=== PATIENT | female | born 1995 | race Caucasian/White ===

== ENCOUNTER 2023-03-13 10:40 | Outpatient (OUT) | payer BC, SELFPAY ==
[2023-03-13 11:18] LABS: Estimated Average Glucose 111 mg/dL; Glycohemoglobin A1C 5.5 % (4.5-6.2)
[2023-03-13 11:26] LABS: Thyroid Stimulating Hormone 2.233 uIU/mL (0.358-3.740)
== END 2023-03-13 10:41 | disposition home or self-care (01) ==
PROVIDERS: PCP Family Medicine; Visit Provider Family Medicine
DX: R73.9 Hyperglycemia, unspecified (principal); R63.4 Abnormal weight loss
CPT/HCPCS: 36415; 83036; 84443

== ENCOUNTER 2023-09-23 19:05 | Outpatient (REF) | payer BC, SELFPAY ==
--- OUTSIDE RECORDS SUMMARY | 2023-09-23 19:09 | XMS_ITS | CCD ---
Author Organization [facility] Care Team Providers [place] Name Role Phone Karsten Caceres Unavailable TYREE ., DR MOBLEY Attending Unavailable REQUEST, DR LEMA LISTED Primary Care Unavaila ble TYREE ., DR MOBLEY Consulting Unavailable TYREE ., DR MOBLEY Admitting Unavailable TYREE ., DR MOBLEY Attending Unavailable REQUEST, NONE LISTED Primary Care Unavaila ble TYREE ., DR MOBLEY Consulting Unavailable TYREE ., DR MOBLEY Admitting Unavailable Zieber, Keny Consulting Unavailable TYREE ., DR MOBLEY Attending Unavailable PAZ, DR TOVAR Primary Care Unavailable TYREE ., DR MOBLEY Consulting Unavailable TYREE ., DR MOBLEY Admitting Unavailable TYREE ., DR MOBLEY Attending Unavailable REQUEST, NONE LISTED Primary Care Unavaila ble TYREE ., DR MOBLEY Consulting Unavailable TYREE ., DR MOBLEY Admitting Unavailable MORGOS, ADRIAN Consulting Unavailable TYREE ., DR MOBLEY Procedure Practitioner Unavail able REQUEST, DR LEMA LISTED Primary Care Unavaila ble TYREE ., DR MOBLEY Attending Unavailable TYREE ., DR MOBLEY Admitting Unavailable TYREE ., DR MOBLEY Attending Unavailable REQUEST, NONE LISTED Primary Care Unavaila ble TYREE ., DR MOBLEY Admitting Unavailable TYREE ., DR MOBLEY Attending Unavailable REQUEST, NONE LISTED Primary Care Unavaila ble TYREE ., DR MOBLEY Admitting Unavailable TYREE ., DR MOBLEY Attending Unavailable TYREE ., DR MOBLEY Consulting Unavailable REQUEST, NONE LISTED Primary Care Unavaila ble TYREE ., DR MOBLEY Admitting Unavailable TYREE ., DR MOBLEY Admitting Unavailable TYREE ., DR MOBLEY Attending Unavailable REQUEST, DR NONE LISTED Primary Care Unavaila ble TYREE ., DR MOBLEY Consulting Unavailable Medications Current Medications Medication Drug Class(es) Dates Sig (Normalized) Sig (Original) omeprazole 20 mg delayed release oral capsule (3 sources) Proton Pump Inhibitor take 1 capsule by mouth once daily Omeprazole 20 MG 1 capsule 30 minutes before morning meal Orally Once a day Active phentermine hydrochloride 37.5 mg oral tablet (4 sources) Sympathomimetic Amine Anorectic Start: 04-20-2023 take 1 tablet by mouth every twenty-four hours Phentermine HCl 37.5 MG 1 tablet Orally Once a day for 30 days PT will pay lassiter for the medication, no PA will be done Mar, Active Start: 03-23-2023 take 1 tablet by radhames th every twenty-four hours Phentermine HCl 37.5 MG 1 tablet Orally Once a day for 30 days Feb, Active Problems Active Problems Problem Classification Problem Date Documented Da te Episodic/Chronic Diabetes mellitus without complication (7 sources) Other abnormal glucose; Translations: [Hyperglycemia, unspecified] Onset: 10-20-2021 Episodic Other nutritional; endocrine; and metabolic disorders (3 sources) Abnormal weight gain Episodic Unclassified (1 source) CONTACT W/AND (SUSP) EXPOS COVID-19; Translations: [CONTACT W/AND (SUSP) EXPOS COVID-19] Onset: 01-03-2022 Past or Other Problems Problem Classification Problem Date Documented Da te Episodic/Chronic OB-related trauma to perineum and vulva (1 source) Second degree perineal laceration during delivery; Translations: [SECOND DEG PERINEAL LAC DUR DELIV] Onset: 01-03-2022 Episodic Other complications of (2 sources) Supervision of with other poor reproductive or obstetric history, third trimester; Translations: [SUP PG OTH POOR REPROD/OB HX 3RD TM] Onset: 12-27-2021 Episodic Other complications of (4 sources) Uterine size-date discrepancy, unspecified trimester; Translations: [UTERINE SZ-DATE DISCREPANCY UNS TRI] Onset: 11-18-2021 Episodic Other gastrointestinal disorders (1 source) Heartburn Onset: 11-10-2021 Resolved: 11-10-2021 Episodic Other and delivery including normal (10 sources) state, incidental; Translations: [Encounter for care and examination of lactating mother] Onset: 11-10-2021 Resolved: 11-10-2021 Episodic Other screening for suspected conditions (not mental disorders or infectious disease) (8 sources) Encounter for screening for Streptococcus B; Translations: [Encounter for screening for diabetes mellitus] Onset: 10-09-2021 Episodic Residual codes; unclassified (1 source) 39 weeks gestation of ; Translations: [39 WEEKS GESTATION OF ] Onset: 01-03-2022 Episodic Results Test Name Value Interpretation Reference Range Facil ity CBC AUTO DIFFon 12-29-2021 BASO # 0.0 103/ul Normal 0.0-0.1 [facility] Comment on above: Performed By: #### C BC #### [facility] [address] [address] [address] Sae Flores Basophils/100 WBC (Bld) 0.2 % Normal 0.2-2.0 [facility] Comment on above: Performed By: #### C BC #### [facility] [address] [place] [address] Dr. Sae Flores EO # 0.0 103/ul Normal 0.0-0.7 [facility] Comment on above: Performed By: #### C BC #### [facility] [address] [address] [address] Sae Flores Eosinophils/100 WBC (Bld) 0.1 % Critically low 0.9-7.0 [facility] Comment on above: Performed By: #### C BC #### [facility] [address] [address] [address] Sae Flores Erythrocyte distribution width (RBC) [Ratio] 13.8 % Normal 11.0-15.0 [facility] Comment on above: Performed By: #### C BC #### [facility] [address] [place] [address] Dr. Sae Flores Hematocrit (Bld) [Volume fraction] 30.2 % Critically low 36.0-48.0 [facility] Comment on above: Performed By: #### C BC #### [facility] [address] [place] [address] Dr. Sae Flores Hemoglobin (Bld) [Mass/Vol] 9.9 g/dL Critically low 12.0-16.0 [facility] Comment on above: Performed By: #### C BC #### [facility] [address] [address] [address] Sae Flores IG # 0.08 10e3/ul Critically high 0.00-0.03 [facility] Comment on above: Performed By: #### C BC #### [facility] [address] [place] [address] Dr. Sae Flores IG % 0.5 % Normal 0.0-0.5 [facility] Comment on above: Performed By: #### C BC #### [facility] [address] [place] [address] Dr. Sae Flores LYMPH # 1.6 103/ul Normal 1.2-3.8 [facility] Comment on above: Performed By: #### C BC #### [facility] [address] [place] [address] Dr. Sae Flores Lymphocytes/100 WBC (Bld) 9.4 % Critically low 20.5-60.0 [facility] Comment on above: Performed By: #### C BC #### [facility] [address] [place] [address] Dr. Sae Flores MANUAL DIFF REQ NO Normal [facility] Comment on above: Performed By: #### C BC #### [facility] [address] [place] [address] Dr. Sae Flores MCH (RBC) [Entitic mass] 29.9 pg Normal 26.7-34.0 [facility] Comment on above: Performed By: #### C BC #### [facility] [address] [place] [address] Dr. Sae Flores MCHC (RBC) [Mass/Vol] 32.8 g/dL Normal 29.9-35.2 [facility] Comment on above: Performed By: #### C BC #### [facility] [address] [place] [address] Dr. Sae Flores MCV (RBC) [Entitic vol] 91.2 fL Normal 81.0-99.0 [facility] Comment on above: Performed By: #### C BC #### [facility] [address] [address] [address] Sae Flores MONO # 1.2 103/ul Critically high 0.3-0.8 [facility] Comment on above: Performed By: #### C BC #### [facility] [address] [address] [address] Sae Flores Monocytes/100 WBC (Bld) 7.0 % Normal 1.7-12.0 [facility] Comment on above: Performed By: #### C BC #### [facility] [address] [address] [address] Sae Flores NEUT # 14.3 103/ul Critically high 1.4-6.5 [facility] Comment on above: Performed By: #### C BC #### [facility] [address] [place] [address] Dr. Sae Flores Neutrophils/100 WBC (Bld) 82.8 % Critically high 43.0-75.0 [facility] Comment on above: Performed By: #### C BC #### [facility] [address] [place] [address] Dr. Sae Flores Platelet mean volume (Bld) [Entitic vol] 9.1 fL Critically low 9.5-13.5 [facility] Comment on above: Performed By: #### C BC #### [facility] [address] [place] [address] Dr. Sae Flores PLT 207 103/ul Normal 150-450 [facility] Comment on above: Performed By: #### C BC #### [facility] [address] [address] [address] Sae Flores RBC 3.31 106/ul Critically low 4.20-5.40 [facility] Comment on above: Performed By: #### C BC #### [facility] [address] [address] [address] Sae Flores WBC 17.3 103/ul Critically high 4.0-11.0 [facility] Comment on above: Performed By: #### C BC #### [facility] [address] [place] [address] Dr. Sae Flores DRUG SCREEN RAPID (URINE)on 12-28-2021 AMP Negative Normal NEGATIVE [facility] Comment on above: Performed By: #### D RUGRPD #### [facility] [address] [place] [address] Dr. Sae Flores BAR Negative Normal NEGATIVE [facility] Comment on above: Performed By: #### D RUGRPD #### [facility] [address] [place] [address] Dr. Sae Flores BUP Negative Normal NEGATIVE [facility] Comment on above: Performed By: #### D RUGRPD #### [facility] [address] [place] [address] Dr. Sae Flores BZO Negative Normal NEGATIVE [facility] Comment on above: Performed By: #### D RUGRPD #### [facility] [address] [place] [address] Dr. Sae Flores CONSTANCE Negative Normal NEGATIVE [facility] Comment on above: Performed By: #### D RUGRPD #### [facility] [address] [place] [address] Dr. Sae Flores CUT-OFFS SEE BELOW Normal [facility] Comment on above: Result Comment: AMP (Amphetamine): 500ng/mL, BAR (Barbituates): 200 ng/mL, BZO (Benzodiazepines): 150 ng/mL, BUP (Buprenorphine): 10 ng/mL, CONSTANCE (Cocaine): 150 ng/mL, mAMP (Methamphetamine): 500 ng/mL, MTD (Methadone): 200 ng/mL, OPI (Opiates): 100 ng/mL, OXY (Oxycodone): 100 ng/mL, PCP (Phencyclidine): 25 ng/mL, PPX (Propoxyphene): 300 ng/mL, THC (Cannabinoids): 50 ng/mL, TCA (Trycyclic Antidepressants): 300 ng/mL Performed By: #### D RUGRPD #### [facility] [address] [place] [address] Dr. Sae Flores DRUG CUT HEADER DRUG CLASS TEST SYSTEM CUT-OFF CONCENTRATIONS ARE FOLLOWS: Normal [facility] Comment on above: Performed By: #### D RUGRPD #### [facility] [address] [place] [address] Dr. Sae Flores mAMP Negative Normal NEGATIVE [facility] Comment on above: Performed By: #### D RUGRPD #### [facility] [address] [place] [address] Dr. Sae Flores MTD Negative Normal NEGATIVE [facility] Comment on above: Performed By: #### D RUGRPD #### [facility] [address] [place] [address] Dr. Sae Flores OPI Negative Normal NEGATIVE [facility] Comment on above: Performed By: #### D RUGRPD #### [facility] [address] [place] [address] Dr. Sae Flores OXY Negative Normal NEGATIVE [facility] Comment on above: Performed By: #### D RUGRPD #### [facility] [address] [place] [address] Dr. Sae Flores PCP Negative Normal NEGATIVE [facility] Comment on above: Performed By: #### D RUGRPD #### [facility] [address] [place] [address] Dr. Sae Flores PPX Negative Normal NEGATIVE [facility] Comment on above: Performed By: #### D RUGRPD #### [facility] [address] [place] [address] Dr. Sae Flores TCA Negative Normal NEGATIVE [facility] Comment on above: Performed By: #### D RUGRPD #### [facility] [address] [place] [address] Dr. Sae Flores THC Negative Normal NEGATIVE [facility] Comment on above: Performed By: #### D RUGRPD #### [facility] [address] [place] [address] Dr. Sae Flores CBC AUTO DIFFon 12-27-2021 BASO # 0.0 103/ul Normal 0.0-0.1 [facility] Comment on above: Performed By: #### C BC #### [facility] [address] [place] [address] Dr. Sae Flores Basophils/100 WBC (Bld) 0.2 % Normal 0.2-2.0 [facility] Comment on above: Performed By: #### C BC #### [facility] [address] [place] [address] Dr. Sae Flores EO # 0.2 103/ul Normal 0.0-0.7 [facility] Comment on above: Performed By: #### C BC #### [facility] [address] [place] [address] Dr. Sae Flores Eosinophils/100 WBC (Bld) 1.3 % Normal 0.9-7.0 [facility] Comment on above: Performed By: #### C BC #### [facility] [address] [place] [address] Dr. Sae Flores Erythrocyte distribution width (RBC) [Ratio] 14.0 % Normal 11.0-15.0 [facility] Comment on above: Performed By: #### C BC #### [facility] [address] [place] [address] Dr. Sae Flores Hematocrit (Bld) [Volume fraction] 33.6 % Critically low 36.0-48.0 [facility] Comment on above: Performed By: #### C BC #### [facility] [address] [place] [address] Dr. Sae Flores Hemoglobin (Bld) [Mass/Vol] 11.2 g/dL Critically low 12.0-16.0 [facility] Comment on above: Performed By: #### C BC #### [facility] [address] [place] [address] Dr. Sae Flores IG # 0.08 10e3/ul Critically high 0.00-0.03 [facility] Comment on above: Performed By: #### C BC #### [facility] [address] [place] [address] Dr. Sae Flores IG % 0.7 % Critically high 0.0-0.5 [facility] Comment on above: Performed By: #### C BC #### [facility] [address] [place] [address] Dr. Sae Flores LYMPH # 1.9 103/ul Normal 1.2-3.8 [facility] Comment on above: Performed By: #### C BC #### [facility] [address] [place] [address] Dr. Sae Flores Lymphocytes/100 WBC (Bld) 16.9 % Critically low 20.5-60.0 [facility] Comment on above: Performed By: #### C BC #### [facility] [address] [place] [address] Dr. Sae Flores MANUAL DIFF REQ NO Normal [facility] Comment on above: Performed By: #### C BC #### [facility] [address] [place] [address] Dr. Sae Flores MCH (RBC) [Entitic mass] 30.0 pg Normal 26.7-34.0 [facility] Comment on above: Performed By: #### C BC #### [facility] [address] [place] [address] Dr. Sae Flores MCHC (RBC) [Mass/Vol] 33.3 g/dL Normal 29.9-35.2 [facility] Comment on above: Performed By: #### C BC #### [facility] [address] [place] [address] Dr. Sae Flores MCV (RBC) [Entitic vol] 90.1 fL Normal 81.0-99.0 [facility] Comment on above: Performed By: #### C BC #### [facility] [address] [place] [address] Dr. Sae Flores MONO # 0.8 103/ul Normal 0.3-0.8 [facility] Comment on above: Performed By: #### C BC #### [facility] [address] [place] [address] Dr. Sae Flores Monocytes/100 WBC (Bld) 7.0 % Normal 1.7-12.0 [facility] Comment on above: Performed By: #### C BC #### [facility] [address] [place] [address] Dr. Sae Flores NEUT # 8.5 103/ul Critically high 1.4-6.5 [facility] Comment on above: Performed By: #### C BC #### [facility] [address] [address] [address] Sae Flores Neutrophils/100 WBC (Bld) 73.9 % Normal 43.0-75.0 [facility] Comment on above: Performed By: #### C BC #### [facility] [address] [address] [address] Sae Flores Platelet mean volume (Bld) [Entitic vol] 10.3 fL Normal 9.5-13.5 [facility] Comment on above: Performed By: #### C BC #### [facility] [address] [place] [address] Dr. Sae Flores PLT 214 103/ul Normal 150-450 [facility] Comment on above: Performed By: #### C BC #### [facility] [address] [place] [address] Dr. Sae Flores RBC 3.73 106/ul Critically low 4.20-5.40 [facility] Comment on above: Performed By: #### C BC #### [facility] [address] [address] [address] Sae Flores WBC 11.5 103/ul Critically high 4.0-11.0 [facility] Comment on above: Performed By: #### C BC #### [facility] [address] [place] [address] Dr. Sae Flores Covid-19 PCR ([facility])on SARS-CoV-2 (COVID-19) RNA [place]+probe Ql (Unsp spec) Not detected Normal NOT DETECTED [facility] Comment on above: Result Comment: When diagnostic testing is negative, the possibility of a false negative should be considered in the context of a patient's recent exposures and the presence of clinical signs and symptoms consistent with SARS-CoV-2. This test is not yet approved or cleared by the [place] FDA. When there are no FDA-approved or cleared tests available, and other criteria are met, FDA can make tests available under an emergency access mechanism called an Emergency Use Authorization (EUA). The EUA for this test is supported by the [place] of Health and Human Service's declaration that circumstances exist to justify the emergency use of in vitro diagnostics for the detection and/or diagnosis of the virus that causes COVID-19. This EUA will remain in effect for the duration of the COVID-19 declaration justifying emergency of IVDs, unless it is terminated or revoked by the FDA (after which the test may no longer be used). Performed By: #### C VDTBH #### [facility] [address] [place] [address] Dr. Sae Flores DRUG SCREEN RAPID (URINE)on 12-27-2021 AMP Negative Normal NEGATIVE [facility] Comment on above: Performed By: #### D RUGRPD #### [facility] [address] [place] [address] Dr. Sae Flores BAR Negative Normal NEGATIVE [facility] Comment on above: Performed By: #### D RUGRPD #### [facility] [address] [place] [address] Dr. Sae Flores BUP Negative Normal NEGATIVE [facility] Comment on above: Performed By: #### D RUGRPD #### [facility] [address] [place] [address] Dr. Sae Flores BZO Negative Normal NEGATIVE [facility] Comment on above: Performed By: #### D RUGRPD #### [facility] [address] [place] [address] Dr. Sae Flores CONSTANCE Negative Normal NEGATIVE [facility] Comment on above: Performed By: #### D RUGRPD #### [facility] [address] [place] [address] Dr. Sae Flores CUT-OFFS SEE BELOW Normal [facility] Comment on above: Result Comment: AMP (Amphetamine): 500ng/mL, BAR (Barbituates): 200 ng/mL, BZO (Benzodiazepines): 150 ng/mL, BUP (Buprenorphine): 10 ng/mL, CONSTANCE (Cocaine): 150 ng/mL, mAMP (Methamphetamine): 500 ng/mL, MTD (Methadone): 200 ng/mL, OPI (Opiates): 100 ng/mL, OXY (Oxycodone): 100 ng/mL, PCP (Phencyclidine): 25 ng/mL, PPX (Propoxyphene): 300 ng/mL, THC (Cannabinoids): 50 ng/mL, TCA (Trycyclic Antidepressants): 300 ng/mL Performed By: #### D RUGRPD #### [facility] [address] [place] [address] Dr. Sae Flores DRUG CUT HEADER DRUG CLASS TEST SYSTEM CUT-OFF CONCENTRATIONS ARE FOLLOWS: Normal [facility] Comment on above: Performed By: #### D RUGRPD #### [facility] [address] [place] [address] Dr. Sae Flores mAMP Negative Normal NEGATIVE [facility] Comment on above: Performed By: #### D RUGRPD #### [facility] [address] [place] [address] Dr. Sae Flores MTD Negative Normal NEGATIVE [facility] Comment on above: Performed By: #### D RUGRPD #### [facility] [address] [place] [address] Dr. Sae Flores OPI Negative Normal NEGATIVE [facility] Comment on above: Result Comment: Prev iously reported as: POSITIVE On 12/27/2021 20:19 By MH01 Performed By: #### D RUGRPD #### [facility] [address] [place] [address] Dr. Sae Flores OXY Negative Normal NEGATIVE [facility] Comment on above: Performed By: #### D RUGRPD #### [facility] [address] [place] [address] Dr. Sae Flores PCP Negative Normal NEGATIVE [facility] Comment on above: Performed By: #### D RUGRPD #### [facility] [address] [place] [address] Dr. Sae Flores PPX Negative Normal NEGATIVE [facility] Comment on above: Performed By: #### D RUGRPD #### [facility] [address] [place] [address] Dr. Sae Flores TCA Negative Normal NEGATIVE [facility] Comment on above: Performed By: #### D RUGRPD #### [facility] [address] [address] [address] Sae Flores THC Negative Normal NEGATIVE [facility] Comment on above: Performed By: #### D RUGRPD #### [facility] [address] [address] [address] Sae Flores TYPE AND SCREENon 12-27-2021 TYPE AND SCREEN Negative Normal [facility] Comment on above: Performed By: #### T NS #### [facility] [address] [address] [address] Sae Flores GROUP B STREP CULTUREon S. agalactiae Ag Ql (Unsp spec) Culture Observations: NEGATIVE FOR GROUP B STREPTOCOCCUS. Normal [facility] Comment on above: Performed By: #### G BSCX #### [facility] [address] [place] [address] Dr. Sae Flores US PREG GROWTHon 11-18-2021 US PREG GROWTH EXAMINATION: US PREG GROWTH HISTORY: Uterine size for dates discrepancy COMPARISON: Ultrasound anatomy 08/25/2021 FINDINGS: Heart Rate: 152.0 bpm Number: 1.0 Position: CEPHALIC Amniotic Fluid Volume: 12.0 cm Maximum Vertical Pocket: 4.7 cm BIOMETRY: BPD: 8.2 cm cm; 32 weeks 6 days; 23% HC: 29.9 cmcm; 33 weeks 1 days; 7 % AC: 29.4 cm cm; 33 weeks 3 days; 43% FL: 6.4 cm cm; 33 weeks 2 days; 27% EFW: 2155.4 grams; 29% FL/AC: 21.9 FL/BPD: 78.7 HC/AC: 1.0 GESTATIONAL AGE: Age by EDC: 33 weeks 5 days TATA by EDC: 01/01/2022 Age by US: 33 weeks, 1 day TATA by US: 01/05/2022 IMPRESSION: 1. Single live intrauterine with growth detailed above. Electronically authenticated by: KENY CESPEDES Date: 2021-11-18 16:40 Normal [facility] GTT 3 HR PREGon 10-20-2021 Glucose [Mass/Vol] 93 mg/dL Normal 74-106 [facility] [facility] Comment on above: Performed By: #### G TT3P #### [facility] [address] [address] [address] Sae Flores Glucose [Mass/Vol] 164 mg/dL Normal [facility] Comment on above: Performed By: #### G TT3P #### [facility] [address] [address] [address] Sae Flores Glucose [Mass/Vol] 116 mg/dL Normal [facility] Comment on above: Performed By: #### G TT3P #### [facility] [address] [place] [address] Dr. Sae Flores Glucose [Mass/Vol] 83 mg/dL Normal [facility] Comment on above: Performed By: #### G TT3P #### [facility] [address] [place] [address] Dr. Sae Flores GLUCOSE - 1HRon 10-09-2021 Glucose [Mass/Vol] 176 mg/dL Critically high 74-106 [facility] Comment on above: Performed By: #### G LU1HR #### [facility] [address] [place] [address] Dr. Sae Flores HEMOGRAM AND PLATELon 2021 Hematocrit (Bld) [Volume fraction] 33.6 % Critically low 36.0-48.0 [facility] Comment on above: Performed By: #### H H #### [facility] [address] [place] [address] Dr. Sae Flores Hemoglobin (Bld) [Mass/Vol] 11.0 g/dL Critically low 12.0-16.0 [facility] Comment on above: Performed By: #### H H #### [facility] [address] [place] [address] Dr. Sae Flores MCH (RBC) [Entitic mass] 30.6 pg Normal 26.7-34.0 [facility] Comment on above: Performed By: #### H H #### [facility] [address] [place] [address] Dr. Sae Flores MCHC (RBC) [Mass/Vol] 32.7 g/dL Normal 29.9-35.2 [facility] Comment on above: Performed By: #### H H #### [facility] [address] [address] [address] Sae Flores MCV (RBC) [Entitic vol] 93.3 fL Normal 81.0-99.0 [facility] Comment on above: Performed By: #### H H #### [facility] [address] [address] [address] Sae Flores PLT 219 103/ul Normal 150-450 [facility] Comment on above: Performed By: #### H H #### [facility] [address] [address] [address] Sae Flores RBC 3.60 106/ul Critically low 4.20-5.40 [facility] Comment on above: Performed By: #### H H #### [facility] [address] [address] [address] Sae Flores WBC 9.4 103/ul Normal 4.0-11.0 [facility] Comment on above: Performed By: #### H H #### [facility] [address] [address] [address] Sae Flores Vital Signs Date Time Vital Sign Value Performing Clinician Facility 04-20-2023 15:40-0500 Body height 167 cm Karsten Caceres Other [facility] Other 04-20-2023 15:40-0500 Body mass index (BMI) [Ratio] 30.54 kg/m2 Karsten Caceres Other [facility] Other 04-20-2023 15:40-0500 Body weight 85.19 kg Karsten Cacrees Other [facility] Other 04-20-2023 15:40-0500 Diastolic blood pressure 82 mm[Hg] Karsten Caceres Other [facility] Other 04-20-2023 15:40-0500 Systolic blood pressure 120 mm[Hg] Karsten Caceres Other [facility] Other 03-23-2023 15:40-0500 Body height 167 cm Karsten Francinedom Other [facility] Other 03-23-2023 15:40-0500 Body mass index (BMI) [Ratio] 31.87 kg/m2 Karsten Caceres Other [facility] Other 03-23-2023 15:40-0500 Body temperature 98.2 [degF] Karsten Francineodm Other [facility] Other 03-23-2023 15:40-0500 Body weight 88.91 kg Karsten Francinedom Other [facility] Other 03-23-2023 15:40-0500 Diastolic blood pressure 76 mm[Hg] Karsten Caceres Other [facility] Other 03-23-2023 15:40-0500 Respiratory rate 16 /min Karsten Caceres Other [facility] Other 03-23-2023 15:40-0500 SaO2% (BldA) [Mass fraction] 97 % Karsten Francinedom Other [facility] Other 03-23-2023 15:40-0500 Systolic blood pressure 108 mm[Hg] Karsten Caceres Other [facility] Other 11-10-2021 10:50-0400 Body height 167 cm Karsten Caceres Other [facility] Other 11-10-2021 10:50-0400 Body mass index (BMI) [Ratio] 31.87 kg/m2 Karsten Caceres Other [facility] Other 11-10-2021 10:50-0400 Body temperature 98.6 [degF] Karsten Caceres Other [facility] Other 11-10-2021 10:50-0400 Body weight 88.91 kg Karsten Caceres Other [facility] Other 11-10-2021 10:50-0400 Diastolic blood pressure 70 mm[Hg] Karsten Caceres Other [facility] Other 11-10-2021 10:50-0400 Respiratory rate 16 /min Karsten Caceres Other [facility] Other 11-10-2021 10:50-0400 SaO2% (BldA) [Mass fraction] 98 % Karsten Caceres Other [facility] Other 11-10-2021 10:50-0400 Systolic blood pressure 112 mm[Hg] Karsten Caceres Other [facility] Other Encounters Encounter Date Encounter Type Care Provider Facility Start: 05-20-2023 End: 05-20-2023 ambulatory Karsten Caceres Other [facility] Other Start: 05-20-2023 Office outpatient vi sit 15 minutes Karsten Caceres [facility] Start: 04-20-2023 End: 04-20-2023 ambulatory Karsten Caceres Other [facility] Other Start: 04-20-2023 Telephone encounter Karsten Caceres [facility] Start: 04-06-2023 End: 04-06-2023 ambulatory Karsten Caceres Other [facility] Other Start: 04-06-2023 Telephone encounter Karsten Caceres [facility] Start: 03-23-2023 End: 03-23-2023 ambulatory Karsten Caceres Other [facility] Other Start: 03-23-2023 Office outpatient vi sit 15 minutes Karsten Caceres [facility] Start: 10-20-2022 End: 10-20-2022 ambulatory Karsten Caceres Other [facility] Other Start: 10-20-2022 Telephone encounter Karsten Caceres [facility] Start: 09-09-2022 End: 09-09-[address] ITZ SALINAS . Facility:[facility] Start: 02-12-2022 End: 02-12-[address] ITZ SALINAS . Facility:[facility] Start: 01-02-2022 End: 01-02-[address] ITZ SALINAS . Facility:[facility] Start: 01-01-2022 Evaluation and management of inpatient NONE LISTED REQUEST Facility:[facility] Start: 12-30-2021 End: 12-30-2021 ambulatory Karsten Caceres Other [facility] Other Start: 12-30-2021 Telephone encounter Karsten Caceres [facility] Start: 12-27-2021 End: 12-30-2021 Evaluation and management of inpatient DR ITZ SALINAS . Facility:[facility] Start: 12-02-2021 End: 12-02-[address] ITZ SALINAS . Facility:[facility] Start: 11-18-2021 End: 11-19-[address] ITZ SALINAS . Facility:[facility] Start: 11-10-2021 End: 11-10-2021 ambulatory Karsten Caceres Other [facility] Other Start: 11-10-2021 Encounter for genera l adult medical examination without abnormal findings Karsten Caceres [facility] Start: 11-10-2021 Periodic preventive med est patient 18-39 yrs Karsten Caceres [facility] Start: 10-20-2021 End: 10-21-[address] ITZ SALINAS . Facility:[facility] Start: 10-09-2021 End: 10-10-[address] ITZ SLAINAS . Facility: Procedures Date Procedure Procedure Detail Performing Clinician Start: 12-28-2021 Delivery of Products of Conception, External Approach DR ITZ SALINAS . Start: 12-28-2021 Division of Female P erineum, External Approach DR TIZ SALINAS . Start: 12-28-2021 Drainage of Amniotic Fluid, Therapeutic from Products of Conception, Via Natural or Artificial Opening DR ITZ SALINAS . Start: 12-28-2021 Repair Perineum Musc le, Open Approach DR ITZ SALINAS . Start: 12-27-2021 Introduction of Othe r Hormone into Peripheral Vein, Percutaneous Approach DR ITZ SALINAS . Payers Date Payer Category Payer Unknown [id number] [id number] [id number] 1994 Unknown [id number] 2.16.84 [id number] 1994 Unknown [id number] 2.16.84 [id number] 1994 Unknown [id number] 2.16.84 [id number] 1994 Unknown [id number] 2.16.84 [id number] 1994 Unknown [id number] 2.16.84 [id number] 1994 Unknown [id number] 2.16.84 [id number] 1994 Unknown [id number] 2.16.84 [id number] 1994 Unknown [id number] 2.16.84 [id number] 1960 [id number] Social History Date Type Detail Facility Unknown if ever smoked [facility] Other Sex Assigned At Sex Assigned At Bir th [facility] Other Evaluation note 05-20-2023 Note Date & Type Note Facility 05-20-2023 Evaluation note Encounter Date Diagnosis Assessment Notes Apr, Hyperglycemia (ICD-10 - R73.9) Anticipate that dietary changes and weight loss will help improve her blood sugar readings. Apr, Weight gain (ICD-10 - R63.5) Her weight in the office on 05/20/23 was 189 pounds. She needs to have lost another 2 pounds (total of 9 pounds) by the end of the third month in order to continue with the Adipex. She continues to do well on the medication and should continue to watch her intake of carbs and sugars. She states that the dry mouth continues to be a little bit of a problem but it is not as bad as it was. She is to stay well hydrated. She will return in one month for re-evaluation. She was provided with a refill today. Side effects/risks/be nefits of medication were reviewed. Apr, Other This documentation is being amended on 05/26/23 due to an internal data corruption event that occurred on 05/20/23. This data corruption event was NOT the result of any breach, fraud, or malicious third republican actors and no personal patient information was compromised. [facility] Other Evaluation note 04-20-2023 Note Date & Type Note Facility 04-20-2023 Evaluation note Encounter Date Diagnosis Assessment Notes Mar, Hyperglycemia (ICD-10 - R73.9) Anticipate that weight loss will help to improve her blood sugar. Mar, Weight gain (ICD-10 - R63.5) She has lost 8.2 pounds since last seen and is doing well on the Adipex. She needs to have lost 9 pounds by 3 months in order to continue with the Adipex so she has almost reached that goal. She voices that feeling better and having more energy is her goal. She would like to continue with the Adipex. She is to return as scheduled in April (2023). Side effects/risks /benefits of medication were reviewed. She has had dry mouth from the Adipex but admits this is keeping her very hydrated and I did recommend she stay hydrated with plenty of water daily. She can tell that the medication is helping to decrease her appetite. She has decreased her portion size. Mar, Other 3:55 PM - 4:00 PM [facility] Other Evaluation note 03-23-2023 Note Date & Type Note Facility 03-23-2023 Evaluation note Encounter Date Diagnosis Assessment Notes Feb, Hyperglycemia (ICD-10 - R73.9) Discussed that her HgA1C has gone down from 5.6 to 5.5. She is encouraged to continue to monitor her intake of carbs and sugars. Stay active. Feb, Weight gain (ICD-10 - R63.5) She has gained four pounds since last seen. She voices that she started control in 2017. She was active at the time and climbed many stairs to her apartment at the time so she did not notice any weight gain with the control. Going into her she was 170 pounds. She has not been able to lose weight since she had her daughter. Her TSH is normal at 2.233. She has been doing better with watching her intake of carbs and sugars. She had cut out dairy during months 3-7 of her daughter and while she did this and even during the she did not lose any weight. She is not any longer. We discussed starting her on Adipex to help with weight loss. Side effects/risks/be nefits of medication were reviewed. She would have to call with a blood pressure reading in one week and would have to be seen once a month for evaluation. She would need to make lifestyle and dietary changes that she can continue with once she has finished the medication to keep the weight she has lost off. While on this medication avoid caffeine. If by 3 months she has lost 5% of her body weight (9 pounds) then she can continue with the medicine. [facility] Other Evaluation note 11-10-2021 Note Date & Type Note Facility 11-10-2021 Evaluation note Encounter Date Diagnosis Assessment Notes Oct, Wellness examination (ICD-10 - Z00.00) She is here for a wellness exam today. After evaluation I did sign her wellness form. She voices that she had lab completed through her employer. I did ask her to send us a copy of the results. Oct, (ICD-10 - Z33.1) She is currently 32 weeks , she follows with Dr. Salinas for evaluation. She did fail her first glucose tolerance test but passed her second. I did explain to her that this puts her at higher risk for developing diabetes down the road. 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 Oct, Heartburn (ICD-10 - R12) She voices that she was prescribed above medication by Dr. Salinas her customer service operator for the heartburn she has. [facility] Other History general Narrative - Reported 11-15-2012 Note Date & Type Note Facility 11-15-2012 History general N arrative - Reported Type Medical History Meningitis/Menactra 11-15-12 [facility] Medical History Adacel (Tdap) 11-15-12 [facility] Surgical History wisdom teeth removed 2015 [facility] Other History general Narrative - Reported 11-15-2012 Note Date & Type Note Facility 11-15-2012 History general N arrative - Reported Type Medical History Meningitis/Menactra 11-15-12 [facility] Medical History Adacel (Tdap) 11-15-12 [facility] Surgical History wisdom teeth removed 2015 Hospitalization History Childbirth 12/28/2021 [facility] Other Evaluation note Note Date & Type Note Facility Evaluation note No Information [facility] Other Summary Purpose Family History No Family History Records Found Advance Directives No Advanced Directives Records Found Additional Source Comments REASON FOR VISIT (unrecogniz ed section and content) wellnessnewbornnotereview la bsBPmanagement of Hyperglycemia, refill medicationmed refill Adipex INFORMATION SOURCE (unrecogn ized section and content) DATE CREATED AUTHOR 09/10/2022 [facility] FOR RECORDS PERTAINING TO PATIENTS WHO ARE OR HAVE BEEN ENROLLED IN A CHEMICAL DEPENDENCY/SUBSTANCEABUSE PROGRAM, SOME INFORMATION MAY BE OMITTED. This clinical summary was aggregated from multiple sources. Caution should be exercised in using it in the provision of clinical care. This summary normalizes information from multiple sources, and as a consequence, information in this document may materially change the coding, format and clinical context of patient data. In addition, data may be omitted in some cases. CLINICAL DECISIONS SHOULD BE BASED ON THE PRIMARY CLINICAL RECORDS. [facility]. provides no warranty or guarantee of the accuracy or completeness of information in this document.
[2023-09-28 12:09] LABS: Age Gdln ACOG Testing Note (.); IGP, rfx Aptima HPV ASCU Note (.)
== END 2023-09-23 19:06 | disposition home or self-care (01) ==
LOC: LAB 19:05
PROVIDERS: PCP Family Medicine; Visit Provider Obstetrics & Gynecology
DX: Z01.419 Encounter for gynecological examination (general) (routine) without abnormal findings (principal)
CPT/HCPCS: 88175

== ENCOUNTER 2024-06-15 12:08 | Outpatient (OUT) | payer BC, SELFPAY ==
--- OUTSIDE RECORDS SUMMARY | 2024-06-15 12:17 | XMS_ITS | CCD ---
Author Organization [facility]ini[facility] Care Team Providers Care Product Communications Manager Name Role Phone Karsten Caceres BRAD ., DR MOBLEY Attending Unavailable REQUEST, DR LEMA LISTED Primary Care Unavaila ble BRAD ., DR MOBLEY Consulting Unavailable BRAD ., DR MOBLEY Admitting Unavailable BRAD ., DR MOBLEY Attending Unavailable REQUEST, NONE LISTED Primary Care Unavaila ble BRAD ., DR MOBLEY Consulting Unavailable BRAD ., DR MOBLEY Admitting Unavailable Zieber, Keny Consulting Unavailable BRAD ., DR MOBLEY Attending Unavailable PAZ, DR TOVAR Primary Care Unavailable BRAD ., DR MOBLEY Consulting Unavailable BRAD ., DR MOBLEY Admitting Unavailable BRAD ., DR MOBLEY Attending Unavailable REQUEST, DR NONE LISTED Primary Care Unavaila ble BRAD ., DR MOBLEY Consulting Unavailable BRAD ., DR MOBLEY Admitting Unavailable MORGOS, ADRIAN Consulting Unavailable BRAD ., DR MOBLEY Procedure Practitioner Unavail able REQUEST, DR LEMA LISTED Primary Care Unavaila ble BRAD ., DR MOBLEY Attending Unavailable BRAD ., DR MOBLEY Admitting Unavailable BRAD ., DR MOBLEY Attending Unavailable REQUEST, NONE LISTED Primary Care Unavaila ble BRAD ., DR MOBLEY Admitting Unavailable BRAD ., DR MOBLEY Attending Unavailable REQUEST, NONE LISTED Primary Care Unavaila ble BRAD ., DR MOBLEY Admitting Unavailable BRAD ., DR MOBLEY Attending Unavailable BRAD ., DR MOBLEY Consulting Unavailable REQUEST, NONE LISTED Primary Care Unavaila ble BRAD ., DR MOBLEY Admitting Unavailable BRAD ., DR MOBLEY Admitting Unavailable BRAD ., DR MOBLEY Attending Unavailable REQUEST, DR NONE LISTED Primary Care Unavaila ble BRAD ., DR MOBLEY Consulting Unavailable Paz ROQUE, Karsten Silverio Primary Care Provider ITZ SALINAS Attending Unavailable ITZ SALINAS Attending Unavailable Medications Current Medications Medication Drug Class(es) Dates Sig (Normalized) Sig (Original) omeprazole 20 mg delayed release oral capsule (3 sources) Proton Pump Inhibitor take 1 capsule by mouth once daily Omeprazole 20 MG 1 capsule 30 minutes before morning meal Orally Once a day Active Completed/Discontinued Medications Medication Drug Class(es) Dates Sig (Normalized) Sig (Original) desogestrel 0.15 mg / ethinyl estradiol 0.03 mg oral tablet (1 source) Progestin, Estrogen Start: 11-15-2023 End: 05-04-2024 desogestrel-ethiny l estradiol (Apri) 0.15-30 MG-MCG tablet Indications: control counseling Take 1 tablet by mouth Daily 28 tablet 12 11/15/2023 05/04/2024 Discontinued (Therapy completed) norethindrone 0.35 mg oral tablet (3 sources) Start: 06-21-2023 End: 05-04-2024 take 1 tablet by mouth once daily norethindrone (Incassia) 0.35 MG tablet Indications: Uses control Take 1 tablet (0.35 mg) by mouth Daily 28 tablet 09/06/2023 05/04/2024 Discontinued (Ineffective) phentermine hydrochloride 37.5 mg oral tablet (17 sources) Sympathomimetic Amine Anorectic Start: 06-21-2023 End: 12-21-2023 take 37.5 mg by mouth once daily Phentermine Discontinued 37.5 MG PO Daily October 29, 2023 11:07am December 21, 2023 9:35am Start: 04-20-2023 take 1 tablet by radhames th every twenty-four hours Phentermine HCl 37.5 MG 1 tablet Orally Once a day for 30 days PT will pay lassiter for the medication, no PA will be done Mar, Active Start: 03-23-2023 End: 05-04-2024 take 1 tablet by mouth every twenty-four hours Phentermine HCl 37.5 MG 1 tablet Orally Once a day for 30 days Feb, Active Problems Active Problems Problem Classification Problem Date Documented Date Episodic/Chronic Diabetes mellitus without complication (12 sources) Other abnormal glucose; Translations: [Hyperglycemia, unspecified] Onset: 10-20-2021 Episodic Intestinal infection (2 sources) Viral gastroenteritis due to [place]-like agent; Translations: [Acute gastroenteropathy due to [place] agent] 06-21-2023 Episodic Menstrual disorders (1 source) Missed period; Translations: [Irregular menstruation, unspecified] 05-05-2024 Chronic Other nutritional; endocrine; and metabolic disorders (6 sources) Abnormal weight gain; Translations: [Abnormal weight gain] Episodic Other nutritional; endocrine; and metabolic disorders (2 sources) Weight gain; Translations: [Abnormal weight gain] 06-21-2023 Episodic Other and delivery including normal (14 sources) state, incidental; Translations: [Encounter for care and examination of lactating mother] Onset: 11-10-2021 Resolved: 11-10-2021 Episodic Residual codes; unclassified (1 source) Gestation period, 9 weeks; Translations: [9 weeks gestation of ] 05-05-2024 Episodic Residual codes; unclassified (2 sources) Gestation period, 14 weeks; Translations: [14 weeks gestation of ] 06-06-2024 Episodic Spondylosis; intervertebral disc disorders; other back problems (2 sources) Low back pain; Translations: [Lumbar back pain] 12-21-2023 Episodic Unclassified (1 source) CONTACT W/AND (SUSP) EXPOS COVID-19; Translations: [CONTACT W/AND (SUSP) EXPOS COVID-19] Onset: 01-03-2022 Unclassified (2 sources) OB Reminders Onset: 06-06-2024 06-06-2024 Past or Other Problems Problem Classification Problem [...] Heartburn Onset: 11-10-2021 Resolved: 11-10-2021 Episodic Other screening for suspected conditions (not mental disorders or infectious disease) (8 sources) Encounter for screening for Streptococcus B; Translations: [Encounter for screening for diabetes mellitus] Onset: 10-09-2021 Episodic Residual codes; unclassified (1 source) 39 weeks gestation of ; Translations: [39 WEEKS GESTATION OF ] Onset: 01-03-2022 Episodic Results Test Name Value Interpretation Reference Range Facility Urinalysis macro (dipstick) panel (U)on 06-06-2024 Bilirubin, UA Negative Negative - 4(70) +++ mg/dL [facility] Blood, UA Negative Negative - 50 Jay/mcL [facility] Clarity, UA Clear formerly [facility] re Color, UA Yellow [facility] Glucose, UA Negative Negative - 1999(110) ++++ mg/dL [facility] Interpretation and review of laboratory results Abnormal formerly [facility] re Ketones, UA Negative Negative - 160(16) ++++ mg/dL [facility] Leukocytes, UA Negative Negative - 500+++ Kate/mcL [facility] Nitrite, UA Negative Negative - Positive [facility] pH, UA 6.5 5 - 9 [facility] Protein, UA Trace Negative - 1999(20) ++++ mg/dL [facility] Spec Grav, UA 1.03 1 - 1.03 [facility] Urobilinogen, UA 0.2 0.2 - 12 mg/dL [facility] HCG ( test) Ql (U)o n 05-05-2024 Interpretation and review of laboratory results Abnormal formerly [facility] re Preg Test, Ur [facility] OB TRANSVAGINALon 025 US OB TRANSVAGINAL TITLE OF EXAM: OB Ultrasound: REASON FOR EXAM: Confirm dates. COMPARISON: None TECHNIQUE: Grayscale and M-mode Doppler imaging is performed. FINDINGS: Measurements: heart rate: 162 bpm Sac: 2.7 cm CRL: 1.6 cm GA for sonogram: 7.9 wk (07.3-08.6) Cervix Length: 3.7 cm TATA: 12/15/2024 Anatomy Observed: Gestational Sac: Visualized Yolk Sac: Visualized Pole: Visualized Cardiac Activity: Visualized 161 bpm Uterus: Normal Uterine Position: Retroverted, Retroflexed Right Ovary: Corpus Luteal 3.3 x 1.8 x 3.0 cm Volume: 9.4 cc Left Ovary: Normal 3.2 x 1.8 x 2.6 cm Volume: 7.6 cc Cervical Length: 3.7 Closed IMPRESSION: Single live intrauterine gestation estimated at 7.9 weeks. Dictated and transcribed 05/05/24/dpd This report has been electronically signed and approved by the interpreting radiologist. Normal Not Available Comment on above: Order Comment: US OB TRANSVAGINAL No LMP recorded. Urinalysis macro (dipstick) panel (U)on 05-05-2024 Bilirubin, UA Positive Negative - 4(70) +++ mg/dL [facility] Comment on above: small Blood, UA Negative Negative - 50 Jay/mcL [facility] Clarity, UA Clear [facility] re Color, UA Yellow [facility] Glucose, UA Negative Negative - 2000(110) ++++ mg/dL [facility] Interpretation and review of laboratory results Abnormal [facility] re Ketones, UA Positive Negative - 160(16) ++++ mg/dL [facility] Comment on above: trace Leukocytes, UA Negative Negative - 500+++ Kate/mcL [facility] Nitrite, UA Negative Negative - Positive [facility] pH, UA 5.5 5 - 9 [email or web address] Protein, UA Positive Negative - 2000(20) ++++ mg/dL [facility] Comment on above: 30 Spec Grav, UA 1.03 1 - 1.03 [facility] Urobilinogen, UA 0.2 0.2 - 12 mg/dL [facility] Human papilloma virus 16+18+ 31+33+35+39+45+51+52+56+58+59+66+68 DNA [Presence] in Veronica 09-23-2023 HPV 16+18+31+33+35+39+4 5+51+52+56+58+59+66 +68 DNA Probe+sig amp Ql (Cvx) Note . [facility] Comment on above: TESTS RESULT FLAG UN ITS REF RANGE LAB YURI GNOSIS: 02 NEGATIVE FOR INTRAEPITHELIAL LESION OR MALIGNANCY.Specimen adequacy: 02 Satisfactory for evaluation. Endocervical and/or squamous metaplastic cells (endocervical component) are present.Performed by: 02 Eddie Calles, Paper Maker ([facility]). 02Note: Note 02 The Pap smear is a screening test designed to aid in the detection of premalignant and malignant conditions of the uterine cervix. It is not a diagnostic procedure and should not be used as the sole means of detecting cervical cancer. Both false-positive and false-negative reports do occur.Test Methodology: Note 02 This liquid based ThinPrep(R) pap test was screened with the use of an image guided system.. 02 The HPV DNA reflex criteria were not met with this specimen result therefore, no HPV testing was performed. ---- FLAG LEGEND: L-Low Normal,H-High Normal,LL-Alert Low,HH-Alert High <-Panic Low,>-Panic High,A-Abnormal,AA-Critical Abnormal --Performed at:02 [facility] [address] [place] [address] Jessie Zarate MD, Wnlgexnjd at: =G - [facility] [address] [place], [place] [id number] Director: Jessie Zarate MD, Phone: [phone] at: WB - [facility] [address], [place] [id number] Director: Jessie Zarate MD, Phone: [phone] No Panel Informationon 09-22 Reference Lab Test Patient Age Note . [facility] Comment on above: TESTS RESULT FLAG UN ITS REF RANGE LAB Clinician Provided Cytology Information Source.............Cervix;Endocervix No. of containers..01 ThinPrep VialAge Algo ACOG Josette... FLAG LEGEND: L-Low Normal,H-High Normal,LL-Alert Low,HH-Alert High <-Panic Low,>-Panic High,A-Abnormal,AA-Critical Abnormal --Performed at:01 =G [address] [address] Jessie Zarate MD, CBC AUTO DIFFon 12-29-2021 BASO # 0.0 103/ul Normal 0.0-0.1 [facility] Comment on above: Performed By: #### C BC #### [facility] [address] [place] [address] Dr. Sae Flores Basophils/100 WBC (Bld) 0.2 % Normal 0.2-2.0 [facility] Comment on above: Performed By: #### C BC #### [facility] [address] [place] [address] Dr. Sae Flores EO # 0.0 103/ul Normal 0.0-0.7 [facility] Comment on above: Performed By: #### C BC #### [facility] [address] [place] [address] Dr. Sae Flores Eosinophils/100 WBC (Bld) 0.1 % Critically low 0.9-7.0 [facility] Comment on above: Performed By: #### C BC #### [facility] [address] [place] [address] Dr. Sae Flores Erythrocyte distribution width (RBC) [Ratio] 13.8 % Normal 11.0-15.0 [facility] Comment on above: Performed By: #### C BC #### [facility] [address] [place] [address] Dr. Sae Flores Hematocrit (Bld) [Volume fraction] 30.2 % Critically low 36.0-48.0 [facility] Comment on above: Performed By: #### C BC #### [facility] [address] [place] [address] Dr. Sae Flores Hemoglobin (Bld) [Mass/Vol] 9.9 g/dL Critically low 12.0-16.0 [facility] Comment on above: Performed By: #### C BC #### [facility] [address] [place] [address] Dr. Sae Flores IG # 0.08 10e3/ul Critically high 0.00-0.03 [facility] Comment on above: Performed By: #### C BC #### [facility] [address] [place] [address] Dr. Sae Flores IG % 0.5 % Normal 0.0-0.5 [facility] Comment on above: Performed By: #### C BC #### [facility] [address] [place] [address] Dr. Sae Flores LYMPH # 1.6 103/ul Normal 1.2-3.8 [facility] Comment on above: Performed By: #### C BC #### [facility] [address] [place] [address] Dr. Sae Flores Lymphocytes/100 WBC (Bld) 9.4 % Critically low 20.5-60.0 [facility] Comment on above: Performed By: #### C BC #### [facility] [address] [place] [address] Dr. Sae Flores MANUAL DIFF REQ NO Normal [facility] Comment on above: Performed By: #### C BC #### [facility] [address] [place] [address] Dr. Sae Flores MCH (RBC) [Entitic mass] 29.9 pg Normal 26.7-34.0 [facility] Comment on above: Performed By: #### C BC #### [facility] [address] [place] [address] Dr. Sae Flores MCHC (RBC) [Mass/Vol] 32.8 g/dL Normal 29.9-35.2 [facility] Comment on above: Performed By: #### C BC #### [facility] [address] [place] [address] Dr. Sae Flores MCV (RBC) [Entitic vol] 91.2 fL Normal 81.0-99.0 [facility] Comment on above: Performed By: #### C BC #### [facility] [address] [place] [address] Dr. Sae Flores MONO # 1.2 103/ul Critically high 0.3-0.8 [facility] Comment on above: Performed By: #### C BC #### [facility] [address] [place] [address] Dr. Sae Flores Monocytes/100 WBC (Bld) 7.0 % Normal 1.7-12.0 [facility] Comment on above: Performed By: #### C BC #### [facility] [address] [place] [address] Dr. Sae Flores NEUT # 14.3 103/ul Critically high 1.4-6.5 [facility] Comment on above: Performed By: #### C BC #### [facility] [address] [place] [address] Dr. Sae Flores Neutrophils/100 WBC (Bld) 82.8 % Critically high 43.0-75.0 [facility] Comment on above: Performed By: #### C BC #### [facility] [address] [place] [address] Dr. Sae Flores Platelet mean volume (Bld) [Entitic vol] 9.1 fL Critically low 9.5-13.5 [facility] Comment on above: Performed By: #### C BC #### [facility] [address] [address] [address] Sae Flores PLT 207 103/ul Normal 150-450 [facility] Comment on above: Performed By: #### C BC #### [facility] [address] [address] [address] Sae Flores RBC 3.31 106/ul Critically low 4.20-5.40 [facility] Comment on above: Performed By: #### C BC #### [facility] [address] [address] [address] Sae Flores WBC 17.3 103/ul Critically high 4.0-11.0 [facility] Comment on above: Performed By: #### C BC #### [facility] [address] [address] [address] Sae Flores DRUG SCREEN RAPID (URINE)on 12-28-2021 AMP Negative Normal NEGATIVE [facility] Comment on above: Performed By: #### D RUGRPD #### [facility] [address] [place] [address] Dr. Sae Flores BAR Negative Normal NEGATIVE [facility] Comment on above: Performed By: #### D RUGRPD #### [facility] [address] [place] [address] Dr. Sae Flores BUP Negative Normal NEGATIVE [facility] Comment on above: Performed By: #### D RUGRPD #### [facility] [address] [place] [address] Dr. aSe Flores BZO Negative Normal NEGATIVE [facility] Comment on above: Performed By: #### D RUGRPD #### [facility] [address] [place] [address] Dr. Sae Flores CONSTANCE Negative Normal NEGATIVE [facility] Comment on above: Performed By: #### D RUGRPD #### [facility] [address] [place] [address] Dr. Sae Flores CUT-OFFS SEE BELOW Normal [facility] Comment on above: Result Comment: AMP (Amphetamine): 500ng/mL, BAR (Barbituates): 200 ng/mL, BZO (Benzodiazepines): 150 ng/mL, BUP (Buprenorphine): 10 ng/mL, CONSTANCE (Cocaine): 150 ng/mL, mAMP (Methamphetamine): 500 ng/mL, MTD (Methadone): 200 ng/mL, OPI (Opiates): 100 ng/mL, OXY (Oxycodone): 100 ng/mL, PCP (Phencyclidine): 25 ng/mL, PPX (Propoxyphene): 300 ng/mL, THC (Cannabinoids): 50 ng/mL, TCA (Trycyclic Antidepressants): 300 ng/mL Performed By: #### D RUGRPD #### [facility] [address] [place] [address] Dr. Sae Flores DRUG CUT HEADER DRUG CLASS TEST SYSTEM CUT-OFF CONCENTRATIONS ARE FOLLOWS: Normal [facility] Comment on above: Performed By: #### D RUGRPD #### [facility] [address] [place] [address] Dr. Sae Flores mAMP Negative Normal NEGATIVE [facility] Comment on above: Performed By: #### D RUGRPD #### [facility] [address] [place] [address] Dr. Sae Flores MTD Negative Normal NEGATIVE [facility] Comment on above: Performed By: #### D RUGRPD #### [facility] [address] [place] [address] Dr. Sae Flores OPI Negative Normal NEGATIVE [facility] Comment on above: Performed By: #### D RUGRPD #### [facility] [address] [place] [address] Dr. Sae Flores OXY Negative Normal NEGATIVE [facility] Comment on above: Performed By: #### D RUGRPD #### [facility] [address] [place] [address] Dr. Sae Flores PCP Negative Normal NEGATIVE [facility] Comment on above: Performed By: #### D RUGRPD #### [facility] [address] [place] [address] Dr. Sae Flores PPX Negative Normal NEGATIVE [facility] Comment on above: Performed By: #### D RUGRPD #### [facility] [address] [place] [address] Dr. Sae Flores TCA Negative Normal NEGATIVE [facility] Comment on above: Performed By: #### D RUGRPD #### [facility] [address] [place] [address] Dr. Sae Flores THC Negative Normal NEGATIVE [facility] Comment on above: Performed By: #### D RUGRPD #### [facility] [address] [place] [address] Dr. Sae Flores CBC AUTO DIFFon 12-27-2021 BASO # 0.0 103/ul Normal 0.0-0.1 [facility] Comment on above: Performed By: #### C BC #### [facility] [address] [place] [address] Dr. Sae Flores Basophils/100 WBC (Bld) 0.2 % Normal 0.2-2.0 [facility] Comment on above: Performed By: #### C BC #### [facility] [address] [place] [address] Dr. Sae Flores EO # 0.2 103/ul Normal 0.0-0.7 [facility] Comment on above: Performed By: #### C BC #### [facility] [address] [place] [address] Dr. Sae Flores Eosinophils/100 WBC (Bld) 1.3 % Normal 0.9-7.0 [facility] Comment on above: Performed By: #### C BC #### [facility] [address] [place] [address] Dr. Sae Flores Erythrocyte distribution width (RBC) [Ratio] 14.0 % Normal 11.0-15.0 [facility] Comment on above: Performed By: #### C BC #### [facility] [address] [place] [address] Dr. Sae Flores Hematocrit (Bld) [Volume fraction] 33.6 % Critically low 36.0-48.0 [facility] Comment on above: Performed By: #### C BC #### [facility] [address] [address] [address] Sae Flores Hemoglobin (Bld) [Mass/Vol] 11.2 g/dL Critically low 12.0-16.0 [facility] Comment on above: Performed By: #### C BC #### [facility] [address] [place] [address] Dr. Sae Flores IG # 0.08 10e3/ul Critically high 0.00-0.03 [facility] Comment on above: Performed By: #### C BC #### [facility] [address] [place] [address] Dr. Sae Flores IG % 0.7 % Critically high 0.0-0.5 [facility] Comment on above: Performed By: #### C BC #### [facility] [address] [place] [address] Dr. Sae Flores LYMPH # 1.9 103/ul Normal 1.2-3.8 [facility] Comment on above: Performed By: #### C BC #### [facility] [address] [place] [address] Dr. Sae Flores Lymphocytes/100 WBC (Bld) 16.9 % Critically low 20.5-60.0 [facility] Comment on above: Performed By: #### C BC #### [facility] [address] [place] [address] Dr. Sae Flores MANUAL DIFF REQ NO Normal [facility] Comment on above: Performed By: #### C BC #### [facility] [address] [place] [address] Dr. Sae Flores MCH (RBC) [Entitic mass] 30.0 pg Normal 26.7-34.0 [facility] Comment on above: Performed By: #### C BC #### [facility] [address] [place] [address] Dr. Sae Flores MCHC (RBC) [Mass/Vol] 33.3 g/dL Normal 29.9-35.2 [facility] Comment on above: Performed By: #### C BC #### [facility] [address] [address] [address] Sae Flores MCV (RBC) [Entitic vol] 90.1 fL Normal 81.0-99.0 [facility] Comment on above: Performed By: #### C BC #### [facility] [address] [address] [address] Sae Flores MONO # 0.8 103/ul Normal 0.3-0.8 [facility] Comment on above: Performed By: #### C BC #### [facility] [address] [address] [address] Sae Flores Monocytes/100 WBC (Bld) 7.0 % Normal 1.7-12.0 [facility] Comment on above: Performed By: #### C BC #### [facility] [address] [address] [address] Sae Flores NEUT # 8.5 103/ul Critically high 1.4-6.5 [facility] Comment on above: Performed By: #### C BC #### [facility] [address] [address] [address] Sae Flores Neutrophils/100 WBC (Bld) 73.9 % Normal 43.0-75.0 [facility] Comment on above: Performed By: #### C BC #### [facility] [address] [address] [address] Sae Flores Platelet mean volume (Bld) [Entitic vol] 10.3 fL Normal 9.5-13.5 [facility] Comment on above: Performed By: #### C BC #### [facility] [address] [address] [address] Sae Flores PLT 214 103/ul Normal 150-450 [facility] Comment on above: Performed By: #### C BC #### [facility] [address] [address] [address] Sae Flores RBC 3.73 106/ul Critically low 4.20-5.40 [facility] Comment on above: Performed By: #### C BC #### [facility] [address] [place] [address] Dr. Sae Flores WBC 11.5 103/ul Critically high 4.0-11.0 [facility] Comment on above: Performed By: #### C BC #### [facility] [address] [place] [address] Dr. Sae Flores Covid-19 PCR (CVDTB)on SARS-CoV-2 (COVID-19) RNA [place]+probe Ql (Unsp spec) Not detected Normal NOT DETECTED [facility] Comment on above: Result Comment: When [...] for this test is supported by the Dietitian Teaching of Health and Human Service's declaration that [...] used). Performed By: #### C VDTBH #### [facility] [address] [place] [address] Dr. Sae Flores DRUG SCREEN RAPID (URINE)on 12-27-2021 AMP Negative Normal NEGATIVE [facility] [facility] Comment on above: Performed By: #### D RUGRPD #### [facility] [address] [place] [address] Dr. Sae Flores BAR Negative Normal NEGATIVE [facility] Comment on above: Performed By: #### D RUGRPD #### [facility] [address] [place] [address] Dr. Sae Flores BUP Negative Normal NEGATIVE [facility] Comment on above: Performed By: #### D RUGRPD #### [facility] [address] [place] [address] Dr. Sae Flores BZO Negative Normal NEGATIVE [facility] Comment on above: Performed By: #### D RUGRPD #### [facility] [address] [place] [address] Dr. Sae Flores CONSTANCE Negative Normal NEGATIVE [facility] Comment on above: Performed By: #### D RUGRPD #### [facility] [address] [place] [address] Dr. Sae Flores CUT-OFFS SEE BELOW Normal [facility] Comment on above: Result Comment: AMP (Amphetamine): 500ng/mL, BAR (Barbituates): 200 ng/mL, BZO (Benzodiazepines): 150 ng/mL, BUP (Buprenorphine): 10 ng/mL, CONSTANCE (Cocaine): 150 ng/mL, mAMP (Methamphetamine): 500 ng/mL, MTD (Methadone): 200 ng/mL, OPI (Opiates): 100 ng/mL, OXY (Oxycodone): 100 ng/mL, PCP (Phencyclidine): 25 ng/mL, PPX (Propoxyphene): 300 ng/mL, THC (Cannabinoids): 50 ng/mL, TCA (Trycyclic Antidepressants): 300 ng/mL Performed By: #### D RUGRPD #### [facility] [address] [place] [address] Dr. Sae Flores DRUG CUT HEADER DRUG CLASS TEST SYSTEM CUT-OFF CONCENTRATIONS ARE FOLLOWS: Normal [facility] Comment on above: Performed By: #### D RUGRPD #### [facility] [address] [place] [address] Dr. Sae Flores mAMP Negative Normal NEGATIVE [facility] Comment on above: Performed By: #### D RUGRPD #### [facility] [address] [place] [address] Dr. Sae Flores MTD Negative Normal NEGATIVE [facility] Comment on above: Performed By: #### D RUGRPD #### [facility] [address] [place] [address] Dr. Sae Flores OPI Negative Normal NEGATIVE [facility] Comment on above: Result Comment: Prev iously reported as: POSITIVE On 12/27/2021 20:19 By [id number] Performed By: #### D RUGRPD #### [facility] [address] [place] [address] Dr. Sae Flores OXY Negative Normal NEGATIVE [facility] Comment on above: Performed By: #### D RUGRPD #### [facility] [address] [place] [address] Dr. Sae Flores PCP Negative Normal NEGATIVE [facility] Comment on above: Performed By: #### D RUGRPD #### [facility] [address] [place] [address] Dr. Sae Flores PPX Negative Normal NEGATIVE [facility] Comment on above: Performed By: #### D RUGRPD #### [facility] [address] [place] [address] Dr. Sae Flores TCA Negative Normal NEGATIVE [facility] Comment on above: Performed By: #### D RUGRPD #### [facility] [address] [place] [address] Dr. Sae Flores THC Negative Normal NEGATIVE [facility] Comment on above: Performed By: #### D RUGRPD #### [facility] [address] [place] [address] Dr. Sae Flores TYPE AND SCREENon 12-27-2021 TYPE AND SCREEN Negative Normal [facility] Comment on above: Performed By: #### T NS #### [facility] [address] [place] [address] Dr. Sae Flores GROUP B STREP CULTUREon S. agalactiae Ag Ql (Unsp spec) Culture Observations: NEGATIVE FOR GROUP B STREPTOCOCCUS. Normal [facility] Comment on above: Performed By: #### G BSCX #### [facility] [address] [place] [address] Dr. Sae Flores US PREG GROWTHon 11-18-2021 [...] KENY CESPEDES Date: 2021-11-18 16:40 Normal [facility] GTT 3 HR PREGon 10-20-2021 Glucose [Mass/Vol] 93 mg/dL Normal 74-106 [facility] Comment on above: Performed By: #### G TT3P #### [facility] [address] [place] [address] Dr. Sae Flores Glucose [Mass/Vol] 164 mg/dL Normal [facility] Comment on above: Performed By: #### G TT3P #### [facility] [address] [place] [address] Dr. Sae Flores Glucose [Mass/Vol] 116 mg/dL Normal [facility] Comment on above: Performed By: #### G TT3P #### [facility] [address] [address] [address] Sae Flores Glucose [Mass/Vol] 83 mg/dL Normal [facility] Comment on above: Performed By: #### G TT3P #### [facility] [address] [place] [address] Dr. Sae Flores GLUCOSE - 1HRon 10-09-2021 Glucose [Mass/Vol] 176 mg/dL Critically high 74-106 [facility] Comment on above: Performed By: #### G LU1HR #### [facility] [address] [place] [address] Dr. Sae Flores HEMOGRAM AND PLATELon 2021 Hematocrit (Bld) [Volume fraction] 33.6 % Critically low 36.0-48.0 [facility] Comment on above: Performed By: #### H H #### [facility] [address] [address] [address] Sae Flores Hemoglobin (Bld) [Mass/Vol] 11.0 g/dL Critically low 12.0-16.0 [facility] Comment on above: Performed By: #### H H #### [facility] [address] [place] [address] Dr. Sae Flores MCH (RBC) [Entitic mass] 30.6 pg Normal 26.7-34.0 [facility] Comment on above: Performed By: #### H H #### [facility] [address] [place] [address] Dr. Sae Flores MCHC (RBC) [Mass/Vol] 32.7 g/dL Normal 29.9-35.2 [facility] Comment on above: Performed By: #### H H #### [facility] [address] [place] [address] Dr. Sae Flores MCV (RBC) [Entitic vol] 93.3 fL Normal 81.0-99.0 [facility] Comment on above: Performed By: #### H H #### [facility] [address] [place] [address] Dr. Sae Flores PLT 219 103/ul Normal 150-450 [facility] Comment on above: Performed By: #### H H #### [facility] [address] [place] [address] Dr. Sae Flores RBC 3.60 106/ul Critically low 4.20-5.40 [facility] Comment on above: Performed By: #### H H #### [facility] [address] [place] [address] Dr. Sae Flores WBC 9.4 103/ul Normal 4.0-11.0 [facility] Comment on above: Performed By: #### H H #### [facility] [address] [address] [address] Sae Flores Vital Signs Date Time Vital Sign Value Performing Clinician Facility 06-06-2024 10:47-0500 Body mass index (BMI) [Ratio] 28.96 kg/m2 Itz Brad DO Work Phone: [facility] 06-06-2024 10:47-0500 Body weight 78.93 kg Itz Brad DO Work Phone: [facility] 06-06-2024 10:47-0500 Diastolic blood pressure 70 mm[Hg] Itz Bard DO Work Phone: [facility] 06-06-2024 10:47-0500 Systolic blood pressure 102 mm[Hg] Itz Brad DO Work Phone: [facility] 05-05-2024 10:05-0500 Body mass index (BMI) [Ratio] 29.29 kg/m2 [facility] Nurse [facility] 05-05-2024 10:05-0500 Body weight 79.83 kg [facility] Nurse [facility] 05-05-2024 10:05-0500 Diastolic blood pressure 68 mm[Hg] [facility] Nurse [facility] 05-05-2024 10:05-0500 Systolic blood pressure 104 mm[Hg] [facility] Nurse [facility] 12-21-2023 08:56-0400 Body height 167 cm [facility] 12-21-2023 08:56-0400 Body mass index (BMI) [Ratio] 28.1 kg/m2 [facility] 12-21-2023 08:56-0400 Body temperature 98 [degF] [facility] 12-21-2023 08:56-0400 Body weight 78.47 kg [facility] 12-21-2023 08:56-0400 Diastolic blood pressure 80 mm[Hg] [facility] 12-21-2023 08:56-0400 Heart rate 68 /min [facility] 12-21-2023 08:56-0400 SaO2% (BldA) [Mass fraction] 98 % [facility] 12-21-2023 08:56-0400 Systolic blood pressure 122 mm[Hg] [facility] 09-23-2023 11:57-0400 Body height 167 cm [facility] 09-23-2023 11:57-0400 Body mass index (BMI) [Ratio] 27.9 kg/m2 [facility] 09-23-2023 11:57-0400 Body weight 78.01 kg [facility] 09-23-2023 11:57-0400 Diastolic blood pressure 76 mm[Hg] [facility] 09-23-2023 11:57-0400 SaO2% (BldA) [Mass fraction] 97 % [facility] 09-23-2023 11:57-0400 Systolic blood pressure 116 mm[Hg] [facility] 04-20-2023 15:40-0500 Body height 167 cm Karsten Caceres Other [employer] [facility] Other 04-20-2023 15:40-0500 Body mass index (BMI) [Ratio] 30.54 kg/m2 Karsten Caceres Other [employer] Other 04-20-2023 15:40-0500 Body weight 85.19 kg Karsten Caceres Other [employer] Other 04-20-2023 15:40-0500 Diastolic blood pressure 82 mm[Hg] Karsten Caceres Other [employer] Other 04-20-2023 15:40-0500 Systolic blood pressure 120 mm[Hg] Karsten Caceres Other [employer] Other 03-23-2023 15:40-0500 Body height 167 cm Karsten Caceres Other [employer] Other 03-23-2023 15:40-0500 Body mass index (BMI) [Ratio] 31.87 kg/m2 Karsten Caceres Other [employer] Other 03-23-2023 15:40-0500 Body temperature 98.2 [degF] Karsten Caceres Other [employer] Other 03-23-2023 15:40-0500 Body weight 88.91 kg Karsten Caceres Other [employer] Other 03-23-2023 15:40-0500 Diastolic blood pressure 76 mm[Hg] Karsten Caceres Other [employer] Other 03-23-2023 15:40-0500 Respiratory rate 16 /min Karsten Caceres Other [employer] Other 03-23-2023 15:40-0500 SaO2% (BldA) [Mass fraction] 97 % Karsten Caceres Other [employer] Other 03-23-2023 15:40-0500 Systolic blood pressure 108 mm[Hg] Karsten Caceres Other [employer] Other 11-10-2021 10:50-0400 Body height 167 cm Karsten Caceres Other [employer] Other 11-10-2021 10:50-0400 Body mass index (BMI) [Ratio] 31.87 kg/m2 Karsten Caceres Other [employer] Other 11-10-2021 10:50-0400 Body temperature 98.6 [degF] Karsten Caceres Other [employer] Other 11-10-2021 10:50-0400 Body weight 88.91 kg Karsten Caceres Other [employer] Other 11-10-2021 10:50-0400 Diastolic blood pressure 70 mm[Hg] Karsten Caceres Other [employer] Other 11-10-2021 10:50-0400 Respiratory rate 16 /min Karsten Caceres Other [employer] Other 11-10-2021 10:50-0400 SaO2% (BldA) [Mass fraction] 98 % Karsten Caceres Other [employer] Other 11-10-2021 10:50-0400 Systolic blood pressure 112 mm[Hg] Karsten Caceres Other [employer] Other Encounters Encounter Date Encounter Type Care Provider Facility Start: 06-06-2024 End: 06-06-2024 Bamboo flowsheet Itz Brad DO Work Phone: [facility] Start: 06-06-2024 End: 06-06-2024 Bamboo flowsheet Itz Brad DO Work Phone: [facility] Start: 06-06-2024 End: 06-06-2024 flow sheet Itz Brad DO Work Phone: [facility] Comment on above: Second trimester pre gnancy; 14 weeks gestation of Start: 06-06-2024 End: 06-06-2024 ambulatory ITZ BRAD Not Available Start: 05-05-2024 End: 05-05-2024 ambulatory [facility] Brad Nurse [facility] Comment on above: GA: 9w3d Start: 12-21-2023 End: 12-21-2023 ambulatory [facility] Work Phone: Start: 12-21-2023 End: 12-21-2023 Patient encounter procedure [facility] [place] Work Phone: Start: 09-23-2023 End: 09-23-2023 ambulatory [facility] Work Phone: Start: 09-23-2023 End: 09-23-2023 Patient encounter procedure [facility] [place] Work Phone: Start: 09-23-2023 End: 09-23-2023 ambulatory ITZ SALINAS Not Available Start: 05-20-2023 End: 05-20-2023 ambulatory Karsten Caceres Other [employer] Other Start: 05-20-2023 Office outpatient vi sit 15 minutes Karsten Caceres [facility] [place] Start: 04-20-2023 End: 04-20-2023 ambulatory Karsten Caceres Other [employer] Other Start: 04-20-2023 Telephone encounter Karsten Caceres [facility] [place] Start: 04-06-2023 End: 04-06-2023 ambulatory Karsten Caceres Other [employer] Other Start: 04-06-2023 Telephone encounter Karsten Caceres [facility] [place] Start: 03-23-2023 End: 03-23-2023 ambulatory Karsten Caceres Other [employer] Other Start: 03-23-2023 Office outpatient vi sit 15 minutes Karsten Caceres [facility] [place] Start: 10-20-2022 End: 10-20-2022 ambulatory Karsten Caceres Other [employer] Other Start: 10-20-2022 Telephone encounter Karsten Caceres [facility] [place] Start: 09-09-2022 End: 09-09-[address] ITZ SALINAS . Facility:[facility] Start: 02-12-2022 End: 02-12-[address] ITZ SALINAS . Facility:[facility] Start: 01-02-2022 End: 01-02-[address] ITZ SALINAS . Facility:[facility] Start: 01-01-2022 Evaluation and management of inpatient NONE LISTED REQUEST Facility:[facility] Start: 12-30-2021 End: 12-30-2021 ambulatory Karsten Caceres Other [employer] Other Start: 12-30-2021 Telephone encounter Karsten Caceres [facility] Start: 12-27-2021 End: 12-30-2021 Evaluation and management of inpatient DR ITZ SALINAS . Facility:[facility] Start: 12-02-2021 End: 12-02-[address] ITZ SALINAS . Facility:[facility] Start: 11-18-2021 End: 11-19-[address] ITZ SALINAS . Facility:[facility] Start: 11-10-2021 End: 11-10-2021 ambulatory Karsten Caceres Other [employer] Other Start: 11-10-2021 Encounter for genera l adult medical examination without abnormal findings Karsten Paz [facility] Start: 11-10-2021 Periodic preventive med est patient 18-39 yrs Karsten Caceres [facility] Start: 10-20-2021 End: 10-21-[address] ITZ SALINAS . Facility:[facility] Start: 10-09-2021 End: 10-10-[address] ITZ SALINAS . Facility: Procedures Date Procedure Procedure Detail Performing Clinician Start: 06-06-2024 Urnls dip stick/tabl et rgnt non-auto w/o micrscp Itz Salinas DO Work Phone: Start: 05-05-2024 Urnls dip stick/tabl et rgnt non-auto w/o micrscp Itz Salinas DO Work Phone: Start: 12-28-2021 Delivery of Products of Conception, External Approach DR ITZ SALINAS . Start: 12-28-2021 Division of Female Perineum, External Approach DR ITZ SALINAS . Start: 12-28-2021 Drainage of Amniotic Fluid, Therapeutic from Products of Conception, Via Natural or Artificial Opening DR ITZ SALINAS . Start: 12-28-2021 Repair Perineum Musc le, Open Approach DR ITZ SALINAS . Start: 12-27-2021 Introduction of Othe r Hormone into Peripheral Vein, Percutaneous Approach DR ITZ ASLINAS . Plan of Treatment Date Care Activity Detail Author Start: 10-02-2024 End: 10-02-2024 Patient encounter procedure 10/02/2024 8:30 AM EDT Office Visit [facility] [address] [place] [id number] Itz Salinas DO [address] [place] [address] [facility] Start: 07-04-2024 End: 07-04-2024 Patient encounter procedure 07/04/2024 10:30 AM EDT Routine [facility] [address] [place] [id number] Amy Garibay PA [address] [place], [place] [id number] [facility] Start: 06-06-2024 End: 06-06-2024 Patient encounter procedure [facility] Comment on above: Arrived Start: 05-05-2024 End: 05-05-2025 ABO/Rh ABO/Rh Lab Routine Missed menses , unspecified gestational age Expected: 05/05/2024 (Approximate), Expires: 05/05/2025 [facility] Comment on above: Expected: 05/05/2024 (Approximate), Expires: 05/05/2025 Start: 05-05-2024 End: 05-05-2025 Blood type and Indirect antibody screen panel - Blood Type and screen Lab Routine Missed menses , unspecified gestational age Expected: 05/05/2024 (Approximate), Expires: 05/05/2025 [facility] Work Phone: Comment on above: Expected: 05/05/2024 (Approximate), Expires: 05/05/2025 Start: 05-05-2024 End: 05-05-2025 Drugs of abuse panel - Urine by Screen method Rapid drug screen, urine Lab Routine , unspecified gestational age Encounter for supervision of normal first in first trimester Expected: 05/05/2024 (Approximate), Expires: 05/05/2025 [facility] Comment on above: Expected: 05/05/2024 (Approximate), Expires: 05/05/2025 Bacteria identified in Urine by Culture Urine culture Microbiology Routine Missed menses Ordered: 05/05/2024 [facility] Comment on above: Ordered: 05/05/2024 CBC W Auto Different ial panel - Blood CBC and differential Lab Routine Missed menses , unspecified gestational age Ordered: 05/05/2024 [facility] Comment on above: Ordered: 05/05/2024 Hemoglobin A1c/Hemoglobin.total in Blood Hemoglobin A1c Lab Routine Missed menses , unspecified gestational age Ordered: 05/05/2024 [facility] Comment on above: Ordered: 05/05/2024 Hepatitis B virus surface Ag [Presence] in Serum or Plasma by Immunoassay Hepatitis B surface antigen Lab Routine Missed menses , unspecified gestational age Ordered: 05/05/2024 [facility] Comment on above: Ordered: 05/05/2024 Hepatitis C virus Ab [Presence] in Serum or Plasma by Immunoassay Hepatitis C antibody Lab Routine Missed menses , unspecified gestational age Ordered: 05/05/2024 [facility] Comment on above: Ordered: 05/05/2024 HIV-1/HIV-2 antigen/antibody combination immunoassay HIV-1 and HIV-2 antibodies Lab Routine Missed menses , unspecified gestational age Ordered: 05/05/2024 [facility] Comment on above: Ordered: 05/05/2024 Patient Education Low back pain in adults [facility] Work Phone: Reagin Ab [Presence] in Serum by RPR RPR Lab Routine Missed menses , unspecified gestational age Ordered: 05/05/2024 [facility] Comment on above: Ordered: 05/05/2024 Rubella antibody, IgG Rubella an tibody, IgG Lab Routine Missed menses , unspecified gestational age Ordered: 05/05/2024 [facility] Comment on above: Ordered: 05/05/2024 Payers Date Payer Category Payer [facility] BCBS [id number] 1994 Unknown [id number]. 593 1994 Unknown [id number] [id number]. 593 1994 Unknown [id number] [id number]. 593 1994 Unknown [id number] 2.16.840.1.570840.3.579.2. 593 1994 Unknown [id number] 2.16.840.1.075304.3.579.2. 593 1994 Unknown [id number] 2.16.840.1.107647.3.579.2. 593 1994 Unknown [id number] 2.16.840.1.667249.3.579.2. 593 1994 Unknown [id number] 2.16.840.1.306144.3.579.2. 593 1994 Unknown [id number] 2.16.840.1.809794.3.579.2. 593 1994 Unknown [id number] 2.16.840.1.089377.3.579.2. 1259 1994 Unknown [id number] 2.16.840.1.545855.3.579.2. 1259 1994 Unknown [id number] 2.16.840.1.425015.3.579.2. 1259 1994 Unknown [id number] [id number]. 1259 1959 Blue Cross Blue Shield CBKAN [id number] [place] [facility] [id number] Social History Date Type Detail Facility Unknown if ever smoked [employer] [facility] Other Sex Assigned At Sex Assigned At Bir th [employer] [facility] Other Start: 06-21-2023 End: 12-21-2023 Tobacco smoking status NHIS Never smoked tobacco (finding) [facility] Start: 1995 Sex Assigned At Female [facility] Tobacco smoking stat us [facility] Tobacco smoking consumption unknown [facility] Start: 03-14-2024 [facility] Start: 09-16-2023 Gender identity Identifies as female gender (finding) [facility] Start: 09-16-2023 Sexual orientation Heterosexual (finding) [facility] Goals Date Patient Goal Desired Activity /State Personal health goal Clinical Notes 11-15-2012 to 06-06-2024 Jackie Faustin LPN - 06/06/2024 10:20 AM ESTMarcon Rivers MA - 05/05/2024 9:30 AM EST Note Date & Type Note Facility 06-06-2024 History of Presen t illness Narrative Reason for Appointment: Patient ID: Hannah Simms is a 28 y.o. female who presents for Routine Visit Patient presents today for Return OB appointment. MEDICATIONS No current outpatient medications ALLERGIES No Known Allergies PROBLEMS Active Ambulatory Problems Diagnosis Date Noted No Active Ambulatory Problems Resolved Ambulatory Problems Diagnosis Date Noted No Resolved Ambulatory Problems No Additional Past Medical History HISTORY PAST MEDICAL HISTORY SOCIAL HISTORY No past medical history on file. Social History Tobacco Use Smoking status: Not on file Smokeless tobacco: Not on file Substance Use Topics Alcohol use: Not on file Drug use: Not on file FAMILY HISTORY No family history on file. SURGICAL HISTORY No past surgical history on file. REVIEW OF SYSTEMS Review of Systems: Review of Systems Constitutional: Negative. HENT: Negative. Eyes: Negative. Respiratory: Negative. Cardiovascular: Negative. Gastrointestinal: Negative. Genitourinary: Negative. Musculoskeletal: Negative. Skin: Negative. Neurological: Negative. All other systems reviewed and are negative. Hematological: Negative. Endocrine: Negative. Allergic/Immunologic: Negative. OBJECTIVE Objective: Physical Exam Constitutional: Appearance: Normal appearance. She is well-developed. Cardiovascular: Rate and Rhythm: Normal rate and regular rhythm. Pulmonary: Effort: Pulmonary effort is normal. Breath sounds: Normal breath sounds. Abdominal: General: Bowel sounds are normal. There is no distension. Palpations: Abdomen is soft. Tenderness: There is no abdominal tenderness. There is no guarding or rebound. Musculoskeletal: General: No swelling. Normal range of motion. Right lower leg: No edema. Left lower leg: No edema. Neurological: Mental Status: She is alert and oriented to person, place, and time. Skin: General: Skin is warm and dry. Psychiatric: Mood and Affect: Mood normal. Behavior: Behavior normal. Vitals and nursing note reviewed. Exam conducted with a battery starter present. Vitals: Estimated body mass index is 28.96 kg/m as calculated from the following: Height as of 09/09/22: 5' 5 . Weight as of this encounter: 174 lb. BP: 102/70 Patient's last menstrual period was 02/29/2024. ASSESSMENT & PLAN ICD-10-CM 1. Second trimester Z34.92 POCT urinalysis dipstick manually resulted 2. 14 weeks gestation of Z3A.14 New OB: Patient presents today for 1st time obstetrics appointment with provider. Patient is currently 14w0d . Patients history has been reviewed in great detail including any potential risks. Patient stated she currently has no complaints. Expectations throughout regarding labs, ultrasounds, and appointments have been discussed with the patient in detail. It was reiterated that the patient is to drink 6-8 glasses of water a day, eat 6 small meals a day, do not consume raw or undercooked meat, and stay away from [facility]. Patient has been consulted regarding any further do's and don'ts of . Patient voiced understanding and all questions and concerns were answered. Orders Placed This Encounter Procedures POCT urinalysis dipstick manually resulted Follow Up: Patient is to return in 4 weeks for routine OB appointment. Documented by Jackie Faustin LPN on behalf of: Itz Salinas DO documented in this encounter [facility] 05-05-2024 History of Presen t illness Narrative Reason for Appointment: Patient ID: Hannah Simms is a 28 y.o. female who presents for Amenorrhea Patient presents today for a Nurse OB Intake appointment. Patient is 9w3d with a Estimated Date of Delivery: 12/05/24 OB History Para Term AB Living 3 1 1 SAB IAB Ectopic Multiple Live Births 1 # Outcome Date GA Lbr Taz/2nd Weight Sex Type Anes PTL Lv 3 Current 2 12/28/21 F Vag-Spont N MULU 1 SAB 2019 Current Medications: currently has no medications in their medication list. Medical History: Active Ambulatory Problems Diagnosis Date Noted No Active Ambulatory Problems Resolved Ambulatory Problems Diagnosis Date Noted No Resolved Ambulatory Problems No Additional Past Medical History No family history on file. Social History Tobacco Use Smoking status: Not on file Smokeless tobacco: Not on file Substance Use Topics Alcohol use: Not on file Drug use: Not on file No past surgical history on file. No Known Allergies Vitals: Estimated body mass index is 29.29 kg/m as calculated from the following: Height as of 09/09/22: 5' 5 . Weight as of this encounter: 176 lb. BP: 104/68 Patient's last menstrual period was 02/29/2024. Assessment/Plan Diagnoses and all orders for this visit: Missed menses - Type and screen; Future - ABO/Rh; Future - CBC and differential - Hemoglobin A1c - RPR - Rubella antibody, IgG - Hepatitis B surface antigen - Hepatitis C antibody - HIV-1 and HIV-2 antibodies - Urine culture - POCT , urine manually resulted - POCT urinalysis dipstick manually resulted 9 weeks gestation of , unspecified gestational age - Type and screen; Future - ABO/Rh; Future - CBC and differential - Hemoglobin A1c - RPR - Rubella antibody, IgG - Hepatitis B surface antigen - Hepatitis C antibody - HIV-1 and HIV-2 antibodies - Rapid drug screen, urine; Future Encounter for supervision of normal first in first trimester - Rapid drug screen, urine; Future Nurse Note: OB Intake: Patient presents today for first OB visit. Patients history has been reviewed in great detail including any potential risks. Patient signed consent forms and patient desires testing in both trimesters. Patient currently has no complaints and has been advised to drink 6-8 glasses of water a day, eat no raw or undercooked meat, and stay away from [facility]. Patient has also been advised to not change litter boxes and eat 6 small meals a day. Patient has been consulted regarding the do's and don'ts of . Patient was given labs and all questions and concerns were answered. Follow Up: Patient is to return in 4 weeks for routine OB appointment. Follow Up: Patient is to have labs drawn at directed and return to office for initial OB appointment with provider. Patient may call office as needed with any concerns or questions. Nurse Visit Completed by: Tammi Rivers MA documented in this encounter [facility] 09-23-2023 Evaluation note Authored September 23, 2023 12:25 pm The above note written by __ _Shaye Cardoso____ acting as human recorder, note dictated by Dr. Almazan .I performed the above HPI, ROS, and Examination. I formulated and dictated the treatment plan and was present for entire encounter. Karsten Caceres D.O. [facility] Work Phone: [phone]) 511-468301-25-2024 Evaluation note* Encounter Date Diagnosis Assessment Notes Treatment Notes Treatment Clinical Notes Apr, Hyperglycemia (ICD-10 - R73.9) Anticipate [...] was provided with a refill today. Side effects/risks/benef its of medication were reviewed. Apr, Other This documentat ion is being amended on 05/26/23 due to an internal data corruption event that occurred on 05/20/23. This data corruption event was NOT the result of any breach, fraud, or malicious third democrat actors and no personal patient information was compromised. [facility] Other 12-26-2023 Evaluation note* Encounter Date Diagnosis Assessment Notes Treatment Notes Treatment Clinical Notes Mar, Hyperglycemia (ICD-10 - R73.9) Anticipate [...] return as scheduled in April (2023). Side effects/risks/palmira efits of medication were reviewed. She has had dry mouth from the Adipex but admits this is keeping her very hydrated and I did recommend she stay hydrated with plenty of water daily. She can tell that the medication is helping to decrease her appetite. She has decreased her portion size. Mar, Other 3:55 PM - 4:00 PM [facility] Other 11-28-2023 Evaluation note* Encounter Date Diagnosis Assessment Notes Treatment Notes Treatment Clinical Notes Feb, Hyperglycemia (ICD-10 - R73.9) Discussed that her HgA1C has gone down from 5.6 to 5.5. She is encouraged to continue to monitor her intake of carbs and sugars. Stay active. Feb, Weight gain (ICD-10 - R63.5) She has gained four pounds since last seen. She voices that she started control in 2018. She was active at the time and [...] Adipex to help with weight loss. Side effects/risks/benef its of medication were reviewed. She would have [...] then she can continue with the medicine. [facility] Other 07-18-2022 Evaluation note* Encounter Date Diagnosis Assessment Notes Treatment Notes Treatment Clinical Notes Oct, Wellness examination (ICD-10 - Z00.00) [...] prescribed above medication by Dr. Salinas her chicken cleaner for the heartburn she has. [facility] Other 07-23-2013 History general Narrative - Reported* Type Description Date Medical History Meningitis/Menactra 11-15- [facility] Medical History Adacel (Tdap) 11-15-12 [facility] Surgical History wisdom teeth removed 2015 [facility] Other 07-23-2013 History general Narrative - Reported* Type Description Date Medical History Meningitis/Menactra 11-15-12 [facility] Medical History Adacel (Tdap) 11-15-12 [facility] Surgical History wisdom teeth removed 2015 Hospitalization History Childbirth 12/28/2021 [facility] Other Evaluation noteNo InformationNort Wize Other Evaluation note* Diagnosis Onset Date Resolution Status Hyperglycemia acute Weight gain acute [facility] Work Phone: Evaluation note* Diagnosis Missed menses 9 weeks gestation of , unspecified gestational age Encounter for supervision of normal first in first trimester [facility] Diagnosis Second trimester state, incidental 14 weeks gestation of documented in this encounter [facility] Summary Purpose Family History No Family History Records Found Relationship Condition Age at Onset Recorded Date/T tommy grandparent Unknown Not Specified Malignant neoplasm 75 Relationship Condition Age at Onset Recorded Date/T tommy grandparent Unknown maternal grandmother Malignant neoplasm 75 Advance Directives No Advanced Directives Records Found Advance Directive Response Recorded Date/ Time Advance Directives No May 20, 2023 1:31pm Chief Complaint and Reason for Visit Chief Complaint med refill Adipex Reason for Visit Hyperglycemia Weight gain Chief Complaint med refill Adipex med refill Adipex Reason for Visit Hyperglycemia Weight gain Hyperglycemia Lumbar pain Weight gain Additional Source Comments REASON FOR VISIT (unrecogniz ed section and content) Reason Comments Amenorrhea Reason Comments Routine Visit INFORMATION SOURCE (unrecogn ized section and content) DATE CREATED AUTHOR 09/10/2022 Levon Palom[place] [facility] DATE CREATED AUTHOR AUTHOR'S ORGANMARGARITA ATION 06/08/2024 [facility] EPIC Care Teams (unrecognized sec tion and content) Team Status: Active Member Role Status Dates Karsten Caceres DO Primary Care Provider Active Team Status: Inactive Member Role Status Dates Karsten Caceres DO Primary Care Provide r, Attending Provider Active Start: September 23, 2023 End: September 23, 2023 Team Status: Inactive Member Role Status Dates Karsten Caceres DO Primary Care Provide r, Attending Provider Active Start: December 21, 2023 End: December 21, 2023 Product Communications Manager Relationship Specialty Start Date End Date Karsten Caceres MD [address] [place] [address] PCP - General 09/16/23 Product Communications Manager Relationship Specialty Start Date End Date Karsten Caceres MD [address] [place] [address] PCP - General 09/16/23 Product Communications Manager Relationship Specialty Start Date End Date Karsten Caceres MD [address] [place] [address] PCP - General 09/16/23 Goals (unrecognized section and content) Goals may be documented in a n alternate section FOR RECORDS PERTAINING TO PATIENTS WHO ARE [...] BE BASED ON THE PRIMARY CLINICAL RECORDS. [facility]. provides no warranty or guarantee of the accuracy or completeness of information in this document.
[2024-06-15 12:46] LABS: Estimated Average Glucose 105 mg/dL; Glycohemoglobin A1C 5.3 % (4.5-6.2)
[2024-06-15 12:47] LABS: Basophils Percent Auto 0.2 % (0.2-2.0); Eosinophils Absolute Auto 0.1 10^3/uL (0.0-0.7); Eosinophils Percent Auto 1.5 % (0.9-7.0); Hematocrit 37.6 % (36.0-48.0); Hemoglobin 12.6 g/dL (12.0-16.0); Immature Granulocytes Abs Auto 0.02 10^3/uL (0.00-0.03); Immature Granulocytes Pct Auto 0.2 % (0.0-0.5); Lymphocytes Absolute Auto 1.7 10^3/uL (1.2-3.8); Lymphocytes Percent Auto 18.9 % (20.5-60.0); Mean Corpuscular HGB Conc 33.5 g/dL (29.9-35.2); Mean Corpuscular Hemoglobin 29.4 pg (26.7-34.0); Mean Corpuscular Volume 87.6 fL (81.0-99.0); Mean Platelet Volume 9.6 fL (9.5-13.5); Monocytes Absolute Auto 0.4 10^3/uL (0.3-0.8); Monocytes Percent Auto 4.6 % (1.7-12.0); Neutrophils Absolute Auto 6.8 10^3/uL (1.4-6.5); Neutrophils Percent Auto 74.6 % (43.0-75.0); Platelet Count 247 10^3/uL (150-450); Red Blood Count 4.29 10^6/uL (4.20-5.40); Red Cell Distribution Width 13.7 % (11.0-15.0); White Blood Count 9.1 10^3/uL (4.0-11.0)
[2024-06-15 13:01] LABS: Amphetamine Screen Urine NEGATIVE (NEGATIVE); Barbiturates Screen Urine NEGATIVE (NEGATIVE); Benzodiazepines Screen Urine NEGATIVE (NEGATIVE); Buprenorphine Screen Urine NEGATIVE (NEGATIVE); Cannabinoid Screen Urine NEGATIVE (NEGATIVE); Cocaine Screen Urine NEGATIVE (NEGATIVE); Methadone Screen Urine NEGATIVE (NEGATIVE); Methamphetamines Screen Urine NEGATIVE (NEGATIVE); Opiate Screen Urine NEGATIVE (NEGATIVE); Oxycodone Screen Urine NEGATIVE (NEGATIVE); Phencyclidine Screen Urine NEGATIVE (NEGATIVE); Tricyclic Antidepressant Urine NEGATIVE (NEGATIVE)
[2024-06-16 06:08] LABS: HBsAg Screen Negative (Negative); HCV Ab Non Reactive (Non Reactive); HIV Ab/p24 Ag Screen Non Reactive (Non Reactive)
[2024-06-16 08:09] LABS: Rapid Plasma Reagin, Quant Non Reactive titer (NonRea<1:1); Rubella Antibodies, IgG <0.90 index (Immune >0.99)
== END 2024-06-15 12:09 | disposition home or self-care (01) ==
LOC: LAB 12:12
PROVIDERS: PCP Family Medicine; Visit Provider Obstetrics & Gynecology
DX: Z34.01 Encounter for supervision of normal first pregnancy, first trimester (principal); N92.6 Irregular menstruation, unspecified
CPT/HCPCS: 36415; 80307; 83036; 85025; 86592; 86762; 86803; 86850; 86900; 86901; 87086; 87340; 87389

== ENCOUNTER 2024-08-15 15:02 | Outpatient (OUT) | payer BC, SELFPAY ==
[2024-08-15 16:19] LABS: BOX Test Reference Lab UNITY; BOX Test Sent Out UNITY
[2024-08-15 16:21] LABS: Basophils Percent Auto 0.3 % (0.2-2.0); Eosinophils Absolute Auto 0.2 10^3/uL (0.0-0.7); Hematocrit 33.2 % (36.0-48.0); Hemoglobin 11.2 g/dL (12.0-16.0); Immature Granulocytes Abs Auto 0.03 10^3/uL (0.00-0.03); Immature Granulocytes Pct Auto 0.3 % (0.0-0.5); Lymphocytes Absolute Auto 1.8 10^3/uL (1.2-3.8); Lymphocytes Percent Auto 17.8 % (20.5-60.0); Mean Corpuscular HGB Conc 33.7 g/dL (29.9-35.2); Mean Corpuscular Hemoglobin 30.2 pg (26.7-34.0); Mean Corpuscular Volume 89.5 fL (81.0-99.0); Mean Platelet Volume 9.1 fL (9.5-13.5); Monocytes Absolute Auto 0.7 10^3/uL (0.3-0.8); Monocytes Percent Auto 6.5 % (1.7-12.0); Neutrophils Absolute Auto 7.3 10^3/uL (1.4-6.5); Neutrophils Percent Auto 73.1 % (43.0-75.0); Platelet Count 201 10^3/uL (150-450); Red Blood Count 3.71 10^6/uL (4.20-5.40); Red Cell Distribution Width 13.6 % (11.0-15.0)
[2024-08-15 16:29] LABS: Glucose 1 Hour 100 mg/dL (<130)
== END 2024-08-15 15:03 | disposition home or self-care (01) ==
LOC: LAB 15:03
PROVIDERS: PCP Family Medicine; Visit Provider Obstetrics & Gynecology
DX: Z13.1 Encounter for screening for diabetes mellitus (principal)
CPT/HCPCS: 36415; 82950; 85025

== ENCOUNTER 2024-11-08 16:15 | Observation (INO) | payer BC, SELFPAY ==
--- OUTSIDE RECORDS SUMMARY | 2024-10-25 13:20 | XMS_ITS | Encounter Summary ---
Author Organization [facility] Address [address] [place] [address] Care Team Providers Care Dressmaker Helper Name Role Phone Karsten Caceres MD Primary Care Provider [phone] Reason for Visit * Reason Comments Routine Visit Encounter Details Date Type Department Care Team ([facility] st Contact Info) Description 10/25/2024 1:20 PM EDT Routine [facility] [address] [id number] Amy Garibay PA [address] [place], [facility] [address] Third trimester ([facility]); 32 weeks gestation of ([facility]) Social History Tobacco Use Types Packs/Day Years Used Date Smoking Tobacco: Never Assessed Estimated Date of Delivery Comme nts Yes 12/15/2024 Based on Ultraso und Sex and Gender Information Value Date Recorded Sex Assigned at Female 09/16/2023 12:28 PM EDT Legal Sex Female 7:19 PM EDT Gender Identity Female 09/16/2023 12:28 PM EDT Sexual Orientation Straight 09/16/2023 12 :28 PM EDT documented as of this encounter Last Filed Vital Signs Vital Sign Reading Time Taken Comments Blood Pressure 122/86 10/25/2024 1:33 PM EDT Pulse - - Temperature - - Respiratory Rate - - Oxygen Saturation - - Inhaled Oxygen Concentration - - Weight 90.4 kg (199 lb 4 oz) 10/25/2024 1:33 PM EDT Height - - Body Mass Index 33.16 09/09/2022 12:00 PM EDT documented in this encounter Progress Notes * SILVIA Castañeda - 10/25/2024 1:20 PM EDT Reason for Appointment: Patient ID: Hannah Simms is a 28 y.o. female who presents for Routine Visit Patient presents today for Return OB appointment. MEDICATIONS Current Outpatient Medications Medication Instructions omeprazole (PRILOSEC) 20 mg, Oral, Daily before breakfast, Do not crush or chew. MV-Min-Fe Fum-FA-DHA ( 1 PO) Oral ALLERGIES No Known Allergies PROBLEMS Active Ambulatory [...] Exam Constitutional: Appearance: Normal appearance. She is normal weight. HENT: Head: Normocephalic. Cardiovascular: Rate and Rhythm: Normal rate. Pulses: Normal pulses. Pulmonary: Effort: Pulmonary effort is normal. Breath sounds: Normal breath sounds. Abdominal: Palpations: Abdomen is soft. Musculoskeletal: General: Normal range of motion. Neurological: General: No focal deficit present. Mental Status: She is alert and oriented to person, place, and time. Psychiatric: Mood and Affect: Mood normal. Behavior: Behavior normal. Thought Content: Thought content normal. Judgment: Judgment normal. Vitals and nursing note reviewed. Vitals: Estimated body mass index is 33.16 kg/m?? as calculated from the following: Height as of 09/09/22: 5' 5 . Weight as of this encounter: 199 lb 4 oz. BP: 122/86 Patient's last menstrual period was 02/29/2024. ASSESSMENT & PLAN ICD-10-CM 1. Third trimester ([facility]) Z34.93 2. 32 weeks gestation of ([facility]) Z3A.32 Return OB: Patient presents today for a routine obstetrics appointment. Patient is currently 32w5d . Patient states she is doing well but has complaints of being tired due to current . Patient has verbalizes frequent movement. labor precautions was discussed/given and patient was instructed to perform kick counts three times a day. No orders of the defined types were placed in this encounter. Follow Up: Patient is to return to office in 1 week for routine OB appointment. Documented by SILVIA Castañeda on behalf of: SILVIA Castañeda documented in this encounter Miscellaneous Notes * Addendum Note - Morteza Walter MA - 10/25/2024 1:20 PM EDTAddended by: MORTEZA WALTER on: 10/25/2024 04:01 PM Modules accepted: Orders documented in this encounter Plan of Treatment Not on file documented as of this encounter Goals Goal Patient Goal Type Associated Problems Recent Progress Patient-Stated? Author Reminders Care Plan OB Reminders No Open Scheduling, Background documented as of this encounter Procedures Procedure Name Priority Date/Time Associated Diagnosis Comments POCT URINALYSIS DIPSTICK Routine 10/25/2024 3:57 PM EDT Third trimester ([facility]) documented in this encounter Results * (ABNORMAL) POCT urinalysis dipstick manually resulted (10/25/2024 3:57 PM EDT) Color, UA Yellow Clarity, UA Clear Glucose, UA Negative Negative - 2000(110) ++++ mg/dL Bilirubin, UA Positive Negative - 4(70) +++ mg/dL Comment:Small Ketones, UA Positive Negative - 160(16) ++++ mg/dL Comment:Trace Spec Grav, UA 1.030 1 - 1.03 Blood, UA Negative Negative - 50 Jay/mcL pH, UA 6.0 5 - 9 Protein, UA Positive Negative - 1999(20) ++++ mg/dL Comment:<300mg/dL Urobilinogen, UA 1.0 0.2 - 12 mg/dL Leukocytes, UA Negative Negative - 500+++ Kate/mcL Nitrite, UA Negative Negative - Positive Urine 10/25/2024 3:57 PM EDT Amy VEGA POINT OF CARE TEST ENTER/EDIT OR DERABLES Final Result documented in this encounter Visit Diagnoses Diagnosis Third trimester ([facility]) state, incidental 32 weeks gestation of ([facility]) documented in this encounter Additional Health Concerns Active Problems Noted Date Diagnosed Date OB Reminders 06/06/2024 documented as of this encounter Care Teams Dressmaker Helper Relationship Specialty Start Date End Date Karsten Caceres MD [address] [place] [address] [place] [address] PCP - General 09/16/23 documented as of this encounter
[2024-11-08] VITALS (21 sets, daily range): BP systolic 147–173; BP diastolic 90–108; PULSE 57–73; TEMP 36.6; O2SAT 99
--- OUTSIDE RECORDS SUMMARY | 2024-11-08 15:10 | XMS_ITS | Encounter Summary ---
Author Organization [facility] Address [address] [place] [address] Care Team Providers Care Sales Support Technician Name Role Phone Karsten Caceres MD Primary Care Provider [phone] Reason for Visit * Reason Comments Routine Visit Encounter Details Date Type Department Care Team (Latest Contact Info) Description 11/08/2024 3:10 PM EDT Routine [facility] OB [address] [place] [id number] Deep Salinas, DO [address] [place] [place], [place] [id number] Third trimester ([facility]); 34 weeks gestation of ([facility]); Elevated BP without diagnosis of hypertension Social History Tobacco Use Types Packs/Day Years [...] Sign Reading Time Taken Comments Blood Pressure 180/112 11/08/2024 3:28 PM EDT Pulse - - Temperature - - Respiratory Rate - - Oxygen Saturation - - Inhaled Oxygen Concentration - - Weight 95.9 kg (211 lb 8 oz) 11/08/2024 3:28 PM EDT Height - - Body Mass Index 35.2 09/09/2022 12:00 PM EDT documented in this encounter Progress Notes * Jackie Faustin, FLORINDA - 11/08/2024 3:10 PM EDT Reason for Appointment: Patient ID: [...] nursing note reviewed. Exam conducted with a tier lift operator present. Vitals: Estimated body mass index is 35.2 kg/m?? as calculated from the following: Height as of 09/09/22: 5' 5 . Weight as of this encounter: 211 lb 8 oz. BP: (!) 180/112 Patient's last menstrual period was 02/29/2024. ASSESSMENT & PLAN ICD-10-CM 1. Third trimester ([facility]) Z34.93 POCT urinalysis dipstick manually resulted 2. 34 weeks gestation of ([facility]) Z3A.34 3. Elevated BP without diagnosis of hypertension R03.0 Return OB: Patient presents today for a routine obstetrics appointment. Patient is currently 34w5d . Patient states she is doing well but has complaints of being tired due to current . Pt has pitting edema, blood pressure elevated in office. Pt being sent to [facility] for evaluation. Patient has verbalizes frequent movement. labor precautions was discussed/given and patient was instructed to perform kick counts three times a day. Orders Placed This Encounter Procedures POCT urinalysis dipstick manually resulted Follow Up: Patient is to return to office in 1 week for routine OB appointment. Documented by Jacike Faustin LPN on behalf of: Deep Salinas DO documented in this encounter Plan of Treatment Not on file documented as of this encounter Goals Goal Patient Goal Type Associated Problems Recent Progress Patient-Stated? Author Reminders Care Plan OB Reminders No Open Scheduling, Background documented as of this encounter Procedures Procedure Name Priority Date/Time Associated Diagnosis Comments POCT URINALYSIS DIPSTICK Routine 11/08/2024 3:17 PM EDT Third trimester ([facility]) documented in this encounter Results * (ABNORMAL) POCT urinalysis dipstick manually resulted (11/08/2024 3:17 PM EDT) Color, UA Yellow Clarity, UA Clear Glucose, UA Negative Negative - 2000(110) ++++ mg/dL Bilirubin, UA Negative Negative - 4(70) +++ mg/dL Ketones, UA Negative Negative - 160(16) ++++ mg/dL Spec Grav, UA 1.030 1 - 1.03 Blood, UA Negative Negative - 50 Jay/mcL pH, UA 6.0 5 - 9 Protein, UA 4+ Negative - 1999(20) ++++ mg/dL Urobilinogen, UA 0.2 0.2 - 12 mg/dL Leukocytes, UA Negative Negative - 500+++ Kate/mcL Nitrite, UA Negative Negative - Positive Urine 11/08/2024 3:17 PM EDT Deep Salinas DO POINT OF CARE TEST ENTER/EDIT OR DERABLES Final Result documented in this encounter Visit Diagnoses Diagnosis Third trimester ([facility]) state, incidental 34 weeks gestation of ([facility]) Elevated BP without diagnosis of hypertension documented in this encounter Additional Health Concerns Active Problems Noted Date Diagnosed Date OB Reminders 06/06/2024 documented as of this encounter Care Teams Sales Support Technician Relationship Specialty Start Date End Date Karsten Caceres MD [address] [place] [address] [place] [address] PCP - General 09/16/23 documented as of this encounter
--- OUTSIDE RECORDS SUMMARY | 2024-11-08 16:03 | XMS_ITS | Encounter Summary ---
Author Organization [facility] Address [address] [facility] [place] [address] Care Team Providers Care Voice Network Engineer Name Role Phone Karsten Caceres MD Primary Care Provider [phone] Encounter Details Date Type Department Care Team (Latest Contact Info) Description 11/07/2024 Travel Social History Tobacco Use Types Packs/Day Years [...] PM EDT documented as of this encounter Plan of Treatment Not on file documented as of this encounter Goals Goal Patient Goal Type Associated Problems Recent Progress Patient-Stated? Author Reminders Care Plan OB Reminders No Open Scheduling, Background documented as of this encounter Visit Diagnoses Not on filedocumented in this encounter Additional Health Concerns Active Problems Noted Date Diagnosed Date OB Reminders 06/06/2024 documented as of this encounter Care Teams Voice Network Engineer Relationship Specialty Start Date End Date Karsten Caceres MD [address] [place] [address] [place] [address] PCP - General 09/16/23 documented as of this encounter
--- OUTSIDE RECORDS SUMMARY | 2024-11-08 16:03 | XMS_ITS | Encounter Summary ---
Author Organization [facility] Address [address] [facility] [place] [address] Care Team Providers Care Spot Remover Name Role Phone Karsten Caceres MD Primary Care Provider [phone] Encounter Details Date Type Department Care Team (Late st Contact Info) Description 10/25/2024 Bamboo flowsheet [facility] [address] [place] [address] Amy Garibay PA [address] [place], [place] [id number] Social History Tobacco Use Types Packs/Day Years [...] documented as of this encounter Care Teams Spot Remover Relationship Specialty Start Date End Date Karsten Caceres MD [address] [place] [address] PCP - General 09/16/23 documented as of this encounter
--- OUTSIDE RECORDS SUMMARY | 2024-11-08 16:03 | XMS_ITS ---
Author Organization [facility] Source Produ ction (ClinicalSummary Clone) Address Unknown Care Team Providers Care Reel Assembler Name Role Phone Unavailable Primary Care Physician Unavailab le Results * [UNITY] ANEUPLOIDY NIPT Performed by: [employer] Component Value Range Date Fraction 13.2% 08/23/2024 06 :06 am [facility] Sex Chromosome Aneuploidy NOT DETECTED 06:06 am [facility] Monosomy X LOW RISK <1 in 10,000 2024 06:06 am [facility] Trisomy 13 LOW RISK <1 in 10,000 2024 06:06 am [facility] Trisomy 18 LOW RISK <1 in 10,000 2024 06:06 am [facility] Trisomy 21 LOW RISK <1 in 10,000 2024 06:06 am [facility] Sex FEMALE 08/23/2024 06:0 6 am [facility] Gestation SHINE 08/24/19 06:06 am [facility] For detailed report, see PDF See PDF 08/23/2024 06:06 am UTC 08/23/2024 06:0 6 am [facility] Social History Observation Value Start Date End Date
--- OUTSIDE RECORDS SUMMARY | 2024-11-08 16:03 | XMS_ITS | Encounter Summary ---
Author Organization [facility] tem Address [id number] [address] [place] [address] Care Team Providers Care Wide Area Network Engineer Name Role Phone Unavailable Primary Care Provider Unavailabl e Encounter Details Date Type Department Care Team ([facility] st Contact Info) Description 08/15/2024 Abstract [facility] Certified Nurse [facility] - [place] [address] [facility] [address] [place] [address] Erica Schilling RN Social History Tobacco Use Types Packs/Day Years Used Date Smoking Tobacco: Never Assessed Estimated Date of Delivery Comme nts Yes 12/15/2024 Based on Ultraso und Sex and Gender Information Value Date Recorded Sex Assigned at Not on file Legal Sex Female 8:29 AM EDT Gender Identity Not on file Sexual Orientation Not on file documented as of this encounter Plan of Treatment Not on file documented as of this encounter Visit Diagnoses Not on filedocumented in this encounter
--- OUTSIDE RECORDS SUMMARY | 2024-11-08 16:03 | XMS_ITS | Encounter Summary ---
Author Organization [facility] Address [address] [place] [address] Care Team Providers Care Charity Fundraiser Name Role Phone Karsten Caceres MD Primary Care Provider [phone] Encounter Details Date Type Department Care Team (Late st Contact Info) Description 09/19/2024 External Result Encounter [facility] [address] [place] [address] Deep Salinas, DO [address] [place]athon [place], [place] [id number] Social History Tobacco Use Types Packs/Day Years [...] Procedure Name Priority Date/Time Associated Diagnosis Comments US OB 14+ WEEKS ANATOMY SCAN 09/19/2024 12:44 PM EDT documented in this encounter Results * US OB 14+ weeks anatomy scan (09/19/2024 12:44 PM EDT) Anatomical Region Laterality Modality Body Ultrasound 09/19/2024 12:4 4 PM EDT Narrative 09/19/2024 12:44 PM EDT THIS EXAM WAS PERFORMED AT [facility] NAME: DAKOTAH IRVING : 1995 SEX: F Accession Number: [id number] ORDERING PHYSICIAN: DEEP SALINAS REFERRING PHYSICIAN: DEEP SALINAS Coding ----- --------- Procedures 94857: Follow-up Ultrasound, per fetus Indication ----- --------- Screening for follow-up survey History ----- --------- OB History 3. Para 1 T1A1L1 Current ----- --------- Cell free DNA analysis Maternal Assessment ----- --------- Physical Exam Height 165 cm, 5 ft 5 in. Weight 83 kg, 183 lb. Initial weight 80 kg, 176 lb. BMI 30.45 kg/m???. Initial BMI 29.29 kg/m???. Weight gain 3 kg, 7 lb Method ----- --------- Transabdominal ultrasound examination ----- --------- Floyd . Number of fetuses: 1 Dating ----- --------- LMP on: 02/29/2024 GA by LMP 29 w + 0 d TATA by LMP: 12/05/2024 GA by prior assessment 27 w + 4 d TATA by prior assessment: 12/15/2024 Ultrasound examination on: 09/19/2024 GA by U/S based upon: AC, BPD, Femur, HC GA by U/S 28 w + 2 d TATA by U/S: 12/10/2024 Assigned: based on stated TATA, selected on 08/17/2024 Assigned GA 27 w + 4 d Assigned TATA: 12/15/2024 General Evaluation ----- --------- Cardiac activity Present. FHR 148 bpm. Presentation: cephalic Placenta: Placental site: posterior, away from cervical os Umbilical cord: Cord vessels: 3 vessel cord. Insertion site: documented previously Amniotic fluid: Amount of AF: normal amount. MVP 5.0 cm Biometry ----- --------- Standard BPD 67.6 mm 27w 2d 27% Hadlock OFD 93.7 mm 30w 2d 98% Alfredo HC 258.8 mm 28w 1d 38% Hadlock Cerebellum tr 30.2 mm 26w 1d 22% Soy AC 235.3 mm 27w 6d 51% Hadlock Femur 56.2 mm 29w 4d 87% Hadlock Humerus 50.3 mm 29w 3d 90% Alfredo HC / AC 1.10 EFW 1,223 g 70% Hadlock EFW (lb) 2 lb EFW (oz) 11 oz EFW by: Hadlock ([id number]) Extended Tibia 49.5 mm 29w 5d 96% Alfredo Security Dispatcher 4.0 mm CM 4.8 mm 7% Nicolaides Head / Face / Neck Cephalic index 0.72 2% Nicolaides Nasal bone: present Extremities / Bony Struc FL / BPD 0.83 FL / HC 0.22 FL / AC 0.24 Other Structures FHR 148 bpm Anatomy ----- --------- The following structures appear normal: Head/Neck: Cranium. Lateral ventricles. Cavum septi pellucidi. Cerebellum. Cisterna magna. Parenchyma. Face: Lips. Profile. Nose. Nasal bone. Maxilla. Heart/Thorax: 4-chamber view. RVOT view. LVOT view. 3-vessel view. 1-kqywvq-xbagfys view. Situs. Bicaval view. Ductal arch view. Interventricular septum. Great vessels. Cardiac position. Cardiac axis. Cardiac size. Cardiac rhythm. Right lung. Left lung. Diaphragm. Abdomen: Stomach. Kidneys. Bladder. Small bowel. Large bowel. Extremities/Skeleton: Right upper arm. Right forearm. Skeleton The following structures could not be adequately visualized: Spine: Cervical spine. Thoracic spine. Lumbar spine. Sacral spine. Extremities / Right hand. Skeleton The following structures were documented previously: Head / Neck Choroid plexus. Midline falx. Vermis. Neck. Face Mandible. Orbits. Heart / Thorax Aortic arch view. Abdomen Abdom. wall. Cord insertion. Right renal artery. Left renal artery. Genitals. Extremities / Left upper arm. Left forearm. Left hand. Right upper leg. Right lower leg. Right foot. Left upper leg. Left lower leg. Left foot. Maternal Structures ----- --------- Uterus Visualized Cervix Suboptimal Approach - Transabdominal Right Ovary Visualized Size 13 mm x 15 mm x 15 mm. Vol 1.4 cm??? Left Ovary Not visualized Cul de Sac Suboptimal Impression ----- --------- Single viable intrauterine with appropriate interval growth. EFW measures at the 70%, AC measures at the 51%. Amniotic fluid MVP measures 5 cm. Recommendations ----- --------- anatomic survey is incomplete due to late gestational age and suboptimal visualization. Patient is not scheduled to return for additional ultrasound. Please reschedule for specific concerns or indications. Follow up growth ultrasounds to be done in referring OB office. Subsequent follow up or other follow up as clinically determined by primary OB provider unless otherwise specified by M. Results forwarded to ordering provider so they can follow up with the patient as necessary. Procedure Note Radiology, RadiologistMD - 09/19/2024 THIS EXAM WAS PERFORMED AT [facility] NAME: DAKOTAH IRVING : 1995 SEX: F Accession Number: [id number] ORDERING PHYSICIAN: DEEP SALINAS REFERRING PHYSICIAN: DEEP SALINAS Coding ----- --------- Procedures [id number]: Follow-up Ultrasound, per fetus Indication ----- --------- Screening for follow-up survey History ----- --------- OB History 3. Para 1 T1A1L1 Current ----- --------- Cell free DNA analysis Maternal Assessment ----- --------- Physical Exam Height 165 cm, 5 ft 5 in. Weight 83 kg, 183 lb. Initialweight 80 kg, 176 lb. BMI 30.45 kg/m???. Initial BMI 29.29 kg/m???. Weight gain 3 kg, 7 lb Method ----- --------- Transabdominal ultrasound examination ----- --------- Floyd . Number of fetuses: 1 Dating ----- --------- LMP on: 02/29/2024 GA by LMP 29 w + 0 d TATA by LMP: 12/05/2024 GA by prior assessment 27 w + 4 d TATA by prior assessment: 12/15/2024 Ultrasound examination on: 09/19/2024 GA by U/S based upon: AC, BPD, Femur, HC GA by U/S 28 w + 2 d TATA by U/S: 12/10/2024 Assigned: based on stated TATA, selected on 08/17/2024 Assigned GA 27 w + 4 d Assigned TATA: 12/15/2024 General Evaluation ----- --------- Cardiac activity Present. FHR 148 bpm. Presentation: cephalic Placenta: Placental site: posterior, away from cervical os Umbilical cord: Cord vessels: 3 vessel cord. Insertion site: documentedpreviously Amniotic fluid: Amount of AF: normal amount. MVP 5.0 cm Biometry ----- --------- Standard BPD 67.6 mm 27w 2d 27% Hadlock OFD 93.7 mm 30w 2d 98% Alfredo HC 258.8 mm 28w 1d 38% Hadlock Cerebellum tr 30.2 mm 26w 1d 22% Hill AC 235.3 mm 27w 6d 51% Hadlock Femur 56.2 mm 29w 4d 87% Hadlock Humerus 50.3 mm 29w 3d 90% Alfredo HC / AC 1.10 EFW 1,223 g 70% Hadlock EFW (lb) 2 lb EFW (oz) 11 oz EFW by: Hadlock ([id number]) Extended Tibia 49.5 mm 29w 5d 96% Alfredo Security Dispatcher 4.0 mm CM 4.8 mm 7% Nicolaides Head / Face / Neck Cephalic index 0.72 2% Nicolaides Nasal bone: present Extremities / Bony Struc FL / BPD 0.83 FL / HC 0.22 FL / AC 0.24 Other Structures FHR 148 bpm Anatomy ----- --------- The following structures appear normal: Head/Neck: Cranium. Lateral ventricles. Cavum septi pellucidi. Cerebellum.Cisterna magna. Parenchyma. Face: Lips. Profile. Nose. Nasal bone. Maxilla. Heart/Thorax: 4-chamber view. RVOT view. LVOT view. 3-vessel view.0-lgfftt-rznznsv view. Situs. Bicaval view. Ductal arch view. Interventricular septum. Great vessels. Cardiacposition. Cardiac axis. Cardiac size. Cardiac rhythm. Right lung. Left lung. Diaphragm. Abdomen: Stomach. Kidneys. Bladder. Small bowel. Large bowel. Extremities/Skeleton: Right upper arm. Right forearm. Skeleton The following structures could not be adequately visualized: Spine: Cervical spine. Thoracic spine. Lumbar spine. Sacral spine. Extremities / Right hand. Skeleton The following structures were documented previously: Head / Neck Choroid plexus. Midline falx. Vermis. Neck. Face Mandible. Orbits. Heart / Thorax Aortic arch view. Abdomen Abdom. wall. Cord insertion. Right renal artery. Left renalartery. Genitals. Extremities / Left upper arm. Left forearm. Left hand. Right upper leg.Right lower leg. Right foot. Left upper leg. Left lower leg. Left foot. Maternal Structures ----- --------- Uterus Visualized Cervix Suboptimal Approach - Transabdominal Right Ovary Visualized Size 13 mm x 15 mm x 15 mm. Vol 1.4 cm??? Left Ovary Not visualized Cul de Sac Suboptimal Impression ----- --------- Single viable intrauterine with appropriate interval growth. EFWmeasures at the 70%, AC measures at the 51%. Amniotic fluid MVP measures 5 cm. Recommendations ----- --------- anatomic survey is incomplete due to late gestational age andsuboptimal visualization. Patient is not scheduled to return for additional ultrasound. Please reschedule for specific concerns orindications. Follow up growth ultrasounds to be done in referring OB office. Subsequent follow up or other follow up as clinically determined byprimary OB provider unless otherwise specified by M. Results forwarded to ordering provider so they can follow up with thepatient as necessary. us Deep ELIZONDO OB US PROCEDURES Final Resul t documented in this encounter Visit Diagnoses Not on filedocumented in this encounter Additional Health Concerns Active Problems Noted Date Diagnosed Date OB Reminders 06/06/2024 documented as of this encounter Care Teams Charity Fundraiser Relationship Specialty Start Date End Date Karsten Caceres MD [address] [facility] [place] [address] PCP - General 09/16/23 documented as of this encounter
--- OUTSIDE RECORDS SUMMARY | 2024-11-08 16:03 | XMS_ITS | Encounter Summary ---
Author Organization [facility] tem Address [id number] [address] [place] [address] Care Team Providers Care Data Communications Engineer Name Role Phone Unavailable Primary Care Provider Unavailabl e Encounter Details Date Type Department Care Team ([facility] st Contact Info) Description 08/11/2024 Abstract Maternal- Medicine at [facility] [address] [place] [phone] External, Scanning Provider Social History Tobacco Use Types Packs/Day Years [...]
--- OUTSIDE RECORDS SUMMARY | 2024-11-08 16:03 | XMS_ITS | Encounter Summary ---
Author Organization [facility] Address [address] [facility] [place] [address] Care Team Providers Care Circuit Board Inspector Name Role Phone Karsten Caceres MD Primary Care Provider [phone] Encounter Details Date Type Department Care Team (Late st Contact Info) Description 11/08/2024 Bamboo flowsheet [facility] [address] [place] [address] Deep [place], [address] [place], [facility] Social History Tobacco Use Types Packs/Day Years [...] documented as of this encounter Care Teams Circuit Board Inspector Relationship Specialty Start Date End Date Karsten Caceres MD [address] [place] [address] PCP - General 09/16/23 documented as of this encounter
--- OUTSIDE RECORDS SUMMARY | 2024-11-08 16:03 | XMS_ITS | Encounter Summary ---
Author Organization [facility] Address [address] [place] [address] Care Team Providers Care Supervisor Pile Driving Name Role Phone Karsten Caceres MD Primary Care Provider [phone] Encounter Details Date Type Department Care Team (Late st Contact Info) Description 09/30/2023 Orders Only [facility] [address] [place] [address] Luisa Mota LPN [address] [place] [address] Social History Tobacco Use Types Packs/Day Years Used Date Smoking Tobacco: Never Assessed Comments Unknown Sex and Gender Information Value Date Recorded Sex Assigned at Female 09/16/2023 12:28 PM EDT Legal Sex Female 7:19 PM EDT Gender Identity Female 09/16/2023 12:28 PM EDT Sexual Orientation Straight 09/16/2023 12 :28 PM EDT documented as of this encounter Plan of Treatment Not on file documented as of this encounter Procedures Procedure Name Priority Date/Time Associated Diagnosis Comments PAP SMEAR Routine 09/22/2023 12:00 AM EDT documented in this encounter Results * Pap Smear (09/22/2023 12:00 AM EDT) Swab Cervical swab / Unknown us Brad Nurse [facility] LAB CYTOLOGY ORDERABLES Final Result EXTERNAL LAB documented in this encounter Visit Diagnoses Not on filedocumented in this encounter Care Teams Supervisor Pile Driving Relationship Specialty Start Date End Date Karsten Caceres MD [address] [place] [id number] PCP - General 09/16/23 documented as of this encounter
--- OUTSIDE RECORDS SUMMARY | 2024-11-08 16:03 | XMS_ITS | Clinical Summary ---
Author Organization [facility] tem Address [id number] [address] [place] [address] Care Team Providers Care Histology Specialist Name Role Phone Unavailable Primary Care Provider Unavailabl e Allergies No known active allergies Medications 25/iron fum/folic/dha (-1 ORAL) Take by mouth. Active Encounters Date Type Department Care Team Description 09/19/2024 10:55 AM EDT - 09/19/2024 11:59 PM EDT Hospital Encounter [facility] - Ultrasound [address] [place] [address] Encounter for follow-up ultrasound of anatomy Discharge Disposition: Home 09/19/2024 Travel 09/18/2024 Travel 08/17/2024 Orders Only [facility] [address] [facility] [address] [place] [address] Erica Schilling, RN Encounter for follow-up ultrasound of anatomy (Primary Dx) 08/17/2024 Travel 08/15/2024 Abstract [facility] Certified Nurse Restaurant Recruiter - [place] [address] [facility] [address] [place] [address] Erica Schilling, JUAN PABLO 08/11/2024 Abstract Maternal- Medicine at [facility] [address] [facility] [place] [phone] External, Scanning Provider from Last 3 Months Social History Tobacco Use Types Packs/Day Years Used Date Smoking Tobacco: Never Assessed Estimated Date of Delivery Comme nts Yes 12/15/2024 Based on Ultraso und Sex and Gender Information Value Date Recorded Sex Assigned at Not on file Legal Sex Female 8:29 AM EDT Gender Identity Not on file Sexual Orientation Not on file Plan of Treatment Health Maintenance Due Date Last Done Comments Depression Screening 2006 Tobacco Screening 2006 Adult BMI Screening 2012 DTaP,Tdap and Td Vaccines (1 - Tdap) 2013 Pap Smear 12/26/2015 Influenza Vaccine 2024 Medical Devices Not on file Procedures Procedure Name Priority Date/Time Associated Diagnosis Comments US MFM OB FOLLOW-UP, 1 FETUS Routine 09/19/2024 12:21 PM EDT Encounter for follow-up ultrasound of anatomy US MFM BASIC OB >/=14 WEEKS, 1 FETUS Routine 08/17/2024 10:50 AM EDT Screening, , for anatomic survey from Last 3 Months Results * US MFM OB FOLLOW-UP, 1 FETUS (09/19/2024 12:21 PM EDT) Only the most recent of2 resultswithin the time period is included. Anatomical Region Laterality Modality OB-COMPUTER ENGINEERING TECHNOLOGIST Ultrasound 09/19/2024 11:0 3 AM EDT Narrative 09/19/2024 12:44 PM EDT NAME: DAKOTAH IRVING : 1995 SEX: F Accession Number: [id number] ORDERING PHYSICIAN: DEEP CLEMENTS REFERRING PHYSICIAN: DEEP CLEMENTS Coding ----- --------- Procedures [id number]: Follow-up Ultrasound, per fetus Indication ----- --------- Screening for follow-up survey History ----- --------- OB History 3. Para 1 T1A1L1 Current ----- --------- Cell free DNA analysis Maternal Assessment ----- --------- Physical Exam Height 165 cm, 5 ft 5 in. Weight 83 kg, 183 lb. Initial weight 80 kg, 176 lb. BMI 30.45 kg/m . Initial BMI 29.29 kg/m . Weight gain 3 kg, 7 lb Method [...] EFW (oz) 11 oz EFW by: Hadlock ([id number]) Extended Tibia 49.5 mm 29w 5d 96% Alfredo Reel Worker 4.0 mm CM 4.8 mm 7% Nicolaides [...] view. RVOT view. LVOT view. 3-vessel view. 5-saotwv-ktvjpqy view. Situs. Bicaval view. Ductal arch view. [...] 15 mm x 15 mm. Vol 1.4 cm Left Ovary Not visualized Cul de Sac [...] primary OB provider unless otherwise specified by MFM. Results forwarded to ordering provider so they can follow up with the patient as necessary. Procedure Note Luis Gaona MD - 09/19/2024 NAME: DAKOTAH IRVING : 1995 SEX: F Accession Number: [id number] ORDERING PHYSICIAN: DEEP CLEMENTS REFERRING PHYSICIAN: DEEP CLEMENTS Coding ----- --------- Procedures [id number]: Follow-up Ultrasound, per fetus Indication ----- --------- Screening for follow-up survey History ----- --------- OB History 3. Para 1 T1A1L1 Current ----- --------- Cell free DNA analysis Maternal Assessment ----- --------- Physical Exam Height 165 cm, 5 ft 5 in. Weight 83 kg, 183 lb. Initialweight 80 kg, 176 lb. BMI 30.45 kg/m . Initial BMI 29.29 kg/m . Weight gain 3 kg, 7 lb Method [...] EFW (oz) 11 oz EFW by: Hadlock ([id number]-[id number]-FL) Extended Tibia 49.5 mm 29w 5d 96% Alfredo Reel Worker 4.0 mm CM 4.8 mm 7% Nicolaides [...] 4-chamber view. RVOT view. LVOT view. 3-vessel view.5-gzvezs-cssuwcc view. Situs. Bicaval view. Ductal arch view. [...] 15 mm x 15 mm. Vol 1.4 cm Left Ovary Not visualized Cul de Sac [...] byprimary OB provider unless otherwise specified by MFM. Results forwarded to ordering provider so they can follow up with thepatient as necessary. us Deep R Brad DO G US ORDERABLES Final Result from Last 3 Months Insurance
--- NOTE | 2024-11-08 16:20 | US_ITS ---
[address] [address] Patient Name: ARISTIDES CLAIRE MRN: [id number] date: 1995 Sex: F Assigned Patient Location: [facility] Current Patient Location: [facility] Accession/Order Number: [id number] Exam Date: 11/08/2024 17:20 Report Date: 11/08/2024 17:25 At the request of: ITZ CLEMENTS DO Procedure: US OB BPP w non-stress US OB growth, US OB BPP w non-stress 11/08/2024 5:10 PM SIGNS AND SYMPTOMS: elevated blood pressure COMPARISON: 11/08/2024 TECHNIQUE: Limited pelvic ultrasound using transvesical sonography. FINDINGS: An intrauterine is identified. The visualized fetus has an estimated gestational age of 34 weeks and 2 days. The biparietal diameter and abdominal circumference place the fetus below the 10th percentile for size. Estimated weight is 5 lbs. 2 oz. The amniotic fluid index is 15.1 cm with the deepest vertical pocket measuring 4.65 cm. A heart rate is identified at 123 bpm. There is no evidence for placenta previa or subchorionic hemorrhage. Pelvic survey reveals no gross abnormalities. Biophysical profile: Gross body movements: 2/2 tone: 2/2 breathing movements: 2/2 Amniotic fluid volume: 2/2 US/US OB BPP w non-stress IMPRESSION: Biophysical profile: 8/8 The biparietal diameter and abdominal circumference place the fetus below the 10th percentile for size. Estimated weight is 5 lbs. 2 oz. The fetus has an estimated gestational age of 34 weeks and 2 days (34 weeks 5 days by dates). Impression dictated by: Aleksander Harrison M.D. 11/08/2024 5:25 PM Dictation Location: [facility] Electronically authenticated by: [id number] Y Date: 11/08/2024 17:25
--- NOTE | 2024-11-08 16:29 | US_ITS ---
[address] [address] Patient Name: ARISTIDES CLAIRE MRN: [id number] date: 1995 Sex: F Assigned Patient Location: [facility] Current Patient Location: [facility] Accession/Order Number: [id number] Exam Date: 11/08/2024 17:20 Report Date: 11/08/2024 17:25 At the request of: ITZ CLEMENTS DO Procedure: US OB BPP w non-stress US OB growth, US OB BPP w non-stress 11/08/2024 5:10 PM SIGNS AND SYMPTOMS: elevated blood pressure COMPARISON: 11/08/2024 TECHNIQUE: Limited pelvic ultrasound using transvesical sonography. FINDINGS: An intrauterine is identified. The visualized fetus has an estimated gestational age of 34 weeks and 2 days. The biparietal diameter and abdominal circumference place the fetus below the 10th percentile for size. Estimated weight is 5 lbs. 2 oz. The amniotic fluid index is 15.1 cm with the deepest vertical pocket measuring 4.65 cm. A heart rate is identified at 123 bpm. There is no evidence for placenta previa or subchorionic hemorrhage. Pelvic survey reveals no gross abnormalities. Biophysical profile: Gross body movements: 2/2 tone: 2/2 breathing movements: 2/2 Amniotic fluid volume: 2/2 US/US OB growth IMPRESSION: Biophysical profile: 88 The biparietal diameter and abdominal circumference place the fetus below the 10th percentile for size. Estimated weight is 5 lbs. 2 oz. The fetus has an estimated gestational age of 34 weeks and 2 days (34 weeks 5 days by dates). Impression dictated by: Aleksander Harrison M.D. 11/08/2024 5:25 PM Dictation Location: [facility] Electronically authenticated by: [id number] Y Date: 11/08/2024 17:25
--- NOTE | 2024-11-08 16:35 | PC.NURSE ---
0316 Dr. Salinas called and notified of patient arrival and assessment, VS, and FHR tracing. Orders received for IV Labetalol per protocol to manage elevated BP, Magnesium Sulfate 4gm bolus followed by 2gm/hr, betamethasone 12mg/2ml IM times one dose. Physician coming in to see patient to [facility] for transport to [facility].
[2024-11-08] MEDS: LABETALOL HCL 20 MG/4 ML SYRINGE IVP ×3 (16:53→18:21)
[2024-11-08 16:56] LABS: Hematocrit 32.3 % (36.0-48.0); Hemoglobin 10.8 g/dL (12.0-16.0); Immature Granulocytes Abs Auto 0.16 10^3/uL (0.00-0.03); Immature Granulocytes Pct Auto 1.2 % (0.0-0.5); Lymphocytes Absolute Auto 3.5 10^3/uL (1.2-3.8); Mean Corpuscular HGB Conc 33.4 g/dL (29.9-35.2); Mean Corpuscular Hemoglobin 29.8 pg (26.7-34.0); Mean Corpuscular Volume 89.0 fL (81.0-99.0); Platelet Count 269 10^3/uL (150-450); Red Blood Count 3.63 10^6/uL (4.20-5.40); White Blood Count 13.7 10^3/uL (4.0-11.0)
[2024-11-08] MEDS: 0.9 % SODIUM CHLORIDE 1,000 ML 75 ML IV (17:02)
[2024-11-08] MEDS: MAGNESIUM-BOLUS FROM THE BAG- 40 GM/1,000 ML IV.SOLN IV (17:02)
--- NOTE | 2024-11-08 17:10 | PM.OBHP ---
OB - H&P: HPI History of Present Illness Chief complaint: NST BIO US : 3 Para: 1 Narrative: 28 yo at 34 4/7wks presented to office with elevated bpp 180's/100, no complaints of visual changes or epigastric pain, pt complains of slight headaches, urine protein was +4 in office, pt was sent to l&d for evaluation and persistent elevated bp was noted, pt was placed on magnesium and started on iv labetalol, celestone was also given, will discuss case with mfm for transport History of Present Dating criteria: LMP confirmed by 1st trimester US care: good care Ultrasounds: normal 1st trimester US and normal mid trimester US complications: preeclampsia Medical complications OB: none Labs Blood type: A (+) positive Rubella: immune RPR/VDLR: nonreactive GBS status: negative HBsAG: negative Review of Systems ROS Status of ROS: 10 or more systems reviewed and unremarkable except as noted in history and below Meds Home Medications and Allergies Allergies Allergy/AdvReac Type Severity Reaction Status Date / Time No Known Drug Allergies Allergy Verified 11/08/24 16:29 Exam Constitutional Vital Signs, click to edit/add: Last Vital Signs Pulse 63 11/08/24 16:59 BP 162/100 H 11/08/24 16:59 Documenting provider has reviewed patient's vital signs: yes Common normals: no apparent distress Respiratory Common normals: normal respiratory effort and clear to auscultation bilaterally Cardio Common normals: regular rate and regular rhythm GI Common normals: Normal to inspection, nondistended, normoactive bowel sounds present Extremity Common normals: no clubbing, cyanosis or edema and no calf tenderness Results Labs Labs: Short CBC 11/08/24 Range/Units 16:48 WBC 13.7 H (4.0-11.0) 10^3/uL Hgb 10.8 L (12.0-16.0) g/dL Hct 32.3 L (36.0-48.0) % Plt Count 269 (150-450) 10^3/uL OB - A/P Assessment and Plan (1) Intrauterine : (2) Severe preeclampsia: Assessment and Plan: iv, routine labs, start magnesium, celestone given, labs reviewed, discussed with mfm whom agreed with transport
[2024-11-08 17:12] LABS: Protein Creatinine Ratio Urine 9.29; Total Protein Urine Random 764.9 mg/dL (<=11.9)
[2024-11-08 17:15] LABS: Alanine Aminotransferase 33 U/L (14-59); Albumin Globulin Ratio 0.6; Albumin Level 2.2 g/dL (3.4-5.0); Alkaline Phosphatase 144 U/L (46-116); Anion Gap 15.2; Aspartate Amino Transferase 11 U/L (15-37); Blood Urea Nitrogen 13.0 mg/dL (7.0-18.0); Calcium 8.2 mg/dL (8.5-10.1); Carbon Dioxide 23.9 mmol/L (21.0-32.0); Chloride 104 mmol/L (98-107); Estimated GFR (African America >60 (>=60 mL/min/1.73m^2); Estimated GFR (Non-African Ame >60 (>=60 mL/min/1.73m^2); Globulin 3.9 g/dL; Glucose 76 mg/dL (74-106); Potassium 4.1 mmol/L (3.5-5.1); Sodium 139 mmol/L (136-145); Total Protein 6.1 g/dL (6.4-8.2); Uric Acid 7.4 mg/dL (2.6-6.0)
[2024-11-08] MEDS: MAGNESIUM SULFATE IN WATER 40 GM/1,000 ML IV.SOLN IV (17:29)
[2024-11-08 17:48] LABS: Partial Thromboplastin Time 25.1 sec (22.3-36.2); Prothrombin Time 9.8 sec (9.0-11.6)
[2024-11-08 17:56] LABS: INR <0.93
[2024-11-08] MEDS: BETAMETHASONE ACE/BETAMETHASONE SOD PHOS 30 MG/5 ML 12 MG IM (17:56)
[2024-11-08 18:08] LABS: Fibrinogen 376 mg/dL (200-400)
[2024-11-08] MEDS: LABETALOL HCL 20 MG/4 ML SYRINGE 40 MG IVP (19:39)
--- OUTSIDE RECORDS SUMMARY | 2024-11-08 21:39 | XMS_ITS | CCD ---
Author Organization [facility] Care Team Providers Care Broadcast Operations Director Name Role Phone Guy Mullen BRAD ., DR MOBLEY Attending Unavailable REQUEST, [...] ble BRAD ., DR MOBLEY Consulting Unavailable Guy Mullen MD Primary Care Provider Guy Mullen MD Primary Care Provider Unavailable Primary Care Provider Unavailabl e NEGAR SALINASY R Referring Unavailable BRAD, ITZ R Referring Unavailable BRAD, ITZ Attending Unavailable AMY RUBALCAVA Attending Unavailable AMY RUBALCAVA Referring Unavailable ITZ SALINAS Attending Unavailable ITZ SALINAS Attending Unavailable ITZ SALINAS Attending Unavailable BRAD, ITZ Attending Unavailable AMY RUBALCAVA Attending Unavailable Medications Current Medications Medication Drug Class(es) Dates Sig (Normalized) Sig (Original) omeprazole 20 mg delayed release oral capsule (17 sources) Proton Pump Inhibitor Start: 09-26-2024 End: 10-26-2024 take 1 capsule by mouth before mealtime omeprazole (PriLOSEC) [address] capsule Indications: Gastroesophageal Reflux Disease , Heartburn Take 1 capsule (20 mg) by mouth in the morning. Take before meals. Do not crush or chew. 30 capsule 3 09/26/2024 Active take 1 capsule by mouth once zenaida ly Omeprazole 20 MG 1 capsule 30 minutes before morning meal Orally Once a day Active 25/iron fum/folic/d fraire (-1 ORAL) (1 source) 25/iron fum/folic/dha (-1 ORAL) Take by mouth. Active MV-Min-Fe Fum-FA-DH A ( 1 PO) (20 sources) MV-Min- Fe Fum-FA-DHA ( 1 PO) Take by mouth Active Completed/Discontinued Medications Medication Drug Class(es) Dates [...] infection (2 sources) Viral gastroenteritis due to [place]-like agent; Translations: [Acute gastroenteropathy due to [place] agent] 06-21-2023 Episodic Menstrual disorders (1 source) Missed period; Translations: [Irregular menstruation, unspecified] 05-05-2024 Chronic Other circulatory disease (2 sources) Elevated blood-pressure reading without diagnosis of hypertension; Translations: [Elevated blood-pressure reading, without diagnosis of hypertension] 11-08-2024 Episodic Other complications of ; puerperium affecting management of mother (2 sources) disorder; Translations: [Maternal care for (suspected) abnormality and damage, unspecified, not applicable or unspecified] 09-26-2024 Episodic Other complications of (2 sources) Gastroesophageal reflux disease in ; Translations: [Diseases of the digestive system complicating , unspecified trimester] 09-26-2024 Episodic Other nutritional; endocrine; and metabolic disorders (6 sources) Abnormal weight gain; Translations: [Abnormal weight gain] Episodic Other nutritional; endocrine; and metabolic disorders (2 sources) Weight gain; Translations: [Abnormal weight gain] 06-21-2023 Episodic Other and delivery including normal (20 sources) state, incidental; Translations: [Encounter for care and examination of lactating mother] Onset: 11-10-2021 Resolved: 11-10-2021 Episodic Other screening for suspected conditions (not mental disorders or infectious disease) (15 sources) Encounter for screening for Streptococcus B; Translations: [Encounter for screening for diabetes mellitus] Onset: 10-09-2021 Episodic Residual codes; unclassified (1 source) Gestation period, 9 weeks; Translations: [9 weeks gestation of ] 05-05-2024 Episodic Residual codes; unclassified (2 sources) Gestation period, 14 weeks; Translations: [14 weeks gestation of ] 06-06-2024 Episodic Residual codes; unclassified (2 sources) Gestation period, 22 weeks; Translations: [22 weeks gestation of ] 08-01-2024 Episodic Residual codes; unclassified (2 sources) Gestation period, 24 weeks; Translations: [24 weeks gestation of ] 08-29-2024 Episodic Residual codes; unclassified (2 sources) Gestation period, 28 weeks; Translations: [28 weeks gestation of ] 09-26-2024 Episodic Residual codes; unclassified (2 sources) Gestation period, 30 weeks; Translations: [30 weeks gestation of ] 10-11-2024 Episodic Residual codes; unclassified (2 sources) Gestation period, 32 weeks; Translations: [32 weeks gestation of ] 10-25-2024 Episodic Residual codes; unclassified (2 sources) Gestation period, 34 weeks; Translations: [34 weeks gestation of ] 11-08-2024 Episodic Spondylosis; intervertebral disc disorders; other back problems (2 sources) Low back pain; Translations: [Lumbar back pain] 12-21-2023 Episodic Unclassified (1 source) CONTACT W/AND (SUSP) EXPOS COVID-19; Translations: [CONTACT W/AND (SUSP) EXPOS COVID-19] Onset: 01-03-2022 Unclassified (20 sources) OB Reminders Onset: 06-06-2024 06-06-2024 Past [...] source) Heartburn Onset: 11-10-2021 Resolved: 11-10-2021 Episodic Residual codes; unclassified (1 source) 39 weeks gestation of ; Translations: [39 WEEKS GESTATION OF ] Onset: 01-03-2022 Episodic Unclassified (1 source) Patient encounter status 08-17-2024 Results Test Name Value Interpretation Reference Range Facility ALL CBC WITH AUTO DIFFon BASOPHILS ABSOLUTE AUTO 0.1 [facility] Basophils/100 WBC (Bld) 0.6 % 0.2 - 2.0 % [facility] Eosinophils/100 WBC (Bld) 1.1 % 0.9 - 7.0 % [facility] Erythrocyte distribution width (RBC) [Ratio] 18.1 % High 11.0 - 15.0 % [facility] Hematocrit (Bld) [Volume fraction] 32.3 % Low 36.0 - 48.0 % [facility] Hemoglobin (Bld) [Mass/Vol] 10.8 g/dL Low 12.0 - 16.0 g/dL [facility] IMMATURE GRANULOCYTES ABS AUTO 0.16 High [facility] Immature granulocytes/100 WBC (Bld) 1.2 % High 0.0 - 0.5 % [facility] Interpretation and review of laboratory results Abnormal [facility] LYMPHOCYTES ABSOLUTE AUTO 3.5 [facility] Lymphocytes/100 WBC (Bld) 25.4 % 20.5 - 60.0 % [facility] MCH (RBC) [Entitic mass] 29.8 pg 26.7 - 34.0 pg [facility] MCHC (RBC) [Mass/Vol] 33.4 g/dL 29.9 - 35.2 g/dL [facility] MCV (RBC) [Entitic vol] 89 fL 81.0 - 99.0 fL [facility] MONOCYTES ABSOLUTE AUTO 0.7 [facility] Monocytes/100 WBC (Bld) 5 % 1.7 - 12.0 % [facility] NEUTROPHILS ABSOLUTE AUTO 9.1 High [facility] Neutrophils/100 WBC (Bld) 66.7 % 43.0 - 75.0 % [facility] Platelet mean volume (Bld) [Entitic vol] 10.7 fL 9.5 - 13.5 fL [facility] TBH EO # 0.2 [facility]H PLT 269 [facility] TB RBC 3.63 Low [facility] TBH WBC 13.7 High [facility] No Panel InformationOrdered By: Radiologist Radiology on 11-08-2024 [facility] Work Phone: No Panel Informationon 11-08 Radiology Study observation (narrative) [facility] US OB BPP W NON-STRESS on 11-08-2024 [place] [address] Ultrasound Report Signed Patient: ARISTIDES CLAIRE MR#: [id number] : 1995 Acct:[id number] Age/Sex: 28 / F ADM Date: 11/08/24 Loc: [facility] 251-[address]: Itz Salinas D.O. Ordering Physician: Itz Salinas D.O. Date of Service: 11/08/24 Procedure(s): US OB BPP w non-stress Accession Number(s): [id number] cc: Itz Salinas D.O.; GUY MULLEN [address] [address] Patient Name: ARISTIDES CLAIRE MRN: [id number] date: 1995 Sex: F Assigned Patient Location: [facility] Current Patient Location: [facility] Accession/Order Number: [id number] Exam Date: 11/08/2024 17:20 Report Date: 11/08/2024 17:25 At the request of: ITZ SLAINAS DO Procedure: US OB BPP w non-stress US OB growth, US OB BPP w non-stress 11/08/2024 5:10 PM SIGNS AND SYMPTOMS: elevated blood pressure COMPARISON: 11/08/2024 TECHNIQUE: Limited pelvic ultrasound using transvesical sonography. FINDINGS: An intrauterine is identified. The visualized fetus has an estimated gestational age of 34 weeks and 2 days. The biparietal diameter and abdominal circumference place the fetus below the 10th percentile for size. Estimated weight is 5 lbs. 2 oz. The amniotic fluid index is 15.1 cm with the deepest vertical pocket measuring 4.65 cm. A heart rate is identified at 123 bpm. There is no evidence for placenta previa or subchorionic hemorrhage. Pelvic survey reveals no gross abnormalities. Biophysical profile: Gross body movements: 2/2 tone: 2/2 breathing movements: 2/2 Amniotic fluid volume: 22 US/US OB BPP w non-stress IMPRESSION: Biophysical profile: 12/01 The biparietal diameter and abdominal circumference place the fetus below the 10th percentile for size. Estimated weight is 5 lbs. 2 oz. The fetus has an estimated gestational age of 34 weeks and 2 days (34 weeks 5 days by dates). Impression dictated by: Aleksander Harrison M.D. 11/08/2024 5:25 PM Dictation Location: [facility] Electronically authenticated by: [id number] Y Date: 11/08/2024 17:25 Dictated By: Aleksander Harrison M.D. Signed By: 11/08/241727 DD/ 24 TD/TT: [employer]: [facility] Radiology, Radiologist, - 11/08/2024 [place] [address] Ultrasound Report Signed Patient: ARISTIDES CLAIRE MR#: [id number] : 1995 Acct:[id number] Age/Sex: 28 / F ADM Date: 11/08/24 Loc: [facility] 251-[address]: Itz Salinas D.O. Ordering Physician: Itz Salinas D.O. Date of Service: 11/08/24 Procedure(s): US OB BPP w non-stress Accession Number(s): [id number] cc: Itz Salinas D.O.; GUY MULLEN [place] [address] Patient Name: ARISTIDES CLAIRE MRN: [id number] date: 1995 Sex: F Assigned Patient Location: [facility] Current Patient Location: [facility] Accession/Order Number: [id number] Exam Date: 11/08/2024 17:20 Report Date: 11/08/2024 17:25 At the request of: ITZ SALINAS DO Procedure: US OB BPP w non-stress US OB growth, US OB BPP w non-stress 11/08/2024 5:10 PM SIGNS AND SYMPTOMS: elevated blood pressure COMPARISON: 11/08/2024 TECHNIQUE: Limited pelvic ultrasound using transvesical sonography. FINDINGS: An intrauterine is identified. The visualized fetus has an estimated gestational age of 34 weeks and 2 days. The biparietal diameter and abdominal circumference place the fetus below the 10th percentile for size. Estimated weight is 5 lbs. 2 oz. The amniotic fluid index is 15.1 cm with the deepest vertical pocket measuring 4.65 cm. A heart rate is identified at 123 bpm. There is no evidence for placenta previa or subchorionic hemorrhage. Pelvic survey reveals no gross abnormalities. Biophysical profile: Gross body movements: 2/2 tone: 2/2 breathing movements: 2/2 Amniotic fluid volume: 2/2 US/US OB BPP w non-stress IMPRESSION: Biophysical profile: 8/8 The biparietal diameter and abdominal circumference place the fetus below the 10th percentile for size. Estimated weight is 5 lbs. 2 oz. The fetus has an estimated gestational age of 34 weeks and 2 days (34 weeks 5 days by dates). Impression dictated by: Aleksander Harrison M.D. 11/08/2024 5:25 PM Dictation Location: [place] [address] Electronically authenticated by: [id number] Y Date: 11/08/2024 17:25 Dictated By: Aleksander Harrison M.D. Signed By: 11/08/241727 DD/ 24 TD/TT: [employer]: [facility]-08-2024 [place] [address] Ultrasound Report Signed Patient: ARISTIDES CLAIRE MR#: [id number] : 1995 Acct:[id number] Age/Sex: 28 / F ADM Date: 11/08/24 Loc: [facility] 251-[address]: Itz Salinas D.O. Ordering Physician: Itz Salinas D.O. Date of Service: 11/08/24 Procedure(s): US OB growth Accession Number(s): [id number] cc: Itz Salinas D.O.; GUY MULLEN [place] [address] Patient Name: ARISTIDES CLAIRE MRN: [id number] date: 1995 Sex: F Assigned Patient Location: [facility] Current Patient Location: [facility] Accession/Order Number: [id number] Exam Date: 11/08/2024 17:20 Report Date: 11/08/2024 17:25 At the request of: ITZ SALINAS DO Procedure: US OB BPP w non-stress US OB growth, US OB BPP w non-stress 11/08/2024 5:10 PM SIGNS AND SYMPTOMS: elevated blood pressure COMPARISON: 11/08/2024 TECHNIQUE: Limited pelvic ultrasound using transvesical sonography. FINDINGS: An intrauterine is identified. The visualized fetus has an estimated gestational age of 34 weeks and 2 days. The biparietal diameter and abdominal circumference place the fetus below the 10th percentile for size. Estimated weight is 5 lbs. 2 oz. The amniotic fluid index is 15.1 cm with the deepest vertical pocket measuring 4.65 cm. A heart rate is identified at 123 bpm. There is no evidence for placenta previa or subchorionic hemorrhage. Pelvic survey reveals no gross abnormalities. Biophysical profile: Gross body movements: 2/2 tone: 2/2 breathing movements: 2/2 Amniotic fluid volume: 2/2 US/US OB growth IMPRESSION: Biophysical profile: 12/01 The biparietal diameter and abdominal circumference place the fetus below the 10th percentile for size. Estimated weight is 5 lbs. 2 oz. The fetus has an estimated gestational age of 34 weeks and 2 days (34 weeks 5 days by dates). Impression dictated by: Aleksander Harrison M.D. 11/08/2024 5:25 PM Dictation Location: [place] [address] Electronically authenticated by: [id number] Y Date: 11/08/2024 17:25 Dictated By: Aleksander Harrison M.D. Signed By: 11/08/241727 DD/ 24 TD/TT: [employer]: [facility] Radiology, Radiologist, MD - 11/08/2024 [place] [address] Ultrasound Report Signed Patient: ARISTIDES CLAIRE MR#: [id number] : 1995 Acct:[id number] Age/Sex: 28 / F ADM Date: 11/08/24 Loc: [facility] 251-[address]: Itz Salinas D.O. Ordering Physician: Itz Salinas D.O. Date of Service: 11/08/24 Procedure(s): US OB growth Accession Number(s): [id number] cc: Itz Salinas D.O.; GUY MULLEN [place] [id number] Patient Name: ARISTIDES CLAIRE MRN: [facility]:[id number] date: 1995 Sex: F Assigned Patient Location: [facility] Current Patient Location: [facility] Accession/Order Number: [id number] Exam Date: 11/08/2024 17:20 Report Date: 11/08/2024 17:25 At the request of: ITZ SALINAS DO Procedure: US OB BPP w non-stress US OB growth, US OB BPP w non-stress 11/08/2024 5:10 PM SIGNS AND SYMPTOMS: elevated blood pressure COMPARISON: 11/08/2024 TECHNIQUE: Limited pelvic ultrasound using transvesical sonography. FINDINGS: An intrauterine is identified. The visualized fetus has an estimated gestational age of 34 weeks and 2 days. The biparietal diameter and abdominal circumference place the fetus below the 10th percentile for size. Estimated weight is 5 lbs. 2 oz. The amniotic fluid index is 15.1 cm with the deepest vertical pocket measuring 4.65 cm. A heart rate is identified at 123 bpm. There is no evidence for placenta previa or subchorionic hemorrhage. Pelvic survey reveals no gross abnormalities. Biophysical profile: Gross body movements: 2/2 tone: 2/2 breathing movements: 2/2 Amniotic fluid volume: 2/2 US/US OB growth IMPRESSION: Biophysical profile: 12/01 The biparietal diameter and abdominal circumference place the fetus below the 10th percentile for size. Estimated weight is 5 lbs. 2 oz. The fetus has an estimated gestational age of 34 weeks and 2 days (34 weeks 5 days by dates). Impression dictated by: Aleksander Harrison M.D. 11/08/2024 5:25 PM Dictation Location: [employer] Electronically authenticated by: [id number] Y Date: 11/08/2024 17:25 Dictated By: Aleksander Harrison M.D. Signed By: 11/08/241727 DD/ 24 TD/TT: [employer]: [facility] Urinalysis macro (dipstick) panel (U)on 11-08-2024 Bilirubin, UA Negative Negative - 4(70) +++ mg/dL [facility] Blood, UA Negative Negative - 50 Jay/mcL [facility] Clarity, UA Clear [facility] Color, UA Yellow [facility] Glucose, UA Negative Negative - 1999(110) ++++ mg/dL [facility] Interpretation and review of laboratory results Abnormal [facility] Ketones, UA Negative Negative - 160(16) ++++ mg/dL [facility] Leukocytes, UA Negative Negative - 500+++ Kate/mcL [facility] Nitrite, UA Negative Negative - Positive [facility] pH, UA 6 5 - 9 [facility] Protein, UA 4+ Negative - 2000(20) ++++ mg/dL [facility] Spec Grav, UA 1.03 1 - 1.03 [facility] Urobilinogen, UA 0.2 0.2 - 12 mg/dL [facility] Urinalysis macro (dipstick) panel (U)on 10-11-2024 Bilirubin, UA Negative Negative - 4(70) +++ mg/dL [facility] Blood, UA Negative Negative - 50 Jay/mcL [facility] Clarity, UA Clear [facility] Color, UA Yellow [facility] Glucose, UA Negative Negative - 1999(110) ++++ mg/dL [facility] Interpretation and review of laboratory results Normal [facility] Ketones, UA Negative Negative - 160(16) ++++ mg/dL [facility] Leukocytes, UA Positive Negative - 500+++ Ktae/mcL [facility] Comment on above: small Nitrite, UA Negative Negative - Positive [facility] pH, UA 5.5 5 - 9 [facility] Protein, UA Negative Negative - 1999(20) ++++ mg/dL [facility] Spec Grav, UA 1.02 1 - 1.03 [facility] Urobilinogen, UA 0.2 0.2 - 12 mg/dL [facility] Urinalysis macro (dipstick) panel (U)on 09-26-2024 Bilirubin, UA Negative Negative - 4(70) +++ mg/dL [facility] Blood, UA Negative Negative - 50 Jay/mcL [facility] Clarity, UA Clear [facility] Color, UA Yellow [facility] Glucose, UA Negative Negative - 1999(110) ++++ mg/dL [facility] Interpretation and review of laboratory results Normal [facility] Ketones, UA Negative Negative - 160(16) ++++ mg/dL [facility] Leukocytes, UA Trace Negative - 500+++ Kate/mcL [facility] Nitrite, UA Negative Negative - Positive [facility] pH, UA 7 5 - 9 [facility] Protein, UA Negative Negative - 1999(20) ++++ mg/dL [facility] Spec Grav, UA 1.02 1 - 1.03 [facility] Urobilinogen, UA 0.2 0.2 - 12 mg/dL [facility] BOX TESTon 08-15-2024 BOX TEST SENT OUT [employer] [facility] BOX1 [employer] [facility] BOX2 08/15/24 [facility] [employer] [facility] [place] [facility] 14+ WEEKS ANATOMY SCAN on 08-01-2024 US OB 14+ WEEKS ANATOMY SCAN EXAM: US OB 14+ WEEKS ANATOMY SCAN HISTORY: anatomy. COMPARISON: OB ultrasound 05/05/2024. TECHNIQUE: Two-dimensional transabdominal grayscale ultrasound imaging of the pelvis was performed. FINDINGS: Gestation: Single Presentation: Variable Cardiac Activity: 131 beats per minute Placental Location: Posterior low-lying Cervical Length: 4.4 cm Amniotic Fluid: Appears adequate MEASUREMENTS: BPD: 4.5 cm EGA: 19 weeks 5 days HC: 17.2 cm EGA: 19 weeks 5 days AC: 15.6 cm EGA: 20 weeks 5 days FL: 3.6 cm EGA: 21 weeks 3 days HC/AC Ratio: 1.10 The gestational age by today's ultrasound is 20 weeks 3 days (+/- 10 days gestation). Estimated Weight: 383 grams, +/- 57 grams ( 0 lb 13 oz). Weight Percentile for gestational age: 6 % ANATOMY C-Spine: Unremarkable T-Spine: Unremarkable L-Spine: Unremarkable Sacrum: Unremarkable Four Chamber Heart: Unremarkable LVOT: Limited RVOT: Limited Stomach: Unremarkable Kidneys: Unremarkable Bladder: Unremarkable Diaphragm: Unremarkable Cord insertion: Unremarkable Cord vessels: Three Lateral Ventricles: Unremarkable Cerebellum: Unremarkable Cisterna Magna: Unremarkable Posterior Fossa: Unremarkable Right Femur: Unremarkable Left Femur: Unremarkable Right Tib/Fib: Unremarkable Left Tib/Fib: Unremarkable Right Rad/Ulnar: Unremarkable Left Rad/Ulnar: Unremarkable Right Humerus: Unremarkable Left Humerus: Unremarkable Nose/Lips: Unremarkable Orbits: Unremarkable IMPRESSION: 1. Single, live intrauterine gestation 22 weeks, 0 days by LMP. Today's ultrasound measurements correlate with a gestational age of 20 weeks 3 days. Estimated weight is 383 grams, +/- 57 grams ( 0 lb 13 oz) which correlates to 6 %. TATA is 12/16/2024. 2. growth is small for gestational age. 3. Limited visualization of the outflow tracts. A short-term follow-up ultrasound is recommended to visualize limited anatomy, as well as monitor placental location. 4. Low-lying placenta. Interpreted by: Electronically signed by TOMASA SMITH II, MD, PHD at 01-Aug-2024 11:31:07 PM [facility] Normal Not Available Comment on above: Order Comment: US OB ANATOMY SINGLE W US OB CERVICAL LENGTH Estimated Date of Delivery: 12/05/24 Gestational Age as of 07/04/2024: 18w0d Urinalysis macro (dipstick) panel (U)on 08-01-2024 Bilirubin, UA Negative Negative - 4(70) +++ mg/dL [facility] Blood, UA Negative Negative - 50 Jay/mcL [facility] Clarity, UA Clear [facility] Color, UA Yellow [facility] Glucose, UA Negative Negative - 1999(110) ++++ mg/dL [facility] Interpretation and review of laboratory results Abnormal [facility] Ketones, UA Negative Negative - 160(16) ++++ mg/dL [facility] Leukocytes, UA Negative Negative - 500+++ Kate/mcL [facility] Nitrite, UA Negative Negative - Positive [facility] pH, UA 6 5 - 9 [facility] Protein, UA Positive Negative - 1999(20) ++++ mg/dL [facility] Comment on above: 30mg/dL Spec Grav, UA 1.025 1 - 1.03 [facility] Urobilinogen, UA 0.2 0.2 - 12 mg/dL [facility] MLR HEMOGLOBIN A1Con 025 Glucose [Mass/Vol] 105 mg/dL [facility] HbA1c (Bld) [Mass fraction] 5.3 % 4.5 - 6.2 % [facility] Comment on above: ADA RECOMMENDED LIMI T 4.0 - 6.0 ADA THERAPEUTIC TARGET < 7.0 ACTION SUGGESTED > 7.0 [facility] Urinalysis macro (dipstick) panel (U)on 06-06-2024 Bilirubin, UA Negative Negative - 4(70) +++ mg/dL [facility] Blood, UA Negative Negative - 50 Jay/mcL [facility] Clarity, UA Clear [facility] Color, UA Yellow [facility] Glucose, UA Negative Negative - 1999(110) ++++ mg/dL [facility] Interpretation and review of laboratory results Abnormal [facility] Ketones, UA Negative Negative - 160(16) ++++ mg/dL [facility] Leukocytes, UA Negative Negative - 500+++ Kate/mcL [facility] Nitrite, UA Negative Negative - Positive [facility] pH, UA 6.5 5 - 9 [facility] Protein, UA Trace Negative - 1999(20) ++++ mg/dL [facility] Spec Grav, UA 1.03 1 - 1.03 [facility] Urobilinogen, UA 0.2 0.2 - 12 mg/dL [facility] HCG ( test) Ql (U)o n 05-05-2024 Interpretation and review of laboratory results Abnormal [facility] Preg Test, Ur Positive Negative [facility] US OB TRANSVAGINALon 025 US OB TRANSVAGINAL [...] UA Positive Negative - 4(70) +++ mg/dL [facility] Comment on above: small Blood, UA Negative Negative - 50 Jay/mcL [facility] Clarity, UA Clear [facility] Color, UA Yellow [facility] Glucose, UA Negative Negative - 2000(110) ++++ mg/dL [facility] Interpretation and review of laboratory results Abnormal [facility] Ketones, UA Positive Negative - 160(16) ++++ mg/dL [facility] Comment on above: trace Leukocytes, UA Negative Negative - 500+++ Kate/mcL [facility] Nitrite, UA Negative Negative - Positive [facility] pH, UA 5.5 5 - 9 [facility] Protein, UA Positive Negative - 2000(20) ++++ mg/dL [facility] Comment on above: 30 Spec Grav, UA 1.03 1 - 1.03 [facility] Urobilinogen, UA 0.2 0.2 - 12 mg/dL [facility] Human papilloma virus 16+18+ 31+33+35+39+45+51+52+56+58+59+66+68 DNA [Presence] in [place] 09-23-2023 HPV 16+18+31+33+35+39+45+5 1+52+56+58+59+66+68 DNA Probe+sig amp Ql (Cvx) Note . [facility] Comment on above: TESTS RESULT FLAG UN ITS REF RANGE LAB DIAGNOSIS: 02 NEGATIVE FOR INTRAEPITHELIAL LESION OR MALIGNANCY.Specimen adequacy: 02 Satisfactory for evaluation. Endocervical and/or squamous metaplastic cells (endocervical component) are present.Performed by: 02 Eddie Calles, Wool Sorter (ASCP). 02Note: Note 02 The Pap smear is [...] result therefore, no HPV testing was performed. ------- FLAG LEGEND: L-Low Normal,H-High Normal,LL-Alert Low,HH-Alert High <-Panic Low,>-Panic High,A-Abnormal,AA-Critical Abnormal -----Performed at:[address] [facility] [id number] Jessie Zarate MD, Tdtpsatfv at: =G - [facility] [id number] [facility] [place], [place] [id number] Director: Jessie Zarate MD, Phone: [phone] at: WB - [facility] [id number] [place], [place] [id number] Director: Jessie Zarate MD, Phone: [phone] No Panel Informationon 09-22 Reference Lab Test Patient Age Note . [facility] Comment on above: TESTS RESULT FLAG UN ITS REF RANGE LAB Clinician Provided Cytology Information Source.............Cervix;Endocervix No. of containers..01 ThinPrep VialAge Algo ACOG Josette... FLAG LEGEND: L-Low Normal,H-High Normal,LL-Alert Low,HH-Alert High <-Panic Low,>-Panic High,A-Abnormal,AA-Critical Abnormal -----Performed at:01 =G [facility] [place] [address] [facility] [place] [address] Jessie Zarate MD, CBC AUTO DIFFon 12-29-2021 BASO # 0.0 103/ul Normal 0.0-0.1 [facility] Comment on above: Performed By: #### C BC #### [facility] [address] [address] [address] Sae Flores Basophils/100 WBC (Bld) 0.2 % Normal 0.2-2.0 [facility] Comment on above: Performed By: #### C BC #### [facility] [address] [place] [address] Dr. Sae Flores EO # 0.0 103/ul Normal 0.0-0.7 [facility] Comment on above: Performed By: #### C BC #### [facility] [address] [place] [address] Dr. Sae Flores Eosinophils/100 WBC (Bld) 0.1 % Critically low 0.9-7.0 [facility] Comment on above: Performed By: #### C BC #### [facility] [address] [place] [address] Dr. Sae Flores Erythrocyte distribution width (RBC) [Ratio] 13.8 % Normal 11.0-15.0 [facility] Comment on above: Performed By: #### C BC #### [facility] [address] [place] [address] Dr. Sae Flores Hematocrit (Bld) [Volume fraction] 30.2 % Critically low 36.0-48.0 [facility] Comment on above: Performed By: #### C BC #### [facility] [address] [place] [address] Dr. Sae Flores Hemoglobin (Bld) [Mass/Vol] 9.9 g/dL Critically low 12.0-16.0 [facility] Comment on above: Performed By: #### C BC #### [facility] [address] [place] [address] Dr. Sae Flores IG # 0.08 10e3/ul Critically high 0.00-0.03 [facility] Comment on above: Performed By: #### C BC #### [facility] [address] [place] [address] Dr. Sae Flores IG % 0.5 % Normal 0.0-0.5 [facility] Comment on above: Performed By: #### C BC #### [facility] [address] [place] [address] Dr. Sae Flores LYMPH # 1.6 103/ul Normal 1.2-3.8 [facility] Comment on above: Performed By: #### C BC #### [facility] [address] [place] [address] Dr. Sae Flores Lymphocytes/100 WBC (Bld) 9.4 % Critically low 20.5-60.0 [facility] Comment on above: Performed By: #### C BC #### [facility] [address] [place] [address] Dr. Sae Flores MANUAL DIFF REQ NO Normal [facility] Comment on above: Performed By: #### C BC #### [facility] [address] [place] [address] Dr. Sae Flores MCH (RBC) [Entitic mass] 29.9 pg Normal 26.7-34.0 [facility] Comment on above: Performed By: #### C BC #### [facility] [address] [place] [address] Dr. Sae Flores MCHC (RBC) [Mass/Vol] 32.8 g/dL Normal 29.9-35.2 [facility] Comment on above: Performed By: #### C BC #### [facility] [address] [place] [address] Dr. Sae Flores MCV (RBC) [Entitic vol] 91.2 fL Normal 81.0-99.0 [facility] Comment on above: Performed By: #### C BC #### [facility] [address] [place] [address] Dr. Sae Flores MONO # 1.2 103/ul Critically high 0.3-0.8 [facility] Comment on above: Performed By: #### C BC #### [facility] [address] [place] [address] Dr. Sae Flores Monocytes/100 WBC (Bld) 7.0 % Normal 1.7-12.0 [facility] Comment on above: Performed By: #### C BC #### [facility] [address] [place] [address] Dr. Sae Flores NEUT # 14.3 103/ul Critically high 1.4-6.5 [facility] Comment on above: Performed By: #### C BC #### [facility] [address] [place] [address] Dr. Sae Flores Neutrophils/100 WBC (Bld) 82.8 % Critically high 43.0-75.0 [facility] Comment on above: Performed By: #### C BC #### [facility] [address] [place] [address] Dr. Sae Flores Platelet mean volume (Bld) [Entitic vol] 9.1 fL Critically low 9.5-13.5 [facility] Comment on above: Performed By: #### C BC #### [facility] [address] [place] [address] Dr. Sae Flores PLT 207 103/ul Normal 150-450 [facility] Comment on above: Performed By: #### C BC #### [facility] [address] [place] [address] Dr. Sea Flores RBC 3.31 106/ul Critically low 4.20-5.40 [facility] Comment on above: Performed By: #### C BC #### [facility] [address] [place] [address] Dr. Sae Flores WBC 17.3 103/ul Critically high 4.0-11.0 [facility] Comment on above: Performed By: #### C BC #### [facility] [address] [place] [address] Dr. Sae Flores DRUG SCREEN RAPID (URINE)on 12-28-2021 AMP Negative Normal NEGATIVE [facility] Comment on above: Performed By: #### D RUGRPD #### [facility] [address] [place] [address] Dr. Sae Flores BAR Negative Normal NEGATIVE [facility] Comment on above: Performed By: #### D RUGRPD #### [facility] [address] [place] [address] Dr. Sae Flores BUP Negative Normal NEGATIVE [facility] Comment on above: Performed By: #### D RUGRPD #### [facility] [address] [place] [address] Dr. Sae Flores BZO Negative Normal NEGATIVE [facility] Comment on above: Performed By: #### D RUGRPD #### [facility] [address] [place] [address] Dr. Sae Flores CONSTANCE Negative Normal NEGATIVE [facility] Comment on above: Performed By: #### D RUGRPD #### [facility] [address] [place] [address] Dr. Sae Flores CUT-OFFS SEE BELOW Normal [facility] Comment on above: Result Comment: AMP [...] ng/mL Performed By: #### D RUGRPD #### [facility] [address] [place] [address] Dr. Sae Flores DRUG CUT HEADER DRUG CLASS TEST SYSTEM CUT-OFF CONCENTRATIONS ARE FOLLOWS: Normal [facility] Comment on above: Performed By: #### D RUGRPD #### [facility] [address] [place] [address] Dr. Sae Flores mAMP Negative Normal NEGATIVE [facility] Comment on above: Performed By: #### D RUGRPD #### [facility] [address] [place] [address] Dr. Sae Flores MTD Negative Normal NEGATIVE [facility] Comment on above: Performed By: #### D RUGRPD #### [facility] [address] [place] [address] Dr. Sae Flores OPI Negative Normal NEGATIVE [facility] Comment on above: Performed By: #### D RUGRPD #### [facility] [address] [place] [address] Dr. Sae Flores OXY Negative Normal NEGATIVE [facility] Comment on above: Performed By: #### D RUGRPD #### [facility] [address] [place] [address] Dr. Sae Flores PCP Negative Normal NEGATIVE [facility] Comment on above: Performed By: #### D RUGRPD #### [facility] [address] [place] [address] Dr. Sae Flores PPX Negative Normal NEGATIVE [facility] Comment on above: Performed By: #### D RUGRPD #### [facility] [address] [place] [address] Dr. Sae Flores TCA Negative Normal NEGATIVE [facility] Comment on above: Performed By: #### D RUGRPD #### [facility] [address] [place] [address] Dr. Sae Flores THC Negative Normal NEGATIVE [facility] Comment on above: Performed By: #### D RUGRPD #### [facility] [address] [place] [address] Dr. Sae Flores CBC AUTO DIFFon 12-27-2021 BASO # 0.0 103/ul Normal 0.0-0.1 [facility] Comment on above: Performed By: #### C BC #### [facility] [address] [place] [address] Dr. Sae Flores Basophils/100 WBC (Bld) 0.2 % Normal 0.2-2.0 [facility] Comment on above: Performed By: #### C BC #### [facility] [address] [place] [address] Dr. Sae Flores EO # 0.2 103/ul Normal 0.0-0.7 [facility] Comment on above: Performed By: #### C BC #### [facility] [address] [place] [address] Dr. Sae Flores Eosinophils/100 WBC (Bld) 1.3 % Normal 0.9-7.0 [facility] Comment on above: Performed By: #### C BC #### [facility] [address] [place] [address] Dr. Sae Flores Erythrocyte distribution width (RBC) [Ratio] 14.0 % Normal 11.0-15.0 [facility] Comment on above: Performed By: #### C BC #### [facility] [address] [place] [address] Dr. Sae Flores Hematocrit (Bld) [Volume fraction] 33.6 % Critically low 36.0-48.0 [facility] Comment on above: Performed By: #### C BC #### [facility] [address] [place] [address] Dr. Sae Flores Hemoglobin (Bld) [Mass/Vol] 11.2 g/dL Critically low 12.0-16.0 [facility] Comment on above: Performed By: #### C BC #### [facility] [address] [place] [address] Dr. Sae Flores IG # 0.08 10e3/ul Critically high 0.00-0.03 [facility] Comment on above: Performed By: #### C BC #### [facility] [address] [place] [address] Dr. Sae Flores IG % 0.7 % Critically high 0.0-0.5 [facility] Comment on above: Performed By: #### C BC #### [facility] [address] [place] [address] Dr. Sae Flores LYMPH # 1.9 103/ul Normal 1.2-3.8 [facility] Comment on above: Performed By: #### C BC #### [facility] [address] [place] [address] Dr. Sae Flores Lymphocytes/100 WBC (Bld) 16.9 % Critically low 20.5-60.0 [facility] Comment on above: Performed By: #### C BC #### [facility] [address] [place] [address] Dr. Sae Flores MANUAL DIFF REQ NO Normal [facility] Comment on above: Performed By: #### C BC #### [facility] [address] [address] [address] Sae Flores MCH (RBC) [Entitic mass] 30.0 pg Normal 26.7-34.0 [facility] Comment on above: Performed By: #### C BC #### [facility] [address] [address] [address] Sae Flores MCHC (RBC) [Mass/Vol] 33.3 g/dL Normal 29.9-35.2 [facility] Comment on above: Performed By: #### C BC #### [facility] [address] [address] [address] Sae Flores MCV (RBC) [Entitic vol] 90.1 fL Normal 81.0-99.0 [facility] Comment on above: Performed By: #### C BC #### [facility] [address] [place] [address] Dr. Sae Flores MONO # 0.8 103/ul Normal 0.3-0.8 [facility] Comment on above: Performed By: #### C BC #### [facility] [address] [place] [address] Dr. Sae Flores Monocytes/100 WBC (Bld) 7.0 % Normal 1.7-12.0 [facility] Comment on above: Performed By: #### C BC #### [facility] [address] [place] [address] Dr. Sae Flores NEUT # 8.5 103/ul Critically high 1.4-6.5 [facility] Comment on above: Performed By: #### C BC #### [facility] [address] [place] [address] Dr. Sae Flores Neutrophils/100 WBC (Bld) 73.9 % Normal 43.0-75.0 [facility] Comment on above: Performed By: #### C BC #### [facility] [address] [place] [address] Dr. Sae Flores Platelet mean volume (Bld) [Entitic vol] 10.3 fL Normal 9.5-13.5 [facility] Comment on above: Performed By: #### C BC #### [facility] [address] [address] [address] Sae Flores PLT 214 103/ul Normal 150-450 [facility] Comment on above: Performed By: #### C BC #### [facility] [address] [address] [address] Sae Flores RBC 3.73 106/ul Critically low 4.20-5.40 [facility] Comment on above: Performed By: #### C BC #### [facility] [address] [address] [address] Sae Flores WBC 11.5 103/ul Critically high 4.0-11.0 [facility] Comment on above: Performed By: #### C BC #### [facility] [address] [address] [address] Sae Flores Covid-19 PCR (CVDTBH)on SARS-CoV-2 (COVID-19) RNA [place]+probe Ql (Unsp spec) Not detected Normal NOT DETECTED [facility] Comment on above: Result Comment: When [...] for this test is supported by the [employer] of Health and Human Service's declaration that [...] used). Performed By: #### C VDTBH #### [facility] [address] [address] [address] Sae Flores DRUG SCREEN RAPID (URINE)on 12-27-2021 AMP Negative Normal NEGATIVE [facility] Comment on above: Performed By: #### D RUGRPD #### [facility] [address] [place] [address] Dr. Sae Flores BAR Negative Normal NEGATIVE [facility] Comment on above: Performed By: #### D RUGRPD #### [facility] [address] [place] [address] Dr. Sae Flores BUP Negative Normal NEGATIVE [facility] Comment on above: Performed By: #### D RUGRPD #### [facility] [address] [place] [address] Dr. Sae Flores BZO Negative Normal NEGATIVE [facility] Comment on above: Performed By: #### D RUGRPD #### [facility] [address] [place] [address] Dr. Sae Flores CONSTANCE Negative Normal NEGATIVE [facility] Comment on above: Performed By: #### D RUGRPD #### [facility] [address] [place] [address] Dr. Sae Flores CUT-OFFS SEE BELOW Normal [facility] Comment on above: Result Comment: AMP [...] ng/mL Performed By: #### D RUGRPD #### [facility] [address] [place] [address] Dr. Sae Flores DRUG CUT HEADER DRUG CLASS TEST SYSTEM CUT-OFF CONCENTRATIONS ARE FOLLOWS: Normal [facility] Comment on above: Performed By: #### D RUGRPD #### [facility] [address] [place] [address] Dr. Sae Flores mAMP Negative Normal NEGATIVE [facility] Comment on above: Performed By: #### D RUGRPD #### [facility] [address] [place] [address] Dr. Sae Flores MTD Negative Normal NEGATIVE [facility] Comment on above: Performed By: #### D RUGRPD #### [facility] [address] [place] [address] Dr. Sae Flores OPI Negative Normal NEGATIVE [facility] Comment on above: Result Comment: Prev iously reported as: POSITIVE On 12/27/2021 20:19 By 01 Performed By: #### D RUGRPD #### [facility] [address] [place] [address] Dr. Sae Flores OXY Negative Normal NEGATIVE [facility] Comment on above: Performed By: #### D RUGRPD #### [facility] [address] [place] [address] Dr. Sae Flores PCP Negative Normal NEGATIVE [facility] Comment on above: Performed By: #### D RUGRPD #### [facility] [address] [place] [address] Dr. Sae Flores PPX Negative Normal NEGATIVE [facility] Comment on above: Performed By: #### D RUGRPD #### [facility] [address] [place] [address] Dr. Sae Flores TCA Negative Normal NEGATIVE [facility] Comment on above: Performed By: #### D RUGRPD #### [facility] [address] [place] [address] Dr. Sae Floers THC Negative Normal NEGATIVE [facility] Comment on above: Performed By: #### D RUGRPD #### [facility] [address] [place] [address] Dr. Sae Flores TYPE AND SCREENon 12-27-2021 TYPE AND SCREEN Negative Normal [facility] Comment on above: Performed By: #### T NS #### [facility] [address] [place] [address] Dr. Sae Flores GROUP B STREP CULTUREon 08-0 S. agalactiae Ag Ql (Unsp spec) Culture Observations: NEGATIVE FOR GROUP B STREPTOCOCCUS. Normal [facility] Comment on above: Performed By: #### G BSCX #### [facility] [address] [address] [address] Sae Flores US PREG GROWTHon 11-18-2021 [...] KENY CESPEDES Date: 2021-11-18 16:40 Normal [facility] GTT 3 HR PREGon 10-20-2021 Glucose [Mass/Vol] 93 mg/dL Normal 74-106 [facility] Comment on above: Performed By: #### G TT3P #### [facility] [address] [place] [address] Dr. Sae Flores Glucose [Mass/Vol] 164 mg/dL Normal [facility] Comment on above: Performed By: #### G TT3P #### [facility] [address] [address] [address] Sae Flores Glucose [Mass/Vol] 116 mg/dL Normal [facility] Comment on above: Performed By: #### G TT3P #### [facility] [address] [address] [address] Sae Flores Glucose [Mass/Vol] 83 mg/dL Normal [facility] [place] [facility] Comment on above: Performed By: #### G TT3P #### [facility] [address] [place] [address] Dr. Sae Flores GLUCOSE - 1HRon 10-09-2021 Glucose [Mass/Vol] 176 mg/dL Critically high 74-106 [facility] Comment on above: Performed By: #### G LU1HR #### [facility] [address] [place] [address] Dr. Sae Flores HEMOGRAM AND PLATELon 2021 Hematocrit (Bld) [Volume fraction] 33.6 % Critically low 36.0-48.0 [facility] Comment on above: Performed By: #### H H #### [facility] [address] [place] [address] Dr. Sae Flores Hemoglobin (Bld) [Mass/Vol] 11.0 g/dL Critically low 12.0-16.0 [facility] Comment on above: Performed By: #### H H #### [facility] [address] [place] [address] Dr. Sae Flores MCH (RBC) [Entitic mass] 30.6 pg Normal 26.7-34.0 [facility] Comment on above: Performed By: #### H H #### [facility] [address] [place] [address] Dr. Sae Flores MCHC (RBC) [Mass/Vol] 32.7 g/dL Normal 29.9-35.2 [facility] Comment on above: Performed By: #### H H #### [facility] [address] [place] [address] Dr. Sae Flores MCV (RBC) [Entitic vol] 93.3 fL Normal 81.0-99.0 [facility] Comment on above: Performed By: #### H H #### [facility] [address] [place] [address] Dr. Sae Flores PLT 219 103/ul Normal 150-450 [facility] Comment on above: Performed By: #### H H #### [facility] [address] [place], [place] [address] Dr. Sae Flores RBC 3.60 106/ul Critically low 4.20-5.40 [facility] Comment on above: Performed By: #### H H #### [facility] [address] [place], [place] [address] Dr. Sae Flores WBC 9.4 103/ul Normal 4.0-11.0 [facility] Comment on above: Performed By: #### H H #### [facility] [address] [place], [place] [address] Dr. Sae Flores Vital Signs Date Time Vital Sign Value Performing Clinician Facility 11-08-2024 15:28-0400 Body mass index (BMI) [Ratio] 35.2 kg/m2 Itz Brad DO Work Phone: [facility] 11-08-2024 15:28-0400 Body weight 95.94 kg Itz Brad DO Work Phone: [facility] 11-08-2024 15:28-0400 Diastolic blood pressure 112 mm[Hg] Itz Brad DO Work Phone: [facility] 11-08-2024 15:28-0400 Systolic blood pressure 180 mm[Hg] Itz Brad DO Work Phone: [facility] 10-25-2024 13:33-0400 Body mass index (BMI) [Ratio] 33.16 kg/m2 Amy VEGA Work Phone: [facility] 10-25-2024 13:33-0400 Body weight 90.38 kg Amy VEGA Work Phone: [facility] 10-25-2024 13:33-0400 Diastolic blood pressure 86 mm[Hg] Amy VEGA Work Phone: [facility] 10-25-2024 13:33-0400 Systolic blood pressure 122 mm[Hg] Amy VEGA Work Phone: [facility] 10-11-2024 15:38-0400 Body mass index (BMI) [Ratio] 31.95 kg/m2 Itz Brad DO Work Phone: [facility] 10-11-2024 15:38-0400 Body weight 87.09 kg Itz Brad DO Work Phone: [facility] 10-11-2024 15:38-0400 Diastolic blood pressure 74 mm[Hg] Itz Brad DO Work Phone: [facility] 10-11-2024 15:38-0400 Systolic blood pressure 118 mm[Hg] Itz Brad DO Work Phone: [facility] 09-26-2024 10:14-0400 Body mass index (BMI) [Ratio] 30.95 kg/m2 Itz Brad DO Work Phone: [facility] 09-26-2024 10:14-0400 Body weight 84.37 kg Itz Brad DO Work Phone: [facility] 09-26-2024 10:14-0400 Diastolic blood pressure 72 mm[Hg] Itz Brad DO Work Phone: [facility] 09-26-2024 10:14-0400 Systolic blood pressure 110 mm[Hg] Itz Brad DO Work Phone: [facility] 08-29-2024 09:28-0400 Body mass index (BMI) [Ratio] 30.52 kg/m2 Itz Brad DO Work Phone: [facility] 08-29-2024 09:28-0400 Body weight 83.19 kg Itz Brad DO Work Phone: [facility] 08-29-2024 09:28-0400 Diastolic blood pressure 70 mm[Hg] Itz Brad DO Work Phone: [facility] 08-29-2024 09:28-0400 Systolic blood pressure 110 mm[Hg] Itz Brad DO Work Phone: [facility] 08-01-2024 10:57-0400 Body mass index (BMI) [Ratio] 29.37 kg/m2 Itz Brad DO Work Phone: [facility] 08-01-2024 10:57-0400 Body weight 80.06 kg Itz Brad DO Work Phone: [facility] 08-01-2024 10:57-0400 Diastolic blood pressure 70 mm[Hg] Itz Brad DO Work Phone: [facility] 08-01-2024 10:57-0400 Systolic blood pressure 108 mm[Hg] Itz Brad DO Work Phone: [facility] 06-06-2024 10:47-0500 Body mass index (BMI) [Ratio] 28.96 kg/m2 Itz Brad DO Work Phone: [facility] 06-06-2024 10:47-0500 Body weight 78.93 kg Itz Brad DO Work Phone: [facility] 06-06-2024 10:47-0500 Diastolic blood pressure 70 mm[Hg] Itz Brad DO Work Phone: [facility] 06-06-2024 10:47-0500 Systolic blood pressure 102 mm[Hg] Itz Brad DO Work Phone: [facility] 05-05-2024 10:05-0500 Body mass index (BMI) [Ratio] 29.29 kg/m2 [facility] 05-05-2024 10:05-0500 Body weight 79.83 kg [facility] 05-05-2024 10:05-0500 Diastolic blood pressure 68 mm[Hg] [facility] 05-05-2024 10:05-0500 Systolic blood pressure 104 mm[Hg] [facility] 12-21-2023 08:56-0400 Body height 167 cm [facility] 12-21-2023 08:56-0400 Body mass index (BMI) [Ratio] 28.1 kg/m2 [facility] 12-21-2023 08:56-0400 Body temperature 98 [degF] [facility] 12-21-2023 08:56-0400 Body weight 78.47 kg [facility] 12-21-2023 08:56-0400 Diastolic blood pressure 80 mm[Hg] [facility] 12-21-2023 08:56-0400 Heart rate 68 /min [facility] 12-21-2023 08:56-0400 SaO2% (BldA) [Mass fraction] 98 % [facility] 12-21-2023 08:56-0400 Systolic blood pressure 122 mm[Hg] [facility] 09-23-2023 11:57-0400 Body height 167 cm [facility] 09-23-2023 11:57-0400 Body mass index (BMI) [Ratio] 27.9 kg/m2 [facility] 09-23-2023 11:57-0400 Body weight 78.01 kg [facility] 09-23-2023 11:57-0400 Diastolic blood pressure 76 mm[Hg] [facility] 09-23-2023 11:57-0400 SaO2% (BldA) [Mass fraction] 97 % [facility] 09-23-2023 11:57-0400 Systolic blood pressure 116 mm[Hg] [facility] 04-20-2023 15:40-0500 Body height 167 cm Guy Mullen Other [employer] Other 04-20-2023 15:40-0500 Body mass index (BMI) [Ratio] 30.54 kg/m2 Guy Mullen Other [employer] Other 04-20-2023 15:40-0500 Body weight 85.19 kg Guy Mullen Other [employer] Other 04-20-2023 15:40-0500 Diastolic blood pressure 82 mm[Hg] Guy Mullen Other [employer] Other 04-20-2023 15:40-0500 Systolic blood pressure 120 mm[Hg] Guy Mullen Other [employer] Other 03-23-2023 15:40-0500 Body height 167 cm Guy Mullen Other [employer] Other 03-23-2023 15:40-0500 Body mass index (BMI) [Ratio] 31.87 kg/m2 Guy Mullen Other [employer] Other 03-23-2023 15:40-0500 Body temperature 98.2 [degF] Guy Mullen Other [employer] Other 03-23-2023 15:40-0500 Body weight 88.91 kg Guy Mullen Other [employer] Other 03-23-2023 15:40-0500 Diastolic blood pressure 76 mm[Hg] Guy Mullen Other [employer] Other 03-23-2023 15:40-0500 Respiratory rate 16 /min Guy Mullen Other [employer] Other 03-23-2023 15:40-0500 SaO2% (BldA) [Mass fraction] 97 % Guy Mullen Other [employer] Other 03-23-2023 15:40-0500 Systolic blood pressure 108 mm[Hg] Guy Mullen Other [employer] Other 11-10-2021 10:50-0400 Body height 167 cm Guy Mullen Other [employer] Other 11-10-2021 10:50-0400 Body mass index (BMI) [Ratio] 31.87 kg/m2 Guy Mullen Other [employer] Other 11-10-2021 10:50-0400 Body temperature 98.6 [degF] Guy Escamilladom Other [employer] Other 11-10-2021 10:50-0400 Body weight 88.91 kg Guy Escamilladom Other [employer] Other 11-10-2021 10:50-0400 Diastolic blood pressure 70 mm[Hg] Guy Mullen Other [employer] Other 11-10-2021 10:50-0400 Respiratory rate 16 /min Guy Escamilladom Other [employer] Other 11-10-2021 10:50-0400 SaO2% (BldA) [Mass fraction] 98 % Guy Escamilladom Other [employer] Other 11-10-2021 10:50-0400 Systolic blood pressure 112 mm[Hg] Guy Escamilladom Other [employer] Other Encounters Encounter Date Encounter Type Care Provider Facility Start: 11-08-2024 End: 11-08-2024 flow sheet Itz Brad DO Work Phone: [facility] Comment on above: Third trimester preg kia ([facility]); 34 weeks gestation of ([facility]); Elevated BP without diagnosis of hypertension Start: 11-08-2024 End: 11-08-2024 Bamboo flowsheet Itz Brad DO Work Phone: [facility] Start: 11-08-2024 End: 11-08-2024 Bamboo flowsheet Itz Brad DO Work Phone: [facility] Start: 11-08-2024 End: 11-08-2024 Clinisync Result Encounter Itz Brad DO Work Phone: [facility] Unsolicited Start: 10-25-2024 End: 10-25-2024 Bamboo flowsheet Amy VEGA Work Phone: [facility] Start: 10-25-2024 End: 10-25-2024 Bamboo flowsheet Amy VEGA Work Phone: [facility] Start: 10-25-2024 End: 10-25-2024 ambulatory AMY RUBALCAVA Not Available Start: 10-25-2024 End: 10-25-2024 flow sheet Amy VEGA Work Phone: [facility] Comment on above: Third trimester preg kia ([facility]); 32 weeks gestation of ([facility]) Start: 10-11-2024 End: 10-11-2024 flow sheet Itz Brad DO Work Phone: [facility] Comment on above: Third trimester preg kia ([facility]); 30 weeks gestation of ([facility]) Start: 10-11-2024 End: 10-11-2024 ambulatory ITZ BRAD Not Available Start: 10-11-2024 End: 10-11-2024 Bamboo flowsheet Itz Brad DO Work Phone: [facility] Start: 10-11-2024 End: 10-11-2024 Bamboo flowsheet Itz Brad DO Work Phone: [facility] Start: 09-26-2024 End: 09-26-2024 Bamboo flowsheet Itz Brad DO Work Phone: [facility] Start: 09-26-2024 End: 09-26-2024 Bamboo flowsheet Itz Brad DO Work Phone: [facility] Start: 09-26-2024 End: 09-26-2024 ambulatory ITZ BRAD Not Available Start: 09-26-2024 End: 09-26-2024 flow sheet Itz Brad DO Work Phone: [facility] Comment on above: anomaly necess itating delivery, single or unspecified fetus (Primary Dx); Third trimester ; 28 weeks gestation of ; Gastroesophageal reflux in Start: 09-19-2024 End: 09-19-2024 ambulatory ITZ R BRAD [facility] Start: 08-29-2024 End: 08-29-2024 Bamboo flowsheet Itz Brad DO Work Phone: [facility] Start: 08-29-2024 End: 08-29-2024 Bamboo flowsheet Itz Brad DO Work Phone: [facility] Start: 08-29-2024 End: 08-29-2024 ambulatory ITZ BRAD Not Available Start: 08-29-2024 End: 08-29-2024 flow sheet Itz Brad DO Work Phone: [facility] Comment on above: Second trimester pre gnancy; 24 weeks gestation of ; Diabetes mellitus screening Start: 08-17-2024 End: 08-17-2024 Orders Only Erica Schilling RN [facility] Comment on above: Encounter for follow -up ultrasound of anatomy (Primary Dx) Start: 08-15-2024 End: 08-15-2024 Clinisync Result Encounter Itz Brad DO Work Phone: [facility] Unsolicited Start: 08-15-2024 End: 08-15-2024 Clinisync Result Encounter Itz Brad DO Work Phone: [facility] Unsolicited Start: 08-03-2024 End: 08-04-2024 Telephone encounter Rosey Walter MA [facility] Start: 08-01-2024 End: 08-01-2024 ambulatory ITZ BRAD Not Available Start: 08-01-2024 End: 08-01-2024 flow sheet Itz Brad DO Work Phone: [facility] Comment on above: Second trimester pre gnancy; 22 weeks gestation of ; Diabetes mellitus screening Start: 08-01-2024 End: 08-01-2024 ambulatory AMY RUBALCAVA Not Available Start: 07-04-2024 End: 07-04-2024 ambulatory AMY RUBALCAVA Not Available Start: 06-15-2024 End: 06-15-2024 Clinisync Result Encounter Itz Brad DO Work Phone: [facility] Unsolicited Start: 06-15-2024 End: 06-15-2024 Clinisync Result Encounter Itz Brad DO Work Phone: [facility] Unsolicited Start: 06-06-2024 End: 06-06-2024 Bamboo flowsheet Itz [...] GA: 9w3d Start: 12-21-2023 End: 12-21-2023 ambulatory [facility] Work Phone: Start: 12-21-2023 End: 12-21-2023 Patient encounter procedure [facility] Physician [facility] [place] Work Phone: Start: 09-23-2023 End: 09-23-2023 ambulatory [facility] Work Phone: Start: 09-23-2023 End: 09-23-2023 Patient encounter procedure [facility] Physician [facility] [place] Work Phone: Start: 05-20-2023 End: 05-20-2023 ambulatory Guy Mullen Other [employer] Other Start: 05-20-2023 Office outpatient vi sit 15 minutes Guy Mullen [facility] [place] Start: 04-20-2023 End: 04-20-2023 ambulatory Guy Paz Other [employer] Other Start: 04-20-2023 Telephone encounter Guy Paz [facility] Start: 04-06-2023 End: 04-06-2023 ambulatory Guy Paz Other [employer] Other Start: 04-06-2023 Telephone encounter Guy Francinedom [facility] Start: 03-23-2023 End: 03-23-2023 ambulatory Guy Escamilladom Other [employer] Other Start: 03-23-2023 Office outpatient vi sit 15 minutes Guy Mullen [facility] Start: 10-20-2022 End: 10-20-2022 ambulatory Guy Escamilladom Other [employer] Other Start: 10-20-2022 Telephone encounter Gyu Paz [facility] Start: 09-09-2022 End: 09-09-[address] ITZ SALINAS . Facility:[facility] Start: 02-12-2022 End: 02-12-[address] ITZ SALINAS . Facility:[facility] Start: 01-02-2022 End: 01-02-[address] ITZ SALINAS . Facility:[facility] Start: 01-01-2022 Evaluation and management of inpatient NONE LISTED REQUEST Facility:[facility] Start: 12-30-2021 End: 12-30-2021 ambulatory Guy Mullen Other [employer] Other Start: 12-30-2021 Telephone encounter Guy Francinedom [facility] Start: 12-27-2021 End: 12-30-2021 Evaluation and management of inpatient DR ITZ SALINAS . Facility:[facility] Start: 12-02-2021 End: 12-02-[address] ITZ SALINAS . Facility:[facility] Start: 11-18-2021 End: 11-19-[address] ITZ SALINAS . Facility:[facility] Start: 11-10-2021 End: 11-10-2021 ambulatory Guy Paz Other [employer] Other Start: 11-10-2021 Encounter for genera l adult medical examination without abnormal findings Guy Mullen [facility] [place] Start: 11-10-2021 Periodic preventive med est patient 18-39 yrs Guy Mullen [facility] [place] Start: 10-20-2021 End: 10-21-[address] ITZ SALINAS . Facility:[facility] Start: 10-09-2021 End: 10-10-[address] ITZ SALINAS . Facility: Procedures Date Procedure Procedure Detail Performing Clinician Start: 11-08-2024 US OB BPP W NON-STRESS Itz Brad DO Work Phone: Start: 11-08-2024 US OB GROWTH Itz Fazi o DO Work Phone: Start: 11-08-2024 ALL CBC WITH AUTO DIFF Itz Brad DO Work Phone: Start: 11-08-2024 Urnls dip stick/tabl et rgnt non-auto w/o micrscp Itz Brad DO Work Phone: Start: 10-11-2024 Urnls dip stick/tabl et rgnt non-auto w/o micrscp Itz Brad DO Work Phone: Start: 09-26-2024 Urnls dip stick/tabl et rgnt non-auto w/o micrscp Itz Brad DO Work Phone: Start: 08-15-2024 BOX TEST Itz Fazi o DO Work Phone: Start: 08-01-2024 Urnls dip stick/tabl et rgnt non-auto w/o micrscp Itz Brad DO Work Phone: Start: 06-15-2024 MLR HEMOGLOBIN A1C Core y Brad DO Work Phone: Start: 06-06-2024 Urnls dip stick/tabl et rgnt [...] Vein, Percutaneous Approach DR ITZ SALINAS . Plan of Treatment Date Care Activity Detail Author Start: 2024 Influenza vaccination Influenza Vacc ine [facility] Start: 11-08-2024 End: 11-08-2024 Patient encounter procedure 11/08/2024 3:10 PM EDT Routine [facility] [address] [place] [id number] Itz Salinas DO [address] [place] [address] Arrived [facility] Comment on above: Arrived Start: 10-11-2024 End: 10-11-2024 Patient encounter procedure 10/11/2024 3:20 PM EDT Routine [facility] [address] [place] [id number] Itz Salinas DO [address] [place] [address] Arrived [facility] Comment on above: Arrived Start: 10-02-2024 End: 10-02-2024 Patient encounter procedure 10/02/2024 8:30 AM EDT Office Visit [facility] [address] [place] [address] Itz Salinas, DO [address] [place] [address] [facility] Start: 09-26-2024 End: 03-28-2025 US biophysical profile w non stress test US biophysical profile w non stress test Imaging Routine anomaly necessitating delivery, single or unspecified fetus Expected: 09/26/2024 (Approximate), Expires: 03/28/2025 [facility] Work Phone: Comment on above: Expected: 09/26/2024 (Approximate), Expires: 03/28/2025 Start: 09-26-2024 End: 09-26-2024 Patient encounter procedure 09/26/2024 10:10 AM EDT Routine [facility] [address] [place] [phone] Itz Salinas, DO [address] [place] [address] [facility] Start: 09-19-2024 End: 09-19-2024 Patient encounter procedure 09/19/2024 11:15 AM EDT Appointment [facility] - Ultrasound [address] [place] [address] [facility] - Ultrasound Start: 08-29-2024 End: 08-29-2025 CBC panel - Blood by Automated count CBC Lab Routine Diabetes mellitus screening Expected: 08/29/2024 (Approximate), Expires: 08/29/2025 [facility] Work Phone: Comment on above: Expected: 08/29/2024 (Approximate), Expires: 08/29/2025 Start: 08-29-2024 End: 08-29-2025 Measurement of glucose 1 hour after glucose challenge for glucose tolerance test Glucose tolerance, 1 hour Lab Routine Diabetes mellitus screening Expected: 08/29/2024 (Approximate), Expires: 08/29/2025 [facility] Comment on above: Expected: 08/29/2024 (Approximate), Expires: 08/29/2025 Start: 08-29-2024 End: 08-29-2024 Patient encounter procedure 08/29/2024 8:50 AM EDT Routine [facility] [address] [place] [id number] Itz Salinas DO [address] [facility] [place] [address] [facility] Start: 08-17-2024 End: 08-17-2025 US MFM with or without consult US MFM with or without consult Imaging Routine Encounter for follow-up ultrasound of anatomy Expected: 08/17/2024, Expires: 08/17/2025 [facility] Work Phone: Comment on above: Expected: 08/17/2024 , Expires: 08/17/2025 Start: 08-01-2024 End: 08-01-2025 CBC panel - Blood by Automated count CBC Lab Routine Diabetes mellitus screening Expected: 08/01/2024 (Approximate), Expires: 08/01/2025 [facility] Work Phone: Comment on above: Expected: 08/01/2024 (Approximate), Expires: 08/01/2025 Start: 08-01-2024 End: 08-01-2025 Measurement of glucose 1 hour after glucose challenge for glucose tolerance test Glucose tolerance, 1 hour Lab Routine Diabetes mellitus screening Expected: 08/01/2024 (Approximate), Expires: 08/01/2025 [facility] Comment on above: Expected: 08/01/2024 (Approximate), Expires: 08/01/2025 Start: 07-04-2024 End: 07-04-2024 Patient encounter procedure 07/04/2024 10:30 AM EDT Routine [facility] [address] [place] [phone] Amy Rubalcava PA [address] [facility] [place] [address] [facility] Start: 06-06-2024 End: 06-06-2024 Patient encounter procedure [facility] Comment on above: Arrived Start: 05-05-2024 End: 05-05-2025 ABO/Rh ABO/Rh Lab Routine Missed menses , unspecified gestational age Expected: 05/05/2024 (Approximate), Expires: 05/05/2025 [facility] Comment on above: Expected: 05/05/2024 (Approximate), Expires: 05/05/2025 Start: 05-05-2024 End: 05-05-2025 Blood type and Indirect antibody screen panel - Blood Type and screen Lab Routine Missed menses , unspecified gestational age Expected: 05/05/2024 (Approximate), Expires: 05/05/2025 [facility] Work Phone: Comment on above: Expected: 05/05/2024 (Approximate), Expires: 05/05/2025 Start: 05-05-2024 End: 05-05-2025 Drugs of abuse panel - Urine by Screen method Rapid drug screen, urine Lab Routine , unspecified gestational age Encounter for supervision of normal first in first trimester Expected: 05/05/2024 (Approximate), Expires: 05/05/2025 [facility] Comment on above: Expected: 05/05/2024 (Approximate), Expires: 05/05/2025 Start: 12-26-2015 Screening for malign ant neoplasm of cervix Pap Smear [facility] Start: 2013 DTaP,Tdap and Td Vaccines (1 - Tdap) DTaP,Tdap and Td Vaccines (1 - Tdap) [facility] Start: 2012 Adult BMI Screening Adult BMI Screen ing [facility] Start: 2006 Depression Screening Depression Scre ening [facility] Start: 2006 Tobacco Screening Tobacco Screening [facility] Bacteria identified in Urine by Culture Urine culture Microbiology Routine Missed menses Ordered: 05/05/2024 [facility] Comment on above: Ordered: 05/05/2024 CBC W Auto Different ial panel - Blood CBC and differential Lab Routine Missed menses , unspecified gestational age Ordered: 05/05/2024 [facility] Comment on above: Ordered: 05/05/2024 Hemoglobin A1c/Hemoglobin.total in Blood Hemoglobin A1c Lab Routine Missed menses , unspecified gestational age Ordered: 05/05/2024 [facility] Comment on above: Ordered: 05/05/2024 Hepatitis B virus surface Ag [Presence] in Serum or Plasma by Immunoassay Hepatitis B surface antigen Lab Routine Missed menses , unspecified gestational age Ordered: 05/05/2024 [facility] Comment on above: Ordered: 05/05/2024 Hepatitis C virus Ab [Presence] in Serum or Plasma by Immunoassay Hepatitis C antibody Lab Routine Missed menses , unspecified gestational age Ordered: 05/05/2024 [facility] Comment on above: Ordered: 05/05/2024 HIV-1/HIV-2 antigen/antibody combination immunoassay HIV-1 and HIV-2 antibodies Lab Routine Missed menses , unspecified gestational age Ordered: 05/05/2024 [facility] Comment on above: Ordered: 05/05/2024 Patient Education Low back pain in adults [facility] Work Phone: Reagin Ab [Presence] in Serum by RPR RPR Lab Routine Missed menses , unspecified gestational age Ordered: 05/05/2024 [facility] Comment on above: Ordered: 05/05/2024 Rubella antibody, IgG Rubella an tibody, IgG Lab Routine Missed menses , unspecified gestational age Ordered: 05/05/2024 [facility] Comment on above: Ordered: 05/05/2024 Payers Date Payer Category Payer [facility] BCBS [id number] 2021 [facility] Managed Care - PPO AN[employer] [id number] 1994 Unknown [id number] 2.16.840.1.615440.3.579.2. 593 1994 Unknown [id number] 2.16.840.1.211183.3.579.2. 593 1994 Unknown [id number] 2.16.840.1.345594.3.579.2. 593 1994 Unknown [id number] 2.16.840.1.186313.3.579.2. 593 1994 Unknown [id number] 2.16.840.1.744580.3.579.2. 593 1994 Unknown [id number] 2.16.840.1.258404.3.579.2. 593 1994 Unknown [id number] 2.16.840.1.647090.3.579.2. 593 1994 Unknown [id number] 2.16.840.1.782160.3.579.2. 593 1994 Unknown [id number] 2.16.840.1.563435.3.579.2. 593 1994 Unknown [id number] 2.16.840.1.663961.3.579.2. 1286 1994 Unknown [id number] 2.16.840.1.720274.3.579.2. 1286 1994 Unknown [id number] 2.16.840.1.816365.3.579.2. 1258 1994 Unknown [id number] 2.16.840.1.868265.3.579.2. 1258 1994 Unknown [id number] 2.16.840.1.098513.3.579.2. 1258 1994 Unknown [id number] 2.16.840.1.226698.3.579.2. 1258 1994 Unknown [id number] 2.16.840.1.723617.3.579.2. 1258 1994 Unknown [id number] 2.16.840.1.441769.3.579.2. 1258 1994 Unknown [id number] 2.16.840.1.707809.3.579.2. 1258 1994 Unknown [id number] 2.16.840.1.199949.3.579.2. 1258 1994 Unknown [id number] 2.16.840.1.853511.3.579.2. 1258 1994 Unknown [id number] 2.16.840.1.896644.3.579.2. 1258 [id number] 2.16.840.1.741802.19 Unknown [facility] [id number] Social History Date Type Detail Facility Unknown if ever smoked [employer] Other Sex Assigned At [employer] Other Start: 06-21-2023 End: 12-21-2023 Tobacco smoking status NHIS Never smoked tobacco (finding) [facility] Start: 1995 Sex Assigned At Female [facility] Tobacco smoking stat us HIIS Tobacco smoking consumption unknown [facility] Start: 03-14-2024 [facility] Start: 09-16-2023 Gender identity Identifies as female gender (finding) [facility] Start: 09-16-2023 Sexual orientation Heterosexual (finding) [facility] Start: 1995 Sex assigned at Not on file [facility] Start: 08-04-2024 Sex Female (finding) [facility] [employer] Goals Date Patient Goal Desired Activity /State Personal health goal Clinical Notes 11-15-2012 to 11-08-2024 Jackie Faustin LPN - 11/08/2024 3:10 PM SILVIA Méndez 10/25/2024 1:20 PM Kari Faustin LPN - 10/11/2024 3:20 PM SILVIA Méndez - 09/26/2024 10:10 AM Kari Faustin LPN - 08/29/2024 8:50 AM EDT Note Date & Type Note Facility 11-08-2024 History of Presen t illness Narrative Reason for Appointment: Patient ID: Aristides Claire is a 28 y.o. female who presents [...] nursing note reviewed. Exam conducted with a solid waste technician present. Vitals: Estimated body mass index is 35.2 kg/m as calculated from the following: Height as of 09/09/22: 5' 5 . Weight as of this encounter: 211 lb 8 oz. BP: (!) 180/112 Patient's last menstrual period was 02/29/2024. ASSESSMENT & PLAN ICD-10-CM 1. Third trimester ([facility]) Z34.93 POCT urinalysis dipstick manually resulted 2. 34 weeks gestation of ([facility]) Z3A.34 3. Elevated BP without diagnosis of hypertension R03.0 Return OB: Patient presents today for a routine obstetrics appointment. Patient is currently 34w5d . Patient states she is doing well but has complaints of being tired due to current . Pt has pitting edema, blood pressure elevated in office. Pt being sent to [facility] for evaluation. Patient has verbalizes frequent movement. labor precautions was discussed/given and patient was instructed to perform kick counts three times a day. Orders Placed This Encounter Procedures POCT urinalysis dipstick manually resulted Follow Up: Patient is to return to office in 1 week for routine OB appointment. Documented by Jackie Faustin LPN on behalf of: Itz Salinas DO documented in this encounter [facility] 10-25-2024 History of Presen t illness Narrative Reason for Appointment: Patient ID: Aristides Claire is a 28 y.o. female who presents [...] Vitals: Estimated body mass index is 33.16 kg/m as calculated from the following: Height as of 09/09/22: 5' 5 . Weight as of this encounter: 199 lb 4 oz. BP: 122/86 Patient's last menstrual period was 02/29/2024. ASSESSMENT & PLAN ICD-10-CM 1. Third trimester ([facility]) Z34.93 2. 32 weeks gestation of ([facility]) Z3A.32 Return OB: Patient presents today for [...] of: SILVIA Castañeda documented in this encounter [facility] 10-11-2024 History of Presen t illness Narrative Reason for Appointment: Patient ID: Aristides Claire is a 28 y.o. female who presents [...] No family history on file. SURGICAL HISTORY History reviewed. No pertinent surgical history. REVIEW OF SYSTEMS Review of Systems: Review [...] nursing note reviewed. Exam conducted with a solid waste technician present. Vitals: Estimated body mass index is 31.95 kg/m as calculated from the following: Height as of 09/09/22: 5' 5 . Weight as of this encounter: 192 lb. BP: 118/74 Patient's last menstrual period was 02/29/2024. ASSESSMENT & PLAN ICD-10-CM 1. Third trimester ([facility]) Z34.93 POCT urinalysis dipstick manually resulted 2. 30 weeks gestation of ([facility]) Z3A.30 Return OB: Patient presents today for a routine obstetrics appointment. Patient is currently 30w5d . Patient states she is doing well but has complaints of being tired due to current . Patient has verbalizes frequent movement. labor precautions was discussed/given and patient was instructed to perform kick counts three times a day. Orders Placed This Encounter Procedures POCT urinalysis dipstick manually resulted Follow Up: Patient is to return to office in 2 week for routine OB appointment. Documented by Jackie Faustin LPN on behalf of: Itz Salinas DO documented in this encounter [facility] 09-26-2024 History of Presen t illness Narrative Reason for Appointment: Patient ID: Aristides Claire is a 28 y.o. female who presents [...] No family history on file. SURGICAL HISTORY History reviewed. No pertinent surgical history. REVIEW OF SYSTEMS Review of Systems: Review of Systems Constitutional: Negative. HENT: Negative. Eyes: Negative. Respiratory: Negative. Cardiovascular: Negative. Gastrointestinal: Negative. Genitourinary: Negative. Musculoskeletal: Negative. Skin: Negative. Neurological: Negative. All other systems reviewed and are negative. Hematological: Negative. Endocrine: Negative. Allergic/Immunologic: Negative. OBJECTIVE Objective: OBGyn Exam Vitals: Estimated body mass index is 30.95 kg/m as calculated from the following: Height as of 09/09/22: 5' 5 . Weight as of this encounter: 186 lb. BP: 110/72 Patient's last menstrual period was 02/29/2024. ASSESSMENT & PLAN ICD-10-CM 1. Third trimester Z34.93 POCT urinalysis dipstick manually resulted 2. 28 weeks gestation of Z3A.28 3. Gastroesophageal reflux in O99.619 omeprazole (PriLOSEC) [address] capsule K21.9 Return OB: Patient presents today for a routine obstetrics appointment. Patient is currently 28w4d . Patient states she is doing well but has complaints of being tired due to current . Patient has verbalizes frequent movement. labor precautions was discussed/given and patient was instructed to perform kick counts three times a day. Orders Placed This Encounter Procedures US biophysical profile w non stress test POCT urinalysis dipstick manually resulted Follow Up: Patient is to return to office in 2 week for routine OB appointment. Documented by SILVIA Castañeda on behalf of: Itz Salinas DO documented in this encounter [facility] 08-29-2024 History of Presen t illness Narrative Reason for Appointment: Patient ID: Aristides Claire is a 28 y.o. female who presents for Routine Visit Patient presents today for Return OB appointment. MEDICATIONS Current Outpatient Medications Medication Instructions MV-Min-Fe Fum-FA-DHA ( 1 PO) Oral ALLERGIES No Known Allergies PROBLEMS Active Ambulatory Problems Diagnosis Date Noted No Active Ambulatory Problems Resolved Ambulatory Problems Diagnosis Date Noted No Resolved Ambulatory Problems No Additional Past Medical History HISTORY PAST MEDICAL HISTORY SOCIAL HISTORY History reviewed. No pertinent past medical history. Social History Tobacco Use Smoking status: Not on file Smokeless tobacco: Not on file Substance Use Topics Alcohol use: Not on file Drug use: Not on file FAMILY HISTORY No family history on file. SURGICAL HISTORY History reviewed. No pertinent surgical history. REVIEW OF SYSTEMS Review of Systems: Review [...] nursing note reviewed. Exam conducted with a solid waste technician present. Vitals: Estimated body mass index is 30.52 kg/m as calculated from the following: Height as of 09/09/22: 5' 5 . Weight as of this encounter: 183 lb 6.4 oz. BP: 110/70 Patient's last menstrual period was 02/29/2024. ASSESSMENT & PLAN ICD-10-CM 1. Second trimester Z34.92 2. 24 weeks gestation of Z3A.24 3. Diabetes mellitus screening Z13.1 CBC Glucose tolerance, 1 hour CBC Glucose tolerance, 1 hour Patient presents today for a routine obstetrics appointment. Patient is currently 24w3d with a Estimated Date of Delivery: 12/16/24. Pt to return to [facility] for suboptimal visualization. Pt to return in 4 weeks for scheduled OB appt. Pt due date 12/15/24 based on ultrasound dating. Documented by Jackie Faustin LPN on behalf of: Itz Salinas DO documented in this encounter [facility] 08-03-2024 Telephone encount er Note Hi, this is Aristides Claire. I was calling back about a voicemail I have from Dr. Salinas yesterday about my ultrasound results and I just had some questions and things. I wanted to go over with that. So whenever he or nurse is available, I would appreciate a call back at [phone], thank you. Returned call. Pt had questions regarding scheduling with MFM. Advised pt that M will call her to schedule appt. Pt also wanting to discuss with Dr. Salinas regarding normal parameters of growth. Also wanting to discuss possible causes of small growth for GA. Pt wanting to know if we can compare her previous baby's 20wk ultrasound to this baby as her previous child was also measuring small. Please advise. [facility] 08-03-2024 Miscellaneous Notes Formattin g of this note might be different from the original. Hi, this is Aristides Claire. I was calling back about a voicemail I have from Dr. Salinas yesterday about my ultrasound results and I just had some questions and things. I wanted to go over with that. So whenever he or nurse is available, I would appreciate a call back at [phone], thank you. Returned call. Pt had questions regarding scheduling with MFM. Advised pt that [facility] will call her to schedule appt. Pt also wanting to discuss with Dr. Salinas regarding normal parameters of growth. Also wanting to discuss possible causes of small growth for GA. Pt wanting to know if we can compare her previous baby's 20wk ultrasound to this baby as her previous child was also measuring small. Please advise. documented in this encounter [facility] 08-01-2024 History of Presen t illness Narrative Reason for Appointment: Patient ID: Aristides Claire is a 28 y.o. female who presents for Routine Visit Patient presents today for Return OB appointment. MEDICATIONS Current Outpatient Medications Medication Instructions MV-Min-Fe Fum-FA-DHA ( 1 PO) Oral ALLERGIES [...] nursing note reviewed. Exam conducted with a solid waste technician present. Vitals: Estimated body mass index is 29.37 kg/m as calculated from the following: Height as of 09/09/22: 5' 5 . Weight as of this encounter: 176 lb 8 oz. BP: 108/70 Patient's last menstrual period was 02/29/2024. ASSESSMENT & PLAN ICD-10-CM 1. Second trimester Z34.92 POCT urinalysis dipstick manually resulted 2. 22 weeks gestation of Z3A.22 3. Diabetes mellitus screening Z13.1 CBC Glucose tolerance, 1 hour CBC Glucose tolerance, 1 hour Patient presents today for a routine obstetrics appointment. Patient is currently 22w0d with a Estimated Date of Delivery: 12/05/24. Pt had anatomy scan prior to appt. Pt given glucola order with instructions. Pt to return in 4 weeks for scheduled Ob appt. Documented by Jackie Faustin LPN on behalf of: Itz Salinas DO documented in this encounter [facility] 06-06-2024 History of Presen t illness Narrative Reason for Appointment: Patient ID: Aristides Claire is a 28 y.o. female who presents [...] nursing note reviewed. Exam conducted with a solid waste technician present. Vitals: Estimated body mass index is [...] or undercooked meat, and stay away from [facility]. Patient has been consulted regarding any further do's and don'ts of . Patient voiced understanding and all questions and concerns were answered. Orders Placed This Encounter Procedures POCT urinalysis dipstick manually resulted Follow Up: Patient is to return in 4 weeks for routine OB appointment. Documented by Jackie Faustin LPN on behalf of: Itz Salinas DO documented in this encounter [facility] 05-05-2024 History of Presen t illness Narrative Reason for Appointment: Patient ID: Aristides Claire is a 28 y.o. female who presents [...] or undercooked meat, and stay away from [facility]. Patient has also been advised to [...] Tammi Rivers MA documented in this encounter [facility] 09-23-2023 Evaluation note Authored September 23, 2023 12:25 pm The above note written by __ _Shaye Cardoso____ acting as human recorder, note dictated by Dr. Almazan .I performed the above HPI, ROS, and Examination. I formulated and dictated the treatment plan and was present for entire encounter. Guy Mullen D.O. [facility] Work Phone: [phone]) 628-530101-25-2024 Evaluation note* Encounter Date Diagnosis Assessment Notes [...] of any breach, fraud, or malicious third alliance party actors and no personal patient information was compromised. [employer] Other 12-26-2023 Evaluation note* Encounter Date Diagnosis [...] Mar, Other 3:55 PM - 4:00 PM [employer] Other 11-28-2023 Evaluation note* Encounter Date Diagnosis [...] then she can continue with the medicine. [employer] Other 07-18-2022 Evaluation note* Encounter Date Diagnosis [...] prescribed above medication by Dr. Salinas her level vial grinder for the heartburn she has. [employer] Other 07-23-2013 History general Narrative - Reported* Type Description Date Medical History Meningitis/Menactra 11-15-12 [facility] Medical History Adacel (Tdap) 11-15-12 [facility] Surgical History wisdom teeth removed 2015 [employer] Other 07-23-2013 History general Narrative - Reported* Type Description Date Medical History Meningitis/Menactra 11-15-12 [facility] Medical History Adacel (Tdap) 11-15-12 [facility] Surgical History wisdom teeth removed 2015 Hospitalization History Childbirth 12/28/2021 [employer] Other evaluation noteNo InformationNort [employer] Other evaluation note* Diagnosis Onset Date Resolution Status Hyperglycemia acute Weight gain [facility] Work Phone: Evaluation note* Diagnosis Missed menses 9 weeks gestation of , unspecified gestational age Encounter for supervision of normal first in first trimester [facility] Diagnosis Second trimester state, incidental 14 weeks gestation of [facility]* Diagnosis Second trimester state, incidental 22 weeks gestation of Diabetes mellitus screening Screening for diabetes mellitus [facility]* Diagnosis Encounter for follow-up ultrasound of anatomy- [facility] Diagnosis Second trimester state, incidental 24 weeks gestation of Diabetes mellitus screening Screening for diabetes mellitus [facility]* Diagnosis anomaly necessitating delivery, single or unspecified fetus- Primary Third trimester state, incidental 28 weeks gestation of Gastroesophageal reflux in [facility]* Diagnosis Third trimester ([facility]) state, incidental 30 weeks gestation of ([facility]) [facility] Diagnosis Third trimester ([facility]) state, incidental 32 weeks gestation of ([facility]) [facility] Diagnosis Third trimester ([facility]) state, incidental 34 weeks gestation of ([facility]) Elevated BP without diagnosis of hypertension documented in this encounter [facility] HealthcareInstructionsNot on filedocumented in [facility] Summary Purpose Family History Relationship Condition Age at Onset Recorded Date/T tommy grandparent Unknown Not Specified Malignant neoplasm 75 Relationship Condition Age at Onset Recorded Date/T tommy grandparent Unknown maternal grandmother Malignant neoplasm 75 Advance Directives Advance Directive Response Recorded Date/ Time Advance [...] content) DATE CREATED AUTHOR 09/10/2022 [facility] [place] [facility] DATE CREATED AUTHOR AUTHOR'S ORGANIZ ATION 08/18/2024 [facility] DATE CREATED AUTHOR AUTHOR'S ORGANIZ ATION 09/22/2024 [facility] DATE CREATED AUTHOR AUTHOR'S ORGANIZ ATION 10/27/2024 [facility] EPIC Care Teams (unrecognized sec tion and content) Team Status: Active Member Role Status Dates Guy Mullen DO Primary Care Provider Active Team Status: Inactive Member Role Status Dates Guy Mullen DO Primary Care Provide r, Attending Provider Active Start: September 23, 2023 End: September 23, 2023 Team Status: Inactive Member Role Status Dates Guy Mullen DO Primary Care Provide r, Attending Provider Active Start: December 21, 2023 End: December 21, 2023 Broadcast Operations Director Relationship Specialty Start Date End Date Guy Mullen MD [address] [place] [address] PCP - General 09/16/23 Broadcast Operations Director Relationship Specialty Start Date End Date Guy Mullen MD [address] [place] [address] PCP - General 09/16/23 Broadcast Operations Director Relationship Specialty Start Date End Date Guy Mullen MD [address] [place] [address] PCP - General 09/16/23 Broadcast Operations Director Relationship Specialty Start Date End Date Guy Mullen MD [address] [place] [address] PCP - General 09/16/23 Broadcast Operations Director Relationship Specialty Start Date End Date Guy Mullen MD [address] [place] [address] PCP - General 09/16/23 Broadcast Operations Director Relationship Specialty Start Date End Date Guy Mullen MD [address] [place] [address] PCP - General 09/16/23 Broadcast Operations Director Relationship Specialty Start Date End Date Guy Mullen MD [address] [place] [address] [place] [address] PCP - General 09/16/23 Broadcast Operations Director Relationship Specialty Start Date End Date Guy Mullen MD [address] [place] [address] [place] [address] PCP - General 09/16/23 Broadcast Operations Director Relationship Specialty Start Date End Date Guy Mullen MD [address] [place] [address] PCP - General 09/16/23 Broadcast Operations Director Relationship Specialty Start Date End Date Guy Mullen MD [address] [place] [address] PCP - General 09/16/23 Broadcast Operations Director Relationship Specialty Start Date End Date Guy Mullen MD [address] [place] [address] PCP - General 09/16/23 Broadcast Operations Director Relationship Specialty Start Date End Date Guy Mullen MD [address] [place] [address] PCP - General 09/16/23 Broadcast Operations Director Relationship Specialty Start Date End Date Guy Mullen MD [address] [place] [address] PCP - General 09/16/23 Goals (unrecognized section [...] BE BASED ON THE PRIMARY CLINICAL RECORDS. [employer] [facility]. provides no warranty or guarantee of the accuracy or completeness of information in this document.
== END 2024-11-08 20:35 | disposition short-term general hospital (02) ==
LOC: FBC 16:37
PROVIDERS: Admitting Provider Obstetrics & Gynecology; PCP Family Medicine; Visit Provider Obstetrics & Gynecology
DX: O14.13 Severe pre-eclampsia, third trimester (principal); Z3A.34 34 weeks gestation of pregnancy
CPT/HCPCS: 36415; 76816; 76818; 80053; 82565; 82570; 83615; 84156; 84550; 85025; 85384; 85610; 85730; 96372; 96374; 96375; 96376; G0378; G0379; J0702; J1920; J3475

== ENCOUNTER 2025-01-18 08:43 | Outpatient (OUT) | payer BC, SELFPAY ==
--- OUTSIDE RECORDS SUMMARY | 2025-01-18 08:45 | XMS_ITS | Encounter Summary ---
Author Organization [facility] Address [address] [facility] [place] [address] Care Team Providers Care Band Tumbler Name Role Phone Karsten Caceres MD Primary Care Provider [phone] Encounter Details Date Type Department Care Team (Late Contact Info) Description 09/30/2023 Orders Only [facility]HEL[facility] KRAUS [address] [place] [address] Luisa Mota LPN [address] [employer] [facility] Jonathon S[facility]H [facility] Social History Tobacco Use Types Packs/Day Years Used Date Smoking Tobacco: Never Assessed Comments Unknown Sex and Gender Information Value Date Recorded Sex Assigned at Female 09/16/2023 12:28 PM EDT Legal Sex Female 7:19 PM EDT Gender Identity Female 09/16/2023 12:28 PM EDT Sexual Orientation Straight 09/16/2023 12 :28 PM EDT documented as of this encounter Plan of Treatment Upcoming Encounters Date Type Department Care Team (Late Contact Info) Description 03/05/2025 10:20 AM EST Procedure Visit [facility] [place] [facility] [address] [place] [address] Deep Salinas DO [address] [facility] [address] [place], [place] [id number] documented as of this encounter Procedures Procedure [...] on filedocumented in this encounter Care Teams Band Tumbler Relationship Specialty Start Date End Date Karsten Caceres MD [address] [place] [id number] PCP - General 09/16/23 documented as of this encounter
--- OUTSIDE RECORDS SUMMARY | 2025-01-18 08:45 | XMS_ITS | Encounter Summary ---
Author Organization [facility] Address [id number] [place] [address] Care Team Providers Care Study Specialist Name Role Phone Unavailable Primary Care Provider Unavailabl e Encounter Details Date Type Department Care Team (Late st Contact Info) Description 08/11/2024 Abstract Maternal- Medicine at [facility] [address] [place] [id number] External, Scanning Provider Social History Tobacco Use Types Packs/Day Years Used Date Smoking Tobacco: Never Assessed Comments Yes Sex and Gender Information Value Date Recorded Sex Assigned at Not on file Legal Sex Female 8:29 AM EDT Gender Identity Not on file Sexual Orientation Not on file documented as of this encounter Plan of Treatment Not on file documented as of this encounter Visit Diagnoses Not on filedocumented in this encounter
--- OUTSIDE RECORDS SUMMARY | 2025-01-18 08:45 | XMS_ITS | Encounter Summary ---
Author Organization [facility] Address [address] [facility] [place] [address] Care Team Providers Care In Flight Crew Member Name Role Phone Karsten Caceres MD Primary Care Provider [phone] Encounter Details Date Type Department Care Team (Late Contact Info) Description 11/10/2024 Abstract [facility] [address] [facility] [place] [address] Deep Salinas DO [address] [place], [facility] Social History Tobacco Use Types Packs/Day Years [...] Description 03/05/2025 10:20 AM EST Procedure Visit [facility] [address] [employer] [place] [address] Deep Salinas DO [address] [place], [place] [id number] documented as of this encounter Goals Goal Patient Goal Type Associated Problems Recent Progress Patient-Stated? Author Reminders Care Plan OB Reminders No Open Scheduling, Background documented as of this encounter Visit Diagnoses Not on filedocumented in this encounter Additional Health Concerns Active Problems Noted Date Diagnosed Date OB Reminders 06/06/2024 documented as of this encounter Care Teams In Flight Crew Member Relationship Specialty Start Date End Date Karsten Caceres MD [address] [place] [address] [place] [address] PCP - General 09/16/23 documented as of this encounter
--- OUTSIDE RECORDS SUMMARY | 2025-01-18 08:45 | XMS_ITS | Clinical Summary ---
Author Organization [employer] tem Address [facility] [id number] [address] [place] [address] Care Team Providers Care Recruiting Internship Name Role Phone Unavailable Primary Care Provider Unavailabl e Allergies No known active allergies Medications 25/iron fum/folic/dha (-1 ORAL) Take by mouth. Active omeprazole (PriLOSEC) 20 mg capsule Take 1 capsule (20 mg total) by mouth in the morning. Active ferrous sulfate 325 (65 FE) MG tablet Take 1 tablet (325 mg total) by mouth daily with breakfast. 30 tablet 1 11/14/2024 Active docusate sodium (COLACE) 100 mg capsule Take 1 capsule (100 mg total) by mouth in the morning and 1 capsule (100 mg total) before bedtime. 60 capsule 2 11/24/2024 Active NIFEdipine XL (PROCARDIA XL) 60 mg 24 hr tablet Take 1 tablet (60 mg total) by mouth in the morning. 11/30/2024 Active Active Problems Problem Noted Date Diagnosed Date Pre-eclampsia, severe, antepartum, third trimest er 11/08/2024 Encounters Date Type Department Care Team Description 12/01/2024 9:00 AM EDT Telemedicine [facility] [address] [place] [id number] Rashida Bush MD hypertension (Primary Dx); History of severe pre-eclampsia 11/30/2024 Documentation [facility] [address] [place] [phone] Rashida Bush MD 11/29/2024 Travel 11/24/2024 11:15 AM EDT Visit [facility] [address] [place] [address] Rashida Bush MD hypertension (Primary Dx); History of severe pre-eclampsia 11/24/[address] NICU [address] [place] [address] 11/23/2024 Travel 11/21/[address] NICU [address] [place] [address] 11/17/[address] NICU [address] [place] [address] 11/16/2024 9:00 AM EDT Telemedicine [facility] [address] [place] [address] Aundrea Hebert APRN-[facility] Blood pressure check (Primary Dx); Pre-eclampsia, severe, antepartum, third trimester 11/16/2024 Travel 11/09/2024 10:23 AM EDT Anesthesia Event [facility] - Labor [address] [place] [address] Ruslan Millan MD Simmons, Christopher D, COLOR SPECIALIST-MEMS DEVICE SCIENTIST 11/08/2024 9:58 PM EDT - 11/14/2024 4:22 PM EDT Hospital Encounter [facility] GEN [address] [place] [address] Karsten Kaufman MD Pre-eclampsia, severe, antepartum, third trimester (Primary Dx) Discharge Disposition: Home 11/08/2024 Travel from Last 3 Months Immunizations No known immunizations Family History Medical History Relation Name Comments Cancer Maternal Grandmother Relation Name Status Comments Father Alive Maternal Grandmother Mother Alive Social History Tobacco Use Types Packs/Day Years Used Date Smoking Tobacco: Never Passive Smoke Exposure: Never Smokeless Tobacco: Never Tobacco Cessation:Counseling Given: Not Answered Alcohol Use Standard Drinks/Week Comments Not Currently 0 (1 standard drink = 0.6 oz pur e alcohol) Overall Financial Resource Strain (CARDIA) Answe r Date Recorded How hard is it for you to pa y for the very basics like food, housing, medical care, and heating? Not very hard 11/23/2024 PHQ-2 Answer Date Recorded Total Score 0 11/23/2024 [place] Depression Scale Answer Date Recorded [place] Depression Scale Total 6 11/24/2024 The thought of harming myself has occurred to me . Never 11/24/2024 Childcare Answer Date Recorded Do problems getting child ca re make it difficult for you to work or study? No 11/23/2024 Hunger Screening Answer Date Recorded Within the past 12 months we worried whether our food would run out before we got money to buy more. Never True 11/24/2024 Within the past 12 months th e food we bought just didn't last and we didn't have money to get more. Never True 11/24/2024 Comments No Sex and Gender Information Value Date Recorded Sex Assigned at Not on file Legal Sex Female 8:29 AM EDT Gender Identity Not on file Sexual Orientation Not on file Last Filed Vital Signs Vital Sign Reading Time Taken Comments Blood Pressure 108/60 11/24/2024 11:05 AM EDT Pulse 75 11/24/2024 11:05 AM EDT Temperature 36.8 C (98.2 F) 11/14/2024 3:10 PM EDT Respiratory Rate 16 11/14/2024 3:10 PM EDT Oxygen Saturation 100% 11/10/2024 10: 00 AM EDT Inhaled Oxygen Concentration - - Weight 78.8 kg (173 lb 12.8 oz) 025 11:05 AM EDT Height 165.1 cm (5' 5 ) 11/24/2024 11:0 5 AM EDT Body Mass Index 28.92 11/24/2024 11:05 AM EDT Plan of Treatment Health Maintenance Due Date Last Done Comments Adult BMI Follow Up Plan 2012 DTaP,Tdap and Td Vaccines (1 - Tdap) 2013 Pap Smear 12/26/2015 Influenza Vaccine 2024 Adult BMI Screening 11/24/2025 11/24/2024 Depression Screening 11/24/2025 11/24/2024, 11/24/19 25 Tobacco Screening 11/27/2025 11/27/2024 Medical Devices Not on file Procedures Procedure Name Priority Date/Time Associated Diagnosis Comments COMPREHENSIVE METABOLIC PANEL Routine 11/11/2024 5:58 AM EDT CBC WITH AUTO DIFFERENTIAL Routine 11/11/2024 5:58 AM EDT COMPREHENSIVE METABOLIC PANEL Routine 11/10/2024 5:59 AM EDT CBC WITH AUTO DIFFERENTIAL Routine 11/10/2024 5:59 AM EDT COMPREHENSIVE METABOLIC PANEL Routine 11/09/2024 4:26 PM EDT CBC WITH AUTO DIFFERENTIAL Routine 11/09/2024 4:26 PM EDT BLOOD GAS, VENOUS Routine 11/09/2024 11: 13 AM EDT BLOOD GAS, ARTERIAL, CORD Routine 11/09/2024 11:09 AM EDT ANESTHESIA EPIDURAL BLOCK Routine 11/09/2024 10:41 AM EDT REPEATED ABORH Routine 11/09/2024 5:21 AM EDT COMPREHENSIVE METABOLIC PANEL Routine 11/09/2024 5:21 AM EDT CBC WITH AUTO DIFFERENTIAL Routine 11/09/2024 5:21 AM EDT STREP B SCREEN Routine 11/09/2024 12:32 AM EDT FENTANYL, URINE QUALITATIVE STAT 11/09/2024 12:29 AM EDT DRUG SCREEN, URINE STAT 11/09/2024 12 :29 AM EDT TYPE AND SCREEN STAT 11/08/2024 11:25 PM EDT COMPREHENSIVE METABOLIC PANEL Routine 11/08/2024 11:25 PM EDT CBC WITH AUTO DIFFERENTIAL Routine 11/08/2024 11:25 PM EDT SYPHILIS TOTAL(UNKNOWN SYPHILIS STATUS) Routine 11/08/2024 11:25 PM EDT EXTRA TUBES PST TOP Routine 11/08/2024 1 1:23 PM EDT EXTRA TUBES Routine 11/08/2024 11:23 PM EDT from Last 3 Months Results * (ABNORMAL) CBC auto differential (11/11/2024 5:58 AM EDT) Only the most recent of5 resultswithin the time period is included. WBC 13.2(H) 4 - 11 x10E9/L 11/11/2024 6:53 AM EDT [facility] RBC Count 2.68(L) 3.8 - 5.2 X10E12/L 11/11/2024 6:53 AM EDT [facility] Hemoglobin 7.9(L) 11.7 - 15.5 g/dL 11/11/2024 6:53 AM EDT [facility] Hematocrit 23.9(L) 35 - 47 % 11/11/2024 6:53 AM EDT [facility] MCV 89 80 - 100 fL 11/11/2024 6:53 AM EDT [facility] MCH 29.6 27 - 34 pg 11/11/2024 6:53 AM EDT [facility] MCHC 33.1 32 - 36 g/dL 11/11/2024 6:53 AM EDT [facility] RDW 20.4(H) 11.5 - 15 % 11/11/2024 6:53 AM EDT [facility] Platelet Count 231 150 - 450 X10E9/L 11/11/2024 6:53 AM EDT [facility] MPV 7.1 7 - 12 fL 11/11/2024 6:53 AM EDT [facility] Neutrophils % 67.5 % 11/11/2024 6:53 AM EDT [facility] Lymphocytes % 23.8 % 11/11/2024 6:53 AM EDT [facility] Monocytes % 7.8 % 11/11/2024 6:53 AM EDT [facility] Eosinophils % 0.6 % 11/11/2024 6:53 AM EDT [facility] Basophils % 0.3 % 11/11/2024 6:53 AM EDT [facility] Neutrophils Absolute (A) 8.9(H) 1.5 - 6.6 10*3/uL 11/11/2024 6:53 AM EDT [facility] Lymphocytes Absolute 3.1 1.0 - 3.5 10*3/uL 11/11/2024 6:53 AM EDT [facility] Monocytes Absolute 1.0(H) 0.0 - 0.9 10*3/uL 11/11/2024 6:53 AM EDT [facility] Eosinophils Absolute 0.1 0.0 - 0.4 10*3/uL 11/11/2024 6:53 AM EDT [facility] Basophils Absolute 0.0 0.0 - 0.2 10*3/uL 11/11/2024 6:53 AM EDT [facility] Differential Type AUTOMATED DIFFERENTIAL 11/11/2024 6:53 AM EDT [facility] Blood Venous blood / Unknown Venipuncture / Unknown 11/11/2024 5:58 AM EDT 11/11/2024 5:58 AM EDT us Yanira Hardwick MD LAB BLOOD ORDERABLES Final Res ult [facility] [address] [place] [address], * (ABNORMAL) Comprehensive metabolic panel (11/11/2024 5:58 AM EDT) Only the most recent of5 resultswithin the time period is included. SODIUM 138 134 - 146 mmol/L 11/11/2024 7:25 AM EDT [facility] POTASSIUM 4.9 3.5 - 5.0 mmol/L 11/11/2024 7:25 AM EDT [facility] CHLORIDE 106 98 - 109 mmol/L 11/11/2024 7:25 AM EDT [facility] CARBON DIOXIDE 28 22 - 32 mmol/L 11/11/2024 7:25 AM EDT [facility] ANION GAP 4(L) 5 - 15 mmol/L 11/11/2024 7:25 AM EDT [facility] BLOOD UREA NITROGEN 15 5 - 23 mg/dL 11/11/2024 7:25 AM EDT [facility] CREATININE 0.62 0.40 - 1.00 mg/dL 11/11/2024 7:25 AM EDT [facility] Comment:METHOD TRACEABLE TO IDMS STANDARD GLUCOSE 75 65 - 99 mg/dL 11/11/2024 7:25 AM T [facility] CALCIUM 6.5(LL) 8.5 - 10.5 mg/dL 11/11/2024 7:25 AM EDT [facility] TOTAL PROTEIN 4.3(L) 6.0 - 8.0 g/dL 11/11/2024 7:25 AM EDT [facility] ALBUMIN 2.3(L) 3.2 - 5.3 g/dL 11/11/2024 7:25 AM EDT [facility] ALKALINE PHOSPHATASE 75 39 - 130 U/L 11/11/2024 7:25 AM EDT [facility] AST 6 <=41 U/L 11/11/2024 7:25 AM EDT [facility] ALT 9 <=31 U/L 11/11/2024 7:25 AM EDT [facility] BILIRUBIN,TOTAL 0.2(L) 0.3 - 1.2 mg/dL 11/11/2024 7:25 AM EDT [facility] EGFR Non-Race Dependent >90 >=60 ml/min/1.7 3sq.m 11/11/2024 7:25 AM EDT [facility] Comment: Reported eGFR is based on the CKD-EPI 2020 equation that does not use a race coefficient. Blood Venous blood / Unknown Venipuncture / Unknown 11/11/2024 5:58 AM EDT 11/11/2024 5:58 AM EDT us Yanira Hardwick MD LAB BLOOD ORDERABLES Final Res ult [facility] [address] [place] [address], * (ABNORMAL) Blood gas, venous (11/09/2024 11:13 AM EDT) Sample type VENOUS 11/09/2024 11:28 AM EDT [facility] pH, Venous 7.292(L) 7.320 - 7.420 11/09/2024 11:28 AM EDT [facility] pCO2, Venous 42.7 35.0 - 50.0 mmHg 11/09/2024 11:28 AM EDT [facility] pO2, Venous 20(L) 30 - 50 mmHg 11/09/2024 11:28 AM EDT [facility] Base, Deficit -6.0(L) 0.0 - 2.0 mmol/L 11/09/2024 11:28 AM EDT [facility] HCO3, Venous 20.6 20.0 - 24.0 mmol/L 11/09/2024 11:28 AM T [facility] %O2 Saturation, Venous 28.0 % 11/09/2024 11:28 AM EDT [facility] Abel's test N/A 11/09/2024 11:28 AM EDT [facility] Sample site Tyree Cord 11/09/2024 11:28 AM EDT [facility] Insp. O2 conc. 21 % 11/09/2024 11:28 AM EDT [facility] Source Of Oxygen Room Air 11/09/2024 11:28 AM EDT [facility] venous Venous blood / Unknown 11/09/2024 11:13 AM EDT 11/09/2024 11:28 AM EDT us Karsten Kaufman MD LAB BLOOD ORDERABLES Final Res ult [facility] [address] [place] [address], [place] * (ABNORMAL) Cord Arterial Blood Gas (11/09/2024 11:09 AM EDT) Sample type UMBILICAL CORD 11/09/2024 11:28 AM EDT [facility] pH, Arterial Cord 7.171 11/09/2024 11:28 AM EDT [facility] pCO2, Arterial Cord 60.1 mmHG 11/09/2024 11:28 AM EDT [facility] pO2, Arterial Cord 15 mmHG 11/09/2024 11:28 AM EDT [facility] Base, Deficit -8.0(L) 0.0 - 2.0 mmol/L 11/09/2024 11:28 AM EDT [facility] %O2 Saturation, Cord Arterial 12.0 11/09/2024 11:28 AM EDT [facility] Abel's test N/A 11/09/2024 11:28 AM EDT [facility] Sample site Art Cord 11/09/2024 11:28 AM EDT [facility] Insp. O2 conc. 21 % 11/09/2024 11:28 AM EDT [facility] Source Of Oxygen Room Air 11/09/2024 11:28 AM EDT [facility] UMBILICAL CORD Tongue structure / Unknown 11/09/2024 11:09 AM EDT 11/09/2024 11:28 AM EDT us Karsten Kaufman MD LAB BLOOD ORDERABLES Final Res ult [facility] [address] [place] [address], [place] * PM EPIDURAL (11/09/2024 10:41 AM EDT) Narrative Cuco Cardona APRN-CRNA - 11/09/2024 10:41 AM EDT RICO Owens 11/09/2024 10:42 AM Procedure: Epidural Block Patient Location: OB Start Time: 11/09/2024 10:25 AM End Time: 11/09/2024 10:30 AM IV In situ: Peripheral General Information and Staff: Service Provider: Ruslan Millan MD MEMS DEVICE SCIENTIST: RICO Owens Placed By: RICO Owens Checklist: Patient Identified, IV Checked, Risks and Benefits Discussed, Surgical Consent, Monitors and Equipment Checked, Pre-op Evaluation and Timeout Performed Fire Risk Assessment Score: 0 Epidural: Patient Position: Sitting Prep: Chlorhexidine and Isopropyl Alcohol, Chlorhexidine, Patient Draped and Maximum Sterile Barriers Used Monitoring: Monitor, Blood Pressure, Heart Rate and Continuous Pulse Ox Oxygen Source: Room Air Approach: Midline Location: L3-L4 Injection Technique: CLAUDIA w/PFNS Injection Method: Catheter Secured with: Transparent Dressing and Taped Dressing Type: Transparent and Tape Local Infiltration: Lidocaine 1% Dose: 2 mL Needle and Epidural Catheter: Needle Type: Tuohy Flushed with PFNS 3 mL Needle Gauge: 17 G Needle Length: 9 cm OR CLAUDIA: 7 Catheter Type: Side Hole Catheter Size: 20 G Catheter at Skin Depth: 13 cm Number of Attempts: 1 Test Dose: Negative and Lidocaine 1.5% with Epinephrine 1:200,000 Dose: 4 mL Date and Time Given: 11/09/2024 10:30 AM Patient Tolerance: Tolerated Well Assessment: Sensory Level: T10 Injection Assessment: Negative Aspiration for Blood, No Paresthesia on Injection, Negative CSF flow and Negative for S/S of Intravenous or Intrathecal Injection us Ruslan Millan MD ANESTHESIA ORDERABLES Fiordaliza jane Result * ABO Rh Repeat (11/09/2024 5:21 AM EDT) ABO A 11/09/2024 8:29 AM EDT [facility] RH Positive 11/09/2024 8:29 AM EDT [facility] Blood Venous blood / Unknown Venipuncture / Unknown 11/09/2024 5:21 AM EDT 11/09/2024 5:22 AM EDT Karsten Kaufman MD BLOOD BANK TEST ORDERABLES Fin al Result Performing Organization Address City/[facility]/ZIP Co de Phone Number [facility] [address] [place] [address], [facility] [address] [place] [address], * Strep B screen (11/09/2024 12:32 AM EDT) CULTURE RESULTS POSITIVE FOR GROUP B STREPTOCOCCUS BY NUCLEIC ACID AMPLIFICATION 11/10/2024 1:43 PM EDT [facility] Swab (Vagina/Rectum) 11/09/2024 12:32 AM EDT 11/09/2024 2:23 AM EDT [facility] - 11/10/2024 1:43 PM EDT Group B streptococci remain universally susceptible to penicillin, ampicillin, and cefazolin. Resistance to clindamycin can occur. Please contact laboratory within 48 hours if clindamycin susceptibility testing is needed. Merritt Villa MD MICROBIOLOGY - GENERAL ORDER MARCOS Final Result Performing Organization Address [place]/[facility] Co de Phone Number [facility] [address] [place] [address], * Fentanyl, Urine Qualitative (11/09/2024 12:29 AM EDT) FENTANYL, URINE QUAL. Negative Negative 11/09/2024 5:06 AM EDT [facility] Urine Urine / Unknown 11/09/2024 1 2:29 AM EDT 11/09/2024 3:15 AM EDT [facility] - 11/09/2024 5:06 AM EDT Fentanyl screening cutoff = 5ng/ml This report is intended for use in clinical monitoring or management of patients. us Merritt Villa MD URINE ORDERABLES Final Resul t [facility] [address] [place] [address], * (ABNORMAL) Drug Screen, Urine (11/09/2024 12:29 AM EDT) AMPHETAMINE/METHAM P Negative Negative 11/09/2024 5:06 AM EDT [facility] Comment:AMPH/METH screening cut off = 1000 ng/mL COCAINE METABOLITE Negative Negative 2024 5:06 AM EDT [facility] Comment:Cocaine screening cu t off value = 300 ng/mL ECSTASY Positive(A) Negative 11/09/2024 5:06 AM EDT [facility] Comment: Ecstasy screening cut off value = 500 ng/mL This report is intended for use in clinical monitoring or management of patients. Interference from Buproprion or Labetalol may cause a positive result, confirmation available upon request. METHADONE Negative Negative 11/09/2024 5:06 AM EDT [facility] Comment:Methadone screening cut off value = 300 ng/mL. OPIATES Negative Negative 11/09/2024 5:06 AM EDT [facility] Comment: Opiates screening cut off value = 300 ng/mL This test is used for the detection of codeine, hydrocodone (>1000 ng/mL), morphine and hydromorphone (>900 ng/mL) in urine. OXYCODONE Negative Negative 11/09/2024 5:06 AM EDT [facility] Comment: Oxycodone screening cut off value = 300 ng/mL This test is used for the detection of oxycodone and oxymorphone in urine. PHENCYCLIDINE Negative Negative 11/09/2024 5:06 AM EDT [facility] Comment:Phencyclidine screen ing cut off value = 25 ng/mL CANNABINOIDS Negative Negative 11/09/2024 5:06 AM EDT [facility] Comment:Cannabinoids/THC scr eening cut off value = 50 ng/mL Urine Barbiturates Negative Negative 2024 5:06 AM EDT [facility] Comment:Barbiturates screeni ng cut off value = 200 ng/mL BENZODIAZEPINES Negative Negative 5:06 AM EDT [facility] Comment:Benzodiazepines scre ening cut off value = 200 ng/mL Urine 11/09/2024 12:2 9 AM EDT 11/09/2024 3:15 AM EDT us Merritt Villa MD URINE ORDERABLES Final Resul t Performing Organization Address [place]/[facility]/ZIP Co de Phone Number [facility] [address] [place] [address], * Syphilis Total (Unknown Syphilis Status) (11/08/2024 11:25 PM EDT) SYPHILIS TOTAL <0.2 <=0.8 AI 11/09/2024 7:36 AM EDT [facility] Blood Venous blood / Unknown Venipuncture / Unknown 11/08/2024 11:25 PM EDT 11/08/2024 11:25 PM EDT Narrative [facility] - 11/09/2024 7:36 AM EDT NON REACTIVE No serologic evidence of infection to Treponema pallidum. Repeat testing may be considered in patients with suspected acute or primary syphilis in 2 to 4 weeks. us Merritt Villa MD LAB BLOOD ORDERABLES Final R esult [facility] [address] [place] [address], [place] [phone] * Type and screen(includes indirect emilee) (11/08/2024 11:25 PM EDT) ABO A 11/09/2024 2:11 AM EDT [facility] RH Positive 11/09/2024 2:11 AM EDT [facility] Antibody Screen Negative 11/09/2024 2:11 AM EDT [facility] Blood Venous blood / Unknown Venipuncture / Unknown 11/08/2024 11:25 PM EDT 11/08/2024 11:25 PM EDT Merritt Villa MD BLOOD BANK TEST ORDERABLES E dited Result - Final [facility] [address] [place] [address], [facility] [address] [place] [address], [place] * PST TOP (11/08/2024 11:23 PM EDT) Extra Tube Auto Resulted 11/09/2024 1:01 AM EDT [facility] Blood Venous blood / Unknown 11/08/2024 11:23 PM EDT 11/08/2024 11:44 PM EDT Karsten Kaufman MD LAB BLOOD ORDERABLES Final Res ult [facility] [address] [place] [address], from Last 3 Months Insurance [facility] Advance Directives * Full Code (Latest Code Status on File) Date Activated Date Inactivated Comments 11/08/2024 11:06 PM 11/14/2024 6:22 PM
--- OUTSIDE RECORDS SUMMARY | 2025-01-18 08:45 | XMS_ITS | Encounter Summary ---
Author Organization [facility] Address [address] [facility] [place] [address] Care Team Providers Care Ship Ceiler Name Role Phone Karsten Caceres MD Primary Care Provider [phone] Encounter Details Date Type Department Care Team (Late Contact Info) Description 09/19/2024 External Result Encounter [facility] [address] [place] [address] Deep Sal[place] DO [address], [place] [address] Social History Tobacco Use Types Packs/Day Years [...] EST Procedure Visit [facility] [address] [place] [address] Deep [place] DO [address], [place] [id number] documented as of this encounter Goals Goal [...] PM EDT THIS EXAM WAS PERFORMED AT [facility] NAME: DAKOTAH IRVING : 1995 SEX: F Accession Number: [id number] ORDERING PHYSICIAN: DEEP SALINAS REFERRING PHYSICIAN: DEEP SALINAS Coding ----- --------- Procedures [id number]: Follow-up Ultrasound, per fetus Indication ----- --------- [...] EFW (oz) 11 oz EFW by: Hadlock ([id number]) Extended Tibia 49.5 mm 29w 5d 96% Alfredo Ship Mate 4.0 mm CM 4.8 mm 7% Nicolaides [...] view. RVOT view. LVOT view. 3-vessel view. 7-ywvyom-dyuvpyt view. Situs. Bicaval view. Ductal arch view. [...] the patient as necessary. Procedure Note Radiology, Radiologist, MD - 09/19/2024 THIS EXAM WAS PERFORMED AT [facility] NAME: DAKOTAH IRVING : 1995 SEX: F Accession Number: [id number] ORDERING PHYSICIAN: DEEP SALINAS REFERRING PHYSICIAN: DEEP SALINAS Coding ----- --------- Procedures [id number]: Follow-up Ultrasound, per fetus Indication ----- --------- [...] EFW (oz) 11 oz EFW by: Hadlock ([id number]) Extended Tibia 49.5 mm 29w 5d 96% Alfredo Ship Mate 4.0 mm CM 4.8 mm 7% Nicolaides [...] 4-chamber view. RVOT view. LVOT view. 3-vessel view.8-evzrzt-rxoiguk view. Situs. Bicaval view. Ductal arch view. [...] up with thepatient as necessary. us Deep Sal[place] DO [facility] [place] PROCEDURES Final Resul t documented in this encounter Visit Diagnoses Not on filedocumented in this encounter Additional Health Concerns Active Problems Noted Date Diagnosed Date OB Reminders 06/06/2024 documented as of this encounter Care Teams Ship Ceiler Relationship Specialty Start Date End Date Karsten Caceres MD [address] [place] [address] [place] [address] PCP - General 09/16/23 documented as of this encounter
--- OUTSIDE RECORDS SUMMARY | 2025-01-18 08:45 | XMS_ITS | Encounter Summary ---
Author Organization [facility] Address [address] [facility] [place] [address] Care Team Providers Care Edger Saw Operator Name Role Phone Karsten Caceres MD Primary Care Provider [phone] Encounter Details Date Type Department Care Team (Late Contact Info) Description 12/01/2024 Abstract [facility] [address] [facility] [place] [address] Deep [place] DO [address], [id number] Social History Tobacco Use Types Packs/Day Years Used Date Smoking Tobacco: Never Assessed Comments No Sex and Gender Information Value [...] AM EST Procedure Visit [facility] [address] [place] [address] Deep Salinas DO [address], [place] [id number] documented as of this encounter Goals Goal Patient Goal Type Associated Problems Recent Progress Patient-Stated? Author Reminders Care Plan OB Reminders No Open Scheduling, Background documented as of this encounter Visit Diagnoses Not on filedocumented in this encounter Additional Health Concerns Active Problems Noted Date Diagnosed Date OB Reminders 06/06/2024 documented as of this encounter Care Teams Edger Saw Operator Relationship Specialty Start Date End Date Karsten Caceres MD [address] [place] [address] [place] [address] PCP - General 09/16/23 documented as of this encounter
--- OUTSIDE RECORDS SUMMARY | 2025-01-18 08:45 | XMS_ITS | Encounter Summary ---
Author Organization [facility] tem Address [id number] [place] [address] Care Team Providers Care Gymnastics Instructor Name Role Phone Unavailable Primary Care Provider Unavailabl e Encounter Details Date Type Department Care Team (Late st Contact Info) Description 08/15/2024 Abstract [facility] Certified Nurse Ecological Risk Assessor - [place] [address] [id number] Erica Schilling RN Social History Tobacco Use [...]
--- OUTSIDE RECORDS SUMMARY | 2025-01-18 08:45 | XMS_ITS | Encounter Summary ---
Author Organization [facility] Address [address] [facility] [place] [address] Care Team Providers Care Final Cleaner Name Role Phone Karsten Caceres MD Primary Care Provider [phone] Encounter Details Date Type Department Care Team (Late Contact Info) Description 12/06/2024 Abstract [facility] [address] [place] [address] Deep Salinas DO [address], [facility] Social History Tobacco Use Types Packs/Day [...] AM EST Procedure Visit [facility] [address] [place] [address] Deep [place]inas DO [address], [place] [id number] documented as of this encounter Goals Goal Patient Goal Type Associated Problems Recent Progress Patient-Stated? Author Reminders Care Plan OB Reminders No Open Scheduling, Background documented as of this encounter Visit Diagnoses Not on filedocumented in this encounter Additional Health Concerns Active Problems Noted Date Diagnosed Date OB Reminders 06/06/2024 documented as of this encounter Care Teams Final Cleaner Relationship Specialty Start Date End Date Karsten Caceres MD [address] [place] [address] [place] [address] PCP - General 09/16/23 documented as of this encounter
--- OUTSIDE RECORDS SUMMARY | 2025-01-18 08:46 | XMS_ITS | CCD ---
Author Organization [facility] CliniSytn Care Team Providers Care Stranding Supervisor Name Role Phone Guy Mullen BRAD ., DR MOBLEY Attending Unavailable REQUEST, DR LEMA LISTED Primary Care Unavaila ble BRAD ., DR MOBLEY Consulting Unavailable BRAD ., DR MOBLEY Admitting Unavailable BRAD ., DR MOBLEY Attending Unavailable REQUEST, NONE LISTED Primary Care Unavaila ble BRAD ., DR MOBLEY Consulting Unavailable BRAD ., DR MOBLEY Admitting Unavailable Zieber, Laurie Consulting Unavailable BRAD ., DR MOBLEY Attending [...] Primary Care Provider Unavailable Primary Care Provider UnavailDEEP Nunez R Referring Unavailable DEEP SALINAS R Referring Unavailable GUY WATERMAN Admitting Unavailable GUY WATERMAN Attending Unavailable DEEP SALINAS Referring Unavailable MEDICINE, MATERNAL Consulting Unavail able JENNA CURRY Referring Unavailable TIRSO AL Attending Unavailable HIGINIO CASTLE Referring Unavailable RASHIDA BUSH Attending UnavailTIRSO Chau Referring Unavailable RASHIDA BUSH Attending UnavailTIRSO Chau Referring Unavailable Guy Mullen DO Primary Care Provider [phone] Deep Salinas DO Attending Provider Guy Mullen DO Attending Provider [phone] DEEP SALINAS Attending Unavailable GINI, Attending Unavailable GINIAMY Referring Unavailable BRAD, DEEP Attending Unavailable BRAD, DEEP Attending Unavailable BRAD, DEEP Attending Unavailable BRAD, DEEP Attending Unavailable GINIAMY Attending Unavailable BRAD, DEEP Attending Unavailable GINI, Attending Unavailable Medications Current Medications Medication Drug Class(es) Dates Sig (Normalized) Sig (Original) docusate sodium 100 mg oral capsule (6 sources) Start: 12-20-2024 End: 12-20-2024 take 1 capsule by mouth once daily as needed Docusate Sodium 100 mg capsule Active 100 MG PO Daily as needed December 20, 2024 10:11am Complies with drug therapy Start: 11-24-2024 take 1 capsule by mo [facility] in the morning, then take 1 capsule by mouth at bedtime docusate sodium (COLACE) 100 mg capsule Take 1 capsule (100 mg total) by mouth in the morning and 1 capsule (100 mg total) before bedtime. 60 capsule 2 11/24/2024 Active ferrous sulfate 325 mg oral tablet (8 sources) Start: 12-20-2024 take 1 tablet by mouth once daily Ferrous Sulfate (Ferosul) 325 mg (65 mg iron) tablet Active 325 MG PO Daily December 20, 2024 12:00am Complies with drug therapy Start: 11-14-2024 take 1 tablet by radhames th once daily at breakfast ferrous sulfate 325 (65 FE) MG tablet Take 1 tablet (325 mg total) by mouth daily with breakfast. 30 tablet 1 11/14/2024 Active NIFEdipine 60 mg osmotic 24 hr extended release oral tablet (10 sources) Dihydropyridine Calcium Channel Tanya Start: 12-20-2024 take 1 tablet by mouth once daily Nifedipine 60 mg tablet extended release 24hr Active 60 MG PO Daily December 20, 2024 10:12am Complies with drug therapy Start: 12-20-2024 End: 12-20-2024 take 1 tablet by mouth every twenty-four hours Nifedipine 60 mg tablet extended release 24hr Discontinued MG PO December 20, 2024 12:00am December 20, 2024 10:12am Start: 11-30-2024 take 1 tablet by radhames th every twenty-four hours in the morning NIFEdipine XL (PROCARDIA XL) 60 mg 24 hr tablet Take 1 tablet (60 mg total) by mouth in the morning. 11/30/2024 Active Start: 11-14-2024 End: 11-30-2024 take 1 tablet by mouth every hour NIFEdipine XL (PROCA RDIA XL) 60 mg 24 hr tablet Take 1 tablet (60 mg total) by mouth every 12 (twelve) hours. 60 tablet 1 11/14/2024 11/30/2024 Discontinued norethindrone 0.35 mg oral tablet (6 sources) Start: 01-03-2025 End: 01-31-2025 take 1 tablet by mouth once daily, then take 1 tablet by mouth once daily norethindrone (Micronor) 0.35 MG tablet Indications: control counseling Take 1 tablet (0.35 mg) by mouth Daily for 28 days Take 1 tablet by mouth daily 28 tablet 11 01/03/2025 01/31/2025 Active Start: 06-21-2023 End: 05-04-2024 take 1 tablet by mouth once daily Norethindrone (Contraceptive) (Incassia) 0.35 mg tablet Discontinued 0.35 MG PO Daily June 21, 2023 1:00am December 21, 2023 9:21am omeprazole 20 mg delayed release oral capsule (20 sources) Proton Pump Inhibitor Start: 09-26-2024 End: 01-03-2025 take 1 capsule by mouth before mealtime omeprazole (PriLOSEC) [address] capsule Indications: Gastroesophageal Reflux Disease , Heartburn Take 1 capsule (20 mg) by mouth in the morning. Take before meals. Do not crush or chew. 30 capsule 3 09/26/2024 01/03/2025 Discontinued (Therapy completed) 25/iron fum/folic/dha (-1 ORAL) (8 sources) 25/iron fum/folic/dha (-1 ORAL) Take by mouth. Active MV-Min-Fe Fum-FA-DHA ( 1 PO) (20 sources) MV-Min- Fe Fum-FA-DHA ( 1 PO) Take by mouth Active Completed/Discontinued Medications Medication Drug Class(es) Dates Sig (Normalized) Sig (Original) desogestrel 0.15 mg / ethinyl estradiol 0.03 mg oral tablet (1 source) Progestin, Estrogen Start: 11-15-2023 End: 05-04-2024 desogestrel-ethin yl estradiol (Apri) 0.15-30 MG-MCG tablet Indications: control counseling Take 1 tablet by mouth Daily 28 tablet 12 11/15/2023 05/04/2024 Discontinued (Therapy completed) labetalol hydrochloride 300 mg oral tablet (8 sources) beta-Adrenergic Tanya Start: 11-14-2024 End: 11-30-2024 take 1 tablet by mouth in the morning, then take 1 tablet by mouth at bedtime labetaloL (NORMODYNE) 300 mg tablet Take 1 tablet (300 mg total) by mouth in the morning and 1 tablet (300 mg total) before bedtime. 11/24/2024 11/30/2024 Discontinued (Therapy completed) phentermine hydrochloride 37.5 mg oral tablet (20 sources) Sympathomimetic Amine Anorectic Start: 03-23-2023 End: 05-04-2024 take 1 tablet by mouth once daily Phentermine 37.5 mg tablet Discontinued 37.5 MG PO Daily 30 September 23, 2023 12:19pm October 29, 2023 11:07am Problems Active Problems Problem Classification Problem Date Documented Date Episodic/Chronic Contraceptive and procreative management (2 sources) Patient encounter status; Translations: [Encounter for other general counseling and advice on contraception] 01-03-2025 Episodic Diabetes mellitus without complication (13 sources) Other abnormal glucose; Translations: [Hyperglycemia, unspecified] Onset: 10-20-2021 Episodic Hypertension complicating ; childbirth and the puerperium (3 sources) Hypertensive disorder; Translations: [Unspecified maternal hypertension, complicating the puerperium] Onset: 11-24-2024 11-24-2024 Chronic Hypertension complicating ; childbirth and the puerperium (11 sources) Severe pre-eclampsia; Translations: [Severe pre-eclampsia, third trimester] Onset: 11-08-2024 11-16-2024 Episodic Intestinal infection (3 sources) Viral gastroenteritis due to [place]-like agent; Translations: [Acute gastroenteropathy due to [place] agent] 06-21-2023 Episodic Menstrual disorders (1 source) [...] Translations: [Abnormal weight gain] 06-21-2023 Episodic Other nutritional; endocrine; and metabolic disorders (1 source) Weight increased; Translations: [Abnormal weight gain] 06-21-2023 Episodic Other [...] [34 weeks gestation of ] 11-08-2024 Episodic Residual codes; unclassified (2 sources) H/O: severe pre-eclampsia; Translations: [Personal history of other complications of , childbirth and the puerperium] 11-24-2024 Episodic Residual codes; unclassified (1 source) Personal history of other complications of , childbirth and the puerperium; Translations: [Personal history of other complications of , childbirth and the puerperium] Onset: 11-24-2024 Episodic Spondylosis; intervertebral disc disorders; other back problems (3 sources) Low back pain; Translations: [Lumbar back pain] 12-21-2023 Episodic Unclassified (1 source) CONTACT W/AND (SUSP) EXPOS COVID-19; Translations: [CONTACT W/AND (SUSP) EXPOS COVID-19] Onset: 01-03-2022 Unclassified (20 sources) OB Reminders Onset: 06-06-2024 06-06-2024 Unclassified (1 source) Preclampsia with Severe feature Onset: 11-08-2024 Past or Other Problems Problem Classification Problem Date Documented Da te Episodic/Chronic Mood disorders (4 sources) Mood disorders Onset: 11-23-2024 11-23-2024 OB-related trauma to perineum and vulva (1 [...] Test Name Value Interpretation Reference Range Facility CBC WITH AUTO DIFFERENTIALon 11-11-2024 BASOPHILS ABSOLUTE COUNT (10*3/UL) BY AUTOMATED COUNT 0.0 10*3/uL Normal 0.0-0.2 [facility] Comment on above: Performed By: #### C MP #### [facility] ([facility]) [address] [place] [address] VIR BASOPHILS RELATIVE PERCENT BY AUTOMATED COUNT 0.3 % Normal [facility] Comment on above: Performed By: #### C MP #### [facility] ([facility]) [address] [place] [address] VIR CELLAVISION DIFFERENTIAL TYPE AUTOMATED DIFFERENTIAL Normal [facility] Comment on above: Performed By: #### C MP #### [facility] ([facility]) [address] [place] [address] VIR Eosinophils (Bld) [#/Vol] 0.1 10*3/uL Normal 0.0-0.4 [facility] Comment on above: Performed By: #### C MP #### [facility] ([facility]) [address] [place] [address] VIR EOSINOPHILS RELATIVE PERCENT BY AUTOMATED COUNT 0.6 % Normal [facility] Comment on above: Performed By: #### C MP #### [facility] ([facility]) [address] [place] [address] VIR Erythrocyte distribution width (RBC) [Ratio] 20.4 % High 11.5-15 [facility] Comment on above: Performed By: #### C MP #### [facility] ([facility]) [address] [place] [address] VIR Hematocrit (Bld) [Volume fraction] 23.9 % Low 35-47 [facility] Comment on above: Performed By: #### C MP #### [facility] ([facility]) [address] [facility] [address] [place] [address] VIR Hemoglobin (Bld) [Mass/Vol] 7.9 g/dL Low 11.7-15.5 [facility] Comment on above: Performed By: #### C MP #### [facility] ([facility]) [address] [facility] [facility] [address] [place] [address] VIR LYMPHOCYTES ABSOLUTE COUNT (10*3/UL) BY AUTOMATED COUNT 3.1 10*3/uL Normal 1.0-3.5 [facility] Comment on above: Performed By: #### C MP #### [facility] ([facility]) [address] [facility] [address] [place] [address] VIR LYMPHOCYTES RELATIVE PERCENT BY AUTOMATED COUNT 23.8 % Normal [facility] Comment on above: Performed By: #### C MP #### [facility] ([facility]) [address] [place] [address] VIR MCH (RBC) [Entitic mass] 29.6 pg Normal 27-34 [facility] Comment on above: Performed By: #### C MP #### [facility] ([facility]) [address] [place] [address] VIR MCHC (RBC) [Mass/Vol] 33.1 g/dL Normal 32-36 [facility] Comment on above: Performed By: #### C MP #### [facility] ([facility]) [address] [place] [address] VIR MCV (RBC) [Entitic vol] 89 fL Normal 80-100 [facility] Comment on above: Performed By: #### C MP #### [facility] ([facility]) [address] [place] [address] VIR MONOCYTES ABSOLUTE COUNT (10*3/UL) BY AUTOMATED COUNT 1.0 10*3/uL High 0.0-0.9 [facility] Comment on above: Performed By: #### C MP #### [facility] ([facility]) [address] [place] [address] VIR MONOCYTES RELATIVE PERCENT BY AUTOMATED COUNT 7.8 % Normal [facility] Comment on above: Performed By: #### C MP #### [facility] ([facility]) [address] [place] [address] VIR NEUTROPHILS ABSOLUTE COUNT BY AUTOMATED COUNT 8.9 10*3/uL High 1.5-6.6 [facility] Comment on above: Performed By: #### C MP #### [facility] ([facility]) [address] [place] [address] VIR NEUTROPHILS RELATIVE PERCENT BY AUTOMATED COUNT 67.5 % Normal [facility] Comment on above: Performed By: #### C MP #### [facility] ([facility]) [address] [place] [address] VIR Platelet mean volume (Bld) [Entitic vol] 7.1 fL Normal 7-12 [facility] Comment on above: Performed By: #### C MP #### [facility] ([facility]) [address] [place] [address] VIR Platelets (Bld) [#/Vol] 231 10*3/uL Normal 150-450 [facility] Comment on above: Performed By: #### C MP #### [facility] ([facility]) [address] [place] [address] VIR RBC COUNT 2.68 X10E12/L Low 3.8-5.2 [facility] Comment on above: Performed By: #### C MP #### [facility] ([facility]) [address] [place] [address] VIR WBC (Bld) [#/Vol] 13.2 10*3/uL High 4-11 [facility] Comment on above: Performed By: #### C MP #### [facility] ([facility]) [address] [place] [address] VIR COMPREHENSIVE METABOLIC PANE Lawrence 11-11-2024 Albumin [Mass/Vol] 2.3 g/dL Low 3.2-5.3 [facility] Comment on above: Performed By: #### C MP #### [facility] ([facility]) [address] [place] [address] VIR ALP [Catalytic activity/Vol] 75 U/L Normal 39-130 [facility] Comment on above: Performed By: #### C MP #### [facility] ([facility]) [address] [place] [address] VIR ALT [Catalytic activity/Vol] 9 U/L Normal <=31 [facility] Comment on above: Performed By: #### C MP #### [facility] ([facility]) [address] [place] [address] VIR Anion gap [Moles/Vol] 4 mmol/L Low 5-15 [facility] Comment on above: Performed By: #### C MP #### [facility] ([facility]) [address] [place] [address] VIR AST [Catalytic activity/Vol] 6 U/L Normal <=41 [facility] Comment on above: Performed By: #### C MP #### [facility] ([facility]) [address] [place] [address] VIR Bilirubin [Mass/Vol] 0.2 mg/dL Low 0.3-1.2 [facility] Comment on above: Performed By: #### C MP #### [facility] ([facility]) [address] [place] [address] VIR Calcium [Mass/Vol] 6.5 mg/dL Critically low 8.5-10.5 [facility] Comment on above: Performed By: #### C MP #### [facility] ([facility]) [address] [place] [address] VIR Chloride [Moles/Vol] 106 mmol/L Normal 98-109 [facility] Comment on above: Performed By: #### C MP #### [facility] ([facility]) [address] [place] [address] VIR CO2 [Moles/Vol] 28 mmol/L Normal 22-32 [facility] Comment on above: Performed By: #### C MP #### [facility] ([facility]) [address] [place] [address] VIR Creatinine [Mass/Vol] 0.62 mg/dL Normal 0.40-1.00 [facility] Comment on above: Result Comment: METH OD TRACEABLE TO IDMS STANDARD Performed By: #### C MP #### [facility] ([facility]) [address] [place] [address] VIR EGFR (CKD-EPI) NON-RACE DEPENDENT >^90 Normal >=60 [facility] Comment on above: Result Comment: Repo rted eGFR is based on the CKD-EPI 2020 equation that does not use a race coefficient. Performed By: #### C MP #### [facility] ([facility]) [address] [place] [address] VIR Glucose [Mass/Vol] 75 mg/dL Normal 65-99 [facility] Comment on above: Performed By: #### C MP #### [facility] ([facility]) [address] [place] [address] VIR Potassium [Moles/Vol] 4.9 mmol/L Normal 3.5-5.0 [facility] Comment on above: Performed By: #### C MP #### [facility] ([facility]) [address] [place] [address] VIR Protein [Mass/Vol] 4.3 g/dL Low 6.0-8.0 [facility] Comment on above: Performed By: #### C MP #### [facility] ([facility]) [address] [place] [address] VIR Sodium [Moles/Vol] 138 mmol/L Normal 134-146 [facility] Comment on above: Performed By: #### C MP #### [facility] ([facility]) [address] [place] [address] VIR Urea nitrogen [Mass/Vol] 15 mg/dL Normal 5-23 [facility] Comment on above: Performed By: #### C MP #### [facility] ([facility]) [address] [place] [address] VIR CBC WITH AUTO DIFFERENTIALon 11-10-2024 BASOPHILS ABSOLUTE COUNT (10*3/UL) BY AUTOMATED COUNT 0.0 10*3/uL Normal 0.0-0.2 [facility] Comment on above: Performed By: #### C MP #### [facility] ([facility]) [address] [place] [address] VIR BASOPHILS RELATIVE PERCENT BY AUTOMATED COUNT 0.2 % Normal [facility] Comment on above: Performed By: #### C MP #### [facility] ([facility]) [address] [place] [address] VIR CELLAVISION DIFFERENTIAL TYPE AUTOMATED DIFFERENTIAL Normal [facility] Comment on above: Performed By: #### C MP #### [facility] ([facility]) [address] [place] [address] VIR Eosinophils (Bld) [#/Vol] 0.0 10*3/uL Normal 0.0-0.4 [facility] Comment on above: Performed By: #### C MP #### [facility] ([facility]) [address] [place] [address] VIR EOSINOPHILS RELATIVE PERCENT BY AUTOMATED COUNT 0.0 % Normal [facility] Comment on above: Performed By: #### C MP #### [facility] ([facility]) [address] [address] [place] [address] VIR Erythrocyte distribution width (RBC) [Ratio] 20.2 % High 11.5-15 [facility] Comment on above: Performed By: #### C MP #### [facility] ([facility]) [address] [facility] [address] [place] [address] VIR Hematocrit (Bld) [Volume fraction] 26.0 % Low 35-47 [facility] Comment on above: Performed By: #### C MP #### [facility] ([facility]) [address] [facility] [address] [place] [address] VIR Hemoglobin (Bld) [Mass/Vol] 8.9 g/dL Low 11.7-15.5 [facility] Comment on above: Performed By: #### C MP #### [facility] ([facility]) [address] [facility] [address] [place] [address] VIR LYMPHOCYTES ABSOLUTE COUNT (10*3/UL) BY AUTOMATED COUNT 2.1 10*3/uL Normal 1.0-3.5 [facility] Comment on above: Performed By: #### C MP #### [facility] ([facility]) [address] [facility] [address] [place] [address] VIR LYMPHOCYTES RELATIVE PERCENT BY AUTOMATED COUNT 12.3 % Normal [facility] Comment on above: Performed By: #### C MP #### [facility] ([facility]) [address] [facility] [address] [place] [address] VIR MCH (RBC) [Entitic mass] 30.2 pg Normal 27-34 [facility] Comment on above: Performed By: #### C MP #### [facility] ([facility]) [address] [place] [address] VIR MCHC (RBC) [Mass/Vol] 34.3 g/dL Normal 32-36 [facility] Comment on above: Performed By: #### C MP #### [facility] ([facility]) [address] [place] [address] VIR MCV (RBC) [Entitic vol] 88 fL Normal 80-100 [facility] Comment on above: Performed By: #### C MP #### [facility] ([facility]) [address] [place] [address] VIR MONOCYTES ABSOLUTE COUNT (10*3/UL) BY AUTOMATED COUNT 0.6 10*3/uL Normal 0.0-0.9 [facility] Comment on above: Performed By: #### C MP #### [facility] ([facility]) [address] [place] [address] VIR MONOCYTES RELATIVE PERCENT BY AUTOMATED COUNT 3.5 % Normal [facility] Comment on above: Performed By: #### C MP #### [facility] ([facility]) [address] [place] [address] VIR NEUTROPHILS ABSOLUTE COUNT BY AUTOMATED COUNT 14.1 10*3/uL High 1.5-6.6 [facility] Comment on above: Performed By: #### C MP #### [facility] ([facility]) [address] [place] [address] VIR NEUTROPHILS RELATIVE PERCENT BY AUTOMATED COUNT 84.0 % Normal [facility] Comment on above: Performed By: #### C MP #### [facility] ([facility]) [address] [place] [address] VIR Platelet mean volume (Bld) [Entitic vol] 7.7 fL Normal 7-12 [facility] Comment on above: Performed By: #### C MP #### [facility] ([facility]) [address] [place] [address] VIR Platelets (Bld) [#/Vol] 307 10*3/uL Normal 150-450 [facility] Comment on above: Performed By: #### C MP #### [facility] ([facility]) [address] [place] [address] VIR RBC COUNT 2.96 X10E12/L Low 3.8-5.2 [facility] Comment on above: Performed By: #### C MP #### [facility] ([facility]) [address] [place] [address] VIR WBC (Bld) [#/Vol] 16.8 10*3/uL High 4-11 [facility] Comment on above: Performed By: #### C MP #### [facility] ([facility]) [address] [place] [address] VIR COMPREHENSIVE METABOLIC PANE [place] 11-10-2024 Albumin [Mass/Vol] 2.5 g/dL Low 3.2-5.3 [facility] Comment on above: Performed By: #### C MP #### [facility] ([facility]) [address] [place] [address] VIR ALP [Catalytic activity/Vol] 83 U/L Normal 39-130 [facility] Comment on above: Performed By: #### C MP #### [facility] ([facility]) [address] [place] [address] VIR ALT [Catalytic activity/Vol] 10 U/L Normal <=31 [facility] Comment on above: Performed By: #### C MP #### [facility] ([facility]) [address] [place] [address] VIR Anion gap [Moles/Vol] 4 mmol/L Low 5-15 [facility] Comment on above: Performed By: #### C MP #### [facility] ([facility]) [address] [place] [address] VIR AST [Catalytic activity/Vol] 7 U/L Normal <=41 [facility] Comment on above: Performed By: #### C MP #### [facility] ([facility]) [address] [place] [address] VIR Bilirubin [Mass/Vol] 0.2 mg/dL Low 0.3-1.2 [facility] Comment on above: Performed By: #### C MP #### [facility] ([facility]) [address] [place] [address] VIR Calcium [Mass/Vol] 6.0 mg/dL Critically low 8.5-10.5 [facility] Comment on above: Performed By: #### C MP #### [facility] ([facility]) [address] [place] [address] VIR Chloride [Moles/Vol] 103 mmol/L Normal 98-109 [facility] Comment on above: Performed By: #### C MP #### [facility] ([facility]) [address] [place] [address] VIR CO2 [Moles/Vol] 25 mmol/L Normal 22-32 [facility] Comment on above: Performed By: #### C MP #### [facility] ([facility]) [address] [place] [address] VIR Creatinine [Mass/Vol] 0.71 mg/dL Normal 0.40-1.00 [facility] Comment on above: Result Comment: METH OD TRACEABLE TO IDMS STANDARD Performed By: #### C MP #### [facility] ([facility]) [address] [place] [address] VIR EGFR (CKD-EPI) NON-RACE DEPENDENT >^90 Normal >=60 [facility] Comment on above: Result Comment: Repo rted eGFR is based on the CKD-EPI 2020 equation that does not use a race coefficient. Performed By: #### C MP #### [facility] ([facility]) [address] [place] [address] VIR Glucose [Mass/Vol] 94 mg/dL Normal 65-99 [facility] Comment on above: Performed By: #### C MP #### [facility] ([facility]) [address] [place] [address] VIR Potassium [Moles/Vol] 5.4 mmol/L High 3.5-5.0 [facility] Comment on above: Performed By: #### C MP #### [facility] ([facility]) [address] [place] [address] VIR Protein [Mass/Vol] 4.7 g/dL Low 6.0-8.0 [facility] Comment on above: Performed By: #### C MP #### [facility] ([facility]) [address] [place] [address] VIR Sodium [Moles/Vol] 132 mmol/L Low 134-146 [facility] Comment on above: Performed By: #### C MP #### [facility] ([facility]) [address] [place] [address] VIR Urea nitrogen [Mass/Vol] 15 mg/dL Normal 5-23 [facility] Comment on above: Performed By: #### C MP #### [facility] ([facility]) [address] [place] [address] VIR BLOOD GAS, ARTERIAL, CORDon 11-09-2024 %O2 SATURATION CORD ARTERIAL 12.0 Normal [facility] Comment on above: Performed By: #### C CUPOLA MECHANIC #### [facility] ([facility]) [address] [place] [address] VIR BASE,DEFICIT -8.0 mmol/L Low 0.0-2.0 [facility] Comment on above: Performed By: #### C CUPOLA MECHANIC #### [facility] ([facility]) [address] [place] [address] VIR INSP. O2 CONC. 21 % Normal [facility] Comment on above: Performed By: #### C CUPOLA MECHANIC #### [facility] ([facility]) [address] [place] [address] VIR PCO2 CORD ARTERIAL 60.1 mmHG Normal [facility] Comment on above: Performed By: #### C CUPOLA MECHANIC #### [facility] ([facility]) [address] [place] [address] VIR PH CORD ARTERIAL 7.171 Normal [facility] Comment on above: Performed By: #### C CUPOLA MECHANIC #### [facility] ([facility]) [address] [place] [address] VIR PO2 CORD ARTERIAL 15 mmHG Normal [facility] Comment on above: Performed By: #### C CUPOLA MECHANIC #### [facility] ([facility]) [address] [place] [address] VIR POC JANES'S TEST N/A Normal [facility] Comment on above: Performed By: #### C CUPOLA MECHANIC #### [facility] ([facility]) [address] [place] [address] VIR SAMPLE SITE Art Cord Normal [facility] Comment on above: Performed By: #### C CUPOLA MECHANIC #### [facility] ([facility]) [address] [place] [address] VIR SAMPLE TYPE UMBILICAL CORD Normal [facility] Comment on above: Performed By: #### C CUPOLA MECHANIC #### [facility] ([facility]) [address] [place] [address] VIR SOURCE OF OXYGEN Room Air Normal [facility] Comment on above: Performed By: #### C CUPOLA MECHANIC #### [facility] ([facility]) [address] [place] [address] VIR BLOOD GAS, VENOUSon 11-10-19 25 BASE,DEFICIT -6.0 mmol/L Low 0.0-2.0 [facility] Comment on above: Performed By: #### C MP #### [facility] ([facility]) [address] [place] [address] VIR HCO3 (Bld) [Moles/Vol] 20.6 mmol/L Normal 20.0-24.0 [facility] Comment on above: Performed By: #### C MP #### [facility] ([facility]) [address] [place] [address] VIR INSP. O2 CONC. 21 % Normal [facility] Comment on above: Performed By: #### C MP #### [facility] ([facility]) [address] [place] [address] VIR Oxygen saturation in Blood 28.0 % Normal [facility] Comment on above: Performed By: #### C MP #### [facility] ([facility]) [address] [place] [address] VIR PCO2 VENOUS 42.7 mmHg Normal 35.0-50.0 [facility] Comment on above: Performed By: #### C MP #### [facility] ([facility]) [address] [place] [address] VIR PH VENOUS 7.292 Low 7.320-7.420 [facility] Comment on above: Performed By: #### C MP #### [facility] ([facility]) [address] [place] [address] VIR PO2 VENOUS 20 mmHg Low 30-50 [facility] Comment on above: Performed By: #### C MP #### [facility] ([facility]) [address] [place] [address] VIR POC JANES'S TEST N/A Normal [facility] Comment on above: Performed By: #### C MP #### [facility] ([facility]) [address] [place] [address] VIR SAMPLE SITE Tyree Cord Normal [facility] Comment on above: Performed By: #### C MP #### [facility] ([facility]) [address] [place] [address] VIR SAMPLE TYPE VENOUS Normal [facility] Comment on above: Performed By: #### C MP #### [facility] ([facility]) [address] [place] [address] VIR SOURCE OF OXYGEN Room Air Normal [facility] Comment on above: Performed By: #### C MP #### [facility] ([facility]) [address] [place] [address] VIR CBC WITH AUTO DIFFERENTIALon 11-09-2024 BASOPHILS ABSOLUTE COUNT (10*3/UL) BY AUTOMATED COUNT 0.0 10*3/uL Normal 0.0-0.2 [facility] Comment on above: Performed By: #### C MP #### [facility] ([facility]) [address] [place] [address] VIR BASOPHILS RELATIVE PERCENT BY AUTOMATED COUNT 0.1 % [facility] Comment on above: Performed By: #### C MP #### [facility] ([facility]) [address] [place] [address] VIR CELLAVISION DIFFERENTIAL TYPE AUTOMATED DIFFERENTIAL Normal [facility] Comment on above: Performed By: #### C MP #### [facility] ([facility]) [address] [place] [address] VIR Eosinophils (Bld) [#/Vol] 0.0 10*3/uL Normal 0.0-0.4 [facility] Comment on above: Performed By: #### C MP #### [facility] ([facility]) [address] [place] [address] VIR EOSINOPHILS RELATIVE PERCENT BY AUTOMATED COUNT 0.0 % [facility] Comment on above: Performed By: #### C MP #### [facility] ([facility]) [address] [place] [address] VIR Erythrocyte distribution width (RBC) [Ratio] 19.7 % High 11.5-15 [facility] Comment on above: Performed By: #### C MP #### [facility] ([facility]) [address] [place] [address] VIR Hematocrit (Bld) [Volume fraction] 29.7 % Low 35-47 [facility] Comment on above: Performed By: #### C MP #### [facility] ([facility]) [address] [place] [address] VIR Hemoglobin (Bld) [Mass/Vol] 9.9 g/dL Low 11.7-15.5 [facility] Comment on above: Performed By: #### C MP #### [facility] ([facility]) [address] [facility] [address] [place] [address] VIR LYMPHOCYTES ABSOLUTE COUNT (10*3/UL) BY AUTOMATED COUNT 1.6 10*3/uL Normal 1.0-3.5 [facility] Comment on above: Performed By: #### C MP #### [facility] ([facility]) [address] [place] [address] VIR LYMPHOCYTES RELATIVE PERCENT BY AUTOMATED COUNT 8.3 % Normal [facility] Comment on above: Performed By: #### C MP #### [facility] ([facility]) [address] [place] [address] VIR MCH (RBC) [Entitic mass] 29.3 pg Normal 27-34 [facility] Comment on above: Performed By: #### C MP #### [facility] ([facility]) [address] [place] [address] VIR MCHC (RBC) [Mass/Vol] 33.3 g/dL Normal 32-36 [facility] Comment on above: Performed By: #### C MP #### [facility] ([facility]) [address] [place] [address] VIR MCV (RBC) [Entitic vol] 88 fL Normal 80-100 [facility] Comment on above: Performed By: #### C MP #### [facility] ([facility]) [address] [place] [address] VIR MONOCYTES ABSOLUTE COUNT (10*3/UL) BY AUTOMATED COUNT 1.1 10*3/uL High 0.0-0.9 [facility] Comment on above: Performed By: #### C MP #### [facility] ([facility]) [address] [place] [address] VIR MONOCYTES RELATIVE PERCENT BY AUTOMATED COUNT 5.7 % Normal [facility] Comment on above: Performed By: #### C MP #### [facility] ([facility]) [address] [place] [address] VIR NEUTROPHILS ABSOLUTE COUNT BY AUTOMATED COUNT 16.8 10*3/uL High 1.5-6.6 [facility] Comment on above: Performed By: #### C MP #### [facility] ([facility]) [address] [place] [address] VIR NEUTROPHILS RELATIVE PERCENT BY AUTOMATED COUNT 85.9 % Normal [facility] Comment on above: Performed By: #### C MP #### [facility] ([facility]) [address] [place] [address] VIR Platelet mean volume (Bld) [Entitic vol] 8.1 fL Normal 7-12 [facility] Comment on above: Performed By: #### C MP #### [facility] ([facility]) [address] [place] [address] VIR Platelets (Bld) [#/Vol] 325 10*3/uL Normal 150-450 [facility] Comment on above: Performed By: #### C MP #### [facility] ([facility]) [address] [place] [address] VIR RBC COUNT 3.37 X10E12/L Low 3.8-5.2 [facility] Comment on above: Performed By: #### C MP #### [facility] ([facility]) [address] [place] [address] VIR WBC (Bld) [#/Vol] 19.6 10*3/uL High 4-11 [facility] Comment on above: Performed By: #### C MP #### [facility] ([facility]) [address] [place] [address] VIR BASOPHILS ABSOLUTE COUNT (10*3/UL) BY AUTOMATED COUNT 0.0 10*3/uL Normal 0.0-0.2 [facility] Comment on above: Performed By: #### C BCA #### [facility] ([facility]) [address] [place] [address] VIR BASOPHILS RELATIVE PERCENT BY AUTOMATED COUNT 0.1 % Normal [facility] Comment on above: Performed By: #### C BCA #### [facility] ([facility]) [address] [place] [address] VIR CELLAVISION DIFFERENTIAL TYPE AUTOMATED DIFFERENTIAL Normal [facility] Comment on above: Performed By: #### C BCA #### [facility] ([facility]) [address] [place] [address] VIR Eosinophils (Bld) [#/Vol] 0.0 10*3/uL Normal 0.0-0.4 [facility] Comment on above: Performed By: #### C BCA #### [facility] ([facility]) [address] [place] [address] VIR EOSINOPHILS RELATIVE PERCENT BY AUTOMATED COUNT 0.0 % Normal [facility] Comment on above: Performed By: #### C BCA #### [facility] ([facility]) [address] [place] [address] VIR Erythrocyte distribution width (RBC) [Ratio] 19.6 % High 11.5-15 [facility] Comment on above: Performed By: #### C BCA #### [facility] ([facility]) [address] [place] [address] VIR Hematocrit (Bld) [Volume fraction] 32.7 % Low 35-47 [facility] Comment on above: Performed By: #### C BCA #### [facility] ([facility]) [address] [facility] [address] [place] [address] VIR Hemoglobin (Bld) [Mass/Vol] 10.9 g/dL Low 11.7-15.5 [facility] Comment on above: Performed By: #### C BCA #### [facility] ([facility]) [address] [facility] [address] [place] [address] VIR LYMPHOCYTES ABSOLUTE COUNT (10*3/UL) BY AUTOMATED COUNT 1.2 10*3/uL Normal 1.0-3.5 [facility] Comment on above: Performed By: #### C BCA #### [facility] ([facility]) [address] [address] VIR LYMPHOCYTES RELATIVE PERCENT BY AUTOMATED COUNT 10.6 % Normal [facility] Comment on above: Performed By: #### C BCA #### [facility] ([facility]) [address] [facility] [address] [place] [address] VIR MCH (RBC) [Entitic mass] 29.5 pg Normal 27-34 [facility] Comment on above: Performed By: #### C BCA #### [facility] ([facility]) [address] [facility] [address] [place] [address] VIR MCHC (RBC) [Mass/Vol] 33.4 g/dL Normal 32-36 [facility] Comment on above: Performed By: #### C BCA #### [facility] ([facility]) [address] [place] [address] VIR MCV (RBC) [Entitic vol] 88 fL Normal 80-100 [facility] Comment on above: Performed By: #### C BCA #### [facility] ([facility]) [address] [facility] [address] [place] [address] VIR MONOCYTES ABSOLUTE COUNT (10*3/UL) BY AUTOMATED COUNT 0.1 10*3/uL Normal 0.0-0.9 [facility] Comment on above: Performed By: #### C BCA #### [facility] ([facility]) [address] [place] [address] VIR MONOCYTES RELATIVE PERCENT BY AUTOMATED COUNT 0.9 % Normal [facility] Comment on above: Performed By: #### C BCA #### [facility] ([facility]) [address] [place] [address] VIR NEUTROPHILS ABSOLUTE COUNT BY AUTOMATED COUNT 9.7 10*3/uL High 1.5-6.6 [facility] Comment on above: Performed By: #### C BCA #### [facility] ([facility]) [address] [place] [address] VIR NEUTROPHILS RELATIVE PERCENT BY AUTOMATED COUNT 88.4 % Normal [facility] Comment on above: Performed By: #### C BCA #### [facility] ([facility]) [address] [place] [address] VIR Platelet mean volume (Bld) [Entitic vol] 8.4 fL Normal 7-12 [facility] Comment on above: Performed By: #### C BCA #### [facility] ([facility]) [address] [place] [address] VIR Platelets (Bld) [#/Vol] 288 10*3/uL Normal 150-450 [facility] Comment on above: Performed By: #### C BCA #### [facility] ([facility]) [address] [place] [address] VIR RBC COUNT 3.70 X10E12/L Low 3.8-5.2 [facility] Comment on above: Performed By: #### C BCA #### [facility] ([facility]) [address] [place] [address] VIR WBC (Bld) [#/Vol] 11.0 10*3/uL Normal 4-11 [facility] Comment on above: Performed By: #### C BCA #### [facility] ([facility]) [address] [place] [address] VIR COMPREHENSIVE METABOLIC PANE [place] 11-09-2024 Albumin [Mass/Vol] 2.6 g/dL Low 3.2-5.3 [facility] Comment on above: Performed By: #### C MP #### [facility] ([facility]) [address] [place] [address] VIR ALP [Catalytic activity/Vol] 102 U/L Normal 39-130 [facility] Comment on above: Performed By: #### C MP #### [facility] ([facility]) [address] [place] [address] VIR ALT [Catalytic activity/Vol] 13 U/L Normal <=31 [facility] Comment on above: Performed By: #### C MP #### [facility] ([facility]) [address] [place] [address] VIR Anion gap [Moles/Vol] 9 mmol/L Normal 5-15 [facility] Comment on above: Performed By: #### C MP #### [facility] ([facility]) [address] [place] [address] VIR AST [Catalytic activity/Vol] 7 U/L Normal <=41 [facility] Comment on above: Performed By: #### C MP #### [facility] ([facility]) [address] [place] [address] VIR Bilirubin [Mass/Vol] 0.3 mg/dL Normal 0.3-1.2 [facility] Comment on above: Performed By: #### C MP #### [facility] ([facility]) [address] [place] [address] VIR Calcium [Mass/Vol] 6.6 mg/dL Critically low 8.5-10.[address] [facility] Comment on above: Performed By: #### C MP #### [facility] ([facility]) [address] [place] [address] VIR Chloride [Moles/Vol] 101 mmol/L Normal 98-109 [facility] Comment on above: Performed By: #### C MP #### [facility] ([facility]) [address] [place] [address] VIR CO2 [Moles/Vol] 22 mmol/L Normal 22-32 [facility] Comment on above: Performed By: #### C MP #### [facility] ([facility]) [address] [place] [address] VIR Creatinine [Mass/Vol] 0.80 mg/dL Normal 0.40-1.00 [facility] Comment on above: Result Comment: METH OD TRACEABLE TO IDMS STANDARD Performed By: #### C MP #### [facility] ([facility]) [address] [place] [address] VIR EGFR (CKD-EPI) NON-RACE DEPENDENT >^90 Normal >=60 [facility] Comment on above: Result Comment: Repo rted eGFR is based on the CKD-EPI 2020 equation that does not use a race coefficient. Performed By: #### C MP #### [facility] ([facility]) [address] [place] [address] VIR Glucose [Mass/Vol] 140 mg/dL High 65-99 [facility] Comment on above: Performed By: #### C MP #### [facility] ([facility]) [address] [place] [address] VIR Potassium [Moles/Vol] 4.7 mmol/L Normal 3.5-5.0 [facility] Comment on above: Performed By: #### C MP #### [facility] ([facility]) [address] [place] [address] VIR Protein [Mass/Vol] 5.0 g/dL Low 6.0-8.0 [facility] Comment on above: Performed By: #### C MP #### [facility] ([facility]) [address] [place] [address] VIR Sodium [Moles/Vol] 132 mmol/L Low 134-146 [facility] Comment on above: Performed By: #### C MP #### [facility] LABORATORY ([facility]) [address] [place] [address] VIR Urea nitrogen [Mass/Vol] 13 mg/dL Normal 5-23 [facility] Comment on above: Performed By: #### C MP #### [facility] ([facility]) [address] [place] [address] VIR Albumin [Mass/Vol] 2.9 g/dL Low 3.2-5.3 [facility] Comment on above: Performed By: #### C MP #### [facility] ([facility]) [address] [place] [address] VIR ALP [Catalytic activity/Vol] 122 U/L Normal 39-130 [facility] Comment on above: Performed By: #### C MP #### [facility] ([facility]) [address] [place] [address] VIR ALT [Catalytic activity/Vol] 17 U/L Normal <=31 [facility] Comment on above: Performed By: #### C MP #### [facility] ([facility]) [address] [place] [address] VIR Anion gap [Moles/Vol] 11 mmol/L Normal 5-15 [facility] Comment on above: Performed By: #### C MP #### [facility] ([facility]) [address] [place] [address] VIR AST [Catalytic activity/Vol] 7 U/L Normal <=41 [facility] Comment on above: Performed By: #### C MP #### [facility] ([facility]) [address] [place] [address] VIR Bilirubin [Mass/Vol] 0.4 mg/dL Normal 0.3-1.2 [facility] Comment on above: Performed By: #### C MP #### [facility] ([facility]) [address] [place] [address] VIR Calcium [Mass/Vol] 7.3 mg/dL Low 8.5-10.5 [facility] Comment on above: Performed By: #### C MP #### [facility] ([facility]) [address] [place] [address] VIR Chloride [Moles/Vol] 102 mmol/L Normal 98-109 [facility] Comment on above: Performed By: #### C MP #### [facility] ([facility]) [address] [place] [address] VIR CO2 [Moles/Vol] 21 mmol/L Low 22-32 [facility] Comment on above: Performed By: #### C MP #### [facility] ([facility]) [address] [place] [address] VIR Creatinine [Mass/Vol] 0.77 mg/dL Normal 0.40-1.00 [facility] Comment on above: Result Comment: METH OD TRACEABLE TO IDMS STANDARD Performed By: #### C MP #### [facility] ([facility]) [address] [place] [address] VIR EGFR (CKD-EPI) NON-RACE DEPENDENT >^90 Normal >=60 [facility] Comment on above: Result Comment: Repo rted eGFR is based on the CKD-EPI 2020 equation that does not use a race coefficient. Performed By: #### C MP #### [facility] ([facility]) [address] [place] [address] VIR Glucose [Mass/Vol] 134 mg/dL High 65-99 [facility] Comment on above: Performed By: #### C MP #### [facility] ([facility]) [address] [facility] [address] VIR Potassium [Moles/Vol] 4.3 mmol/L Normal 3.5-5.0 [facility] Comment on above: Performed By: #### C MP #### [facility] ([facility]) [address] [place] [address] VIR Protein [Mass/Vol] 5.6 g/dL Low 6.0-8.0 [facility] Comment on above: Performed By: #### C MP #### [facility] ([facility]) [address] [place] [address] VIR Sodium [Moles/Vol] 134 mmol/L Normal 134-146 [facility] Comment on above: Performed By: #### C MP #### [facility] ([facility]) [address] [place] [address] VIR Urea nitrogen [Mass/Vol] 13 mg/dL Normal 5-23 [facility] Comment on above: Performed By: #### C MP #### [facility] ([facility]) [address] [place] [address] VIR DRUG SCREEN, URINEon 025 AMPHETAMINE/METHAMP Negative Normal Negative [facility] Comment on above: Result Comment: AMPH /METH screening cut off = 1000 ng/mL Performed By: #### D GRAHAM #### [facility] ([facility]) [address] [place] [address] VIR BARBITURATES Negative Normal Negative [facility] Comment on above: Result Comment: Anita iturates screening cut off value = 200 ng/mL Performed By: #### D GRAHAM #### [facility] ([facility]) [address] [place] [address] VIR BENZODIAZEPINES Negative Normal Negative [facility] Comment on above: Result Comment: Fantasma odiazepines screening cut off value = 200 ng/mL Performed By: #### D GRAHAM #### [facility] ([facility]) [address] [place] [address] VIR CANNABINOIDS Negative Normal Negative [facility] Comment on above: Result Comment: Berna abinoids/THC screening cut off value = 50 ng/mL Performed By: #### D GRAHAM #### [facility] ([facility]) [address] [place] [address] VIR COCAINE METABOLITE Negative Normal Negative [facility] Comment on above: Result Comment: Coca ine screening cut off value = 300 ng/mL Performed By: #### D GRAHAM #### [facility] ([facility]) [address] [place] [address] VIR ECSTASY Positive Abnormal Negative [facility] Comment on above: Result Comment: Ecst asy screening cut off value = 500 ng/mL This report is intended for use in clinical monitoring or management of patients. Interference from Buproprion or Labetalol may cause a positive result, confirmation available upon request. Performed By: #### D GRAHAM #### [facility] ([facility]) [address] [place] [address] VIR METHADONE Negative Normal Negative [facility] Comment on above: Result Comment: Meth adone screening cut off value = 300 ng/mL. Performed By: #### D GRAHAM #### [facility] ([facility]) [address] [place] [address] VIR OPIATES Negative Normal Negative [facility] Comment on above: Result Comment: Opia judith screening cut off value = 300 ng/mL This test is used for the detection of codeine, hydrocodone (>1000 ng/mL), morphine and hydromorphone (>900 ng/mL) in urine. Performed By: #### D GRAHAM #### [facility] ([facility]) [address] [place] [address] VIR OXYCODONE Negative Normal Negative [facility] Comment on above: Result Comment: Oxyc odone screening cut off value = 300 ng/mL This test is used for the detection of oxycodone and oxymorphone in urine. Performed By: #### D GRAHAM #### [facility] ([facility]) [address] [place] [address] VIR PHENCYCLIDINE Negative Normal Negative [facility] Comment on above: Result Comment: Phen cyclidine screening cut off value = 25 ng/mL Performed By: #### D GRAHAM #### [facility] ([facility]) [address] [place] [address] VIR FENTANYL, URINE QUALITATIVEo n 11-09-2024 FENTANYL, URINE QUAL. Negative Normal Negative [facility] Comment on above: Order Comment: Fenta nyl screening cutoff = 5ng/ml This report is intended for use in clinical monitoring or management of patients. Performed By: #### U FEN #### [facility] ([facility]) [address] [place] [address] VIR REPEATED ABORHon 11-09-2024 ABO_INTEP A Normal [facility] Comment on above: Performed By: #### A RADHA #### [facility]ORY ([facility]) [address] [place] [address] VIR RH_INTEP Positive Normal [facility] Comment on above: Performed By: #### A RADHA #### [facility]ORATORY ([facility]) [address] [place] [address] VIR STREP B SCREENon 11-09-2024 STREP B SCREEN CULTURE RESULTS POSITIVE FOR GROUP B STREPTOCOCCUS BY NUCLEIC ACID AMPLIFICATION Normal [facility] Comment on above: Order Comment: Group B streptococci remain universally susceptible to penicillin, ampicillin, and cefazolin. Resistance to clindamycin can occur. Please contact laboratory within 48 hours if clindamycin susceptibility testing is needed. Performed By: #### C MP #### [facility] ([facility]) [address] [place] [address] VIR ALL CBC WITH AUTO DIFFon BASOPHILS ABSOLUTE AUTO 0.1 N [facility] Basophils/100 WBC (Bld) 0.6 % 0.2 - 2.0 % [facility] Eosinophils/100 WBC (Bld) 1.1 % 0.9 - 7.0 % [facility] Erythrocyte distribution width (RBC) [Ratio] 18.1 % High 11.0 - 15.0 % [facility] Hematocrit (Bld) [Volume fraction] 32.3 % Low 36.0 - 48.0 % [facility] Hemoglobin (Bld) [Mass/Vol] 10.8 g/dL Low 12.0 - 16.0 g/dL [facility] IMMATURE GRANULOCYTES ABS AUTO 0.16 High [facility] Immature granulocytes/100 WBC (Bld) 1.2 % High 0.0 - 0.5 % [facility] Interpretation and review of laboratory results Abnormal [facility] LYMPHOCYTES ABSOLUTE AUTO 3.5 [facility] Lymphocytes/100 WBC (Bld) 25.4 % 20.5 - 60.0 % [facility] MCH (RBC) [Entitic mass] 29.8 pg 26. 7 - 34.0 pg [facility] MCHC (RBC) [Mass/Vol] 33.4 g/dL 29.9 - 35.2 g/dL [facility] MCV (RBC) [Entitic vol] 89 fL 81.0 - 99.0 fL [facility] MONOCYTES ABSOLUTE AUTO 0.7 N [facility] Monocytes/100 WBC (Bld) 5 % 1.7 - 12.0 % [facility] NEUTROPHILS ABSOLUTE AUTO 9.1 High [facility] Neutrophils/100 WBC (Bld) 66.7 % 43.0 - 75.0 % [facility] Platelet mean volume (Bld) [Entitic vol] 10.7 fL 9.5 - 13.5 fL [facility] TBH EO # 0.2 [facility] PLT 269 [facility] RBC 3.63 [facility].7 High [facility] Activated partial thrombopla stin time (aPTT) in platelet poor plasma by coagulation aOrdered By: Deep Salinas on 11-08-2024 aPTT Coag (PPP) [Time] 25.1 s 22.3-36.2 [facility] Basophils Auto (Bld) [#/Vol] Ordered By: Deep Salinas on 11-08-2024 Basophils (Bld) [#/Vol] 0.1 10 3/uL 0.0-0.1 [facility] Basophils/100 WBC Auto (Bld) Ordered By: Deep Salinas on 11-08-2024 Basophils/100 WBC (Bld) 0.6 % 0.2-2.0 [facility] CBC WITH AUTO DIFFERENTIALon 11-08-2024 BASOPHILS ABSOLUTE COUNT (10*3/UL) BY AUTOMATED COUNT 0.0 10*3/uL Normal 0.0-0.2 [facility] Comment on above: Performed By: #### C BCA #### [facility] ([facility]) [address] [place] [address] VIR BASOPHILS RELATIVE PERCENT BY AUTOMATED COUNT 0.3 % Normal [facility] Comment on above: Performed By: #### C BCA #### [facility] ([facility]) [address] [place] [address] VIR CELLAVISION DIFFERENTIAL TYPE AUTOMATED DIFFERENTIAL Normal [facility] Comment on above: Performed By: #### C BCA #### [facility] ([facility]) [address] [place] [address] VIR Eosinophils (Bld) [#/Vol] 0.0 10*3/uL Normal 0.0-0.4 [facility] Comment on above: Performed By: #### C BCA #### [facility] ([facility]) [address] [place] [address] VIR EOSINOPHILS RELATIVE PERCENT BY AUTOMATED COUNT 0.0 % Normal [facility] Comment on above: Performed By: #### C BCA #### [facility] ([facility]) [address] [place] [address] VIR Erythrocyte distribution width (RBC) [Ratio] 18.9 % High 11.5-15 [facility] Comment on above: Performed By: #### C BCA #### [facility] ([facility]) [address] [place] [address] VIR Hematocrit (Bld) [Volume fraction] 32.2 % Low 35-47 [facility] Comment on above: Performed By: #### C BCA #### [facility] ([facility]) [address] [place] [address] VIR Hemoglobin (Bld) [Mass/Vol] 10.7 g/dL Low 11.7-15.5 [facility] Comment on above: Performed By: #### C BCA #### [facility] ([facility]) [address] [place] [address] VIR LYMPHOCYTES ABSOLUTE COUNT (10*3/UL) BY AUTOMATED COUNT 1.1 10*3/uL Normal 1.0-3.5 [facility] Comment on above: Performed By: #### C BCA #### [facility] ([facility]) [address] [place] [address] VIR LYMPHOCYTES RELATIVE PERCENT BY AUTOMATED COUNT 8.7 % Normal [facility] Comment on above: Performed By: #### C BCA #### [facility] ([facility]) [address] [place] [address] VIR MCH (RBC) [Entitic mass] 29.1 pg Normal 27-34 [facility] Comment on above: Performed By: #### C BCA #### [facility] ([facility]) [address] [place] [address] VIR MCHC (RBC) [Mass/Vol] 33.2 g/dL Normal 32-36 [facility] Comment on above: Performed By: #### C BCA #### [facility] ([facility]) [address] [place] [address] VIR MCV (RBC) [Entitic vol] 88 fL Normal 80-100 [facility] Comment on above: Performed By: #### C BCA #### [facility] ([facility]) [address] [place] [address] VIR MONOCYTES ABSOLUTE COUNT (10*3/UL) BY AUTOMATED COUNT 0.1 10*3/uL Normal 0.0-0.9 [facility] Comment on above: Performed By: #### C BCA #### [facility] ([facility]) [address] [place] [address] VIR MONOCYTES RELATIVE PERCENT BY AUTOMATED COUNT 0.9 % Normal [facility] Comment on above: Performed By: #### C BCA #### [facility] ([facility]) [address] [place] [address] VIR NEUTROPHILS ABSOLUTE COUNT BY AUTOMATED COUNT 11.6 10*3/uL High 1.5-6.6 [facility] Comment on above: Performed By: #### C BCA #### [facility] ([facility]) [address] [place] [address] VIR NEUTROPHILS RELATIVE PERCENT BY AUTOMATED COUNT 90.1 % Normal [facility] Comment on above: Performed By: #### C BCA #### [facility] ([facility]) [address] [place] [address] VIR Platelet mean volume (Bld) [Entitic vol] 8.1 fL Normal 7-12 [facility] Comment on above: Performed By: #### C BCA #### [facility] ([facility]) [address] [place] [address] VIR Platelets (Bld) [#/Vol] 275 10*3/uL Normal 150-450 [facility] Comment on above: Performed By: #### C BCA #### [facility] ([facility]) [address] [place] [address] VIR RBC COUNT 3.68 X10E12/L Low 3.8-5.2 [facility] Comment on above: Performed By: #### C BCA #### [facility] ([facility]) [address] [place] [address] VIR WBC (Bld) [#/Vol] 12.8 10*3/uL High 4-11 [facility] Comment on above: Performed By: #### C BCA #### [facility] ([facility]) [address] [place] [address] VIR COMPREHENSIVE METABOLIC PANE [place] 11-08-2024 Albumin [Mass/Vol] 2.8 g/dL Low 3.2-5.3 [facility] Comment on above: Performed By: #### C MP #### [facility] ([facility]) [address] [place] [address] VIR ALP [Catalytic activity/Vol] 127 U/L Normal 39-130 [facility] Comment on above: Performed By: #### C MP #### [facility] ([facility]) [address] [place] [address] VIR ALT [Catalytic activity/Vol] 18 U/L Normal <=31 [facility] Comment on above: Performed By: #### C MP #### [facility] ([facility]) [address] [place] [address] VIR Anion gap [Moles/Vol] 11 mmol/L Normal 5-15 [facility] Comment on above: Performed By: #### C MP #### [facility] ([facility]) [address] [place] [address] VIR AST [Catalytic activity/Vol] 8 U/L Normal <=41 [facility] Comment on above: Performed By: #### C MP #### [facility] ([facility]) [address] [place] [address] VIR Bilirubin [Mass/Vol] 0.4 mg/dL Normal 0.3-1.2 [facility] Comment on above: Performed By: #### C MP #### [facility] ([facility]) [address] [place] [address] VIR Calcium [Mass/Vol] 7.6 mg/dL Low 8.5-10.5 [facility] Comment on above: Performed By: #### C MP #### [facility] ([facility]) [address] [place] [address] VIR Chloride [Moles/Vol] 104 mmol/L Normal 98-109 [facility] Comment on above: Performed By: #### C MP #### [facility] ([facility]) [address] [place] [address] VIR CO2 [Moles/Vol] 21 mmol/L Low 22-32 [facility] Comment on above: Performed By: #### C MP #### [facility] ([facility]) [address] [place] [address] VIR Creatinine [Mass/Vol] 0.82 mg/dL Normal 0.40-1.00 [facility] Comment on above: Result Comment: METH OD TRACEABLE TO IDMS STANDARD Performed By: #### C MP #### [facility] ([facility]) [address] [place] [address] VIR EGFR (CKD-EPI) NON-RACE DEPENDENT >^90 Normal >=60 [facility] Comment on above: Result Comment: Repo rted eGFR is based on the CKD-EPI 2020 equation that does not use a race coefficient. Performed By: #### C MP #### [facility] ([facility]) [address] [place] [address] VIR Glucose [Mass/Vol] 107 mg/dL High 65-99 [facility] Comment on above: Performed By: #### C MP #### [facility] ([facility]) [address] [place] [address] VIR Potassium [Moles/Vol] 4.3 mmol/L Normal 3.5-5.0 [facility] Comment on above: Performed By: #### C MP #### [facility] ([facility]) [address] [place] [address] VIR Protein [Mass/Vol] 5.3 g/dL Low 6.0-8.0 [facility] Comment on above: Performed By: #### C MP #### [facility] ([facility]) [address] [place] [address] VIR Sodium [Moles/Vol] 136 mmol/L Normal 134-146 [facility] Comment on above: Performed By: #### C MP #### [facility] ([facility]) [address] [place] [address] VIR Urea nitrogen [Mass/Vol] 13 mg/dL Normal 5-23 [facility] Comment on above: Performed By: #### C MP #### [facility] ([facility]) [address] [place] [address] VIR Eosinophils/100 WBC Auto (Bl d)Ordered By: Deep Salinas on 11-08-2024 Eosinophils/100 WBC (Bld) 1.1 % 0.9-7.0 [facility] Erythrocyte distribution wid th Auto (RBC) [Ratio]Ordered By: Deep Salinas on 11-08-2024 Erythrocyte distribution width (RBC) [Ratio] 18.1 % High 11.0-15.0 [facility] Fibrinogen [Mass/volume] in Platelet poor plasma by Coagulation assayOrdered By: Deep Salinas on 11-08-2024 Fibrinogen Coag (PPP) [Mass/Vol] 376 mg/dL 200-400 [facility] Globulin Calc (S) [Mass/Vol] Ordered By: Deep Salinas on 11-08-2024 Globulin (S) [Mass/Vol] 3.9 g/dL [facility] Glomerular filtration rate ( GFR) estimation in non- AmericanOrdered By: Deep Salinas on 11-08-2024 GFR/1.73 sq M.predicted among non-blacks MDRD (S/P/Bld) [Vol rate/Area] mL/min/{1.73_m2} >=60 mL/min/1.73m 2 [facility] Hematocrit Auto (Bld) [Volum e fraction]Ordered By: Deep Salinas on 11-08-2024 Hematocrit (Bld) [Volume fraction] 32.3 % Low 36.0-48.0 [facility] Hemoglobin [Mass/volume] in BloodOrdered By: Deep Salinas on 11-08-2024 Hemoglobin (Bld) [Mass/Vol] 10.8 g/dL Low 12.0-16.0 [facility] INR in Platelet poor plasma by Coagulation assayOrdered By: Deep Salinas on 11-08-2024 INR Coag (PPP) [Relative time] {INR} [facility] Comment on above: DESIRED INR:2.0-3.0 CONDITIONS NOT LISTED BELOW2.5-3.5 FOR PROSTHETIC HEART VALVE REPLACEMENT2.5-3.5 RECURRENT THROMBOSIS Laboratory - Chemistry and C hemistry - challengeOrdered By: Deep Salinas on 11-08-2024 Albumin [Mass/Vol] 2.2 g/dL Low 3.4-5.0 [facility] ALP [Catalytic activity/Vol] 144 U/L High 46-116 [facility] ALT [Catalytic activity/Vol] 33 U/L 14-59 [facility] AST [Catalytic activity/Vol] 11 U/L Low 15-37 [facility] Bilirubin [Mass/Vol] 0.3 mg/dL 0.2-1.0 [facility] Calcium [Mass/Vol] 8.2 mg/dL Low 8.5-10.1 [facility] Chloride [Moles/Vol] 104 mmol/L 98-107 [facility] CO2 [Moles/Vol] 23.9 mmol/L 21.0-32.0 [facility] Creatinine [Mass/Vol] 0.67 mg/dL 0.55-1.02 [facility] GFR/1.73 sq M.predicted MDRD (S/P/Bld) [Vol rate/Area] mL/min/{1.73_m2} >=60 mL/min/1.73m 2 [facility] Glucose [Mass/Vol] 76 mg/dL 74-106 [facility] LDH [Catalytic activity/Vol] 296 U/L High 81-234 [facility] Potassium [Moles/Vol] 4.1 mmol/L 3.5-5.1 [facility] Protein [Mass/Vol] 6.1 g/dL Low 6.4-8.2 [facility] Sodium [Moles/Vol] 139 mmol/L 136-145 [facility] Urate [Mass/Vol] 7.4 mg/dL High 2.6-6.0 [facility] Urea nitrogen [Mass/Vol] 13.0 mg/dL 7.0-18.0 [facility] Urea nitrogen/Creatinine [Mass ratio] 19.4 mg/mg [facility] - Hematology and Cell countsOrdered By: Deep Salinas on 11-08-2024 Immature granulocytes/100 WBC (Bld) 1.2 % High 0.0-0.5 [facility] - UrinalysisOrder ed By: Deep Salinas on 11-08-2024 Protein (U) [Mass/Vol] 764.9 mg/dL High <=11.[address] [facility] Leukocytes [#/volume] correc obie for nucleated erythrocytes in Blood by Automated counOrdered By: Deep Salinas on 11-08-2024 WBC corrected for nucl RBC Auto (Bld) [#/Vol] 13.7 10 3/uL High 4.0-11.0 [facility] Lymphocytes Auto (Bld) [#/Vo l]Ordered By: Deep Salinas on 11-08-2024 Lymphocytes (Bld) [#/Vol] 3.5 10 3/uL 1.2-3.8 [facility] Lymphocytes/100 WBC Auto (Bl d)Ordered By: Deep Salinas on 11-08-2024 Lymphocytes/100 WBC (Bld) 25.4 % 20.5-60.0 [facility] MCH Auto (RBC) [Entitic mass ]Ordered By: Deep Salinas on 11-08-2024 MCH (RBC) [Entitic mass] 29.8 pg 26.7-34.0 [facility] MCHC Auto (RBC) [Mass/Vol]Or dered By: Deep Salinas on 11-08-2024 MCHC (RBC) [Mass/Vol] 33.4 g/dL 29.9-35.2 [facility] MCV Auto (RBC) [Entitic vol] Ordered By: Deep Salinas on 11-08-2024 MCV (RBC) [Entitic vol] 89.0 fL 81.0-99.[address] [facility] Monocytes Auto (Bld) [#/Vol] Ordered By: Deep Salinas on 11-08-2024 Monocytes (Bld) [#/Vol] 0.7 10 3/uL 0.3-0.8 [facility] Monocytes/100 WBC Auto (Bld) Ordered By: Deep Salinas on 11-08-2024 Monocytes/100 WBC (Bld) 5.0 % 1.7-12.[address] [facility] Neutrophils Auto (Bld) [#/Vo l]Ordered By: Deep Salinas on 11-08-2024 Neutrophils (Bld) [#/Vol] 9.1 10 3/uL High 1.4-6.5 [facility] Neutrophils/100 WBC Auto (Bl d)Ordered By: Deep Salinas on 11-08-2024 Neutrophils/100 WBC (Bld) 66.7 % 43.0-75.0 [facility] No Panel InformationOrdered By: Radiologist Radiology on 11-08-2024 [facility] Work Phone: No Panel InformationOrdered By: Deep Salinas on 11-08-2024 Eosinophils # (Auto) 0.2 10 3/uL 0.0-0.7 [facility] Immature Granulocyte # (Auto) 0.16 10 3/uL High 0.00-0.03 [facility] Urine Random Creatinine 82.32 mg/dL 20.00-300.0 0 [facility] No Panel Informationon 11-08 Radiology Study observation (narrative) [facility] Platelet mean volume Auto (B ld) [Entitic vol]Ordered By: Deep Salinas on 11-08-2024 Platelet mean volume (Bld) [Entitic vol] 10.7 fL 9.5-13.5 [facility] Platelets Auto (Bld) [#/Vol] Ordered By: Deep Salinas on 11-08-2024 Platelets (Bld) [#/Vol] 269 10 3/uL 150-450 [facility] Prothrombin time (PT)Ordered By: Deep Salinas on 11-08-2024 PT Coag (PPP) [Time] 9.8 s 9.0-11.6 [facility] RBC Auto (Bld) [#/Vol]Ordere d By: Deep Salinas on 11-08-2024 RBC (Bld) [#/Vol] 3.63 10 6/uL Low 4.20-5.40 [facility] SYPHILIS TOTAL(UNKNOWN SYPHI LIS STATUS)on 11-08-2024 SYPHILIS TOTAL <^0.2 Normal <=0.8 [facility] Comment on above: Order Comment: NON R EACTIVE No serologic evidence of infection to Treponema pallidum. Repeat testing may be considered in patients with suspected acute or primary syphilis in 2 to 4 weeks. Performed By: #### S YPHT #### [facility] ([facility]) [address] [place] [address] VIR Serum or plasma albumin/glob ulin mass ratioOrdered By: Deep Salinas on 11-08-2024 Albumin/Globulin [Mass ratio] 0.6 {ratio} [facility] Serum or plasma anion gap de terminationOrdered By: Deep Salinas on 11-08-2024 Anion gap [Moles/Vol] 15.2 mmol/L [facility] TYPE AND SCREENon 11-08-2024 ABO_INTEP A Normal [facility] Comment on above: Performed By: #### T SC #### [facility] ([facility] [address] [place] [address] VIR RH_INTEP Positive Normal [facility] Comment on above: Performed By: #### T SC #### [facility] ([facility] [address] [place] [address] VIR US OB BPP W NON-STRESS on 11-08-2024 [facility] [address] [place] [address] Ultrasound Report Signed Patient: HANNAH CLAIRE MR#: [id number] : 1995 Acct:[id number] Age/Sex: 28 / F ADM Date: 11/08/24 Loc: [facility] 251-[address]: Deep Salinas D.O. Ordering Physician: Deep Salinas D.O. Date of Service: 11/08/24 Procedure(s): US OB BPP w non-stress Accession Number(s): [id number] cc: Deep Salinas D.O.; GUY MULLEN [place] [id number] Patient Name: HANNAH CLAIRE MRN: [id number] date: 1995 Sex: F Assigned Patient Location: [facility] Current Patient Location: [facility] Accession/Order Number: [id number] Exam Date: 11/08/2024 17:20 Report Date: 11/08/2024 17:25 At the request of: DEEP SALINAS DO Procedure: US OB BPP w [...] Harrison M.D. 11/08/2024 5:25 PM Dictation Location: [employer] Electronically authenticated by: [id number] Y Date: 11/08/2024 17:25 Dictated By: Aleksander Harrison M.D. Signed By: 11/08/24 1728 DD/ 1725 TD/TT: Swimming Pool Service Technician: [facility] Radiology, Radiologist, - 11/08/[address] [address] Ultrasound Report Signed Patient: HANNAH CLAIRE MR#: [id number] : 1995 Acct:[id number] Age/Sex: 28 / F ADM Date: 11/08/24 Loc: [facility] 251-[address]: Deep Salinas D.O. Ordering Physician: Deep Salinas D.O. Date of Service: 11/08/24 Procedure(s): US OB BPP w non-stress Accession Number(s): [id number] cc: Deep Salinas D.O.; GUY MULLEN [address] [address] Patient Name: HANNAH CLAIRE MRN: [facility]:[id number] date: 1995 Sex: F Assigned Patient Location: [facility] Current Patient Location: [facility] Accession/Order Number: [id number] Exam Date: 11/08/2024 17:20 Report Date: 11/08/2024 17:25 At the request of: DEEP SALINAS DO Procedure: US OB BPP w [...] Harrison M.D. 11/08/2024 5:25 PM Dictation Location: [place] [address] Electronically authenticated by: [id number] Y Date: 11/08/2024 17:25 Dictated By: Aleksander Harrison M.D. Signed By: 11/08/241727 DD/ 24 TD/TT: Swimming Pool Service Technician: [facility] OB GROWTHon 11-08-2024 [place] [address] Ultrasound Report Signed Patient: HANNAH CLAIRE MR#: [id number] : 1995 Acct:[id number] Age/Sex: 28 / F ADM Date: 11/08/24 Loc: [facility] 251-[address]: Deep Salinas D.O. Ordering Physician: Deep Salinas D.O. Date of Service: 11/08/24 Procedure(s): US OB growth Accession Number(s): [id number] cc: Deep Salinas D.O.; GUY MULLEN [place] [id number] Patient Name: HANNAH CLAIRE MRN: [id number] date: 1995 Sex: F Assigned Patient Location: [facility] Current Patient Location: [facility] Accession/Order Number: [id number] Exam Date: 11/08/2024 17:20 Report Date: 11/08/2024 17:25 At the request of: DEEP SALINAS DO Procedure: US OB BPP w [...] Harrison M.D. 11/08/2024 5:25 PM Dictation Location: [employer] Electronically authenticated by: [id number] Y Date: 11/08/2024 17:25 Dictated By: Aleksander Harrison M.D. Signed By: 11/08/241727 DD/ 24 TD/TT: Swimming Pool Service Technician: [facility] Radiology, Radiologist, - 11/08/2024 [place] [address] Ultrasound Report Signed Patient: HANNAH CLAIRE MR#: [id number] : 1995 Acct:[id number] Age/Sex: 28 / F ADM Date: 11/08/24 Loc: [facility] 251-[address]: Deep Salinas D.O. Ordering Physician: Deep Salinas D.O. Date of Service: 11/08/24 Procedure(s): US OB growth Accession Number(s): [id number] cc: Deep Salinas D.O.; GUY MULLEN [place] [id number] Patient Name: HANNAH CLAIRE MRN: [facility]:[id number] date: 1995 Sex: F Assigned Patient Location: [facility] Current Patient Location: [facility] Accession/Order Number: [id number] Exam Date: 11/08/2024 17:20 Report Date: 11/08/2024 17:25 At the request of: DEEP SALINAS DO Procedure: US OB BPP w [...] 2/2 US/US OB growth IMPRESSION: Biophysical profile: 8 The biparietal diameter and abdominal circumference place the fetus below the 10th percentile for size. Estimated weight is 5 lbs. 2 oz. The fetus has an estimated gestational age of 34 weeks and 2 days (34 weeks 5 days by dates). Impression dictated by: Aleksander Harrison M.D. 11/08/2024 5:25 PM Dictation Location: [place] [address] Electronically authenticated by: [id number] Y Date: 11/08/2024 17:25 Dictated By: Aleksander Harrison M.D. Signed By: 11/08/241727 DD/ 24 TD/TT: Swimming Pool Service Technician: [facility] Urinalysis macro (dipstick) panel (U)on 11-08-2024 Bilirubin, UA Negative Negative - 4(70) +++ mg/dL [facility] Blood, UA Negative Negative - 50 Jay[facility] Clarity, UA Clear N[facility] Color, UA Yellow [facility] Glucose, UA Negative Negative - 1999(110) ++++ mg/dL [facility] Interpretation and review of laboratory results Abnormal [facility] Ketones, UA Negative Negative - 160(16) ++++ mg/dL [facility] Leukocytes, UA Negative Negative - 500+++ Kate/mcL [facility] Nitrite, UA Negative Negative - Positive [facility] pH, UA 6 5 - 9 [facility] Protein, UA 4+ Negative - 1999(20) ++++ mg/dL [facility] Spec Grav, UA 1.03 1 - 1.03 [facility] Urobilinogen, UA 0.2 0.2 - 12 mg/dL [facility] Urine protein/creatinine rat ioOrdered By: Deep Salinas on 11-08-2024 Protein/Creatinine (U) [Ratio] 9.29 [facility] Urinalysis macro (dipstick) panel (U)on 10-11-2024 Bilirubin, UA Negative Negative - 4(70) +++ mg/dL [facility] Blood, UA Negative Negative - 50 Jay/mcL [facility] Clarity, UA Clear [facility] Color, UA Yellow [facility] Glucose, UA Negative Negative - 1999(110) ++++ mg/dL [facility] Interpretation and review of laboratory results Normal [facility] Ketones, UA Negative Negative - 160(16) ++++ mg/dL [facility] Leukocytes, UA Positive Negative - 500+++ Kate/mcL [facility] Comment on above: small Nitrite, UA Negative Negative - Positive [facility] pH, UA 5.5 5 - 9 [facility] Protein, UA Negative Negative - 1999(20) ++++ mg/dL [facility] Spec Grav, UA 1.02 1 - 1.03 [facility] Urobilinogen, UA 0.2 0.2 - 12 mg/dL [facility] Urinalysis macro (dipstick) panel (U)on 09-26-2024 Bilirubin, UA Negative Negative - 4(70) +++ mg/dL [facility] Blood, UA Negative Negative - 50 Jay/mcL [facility] Clarity, UA Clear [facility] Color, UA Yellow [facility] Glucose, UA Negative Negative - 1999(110) ++++ mg/dL [facility] Interpretation and review of laboratory results Normal [facility] Ketones, UA Negative Negative - 160(16) ++++ mg/dL [facility] Leukocytes, UA Trace Negative - 500+++ Kate/mcL [facility] Nitrite, UA Negative Negative - Positive [facility] pH, UA 7 5 - 9 [facility] Protein, UA Negative Negative - 2000(20) ++++ mg/dL [facility] Spec Grav, UA 1.02 1 - 1.03 [facility] Urobilinogen, UA 0.2 0.2 - 12 mg/dL [facility] BOX TESTon 08-15-2024 BOX TEST SENT OUT [employer] [facility] BOX1 [facility] BOX2 08/15/24 [facility] BOX [facility] US OB 14+ WEEKS ANATOMY SCAN on [...] II, MD, PHD at 01-Aug-2024 11:31:07 PM [facility] Normal Not Available Comment on above: Order Comment: US OB ANATOMY SINGLE W US OB CERVICAL LENGTH Estimated Date of Delivery: 12/05/24 Gestational Age as of 07/04/2024: 18w0d Urinalysis macro (dipstick) panel (U)on 08-01-2024 Bilirubin, UA Negative Negative - 4(70) +++ mg/dL [facility] Blood, UA Negative Negative - 50 Jay/mcL [facility] Clarity, UA Clear [facility] Color, UA Yellow [facility] Glucose, UA Negative Negative - 2000(110) ++++ mg/dL [facility] Interpretation and review of laboratory results Abnormal [facility] Ketones, UA Negative Negative - 160(16) ++++ mg/dL [facility] Leukocytes, UA Negative Negative - 500+++ Kate/mcL [facility] Nitrite, UA Negative Negative - Positive [facility] pH, UA 6 5 - 9 [facility] Protein, UA Positive Negative - 2000(20) ++++ mg/dL [facility] Comment on above: 30mg/dL Spec Grav, UA 1.025 1 - 1.03 [facility] Urobilinogen, UA 0.2 0.2 - 12 mg/dL [facility] MLR HEMOGLOBIN A1Con 025 Glucose [Mass/Vol] 105 mg/dL [facility] HbA1c (Bld) [Mass fraction] 5.3 % 4.5 - 6.2 % [facility] Comment on above: ADA RECOMMENDED LIMI T 4.0 - 6.0 ADA THERAPEUTIC TARGET < 7.0 ACTION SUGGESTED > 7.0 [facility] Urinalysis macro (dipstick) panel (U)on 06-06-2024 Bilirubin, UA Negative Negative - 4(70) +++ mg/dL [facility] Blood, UA Negative Negative - 50 Jay/mcL [facility] Clarity, UA Clear [facility] Color, UA Yellow [facility] Glucose, UA Negative Negative - 1999(110) ++++ mg/dL [facility] Interpretation and review of laboratory results Abnormal [facility] Ketones, UA Negative Negative - 160(16) ++++ mg/dL [facility] Leukocytes, UA Negative Negative - 500+++ Kate/mcL [facility] Nitrite, UA Negative Negative - Positive [facility] pH, UA 6.5 5 - 9 [facility] Protein, UA Trace Negative - 1999(20) ++++ mg/dL [facility] Spec Grav, UA 1.03 1 - 1.03 [facility] Urobilinogen, UA 0.2 0.2 - 12 mg/dL [facility] HCG ( test) Ql (U)o n 05-05-2024 Interpretation and review of laboratory results Abnormal [facility] Preg Test, Ur Positive Negative [facility] US OB TRANSVAGINALon 025 US OB TRANSVAGINAL [...] UA Positive Negative - 4(70) +++ mg/dL [facility] Comment on above: small Blood, UA Negative Negative - 50 Jay/mcL [facility] Clarity, UA Clear [facility] Color, UA Yellow [facility] Glucose, UA Negative Negative - 1999(110) ++++ mg/dL [facility] Interpretation and review of laboratory results Abnormal [facility] Ketones, UA Positive Negative - 160(16) ++++ mg/dL [facility] Comment on above: trace Leukocytes, UA Negative Negative - 500+++ Kate/mcL [facility] Nitrite, UA Negative Negative - Positive [facility] pH, UA 5.5 5 - 9 [facility] Protein, UA Positive Negative - 1999(20) ++++ mg/dL [facility] Comment on above: 30 Spec Grav, UA 1.03 1 - 1.03 [facility] Urobilinogen, UA 0.2 0.2 - 12 mg/dL [facility] Human papilloma virus 16+18+ 31+33+35+39+45+51+52+56+58+59+66+68 DNA [Presence] in [place] 09-23-2023 HPV 16+18+31+33+35+39+45+51+ 52+56+58+59+66+68 DNA Probe+sig amp Ql (Cvx) Note . [facility] Comment on above: TESTS RESULT FLAG UN ITS REF RANGE LAB --DIAGNOSIS: 02 NEGATIVE FOR INTRAEPITHELIAL LESION OR MALIGNANCY.Specimen adequacy: 02 Satisfactory for evaluation. Endocervical and/or squamous metaplastic cells (endocervical component) are present.Performed by: Cyrus Calles, Mixed Crop [employer] Livestock Farmer ([facility]). 02Note: Note 02 The Pap smear is [...] result therefore, no HPV testing was performed. --------- FLAG LEGEND: L-Low Normal,H-High Normal,LL-Alert Low,HH-Alert High <-Panic Low,>-Panic High,A-Abnormal,AA-Critical Abnormal -------Performed at:[address] [address] Jessie Zarate MD, Ynlvglket at: =[address] [id number] Director: Jessie Zarate MD, Phone: [phone] at: [address] [id number] Director: Jessie Zarate MD, Phone: [phone] No Panel Informationon 09-22 Reference Lab Test Patient Age Note . [facility] Comment on above: TESTS RESULT FLAG UN ITS REF RANGE LAB -- Clinician Provided Cytology Information Source.............Cervix;Endocervix No. of containers..01 ThinPrep VialAge [place] [employer] Judith... - FLAG LEGEND: L-Low Normal,H-High Normal,LL-Alert Low,HH-Alert High <-Panic Low,>-Panic High,A-Abnormal,AA-Critical Abnormal -------Performed at:01 [address] [address] Jessie Zarate MD, CBC AUTO DIFFon 12-29-2021 BASO # 0.0 103/ul Normal 0.0-0.1 [facility] Comment on above: Performed By: #### C BC #### [facility] [address] [place] [address] Dr. Sae Flores Basophils/100 WBC (Bld) 0.2 % Normal 0.2-2.0 [facility] Comment on above: Performed By: #### C BC #### [facility] [address] [place] [address] Dr. Sae Flores EO # 0.0 103/ul Normal 0.0-0.7 [facility] Comment on above: Performed By: #### C BC #### [facility] [address] [place] [address] Dr. Sae Flores Eosinophils/100 WBC (Bld) 0.1 % Critically low 0.9-7.0 [facility] Comment on above: Performed By: #### C BC #### [facility] [address] [place] [address] Dr. Sae Flores Erythrocyte distribution width (RBC) [Ratio] 13.8 % Normal 11.0-15.0 [facility] Comment on above: Performed By: #### C BC #### [facility] [address] [place] [address] Dr. Sae Flores Hematocrit (Bld) [Volume fraction] 30.2 % Critically low 36.0-48.0 [facility] Comment on above: Performed By: #### C BC #### [facility] [address] [place] [address] Dr. Sae Flores Hemoglobin (Bld) [Mass/Vol] 9.9 g/dL Critically low 12.0-16.0 [facility] Comment on above: Performed By: #### C BC #### [facility] [address] [place] [address] Dr. Sae Flores IG # 0.08 10e3/ul Critically high 0.00-0.03 [facility] Comment on above: Performed By: #### C BC #### [facility] [address] [place] [address] Dr. Sae Flores IG % 0.5 % Normal 0.0-0.5 [facility] Comment on above: Performed By: #### C BC #### [facility] [address] [place] [address] Dr. Sae Flores LYMPH # 1.6 103/ul Normal 1.2-3.8 [facility] Comment on above: Performed By: #### C BC #### [facility] [address] [place] [address] Dr. Sae Flores Lymphocytes/100 WBC (Bld) 9.4 % Critically low 20.5-60.0 [facility] Comment on above: Performed By: #### C BC #### [facility] [address] [place] [address] Dr. Sae Flores MANUAL DIFF REQ NO Normal [facility] Comment on above: Performed By: #### C BC #### [facility] [address] [place] [address] Dr. Sae Flores MCH (RBC) [Entitic mass] 29.9 pg Normal 26.7-34.0 [facility] Comment on above: Performed By: #### C BC #### [facility] [address] [place] [address] Dr. Sae Flores MCHC (RBC) [Mass/Vol] 32.8 g/dL Normal 29.9-35.2 [facility] Comment on above: Performed By: #### C BC #### [facility] [address] [place] [address] Dr. Sae Flores MCV (RBC) [Entitic vol] 91.2 fL Normal 81.0-99.0 [facility] Comment on above: Performed By: #### C BC #### [facility] [address] [place] [address] [address] Sea Flores MONO # 1.2 103/ul Critically high 0.3-0.8 [facility] Comment on above: Performed By: #### C BC #### [facility] [address] [place] [address] Dr. Sae Flores Monocytes/100 WBC (Bld) 7.0 % Normal 1.7-12.0 [facility] Comment on above: Performed By: #### C BC #### [facility] [address] [place] [address] Dr. Sae Flores NEUT # 14.3 103/ul Critically high 1.4-6.5 [facility] Comment on above: Performed By: #### C BC #### [facility] [address] [place] [address] Dr. Sae Flores Neutrophils/100 WBC (Bld) 82.8 % Critically high 43.0-75.0 [facility] Comment on above: Performed By: #### C BC #### [facility] [address] [place] [address] Dr. Sae Flores Platelet mean volume (Bld) [Entitic vol] 9.1 fL Critically low 9.5-13.5 [facility] Comment on above: Performed By: #### C BC #### [facility] [address] [place] [address] Dr. Sae Flores PLT 207 103/ul Normal 150-450 [facility] Comment on above: Performed By: #### C BC #### [facility] [address] [place] [address] Dr. Sae Flores RBC 3.31 106/ul Critically low 4.20-5.40 [facility] Comment on above: Performed By: #### C BC #### [facility] [address] [place] [address] Dr. Sae Flores WBC 17.3 103/ul Critically high 4.0-11.0 [facility] Comment on above: Performed By: #### C BC #### [facility] [address] [place] [address] Dr. Sae Flores DRUG SCREEN RAPID (URINE)on 12-28-2021 AMP Negative Normal NEGATIVE [facility] Comment on above: Performed By: #### D RUGRPD #### [facility] [address] [place] [address] Dr. Sae Flores BAR Negative Normal NEGATIVE [facility] Comment on above: Performed By: #### D RUGRPD #### [facility] [address] [place] [address] Dr. Sae Flores BUP Negative Normal NEGATIVE [facility] Comment on above: Performed By: #### D RUGRPD #### [facility] [address] [place] [address] Dr. Sae Flores BZO Negative Normal NEGATIVE [facility] Comment on above: Performed By: #### D RUGRPD #### [facility] [address] [place] [address] Dr. Sae Flores CONSTANCE Negative Normal NEGATIVE [facility] Comment on above: Performed By: #### D RUGRPD #### [facility] [address] [place] [address] Dr. Sae Flores CUT-OFFS SEE BELOW Normal [facility] Comment on above: Result Comment: AMP [...] ng/mL Performed By: #### D RUGRPD #### [facility] [address] [place] [address] Dr. Sae Flores DRUG CUT HEADER DRUG CLASS TEST SYSTEM CUT-OFF CONCENTRATIONS ARE FOLLOWS: Normal [facility] Comment on above: Performed By: #### D RUGRPD #### [facility] [address] [place] [address] Dr. Sae Flores mAMP Negative Normal NEGATIVE [facility] Comment on above: Performed By: #### D RUGRPD #### [facility] [address] [place] [address] Dr. Sae Flores MTD Negative Normal NEGATIVE [facility] Comment on above: Performed By: #### D RUGRPD #### [facility] [address] [place] [address] Dr. Sae Flores OPI Negative Normal NEGATIVE [facility] Comment on above: Performed By: #### D RUGRPD #### [facility] [address] [place] [address] Dr. Sae Flores OXY Negative Normal NEGATIVE [facility] Comment on above: Performed By: #### D RUGRPD #### [facility] [address] [place] [address] Dr. Sae Flores PCP Negative Normal NEGATIVE [facility] Comment on above: Performed By: #### D RUGRPD #### [facility] [address] [place] [address] Dr. Sae Flores PPX Negative Normal NEGATIVE [facility] Comment on above: Performed By: #### D RUGRPD #### [facility] [address] [place] [address] Dr. Sae Flores TCA Negative Normal NEGATIVE [facility] Comment on above: Performed By: #### D RUGRPD #### [facility] [address] [place] [address] Dr. Sae Flores THC Negative Normal NEGATIVE [facility] Comment on above: Performed By: #### D RUGRPD #### [facility] [address] [address] [address] Sae Flores CBC AUTO DIFFon 12-27-2021 BASO # 0.0 103/ul Normal 0.0-0.1 [facility] Comment on above: Performed By: #### C BC #### [facility] [address] [address] [address] Sae Flores Basophils/100 WBC (Bld) 0.2 % Normal 0.2-2.0 [facility] Comment on above: Performed By: #### C BC #### [facility] [address] [address] [address] Sae Flores EO # 0.2 103/ul Normal 0.0-0.7 [facility] Comment on above: Performed By: #### C BC #### [facility] [address] [address] [address] Sae Flores Eosinophils/100 WBC (Bld) 1.3 % Normal 0.9-7.0 [facility] Comment on above: Performed By: #### C BC #### [facility] [address] [address] [address] Sae Flores Erythrocyte distribution width (RBC) [Ratio] 14.0 % Normal 11.0-15.0 [facility] Comment on above: Performed By: #### C BC #### [facility] [address] [address] [address] Sae Flores Hematocrit (Bld) [Volume fraction] 33.6 % Critically low 36.0-48.0 [facility] Comment on above: Performed By: #### C BC #### [facility] [address] [address] [address] Sae Flores Hemoglobin (Bld) [Mass/Vol] 11.2 g/dL Critically low 12.0-16.0 [facility] Comment on above: Performed By: #### C BC #### [facility] [address] [address] [address] Sae Flores IG # 0.08 10e3/ul Critically high 0.00-0.03 [facility] Comment on above: Performed By: #### C BC #### [facility] [address] [address] [address] Sae Flores IG % 0.7 % Critically high 0.0-0.5 [facility] Comment on above: Performed By: #### C BC #### [facility] [address] [place] [address] Dr. Sae Flores LYMPH # 1.9 103/ul Normal 1.2-3.8 [facility] Comment on above: Performed By: #### C BC #### [facility] [address] [place] [address] Dr. Sae Flores Lymphocytes/100 WBC (Bld) 16.9 % Critically low 20.5-60.0 [facility] Comment on above: Performed By: #### C BC #### [facility] [address] [place] [address] Dr. Sae Flores MANUAL DIFF REQ NO Normal [facility] Comment on above: Performed By: #### C BC #### [facility] [address] [place] [address] Dr. Sae Flores MCH (RBC) [Entitic mass] 30.0 pg Normal 26.7-34.0 [facility] Comment on above: Performed By: #### C BC #### [facility] [address] [place] [address] Dr. Sae Flores MCHC (RBC) [Mass/Vol] 33.3 g/dL Normal 29.9-35.2 [facility] Comment on above: Performed By: #### C BC #### [facility] [address] [place] [address] Dr. Sae Flores MCV (RBC) [Entitic vol] 90.1 fL Normal 81.0-99.0 [facility] Comment on above: Performed By: #### C BC #### [facility] [address] [place] [address] Dr. Sae Flores MONO # 0.8 103/ul Normal 0.3-0.8 [facility] Comment on above: Performed By: #### C BC #### [facility] [address] [place] [address] Dr. Sae Flores Monocytes/100 WBC (Bld) 7.0 % Normal 1.7-12.0 [facility] Comment on above: Performed By: #### C BC #### [facility] [address] [place] [address] Dr. Sae Flores NEUT # 8.5 103/ul Critically high 1.4-6.5 [facility] Comment on above: Performed By: #### C BC #### [facility] [address] [place] [address] Dr. Sae Flores Neutrophils/100 WBC (Bld) 73.9 % Normal 43.0-75.0 [facility] Comment on above: Performed By: #### C BC #### [facility] [address] [place] [address] Dr. Sae Flores Platelet mean volume (Bld) [Entitic vol] 10.3 fL Normal 9.5-13.5 [facility] Comment on above: Performed By: #### C BC #### [facility] [address] [place] [address] Dr. Sae Flores PLT 214 103/ul Normal 150-450 [facility] Comment on above: Performed By: #### C BC #### [facility] [address] [place] [address] Dr. Sae Flores RBC 3.73 106/ul Critically low 4.20-5.40 [facility] Comment on above: Performed By: #### C BC #### [facility] [address] [place] [address] Dr. Sae Flores WBC 11.5 103/ul Critically high 4.0-11.0 [facility] Comment on above: Performed By: #### C BC #### [facility] [address] [place] [address] Dr. Sae Flores [facility]on SARS-CoV-2 (COVID-19) RNA [place]+probe Ql (Unsp spec) Not detected Normal NOT DETECTED [facility] Comment on above: Result Comment: When diagnostic [...] for this test is supported by the [place] of Health and Human Service's declaration that [...] used). Performed By: #### C VDTBH #### [facility] [address] [place] [address] Dr. Sae Flores DRUG SCREEN RAPID (URINE)on 12-27-2021 AMP Negative Normal NEGATIVE [facility] Comment on above: Performed By: #### D RUGRPD #### [facility] [address] [place] [address] Dr. Sae Flores BAR Negative Normal NEGATIVE [facility] Comment on above: Performed By: #### D RUGRPD #### [facility] [address] [place] [address] Dr. Sae Flores BUP Negative Normal NEGATIVE [facility] Comment on above: Performed By: #### D RUGRPD #### [facility] [address] [place] [address] Dr. Sae Flores BZO Negative Normal NEGATIVE [facility] Comment on above: Performed By: #### D RUGRPD #### [facility] [address] [place] [address] Dr. Sae Flores CONSTANCE Negative Normal NEGATIVE [facility] Comment on above: Performed By: #### D RUGRPD #### [facility] [address] [place] [address] Dr. Sae Flores CUT-OFFS SEE BELOW Normal [facility] Comment on above: Result Comment: AMP [...] ng/mL Performed By: #### D RUGRPD #### [facility] [address] [place] [address] Dr. Sae Flores DRUG CUT HEADER DRUG CLASS TEST SYSTEM CUT-OFF CONCENTRATIONS ARE FOLLOWS: Normal [facility] Comment on above: Performed By: #### D RUGRPD #### [facility] [address] [place] [address] Dr. Sae Flores mAMP Negative Normal NEGATIVE [facility] Comment on above: Performed By: #### D RUGRPD #### [facility] [address] [place] [address] Dr. Sae Flores MTD Negative Normal NEGATIVE [facility] Comment on above: Performed By: #### D RUGRPD #### [facility] [address] [place] [address] Dr. Sae Flores OPI Negative Normal NEGATIVE [facility] Comment on above: Result Comment: Prev iously reported as: POSITIVE On 12/27/2021 20:19 By MH01 Performed By: #### D RUGRPD #### [facility] [address] [place] [address] Dr. Sae Flores OXY Negative Normal NEGATIVE [facility] Comment on above: Performed By: #### D RUGRPD #### [facility] [address] [place] [address] Dr. Sae Flores PCP Negative Normal NEGATIVE [facility] Comment on above: Performed By: #### D RUGRPD #### [facility] [address] [place] [address] Dr. Sae Flores PPX Negative Normal NEGATIVE [facility] Comment on above: Performed By: #### D RUGRPD #### [facility] [address] [place] [address] Dr. Sae Flores TCA Negative Normal NEGATIVE [facility] Comment on above: Performed By: #### D RUGRPD #### [facility] [address] [address] [address] Sae Flores THC Negative Normal NEGATIVE [facility] Comment on above: Performed By: #### D RUGRPD #### [facility] [address] [place] [address] Dr. Sae Flores TYPE AND SCREENon 12-27-2021 TYPE AND SCREEN Negative Normal [facility] Comment on above: Performed By: #### T NS #### [facility] [address] [place] [address] Dr. Sae Flores GROUP B STREP CULTUREon S. agalactiae Ag Ql (Unsp spec) Culture Observations: NEGATIVE FOR GROUP B STREPTOCOCCUS. Normal [facility] Comment on above: Performed By: #### G BSCX #### [facility] [address] [place] [address] Dr. Sae Flores US PREG GROWTHon 11-18-2021 [...] with growth detailed above. Electronically authenticated by: LAURIE PASCUALALEKSANDR Date: 2021-11-18 16:40 Normal [facility] GTT 3 HR PREGon 10-20-2021 Glucose [Mass/Vol] 93 mg/dL Normal 74-106 [facility] Comment on above: Performed By: #### G TT3P #### [facility] [address] [place] [address] Dr. Sae Flores Glucose [Mass/Vol] 164 mg/dL Normal [facility] Comment on above: Performed By: #### G TT3P #### [facility] [address] [place] [address] Dr. Sae Flores Glucose [Mass/Vol] 116 mg/dL Normal [facility] Comment on above: Performed By: #### G TT3P #### [facility] [address] [place] [address] Dr. Sae Flores Glucose [Mass/Vol] 83 mg/dL Normal [facility] Comment on above: Performed By: #### G TT3P #### [facility] [address] [place] [address] Dr. Sae Flores GLUCOSE - 1HRon 10-09-2021 Glucose [Mass/Vol] 176 mg/dL Critically high 74-106 [facility] Comment on above: Performed By: #### G LU1HR #### [facility] [address] [place] [address] Dr. Sae Flores HEMOGRAM AND PLATELon 2021 Hematocrit (Bld) [Volume fraction] 33.6 % Critically low 36.0-48.0 [facility] Comment on above: Performed By: #### H H #### [facility] [address] [place] [address] Dr. Sae Flores Hemoglobin (Bld) [Mass/Vol] 11.0 g/dL Critically low 12.0-16.0 [facility] Comment on above: Performed By: #### H H #### [facility] [address] [address] [address] Sae Flores MCH (RBC) [Entitic mass] 30.6 pg Normal 26.7-34.0 [facility] Comment on above: Performed By: #### H H #### [facility] [address] [address] [address] Sae Flores MCHC (RBC) [Mass/Vol] 32.7 g/dL Normal 29.9-35.2 [facility] Comment on above: Performed By: #### H H #### [facility] [address] [address] [address] Sae Flores MCV (RBC) [Entitic vol] 93.3 fL Normal 81.0-99.0 [facility] Comment on above: Performed By: #### H H #### [facility] [address] [place] [address] Dr. Sae Flores PLT 219 103/ul Normal 150-450 [facility] Comment on above: Performed By: #### H H #### [facility] [address] [address] [address] Sae Flores RBC 3.60 106/ul Critically low 4.20-5.40 [facility] Comment on above: Performed By: #### H H #### [facility] [address] [address] [address] Sae Flores WBC 9.4 103/ul Normal 4.0-11.0 [facility] Comment on above: Performed By: #### H H #### [facility] [address] [place] [address] Dr. Sae Flores Vital Signs Date Time Vital Sign Value Performing Clinician Facility 01-03-2025 10:33-0400 Body mass index (BMI) [Ratio] 28.96 kg/m2 Amy VEGA Work Phone: [facility] 01-03-2025 10:33-0400 Body weight 78.93 kg Amy VEGA Work Phone: [facility] 01-03-2025 10:33-0400 Diastolic blood pressure 76 mm[Hg] Amy VEGA Work Phone: [facility] 01-03-2025 10:33-0400 Systolic blood pressure 124 mm[Hg] Amy VEGA Work Phone: [facility] 12-20-2024 09:49-0400 Body height 171.45 cm Guy Mullen DO Work Phone: [facility] 12-20-2024 09:49-0400 Body mass index (BMI) [Ratio] 26.4 kg/m2 Guy Mullen DO Work Phone: [facility] 12-20-2024 09:49-0400 Body temperature 98.8 [degF] Guy Mullen DO Work Phone: [facility] 12-20-2024 09:49-0400 Body weight 77.56 kg Guy Mullen DO Work Phone: [facility] 12-20-2024 09:49-0400 Diastolic blood pressure 84 mm[Hg] Guy Mullen DO Work Phone: [facility] 12-20-2024 09:49-0400 Heart rate 85 /min Guy Mullen DO Work Phone: [facility] 12-20-2024 09:49-0400 SaO2% (BldA) [Mass fraction] 98 % Guy Mullen DO Work Phone: [facility] 12-20-2024 09:49-0400 Systolic blood pressure 118 mm[Hg] Guy Mullen DO Work Phone: [facility] 11-24-2024 11:05-0400 Body height 165.1 cm Rashida Bush MD Work Phone: [facility] 11-24-2024 11:05-0400 Body mass index (BMI) [Ratio] 28.92 kg/m2 Rashida Bush MD Work Phone: [facility] 11-24-2024 11:05-0400 Body weight 78.83 kg Rashida Bush MD Work Phone: [facility] 11-24-2024 11:05-0400 Diastolic blood pressure 60 mm[Hg] Rashida Bush MD Work Phone: [facility] 11-24-2024 11:05-0400 Heart rate 75 /min Rashida Bush MD Work Phone: [facility] 11-24-2024 11:05-0400 Systolic blood pressure 108 mm[Hg] Rashida Bush MD Work Phone: [facility] 11-08-2024 15:28-0400 Body mass index (BMI) [Ratio] 35.2 kg/m2 Deep Brad DO Work Phone: [facility] 11-08-2024 15:28-0400 Body weight 95.94 kg Deep Brad DO Work Phone: [facility] 11-08-2024 15:28-0400 Diastolic blood pressure 112 mm[Hg] Deep Brad DO Work Phone: [facility] 11-08-2024 15:28-0400 Systolic blood pressure 180 mm[Hg] Deep Brad DO Work Phone: [facility] 10-25-2024 13:33-0400 Body mass index (BMI) [Ratio] 33.16 kg/m2 Amy VEGA Work Phone: [facility] 10-25-2024 13:33-0400 Body weight 90.38 kg Amy VEGA Work Phone: [facility] 10-25-2024 13:33-0400 Diastolic blood pressure 86 mm[Hg] Amy VEGA Work Phone: [facility] 10-25-2024 13:33-0400 Systolic blood pressure 122 mm[Hg] Amy Rubalcava PA Work Phone: [facility] 10-11-2024 15:38-0400 Body mass index (BMI) [Ratio] 31.95 kg/m2 Deep Brad DO Work Phone: [facility] 10-11-2024 15:38-0400 Body weight 87.09 kg Deep Brad DO Work Phone: [facility] 10-11-2024 15:38-0400 Diastolic blood pressure 74 mm[Hg] Deep Brad DO Work Phone: [facility] 10-11-2024 15:38-0400 Systolic blood pressure 118 mm[Hg] Deep Brad DO Work Phone: [facility] 09-26-2024 10:14-0400 Body mass index (BMI) [Ratio] 30.95 kg/m2 Deep Brad DO Work Phone: [facility] 09-26-2024 10:14-0400 Body weight 84.37 kg Deep Brad DO Work Phone: [facility] 09-26-2024 10:14-0400 Diastolic blood pressure 72 mm[Hg] Deep Brad DO Work Phone: [facility] 09-26-2024 10:14-0400 Systolic blood pressure 110 mm[Hg] Deep Brad DO Work Phone: [facility] 08-29-2024 09:28-0400 Body mass index (BMI) [Ratio] 30.52 kg/m2 Deep Brad DO Work Phone: [facility] 08-29-2024 09:28-0400 Body weight 83.19 kg Deep Brad DO Work Phone: [facility] 08-29-2024 09:28-0400 Diastolic blood pressure 70 mm[Hg] Deep Brad DO Work Phone: [facility] 08-29-2024 09:28-0400 Systolic blood pressure 110 mm[Hg] Deep Brad DO Work Phone: [facility] 08-01-2024 10:57-0400 Body mass index (BMI) [Ratio] 29.37 kg/m2 Deep Brad DO Work Phone: [facility] 08-01-2024 10:57-0400 Body weight 80.06 kg Deep Brad DO Work Phone: [facility] 08-01-2024 10:57-0400 Diastolic blood pressure 70 mm[Hg] Deep Brad DO Work Phone: [facility] 08-01-2024 10:57-0400 Systolic blood pressure 108 mm[Hg] Deep Brad DO Work Phone: [facility] 06-06-2024 10:47-0500 Body mass index (BMI) [Ratio] 28.96 kg/m2 Deep Brad DO Work Phone: [facility] 06-06-2024 10:47-0500 Body weight 78.93 kg Deep Brad DO Work Phone: [facility] 06-06-2024 10:47-0500 Diastolic blood pressure 70 mm[Hg] Deep Brad DO Work Phone: [facility] 06-06-2024 10:47-0500 Systolic blood pressure 102 mm[Hg] Deep Brad DO Work Phone: [facility] 05-05-2024 10:05-0500 Body mass index (BMI) [Ratio] 29.29 kg/m2 [facility] 05-05-2024 10:05-0500 Body weight 79.83 kg Nom Nurse [facility] 05-05-2024 10:05-0500 Diastolic blood pressure 68 mm[Hg] [facility] 05-05-2024 10:05-0500 Systolic blood pressure 104 mm[Hg] [facility] 12-21-2023 08:56-0400 Body height 167 cm [facility] 12-21-2023 08:56-0400 Body mass index (BMI) [Ratio] 28.1 kg/m2 [facility] 12-21-2023 08:56-0400 Body temperature 98 [degF] [facility] 12-21-2023 08:56-0400 Body weight 78.47 kg [facility] 12-21-2023 08:56-0400 Diastolic blood pressure 80 mm[Hg] [facility] 12-21-2023 08:56-0400 Heart rate 68 /min [facility] 12-21-2023 08:56-0400 SaO2% (BldA) [Mass fraction] 98 % [facility] 12-21-2023 08:56-0400 Systolic blood pressure 122 mm[Hg] [facility] 09-23-2023 11:57-0400 Body height 167 cm [facility] 09-23-2023 11:57-0400 Body mass index (BMI) [Ratio] 27.9 kg/m2 [facility] 09-23-2023 11:57-0400 Body weight 78.01 kg [facility] 09-23-2023 11:57-0400 Diastolic blood pressure 76 mm[Hg] [facility] 09-23-2023 11:57-0400 SaO2% (BldA) [Mass fraction] 97 % [facility] 09-23-2023 11:57-0400 Systolic blood pressure 116 mm[Hg] [facility] 04-20-2023 15:40-0500 Body height 167 cm Guy Mullen Other [employer] [facility] [employer] Other 04-20-2023 15:40-0500 Body mass index (BMI) [Ratio] 30.54 kg/m2 Guy Mullen Other [employer] Other 04-20-2023 15:40-0500 Body weight 85.19 kg Guy Mullen Other [employer] Other 04-20-2023 15:40-0500 Diastolic blood pressure 82 mm[Hg] Guy Mullen Other [employer] Other 04-20-2023 15:40-0500 Systolic blood pressure 120 mm[Hg] Guy Mullen Other [employer] Other 03-23-2023 15:40-0500 Body height 167 cm Guy Paz Other [employer] Other 03-23-2023 15:40-0500 Body mass index (BMI) [Ratio] 31.87 kg/m2 Guy Mullen Other [employer] Other 03-23-2023 15:40-0500 Body temperature 98.2 [degF] Guy Mullen Other [employer] Other 03-23-2023 15:40-0500 Body weight 88.91 kg Guy Francinedom Other [employer] Other 03-23-2023 15:40-0500 Diastolic blood pressure 76 mm[Hg] Guy Francinedom Other [employer] Other 03-23-2023 15:40-0500 Respiratory rate 16 /min Guy Mullen Other [employer] Other 03-23-2023 15:40-0500 SaO2% (BldA) [Mass fraction] 97 % Guy Mullen Other [employer] Other 03-23-2023 15:40-0500 Systolic blood pressure 108 mm[Hg] Guy Mullen Other [employer] Other 11-10-2021 10:50-0400 Body height 167 cm Guy Mullen Other [employer] Other 11-10-2021 10:50-0400 Body mass index (BMI) [Ratio] 31.87 kg/m2 Guy Francinedom Other [employer] Other 11-10-2021 10:50-0400 Body temperature 98.6 [degF] Guy Mullen Other [employer] Other 11-10-2021 10:50-0400 Body weight 88.91 kg Guy Mullen Other [employer] Other 11-10-2021 10:50-0400 Diastolic blood pressure 70 mm[Hg] Guy Mullen Other [employer] Other 11-10-2021 10:50-0400 Respiratory rate 16 /min Guy Mullen Other [employer] Other 11-10-2021 10:50-0400 SaO2% (BldA) [Mass fraction] 98 % Guy Mullen Other [employer] Other 11-10-2021 10:50-0400 Systolic blood pressure 112 mm[Hg] Guy Mullen Other [employer] Other Encounters Encounter Date Encounter Type Care Provider Facility Start: 01-03-2025 End: 01-03-2025 care visit Amy VEGA Work Phone: [facility] Comment on above: 6 weeks f ollow-up ([facility] Spontaneous vaginal delivery ([facility]); control counseling Start: 01-03-2025 End: 01-03-2025 ambulatory AMY RUBALCAVA Not Available Start: 12-20-2024 End: 12-20-2024 ambulatory Guy uMllen DO Work Phone: [facility] Work Phone: Start: 12-20-2024 End: 12-20-2024 Patient encounter procedure Guy Mullen DO [facility] Work Phone: Start: 12-20-2024 End: 12-20-2024 Patient encounter status Guy Mullen DO [facility] Start: 12-01-2024 End: 12-01-2024 Office outpatient visit 15 minutes Rashida Bush MD Work Phone: [facility] Comment on above: hypertens ion (Primary Dx); History of severe pre-eclampsia Start: 12-01-2024 End: 12-01-2024 ambulatory RASHIDA BUSH [facility] Start: 11-30-2024 End: 11-30-2024 Documentation procedure Rashida Bush MD Work Phone: [facility] Start: 11-24-2024 End: 11-24-2024 Office outpatient visit 15 minutes Rashida Bush MD Work Phone: [facility] Comment on above: hypertens ion (Primary Dx); History of severe pre-eclampsia Start: 11-24-2024 End: 11-24-2024 Encounter RASHIDA Sacha [facility] [address] NICU Start: 11-21-2024 End: 11-21-[address] NICU Start: 11-17-2024 End: 11-17-[address] NICU Start: 11-16-2024 End: 11-16-2024 ambulatory [facility] Start: 11-16-2024 End: 11-16-2024 Office outpatient new 20 minutes Tirso Al PASTRY ARTIST-CNM Work Phone: [facility] Comment on above: Blood pressure check (Primary Dx); Pre-eclampsia, severe, antepartum, third trimester Start: 11-16-2024 End: 11-16-2024 Patient encounter status Tirso Al PASTRY ARTIST-CNM Work Phone: [facility] Work Phone: Start: 11-09-2024 End: 11-09-2024 [facility] Start: 11-08-2024 End: 11-14-2024 Evaluation and management of inpatient GUY WATERMAN [facility] Start: 11-08-2024 Non-patient / Non-visit Deep Brad [facility] Work Phone: Start: 11-08-2024 End: 11-08-2024 flow sheet Deep Brad DO Work Phone: [facility] Comment on above: Third trimester preg higinio ([facility]); 34 weeks gestation of ([facility]); Elevated BP without diagnosis of hypertension Start: 11-08-2024 End: 11-08-2024 ambulatory DEEP BRAD Not Available Start: 11-08-2024 End: 11-08-2024 Bamboo flowsheet Deep Brad DO Work Phone: [facility] Start: 11-08-2024 End: 11-08-2024 Bamboo flowsheet Deep Brad DO Work Phone: [facility] Start: 11-08-2024 End: 11-08-2024 Clinisync Result Encounter Deep Brad DO Work Phone: [facility] External Department Unsolicited Start: 10-25-2024 End: 10-25-2024 Bamboo flowsheet Amy VEGA Work Phone: [facility] Start: 10-25-2024 End: 10-25-2024 Bamboo flowsheet Amy VEGA Work Phone: [facility] Start: 10-25-2024 End: 10-25-2024 ambulatory AMY RUBALCAVA Not Available Start: 10-25-2024 End: 10-25-2024 flow sheet Amy VEGA Work Phone: [facility] Comment on above: Third trimester preg higinio ([facility]HS-HCC); 32 weeks gestation of ([facility]) Start: 10-11-2024 End: 10-11-2024 flow sheet Deep Brad DO Work Phone: [facility] Comment on above: Third trimester preg higinio ([facility]); 30 weeks gestation of ([facility]) Start: 10-11-2024 End: 10-11-2024 ambulatory DEEP BRAD Not Available Start: 10-11-2024 End: 10-11-2024 Bamboo flowsheet Deep Brad DO Work Phone: [facility] Start: 10-11-2024 End: 10-11-2024 Bamboo flowsheet Deep Brad DO Work Phone: [facility] Start: 09-26-2024 End: 09-26-2024 Bamboo flowsheet Deep Brad DO Work Phone: [facility] Start: 09-26-2024 End: 09-26-2024 Bamboo flowsheet Deep Brad DO Work Phone: [facility] Start: 09-26-2024 End: 09-26-2024 ambulatory DEEP BRAD Not Available Start: 09-26-2024 End: 09-26-2024 flow sheet Deep Brad DO Work Phone: [facility] Comment on above: anomaly necess itating delivery, single or unspecified fetus (Primary Dx); Third trimester ; 28 weeks gestation of ; Gastroesophageal reflux in Start: 09-19-2024 End: 09-19-2024 ambulatory DEEP R BRAD [facility] Start: 08-29-2024 End: 08-29-2024 Bamboo flowsheet Deep Brad DO Work Phone: [facility] Start: 08-29-2024 End: 08-29-2024 Bamboo flowsheet Deep Brad DO Work Phone: [facility] Start: 08-29-2024 End: 08-29-2024 ambulatory DEEP BRAD Not Available Start: 08-29-2024 End: 08-29-2024 flow sheet Deep Brad DO Work Phone: [facility] Comment on above: Second trimester pre gnancy; 24 weeks gestation of ; Diabetes mellitus screening Start: 08-17-2024 End: 08-17-2024 Orders Only Erica Schilling RN [facility] Comment on above: Encounter for follow -up ultrasound of anatomy (Primary Dx) Start: 08-15-2024 End: 08-15-2024 Clinisync Result Encounter Deep Brad DO Work Phone: [facility] Unsolicited Start: 08-15-2024 End: 08-15-2024 Clinisync Result Encounter Deep Brad DO Work Phone: [facility] Unsolicited Start: 08-03-2024 End: 08-04-2024 Telephone encounter Rosey Walter MA [facility] Start: 08-01-2024 End: 08-01-2024 ambulatory DEEP BRAD Not Available Start: 08-01-2024 End: 08-01-2024 flow sheet Deep Brad DO Work Phone: [facility] Comment on above: Second trimester pre gnancy; 22 weeks gestation of ; Diabetes mellitus screening Start: 08-01-2024 End: 08-01-2024 ambulatory GINI Not Available Start: 07-04-2024 End: 07-04-2024 ambulatory GINI Not Available Start: 06-15-2024 End: 06-15-2024 Clinisync Result Encounter Deep Brad DO Work Phone: [facility] Unsolicited Start: 06-15-2024 End: 06-15-2024 Clinisync Result Encounter Deep Brad DO Work Phone: [facility] Unsolicited Start: 06-06-2024 End: 06-06-2024 Bamboo flowsheet Deep Brad DO Work Phone: [facility] Start: 06-06-2024 End: 06-06-2024 Bamboo flowsheet Deep Brad DO Work Phone: [facility] Start: 06-06-2024 End: 06-06-2024 flow sheet Deep Brad DO Work Phone: [facility] Comment on above: Second trimester pre gnancy; 14 weeks gestation of Start: 06-06-2024 End: 06-06-2024 ambulatory DEEP SALINAS Not Available Start: 05-05-2024 End: 05-05-2024 ambulatory [facility] Brad Nurse [facility] Comment on above: GA: 9w3d Start: 12-21-2023 End: 12-21-2023 ambulatory [facility] Work Phone: Start: 12-21-2023 End: 12-21-2023 Patient encounter procedure [facility] [place] Work Phone: Start: 09-23-2023 End: 09-23-2023 ambulatory [facility] Work Phone: Start: 09-23-2023 End: 09-23-2023 Patient encounter procedure [facility] [place] Work Phone: Start: 05-20-2023 End: 05-20-2023 ambulatory Guy Mullen Other [employer] Other Start: 05-20-2023 Office outpatient vi sit 15 minutes Guy Mullen [facility] [place] Start: 04-20-2023 End: 04-20-2023 ambulatory Guy Mullen Other [employer] Other Start: 04-20-2023 Telephone encounter Guy Mullen [facility] [place] Start: 04-06-2023 End: 04-06-2023 ambulatory Guy Mullen Other [employer] Other Start: 04-06-2023 Telephone encounter Guy Mullen [facility] [place] Start: 03-23-2023 End: 03-23-2023 ambulatory Guy Mullen Other [employer] Other Start: 03-23-2023 Office outpatient vi sit 15 minutes Guy Mullen [facility] [place] Start: 10-20-2022 End: 10-20-2022 ambulatory Guy Mullen Other [employer] Other Start: 10-20-2022 Telephone encounter [facility] Start: 09-09-2022 End: 09-09-[address] DEEP SALINAS . Facility:[facility] Start: 02-12-2022 End: 02-12-[address] DEEP SALINAS . Facility:[facility] Start: 01-02-2022 End: 01-02-[address] DEEP SALINAS . Facility:[facility] Start: 01-01-2022 Evaluation and management of inpatient DR NONE LISTED REQUEST Facility:[facility] Start: 12-30-2021 End: 12-30-2021 ambulatory Guy Mullen Other [employer] Other Start: 12-30-2021 Telephone encounter Guy [facility] Start: 12-27-2021 End: 12-30-2021 Evaluation and management of inpatient DR DEEP SALINAS . Facility:[facility] Start: 12-02-2021 End: 12-02-[address] DEEP SALINAS . Facility:[facility] Start: 11-18-2021 End: 11-19-[address] DEEP SALINAS . Facility:[facility] Start: 11-10-2021 End: 11-10-2021 ambulatory Guy Francinedom Other [employer] Other Start: 11-10-2021 Encounter for genera l adult medical examination without abnormal findings Guy [facility] Start: 11-10-2021 Periodic preventive med est patient 18-39 yrs [facility] Start: 10-20-2021 End: 10-21-[address] DEEP SALINAS . Facility:[facility] Start: 10-09-2021 End: 10-10-[address] DEEP SALINAS . Facility: Procedures Date Procedure Procedure Detail Performing Clinician Start: 11-24-2024 care Care PAULINE BUSH Start: 11-24-2024 Adult depression scr eening assessment Rashida Bush MD Work Phone: Start: 11-08-2024 Antibody screen GUY MARSH Comment on above: Performed By: #### T SC #### [facility] ([facility] [address] [place] [address] VIR Start: 11-08-2024 US OB BPP W NON-STRESS Deep Brad DO Work Phone: Start: 11-08-2024 US OB GROWTH Deep Fazi o DO Work Phone: Start: 11-08-2024 ALL CBC WITH AUTO DIFF Deep Brad DO Work Phone: Start: 11-08-2024 Urnls dip stick/tabl et rgnt non-auto w/o micrscp Deep Brad DO Work Phone: Start: 10-11-2024 Urnls dip stick/tabl et rgnt non-auto w/o micrscp Deep Brad DO Work Phone: Start: 09-26-2024 Urnls dip stick/tabl et rgnt non-auto w/o micrscp Deep Brad DO Work Phone: Start: 08-15-2024 BOX TEST Deep Fazi o DO Work Phone: Start: 08-01-2024 Urnls dip stick/tabl et rgnt non-auto w/o micrscp Deep Brad DO Work Phone: Start: 06-15-2024 MLR HEMOGLOBIN A1C Core y Brad DO Work Phone: Start: 06-06-2024 Urnls dip stick/tabl et rgnt non-auto w/o micrscp Deep Brad DO Work Phone: Start: 05-05-2024 Urnls dip stick/tabl et rgnt non-auto w/o micrscp Deep Brad DO Work Phone: Start: 12-28-2021 Delivery of Products of Conception, External Approach DR DEEP SALINAS . Start: 12-28-2021 Division of Female Perineum, External Approach DR DEEP SALINAS . Start: 12-28-2021 Drainage of Amniotic Fluid, Therapeutic from Products of Conception, Via Natural or Artificial Opening DR DEEP SALINAS . Start: 12-28-2021 Repair Perineum Musc le, Open Approach DR DEEP SALINAS . Start: 12-27-2021 Introduction of Othe r Hormone into Peripheral Vein, Percutaneous Approach DR DEEP SALINAS . Plan of Treatment Date Care Activity Detail Author Start: 11-27-2025 Tobacco Screening Tobacco Screening [facility] Start: 11-24-2025 Adult BMI Screening Adult BMI Screen ing [facility] Start: 11-24-2025 Depression Screening Depression Scre ening [facility] Start: 11-24-2025 Tobacco Screening Tobacco Screening [facility] Start: 11-14-2025 Adult BMI Screening Adult BMI Screen ing [facility] Start: 11-10-2025 Tobacco Screening Tobacco Screening [facility] Start: 03-05-2025 End: 03-05-2025 Patient encounter procedure 03/05/2025 10:20 AM EST Procedure Visit MICHELLE KRAUS [address] [place] [address] Depe Salinas DO [address] [place] [address] MICHELLE KRAUS Start: 2024 Influenza vaccination Influenza Vacc ine [facility] Start: 12-01-2024 End: 12-01-2024 ambulatory 12/01/2024 9:00 AM EDT Visit [facility] [address] [place] [phone] Rashida Bush MD [address] [place] [phone] [facility] Start: 12-01-2024 End: 12-01-2024 Telemedicine consultation with patient 12/01/2024 9:00 AM EDT Telemedicine [facility] [address] [place] [phone] Rashida Bush MD [address] [facility] [phone] [facility] Start: 11-08-2024 End: 11-08-2024 Patient encounter procedure 11/08/2024 3:10 PM EDT Routine [facility] [address] [place] [phone] Deep Salinas, DO [address] [place], [place] [id number] Arrived [facility] Comment on above: Arrived Start: 10-11-2024 End: 10-11-2024 Patient encounter procedure 10/11/2024 3:20 PM EDT Routine [facility] [address] [place] [phone] Deep Salinas, DO [address] [place] [address] Arrived [facility] Comment on above: Arrived Start: 10-02-2024 End: 10-02-2024 Patient encounter procedure 10/02/2024 8:30 AM EDT Office Visit [facility] [address] [place] [address] Deep Salinas, DO [address] [place] [address] [facility] Start: 09-26-2024 End: 03-28-2025 US biophysical profile w non stress test US biophysical profile w non stress test Imaging Routine anomaly necessitating delivery, single or unspecified fetus Expected: 09/26/2024 (Approximate), Expires: 03/28/2025 [facility] Work Phone: Comment on above: Expected: 09/26/2024 (Approximate), Expires: 03/28/2025 Start: 09-26-2024 End: 09-26-2024 Patient encounter procedure 09/26/2024 10:10 AM EDT Routine [facility] [address] [place] [phone] Deep Salinas, DO [address] [place] [address] [facility] Start: 09-19-2024 End: 09-19-2024 Patient encounter procedure 09/19/2024 11:15 AM EDT Appointment [facility] - [facility] [address] [place] [address] [facility] Start: 08-29-2024 End: 08-29-2025 CBC panel - Blood by Automated count CBC Lab Routine Diabetes mellitus screening Expected: 08/29/2024 (Approximate), Expires: 08/29/2025 [facility] Work Phone: Comment on above: Expected: 08/29/2024 (Approximate), Expires: 08/29/2025 Start: 08-29-2024 End: 08-29-2025 Measurement of glucose 1 hour after glucose challenge for glucose tolerance test Glucose tolerance, 1 hour Lab Routine Diabetes mellitus screening Expected: 08/29/2024 (Approximate), Expires: 08/29/2025 [facility] Comment on above: Expected: 08/29/2024 (Approximate), Expires: 08/29/2025 Start: 08-29-2024 End: 08-29-2024 Patient encounter procedure 08/29/2024 8:50 AM EDT Routine [facility] [address] [facility] [place] [phone] Deep Salinas, DO [address] [place] [address] [facility] Start: 08-17-2024 End: 08-17-2025 [...] mellitus screening Expected: 08/01/2024 (Approximate), Expires: 08/01/2025 [facility] Work Phone: Comment on above: Expected: 08/01/2024 (Approximate), Expires: 08/01/2025 Start: 08-01-2024 End: 08-01-2025 Measurement of glucose 1 hour after glucose challenge for glucose tolerance test Glucose tolerance, 1 hour Lab Routine Diabetes mellitus screening Expected: 08/01/2024 (Approximate), Expires: 08/01/2025 [facility] Comment on above: Expected: 08/01/2024 (Approximate), Expires: 08/01/2025 Start: 07-04-2024 End: 07-04-2024 Patient encounter procedure 07/04/2024 10:30 AM EDT Routine [facility] [address] [place] [phone] Amy Rubalcava PA [address] [place] [address] [facility] Start: 06-06-2024 End: 06-06-2024 Patient encounter procedure [facility] Comment on above: Arrived Start: 05-05-2024 End: 05-05-2025 ABO/Rh ABO/Rh Lab Routine Missed menses , unspecified gestational age Expected: 05/05/2024 (Approximate), Expires: 05/05/2025 [facility] Comment on above: Expected: 05/05/2024 (Approximate), Expires: 05/05/2025 Start: 05-05-2024 End: 05-05-2025 Blood type and Indirect antibody screen panel - Blood Type and screen Lab Routine Missed menses , unspecified gestational age Expected: 05/05/2024 (Approximate), Expires: 05/05/2025 [facility] Work Phone: Comment on above: Expected: 05/05/2024 (Approximate), Expires: 05/05/2025 Start: 05-05-2024 End: 05-05-2025 Drugs of abuse panel - Urine by Screen method Rapid drug screen, urine Lab Routine , unspecified gestational age Encounter for supervision of normal first in first trimester Expected: 05/05/2024 (Approximate), Expires: 05/05/2025 [facility] Comment on above: Expected: 05/05/2024 (Approximate), Expires: 05/05/2025 Start: 12-26-2015 Screening for malign ant neoplasm of cervix Pap Smear [facility] Start: 2013 DTaP,Tdap and Td Vaccines (1 - Tdap) DTaP,Tdap and Td Vaccines (1 - Tdap) [facility] Start: 2012 Adult BMI Follow Up Plan Adult BMI Follow Up Plan [facility] Start: 2012 Adult BMI Screening Adult BMI Screen ing [facility] Start: 2006 Depression Screening Depression Scre ening [facility] Start: 2006 Tobacco Screening Tobacco Screening [facility] Bacteria identified in Urine by Culture Urine culture Microbiology Routine Missed menses Ordered: 05/05/2024 [facility] Comment on above: Ordered: 05/05/2024 CBC W Auto Different ial panel - Blood CBC and differential Lab Routine Missed menses , unspecified gestational age Ordered: 05/05/2024 [facility] Comment on above: Ordered: 05/05/2024 Comprehensive metabo lic 2000 panel - Serum or Plasma [facility] Hemoglobin A1c/Hemoglobin.total in Blood Hemoglobin A1c Lab Routine Missed menses , unspecified gestational age Ordered: 05/05/2024 [facility] Comment on above: Ordered: 05/05/2024 Hepatitis B virus surface Ag [Presence] in Serum or Plasma by Immunoassay Hepatitis B surface antigen Lab Routine Missed menses , unspecified gestational age Ordered: 05/05/2024 [facility] Comment on above: Ordered: 05/05/2024 Hepatitis C virus Ab [Presence] in Serum or Plasma by Immunoassay Hepatitis C antibody Lab Routine Missed menses , unspecified gestational age Ordered: 05/05/2024 [facility] Comment on above: Ordered: 05/05/2024 HIV-1/HIV-2 antigen/antibody combination immunoassay HIV-1 and HIV-2 antibodies Lab Routine Missed menses , unspecified gestational age Ordered: 05/05/2024 [facility] Comment on above: Ordered: 05/05/2024 Patient Education Low back pain in adults [facility] Work Phone: Reagin Ab [Presence] in Serum by RPR RPR Lab Routine Missed menses , unspecified gestational age Ordered: 05/05/2024 [facility] Comment on above: Ordered: 05/05/2024 Rubella antibody, IgG Rubella an tibody, IgG Lab Routine Missed menses , unspecified gestational age Ordered: 05/05/2024 [facility] Comment on above: Ordered: 05/05/2024 [facility] Payers Date Payer Category Payer [facility] [id number] 2021 [facility] Managed Care - PPO [id number] 1994 Unknown [id number] 2.16.840.1.917195.3.579.2.593 1994 Unknown [id number] 2.16.840.1.658285.3.579.2.593 1994 Unknown [id number] 2.16.840.1.823982.3.579.2.593 1994 Unknown [id number] 2.16.840.1.881602.3.579.2.593 1994 Unknown [id number] 2.16.840.1.235369.3.579.2.593 1994 Unknown [id number] 2.16.840.1.149272.3.579.2.593 1994 Unknown [id number] 2.16.840.1.421997.3.579.2.593 1994 Unknown [id number] 2.16.840.1.501268.3.579.2.593 1994 Unknown [id number] 2.16.840.1.624123.3.579.2.593 1994 Unknown [id number] 2.16.840.1.241437.3.579.2.1286 1994 Unknown [id number] 2.16.840.1.123862.3.579.2.128 1994 Unknown [id number] 2.16.840.1.610723.3.579.2.128 1994 Unknown [id number] 2.16840.1.212059.3.579.2.1285 1994 Unknown [id number] 2.16840.1.342743.3.579.2.128 1994 Unknown [id number] 2.16.840.1.831481.3.579.2.128 1994 Unknown [id number] 2.16840.1.671652.3.579.2.1286 1994 Unknown [id number] 2.16840.1.935572.3.579.2.1258 1994 Unknown [id number] 2.16.840.1.349494.3.579.2.9 1994 Unknown [id number] 2.16.840.1.118180.3.579.2.1258 1994 Unknown [id number] 2.16.840.1.279936.3.579.2.9 1994 Unknown [id number] 2.16.840.1.478570.3.579.2.1258 1994 Unknown [id number] 2.16.840.1.829123.3.579.2.9 1994 Unknown [id number] 2.16.840.1.176288.3.579.2.1258 1994 Unknown [id number] 2.16.840.1.894474.3.579.2.1258 1994 Unknown [id number] 2.16.840.1.082394.3.579.2.1258 1994 Unknown [id number] 2.16.840.1.144954.3.579.2.1258 1994 Unknown [id number] 2.16.840.1.978050.3.579.2.1258 1994 Unknown [id number] 2.16.840.1.079086.3.579.2.9 1959 [facility] [id number] 2.16.840.1.686317.19 Unknown [facility] [id number] Social History Date Type Detail Facility Unknown if ever smoked [employer] Other Start: 11-10-2024 End: 11-24-2024 Sex Assigned At [facility] Start: 06-21-2023 End: 12-20-2024 Tobacco smoking status RIIS Never smoked tobacco (finding) [facility] Start: 1995 Sex Assigned At Female F [facility] Tobacco smoking status [facility] Tobacco smoking consumption unknown [facility] Start: 03-14-2024 [facility] Start: 09-16-2023 Gender identity Identifies as female gender (finding) [facility] Start: 09-16-2023 Sexual orientation Heterosexual (fin ding) [facility] Start: 1994 Sex assigned at Not on file P [facility] Start: 08-04-2024 Sex Female (finding) [facility] Start: 11-08-2024 Tobacco use and exposure Smokeless tobacco non-user [facility] Start: 11-10-2024 End: 11-24-2024 History of Social function [facility] Start: 11-24-2024 End: 11-27-2024 Alcoholic beverage intake Ex-drinker (finding) [facility] How hard is it for you to pay for the very basics like food, housing, medical care, and heating Not very hard [facility] Adolescent depressio n screening assessment 0 [facility] The thought of harming myself has occurred to me Never [facility] NEGATED: Highlighted rowStart: JACOBF History of tobacco use Passive smoker [facility] Goals Date Patient Goal Desired Activity /State Personal health goal Clinical Notes 11-15-2012 to 01-03-2025 SILVIA Castañeda - 01/03/2025 10:30 AM EDTCivan Bush MD - 12/01/2024 9:00 AM Bautista Bush MD - 11/30/2024 7:08 PM EDTLactation Note - Aura Santoyo RN - 11/24/2024 1:33 PM EDT Note Date & Type Note Facility 01-03-2025 History of Presen t illness Narrative Reason for Appointment: Patient ID: Hannah Claire is a 29 y.o. female who presents for Care (Pt present today for a 6 week post visit. Pt delivered on 11/09/2024 at [facility] in [place]. ) Patient presents today for Post Follow Up appointment. MEDICATIONS Current Outpatient Medications Medication Instructions [...] Negative. Musculoskeletal: Negative. Skin: Negative. Neurological: Negative. Psychiatric/Behavioral: Negative. All other systems reviewed and are [...] reviewed. Vitals: Estimated body mass index is 35.2 kg/m as calculated from the following: Height as of 09/09/22: 5' 5 . Weight as of 11/08/24: 211 lb 8 oz. BP: No LMP recorded. ASSESSMENT & PLAN ICD-10-CM 1. 6 weeks follow-up ([facility]) Z39.2 2. Spontaneous vaginal delivery ([facility]) O80 Post Follow Up: Patient is doing well has no complaints. Patient presents today for 6 week visit. Patient is s/p Vaginal delivery. Patient states no depression denies suicidal and homicidal ideations. All options were discussed with the patient regarding control and patient desires oral contraception . Follow Up: Patient is to return for annual unless needed otherwise. Documented by Tammi Rivers MA on behalf of: SILVIA Castañeda documented in this encounter [facility] 12-01-2024 History of Presen t illness Narrative Video Visit via Real-time Synchronous Audiovisual Provider Location: [facility] [address] [facility] [address] Patient Location: Patient's home Video Visit Consent Statement: I discussed risks, benefits, and alternatives of a real-time synchronous audiovisual consultation with the patient (and any accompanying persons) including the risks that the patient's personal health details and medical records will be discussed over real-time, synchronous, interactive video/audio/telecommunication technology, the visit will not be recorded without the express consent of both the provider and the patient, and that there are some limitations compared to [id number] evaluations. The patient consented to the presence of additional virtual and/or in-person participants. We elected to proceed. During today's virtual encounter, the exam was conducted using remote examination tools and equipment to assess and diagnose the patient's condition. Any recorded findings have been saved and documented for future reference. CC: Post Op Visit Summary: Transfer from [place] S/p vaginal delivery on 11/09/24 at 34+ weeks. Induced for preeclampsia with severe features. Care notable for preeclampsia with severe features, chronic iron deficiency anemia Released home on PPD#5 on nifedipine xl 60 mg every 12 hours and labetalol 300 mg every 8 hours 11/16/24 BP follow up No change in medications Since last visit/over the weekend, we titrated her meds down such that labetalol discontinued and nifedipine xl 60 mg decreased to daily dosing. Today she reports feeling good BP Log: Usually checking in the mornings sometimes Noon. Takes the nifecipine around 8 am. 8 noon 119/83 11/28 12:30 116/84 8/6 nOON 114/79 11/30 0815 Pre dose 121/84 8 0830 pre dose 112/75 Infant feeding: breast milk is now home BCM: desires oral contraceptive PE Telehealth Alert, NAD Lab Results Component Value Date WBC 13.2 (H) 11/11/2024 HGB 7.9 (L) 11/11/2024 HCT 23.9 (L) 11/11/2024 MCV 89 11/11/2024 PLT 231 11/11/2024 Imp/Plan vaginal delivery, doing well hypertension due to preeclampsia with severe features. Meds: Stop medication Continue twice daily bp checks and log Preeclampsia warnings discussed Chronic iron deficiency anemia with superimposed acute blood loss anemia Continue PNV and iron supplement Recheck CBC at 6 weeks pp visit. Telehealth one week Return to office for exam with Dr. Salinas's office--she has appt Note to patient: The 21st Century Cures Act makes medical notes like these available to patients in the interest of transparency. However, be advised this is a medical document. It is intended as peer to peer communication. It is written in medical language and may contain abbreviations or verbiage that are unfamiliar. It may appear blunt or direct. Medical documents are intended to carry relevant information, facts as evident, and the clinical opinion of the practitioner. documented in this encounter [employer] 11-30-2024 History of Presen t illness Narrative Over the weekend, patient and I communicated regarding her home blood pressure recordings and medication. By the end of the weekend, we had discontinued the labetalol and decreased the nifedipine xl to 60 mg daily with plans for her to call with any symptoms of dizziness or orthostatic symptoms. She has follow up this week. documented in this encounter [employer] 11-24-2024 Miscellaneous Notes This note was copied from a baby's chart. Met with mom at 's bedside. Infant being prepared for discharge home, mom may work on at home. Continue limiting breast attempts to 5-10 minutes. If able to achieve effective latch with active sucking and audible swallows, aim for a goal of 15-20 minutes at breast. If after 5-10 minutes, infant is unable to maintain a latch, offer a bottle of pumped milk to ensure adequate nutrition. Follow up with outpatient services for assistance as needed ([phone]). Storage guidelines given and reviewed. No further questions or concerns. Thank you for allowing us to participate in yours and Windy's care during her NICU journey! Breast Milk Collection and Storage Guidelines Remember to collect and store breast milk in clean containers specifically made for breast milk storage. Room temperature: up to 4 hours Cooler: up to 24 hours Refrigerator: up to 4 days Freezer: up to 6 months Deep Freezer: up to 12 months Breast milk thawed in refrigerator: If you thaw your frozen breast milk in the refrigerator, you can keep it there for up to 24 hours, or at room temperature for up to 2 hours. Once frozen breast milk is thawed, do not refreeze it. Safe Handling for Pumped Breast Milk If you see that your stored breast milk has and there s cream at the top, don t worry - it s normal for this to happen! Just gently swirl warmed bottles to mix the milk layers. You can add small amounts of cooled breast milk to the same refrigerated container during the day. Avoid adding warm milk to already cooled milk. Thaw frozen breast milk overnight in the refrigerator, or hold the bottle under warm running water. Don t use the microwave to heat your breast milk - it can damage the composition of the milk and cause hot spots that could burn your little one s mouth. documented in this encounter [facility] 11-24-2024 Obstetrics Note This note was copied from a baby's chart. Met with mom at infant's bedside. Infant being prepared for discharge home, mom may work on at home. Continue limiting breast attempts to 5-10 minutes. If infant able to achieve effective latch with active sucking and audible swallows, aim for a goal of 15-20 minutes at breast. If after 5-10 minutes, is unable to maintain a latch, offer a bottle of pumped milk to ensure adequate nutrition. Follow up with outpatient services for assistance as needed ([phone]). Storage guidelines given and reviewed. No further questions or concerns. Thank you for allowing us to participate in yours and Windy's care during her NICU journey! Breast Milk Collection and Storage Guidelines Remember to collect and store breast milk in clean containers specifically made for breast milk storage. Room temperature: up to 4 hours Cooler: up to 24 hours Refrigerator: up to 4 days Freezer: up to 6 months Deep Freezer: up to 12 months Breast milk thawed in refrigerator: If you thaw your frozen breast milk in the refrigerator, you can keep it there for up to 24 hours, or at room temperature for up to 2 hours. Once frozen breast milk is thawed, do not refreeze it. Safe Handling for Pumped Breast Milk If you see that your stored breast milk has and there s cream at the top, don t worry - it s normal for this to happen! Just gently swirl warmed bottles to mix the milk layers. You can add small amounts of cooled breast milk to the same refrigerated container during the day. Avoid adding warm milk to already cooled milk. Thaw frozen breast milk overnight in the refrigerator, or hold the bottle under warm running water. Don t use the microwave to heat your breast milk - it can damage the composition of the milk and cause hot spots that could burn your little one s mouth. [facility] 11-24-2024 History of Presen t illness Narrative CC: Post Op Visit Transfer from [place] S/p vaginal delivery on 11/09/24 at 34+ weeks. Induced for preeclampsia with severe features. Care notable for preeclampsia with severe features, chronic iron deficiency anemia Released home on PPD#5 on nifedipine xl 60 mg every 12 hours and labetalol 300 mg every 8 hours 11/16/24 BP follow up No change in medications Today reports overall feeling well. Feels like the morning dose of medications is associated with not feeling well. + dizziness with standing up Denies headache, visual change, RUQ/Upper abdominal pain BP Log last 3 days 108-125/70s EPDS: Depression: Medium Risk (11/24/2024) [place] Depression Scale Last EPDS Total Score: 6 Last EPDS Self Harm Result: Never feeding: is in the NICU BCM: oral contraceptive PE BP 108/60 Pulse 75 Ht 165.1 cm (5' 5 ) Wt 78.8 kg (173 lb 12.8 oz) LMP 02/29/2024 Yes BMI 28.92 kg/m Alert, NAD Lab Results Component Value Date WBC 13.2 (H) 11/11/2024 HGB 7.9 (L) 11/11/2024 HCT 23.9 (L) 11/11/2024 MCV 89 11/11/2024 PLT 231 11/11/2024 Path Report: None TDaP does not recall receiving Imp/Plan vaginal delivery, doing well hypertension due to preeclampsia with severe features Meds: Decrease labetalol to every 12 hours Alternate every 6 hours between nifedipine xl 60 every 12 and the labetalol 300 mg every 12 hours Call if bp persists with 100-110/60s.--will then titrate labetalol (not hold doses) She will call me with bp in the morning (will hold evening labetalol to get on every 6 hour alternating dosing) Check bp at 10-11 am Continue twice daily bp checks and log Preeclampsia warnings discussed Chronic iron deficiency anemia with superimposed acute blood loss anemia Continue PNV Iron supplement every other day. BP check one week HROB Note to patient: The Cures Act makes medical notes like these available to patients in the interest of transparency. However, be advised this is a medical document. It is intended as peer to peer communication. It is written in medical language and may contain abbreviations or verbiage that are unfamiliar. It may appear blunt or direct. Medical documents are intended to carry relevant information, facts as evident, and the clinical opinion of the practitioner. Pt here for 1 week visit States feeling good Iron is causing constipation - colace worked well in hospital Still some bleeding - dark brownish but not heavy Taking both BP meds make pt have side blurry vision and nausea BP logs here today [facility] Miscellaneous Notes This note was copied from a baby's chart. Met with mother at 's bedside. States pumping is going well and supply is stable. Baby goes to breast well, but tends to get sleepy after about 6min. Assured this is expected for gestational age and she will gain endurance and strength to feed longer as she grows and practices at breast. Encouraged to reach out with any needs. Support given. [facility] Obstetrics Note This note was copied from a baby's chart. Met with mother at infant's bedside. States pumping is going well and supply is stable. Baby goes to breast well, but tends to get sleepy after about 6min. Assured this is expected for gestational age and she will gain endurance and strength to feed longer as she grows and practices at breast. Encouraged to reach out with any needs. Support given. [facility] [employer] [facility] 11-17-2024 Miscellaneous Notes This note was copied from a baby's chart. Met with mom at infants bedside. States pumping is going well, pumping about 2-6 oz every 4-5 hours. Denies pain or discomfort. Reviewed pump guidelines. Latch is improving per mom. Educated what a good feed is and how to achieve a deep latch. No concerns at this time. Encouraged to call out for any needs.support given. Pump guidelines: Pump every 2-3 hours for 15-20 minutes each time Pump 8-12 times in 24 hours Clean parts in warm, soapy water; rinse and air dry after every use Sanitize parts once a day Signs of a good feeding Hearing swallowing at least every third suck once the milk comes-in. Seeing milk in the baby s mouth Consistent sucking with only brief pauses The breasts are softer after feedings Feeling strong, deep, pulling , sucking, no sharp pain Leaking from the other breast or feeling of a let-down reflex or noticing a change in the baby s sucking rhythm from faster to slower Your baby latches-on easily with minimal attempts and stays latched-on. DEEP LATCH SUGGESTIONS: -position baby at level of the breast, use lots of pillows for support -position baby belly to belly , with ear in line with shoulder and hip -use one hand to support baby at the shoulders to help with head control and keep airway straight and open -point nipple toward nose/roof of baby's mouth -wait for baby to open wide, bring on chin-first for an asymmetrical latch : scoop as much of bottom breast tissue/areola into baby's mouth first, then bring baby up and over to complete a deep latch *if latch becomes uncomfortable or appears shallow, break seal with finger to take baby off, try to latch again documented in this encounter [facility] 11-17-2024 Obstetrics Note This note was copied from a baby's chart. Met with mom at infants bedside. States pumping is going well, pumping about 2-6 oz every 4-5 hours. Denies pain or discomfort. Reviewed pump guidelines. Latch is improving per mom. Educated what a good feed is and how to achieve a deep latch. No concerns at this time. Encouraged to call out for any needs.support given. Pump guidelines: Pump every 2-3 hours for 15-20 minutes each time Pump 8-12 times in 24 hours Clean parts in warm, soapy water; rinse and air dry after every use Sanitize parts once a day Signs of a good feeding Hearing swallowing at least every third suck once the milk comes-in. Seeing milk in the baby s mouth Consistent sucking with only brief pauses The breasts are softer after feedings Feeling strong, deep, pulling , sucking, no sharp pain Leaking from the other breast or feeling of a let-down reflex or noticing a change in the baby s sucking rhythm from faster to slower Your baby latches-on easily with minimal attempts and stays latched-on. DEEP LATCH SUGGESTIONS: -position baby at level of the breast, use lots of pillows for support -position baby belly to belly , with ear in line with shoulder and hip -use one hand to support baby at the shoulders to help with head control and keep airway straight and open -point nipple toward nose/roof of baby's mouth -wait for baby to open wide, bring on chin-first for an asymmetrical latch : scoop as much of bottom breast tissue/areola into baby's mouth first, then bring baby up and over to complete a deep latch *if latch becomes uncomfortable or appears shallow, break seal with finger to take baby off, try to latch again [facility] 11-16-2024 History of Presen t illness Narrative Video Visit via Real-time Synchronous Audiovisual Provider Location: [facility] [address] [facility] [id number] Patient Location: Other - [facility] Patient Location Rolloff Driver: None Video Visit Consent Statement: I discussed risks, benefits, and alternatives of a real-time synchronous audiovisual consultation with the patient (and any accompanying persons) including the risks that the patient's personal health details and medical records will be discussed over real-time, synchronous, interactive video/audio/telecommunication technology, the visit will not be recorded without the express consent of both the provider and the patient, and that there are some limitations compared to [id number] evaluations. We elected to proceed. Subjective: Hannah Claire is a 28 y.o. is seen today via televisit. She is 7 days post- from a [facility]. Her was complicated by preeclampsia with severe features. She was transported from [place] on 11/09 with pre-eclampsia with severe features (BP). Patient was at her routine visit and noted to have systolic blood pressure in 180s. At [facility] she was noted to have multiple severe range blood pressures. She received labetalol 20/40mg IV and was started on magnesium sulfate with 4 g bolus and 2g maintenance. UPCR performed was 9.29. HELLP labs were otherwise within normal limits. On arrival to [facility], patient was continued on magnesium sulfate maintenance infusion. She was started on Procardia XL 30 mg daily. Induction began with cook balloon and pitocin per protocol. PCN was started for GBS unknown. Amniotomy performed after removal of cook balloon. Patient received her epidural. She progressed to complete and had of viable female weighing 2090g with APGARS of 6, 7,and 9. She was continued on magnesium sulfate for 24 hours PP. On PPD#3, she had a severe range pressure requiring 10mg Procardia. Her maintenance Procardia was increased to 30mg q12h. Overnight on PPD#3 she required 20mg IV Labetalol due to another severe range blood pressure. She was started on Labetalol 200mg BID which was increased to Labetalol 300mg TID on PPD#4. Blood pressures were well controlled on this regimen and she was discharged home on day number 5. She denies any questions or concerns today. She had a female who is currently breast feeding. Does not have lead burner helper follow up as baby is in NICU. She is not sure who this baby's lead burner helper will be as her other daughter sees their family practice doctor but he is not comfortable seeing a high risk NICU baby. She is currently on Procardia XL 60mg BID and Labetalol 300mg TID and is taking as prescribed. She is checking her BP twice daily. She denies headache, visual changes, epigastric pain or significant change in swelling in her hands, feet or face. Objective: Her home blood readings are as follows: 11/14/2024 11/15/2024 11/16/2024 PM AM Not done yet today 131/88 117/77 Taken 30min Prior to PM Evening dose 133/86 General: well appearing, no acute distress. Neuro: Alert and oriented Assessment and Plan: Follow up in office scheduled for 1 week. Pre-eclamptic warnings reviewed. Call provider mitochondrial disorders counselor for headache unresolved with tylenol, visual change, epigastic pain or significant change in swelling in her hands feet or face. Let the office know if BP readings consistently over 140/90 (either number). Call provider mitochondrial disorders counselor for BP greater than 160/110 (either number). Continue on Procardia XL 60mg BID and Labetalol 300mg TID as prescribed. Hypotensive warnings reviewed - call if experiencing dizziness, weakness or fainting. GERALD Farmer 11/16/24 0917 documented in this encounter [facility] 11-08-2024 History of Presen t illness Narrative Reason for Appointment: Patient ID: Hannah Claire is a 28 y.o. female who [...] nursing note reviewed. Exam conducted with a animal sitter present. Vitals: Estimated body mass index is 35.2 kg/m as calculated from the following: Height as of 09/09/22: 5' 5 . Weight as of this encounter: 211 lb 8 oz. BP: (!) 180/112 Patient's last menstrual period was 02/29/2024. ASSESSMENT & PLAN ICD-10-CM 1. Third trimester ([facility]) Z34.93 POCT urinalysis dipstick manually resulted 2. 34 weeks gestation of ([facility]) Z3A.34 3. Elevated BP without diagnosis of hypertension R03.0 Return OB: Patient presents today for a routine obstetrics appointment. Patient is currently 34w5d . Patient states she is doing well but has complaints of being tired due to current . Pt has pitting edema, blood pressure elevated in office. Pt being sent to [facility] for evaluation. Patient has verbalizes frequent movement. labor precautions was discussed/given and patient was instructed to perform kick counts three times a day. Orders Placed This Encounter Procedures POCT urinalysis dipstick manually resulted Follow Up: Patient is to return to office in 1 week for routine OB appointment. Documented by Jackie Faustin LPN on behalf of: Deep Salinas DO documented in this encounter [facility] 10-25-2024 History of Presen t illness Narrative Reason for Appointment: Patient ID: Hannah Claire is a 28 y.o. female who [...] ASSESSMENT & PLAN ICD-10-CM 1. Third trimester ([facility]) Z34.93 2. 32 weeks gestation of ([facility]) Z3A.32 Return OB: Patient presents today for [...] of: SILVIA Castañeda documented in this encounter [facility] 10-11-2024 History of Presen t illness Narrative Reason for Appointment: Patient ID: Hannah Claire is a 28 y.o. female who [...] nursing note reviewed. Exam conducted with a animal sitter present. Vitals: Estimated body mass index is 31.95 kg/m as calculated from the following: Height as of 09/09/22: 5' 5 . Weight as of this encounter: 192 lb. BP: 118/74 Patient's last menstrual period was 02/29/2024. ASSESSMENT & PLAN ICD-10-CM 1. Third trimester ([facility]) Z34.93 POCT urinalysis dipstick manually resulted 2. 30 weeks gestation of ([facility]) Z3A.30 Return OB: Patient presents today for [...] by Jackie Faustin LPN on behalf of: Deep Salinas DO documented in this encounter [facility] 09-26-2024 History of Presen t illness Narrative Reason for Appointment: Patient ID: Hannah Claire is a 28 y.o. female who [...] Documented by SILVIA Castañeda on behalf of: Deep Salinas DO documented in this encounter [facility] 08-29-2024 History of Presen t illness Narrative Reason for Appointment: Patient ID: Hannah Claire is a 28 y.o. female who [...] nursing note reviewed. Exam conducted with a animal sitter present. Vitals: Estimated body mass index is [...] of Delivery: 12/16/24. Pt to return to [facility] for suboptimal visualization. Pt to return in 4 weeks for scheduled OB appt. Pt due date 12/15/24 based on ultrasound dating. Documented by Jackie Faustin LPN on behalf of: Deep Salinas DO documented in this encounter [facility] 08-03-2024 Telephone encounter Note Hi, this is Hannah Claire. I was calling back about a voicemail I have from Dr. Salinas yesterday about my ultrasound results and I just had some questions and things. I wanted to go over with that. So whenever he or nurse is available, I would appreciate a call back at [phone], thank you. Returned call. Pt had questions regarding scheduling with [facility]. Advised pt that [facility] will call her to schedule appt. Pt also wanting to discuss with Dr. Salinas regarding normal parameters of growth. Also wanting to discuss possible causes of small growth for GA. Pt wanting to know if we can compare her previous baby's 20wk ultrasound to this baby as her previous child was also measuring small. Please advise. [facility] 08-03-2024 Miscellaneous Notes Hi, this is Hannah Claire. I was calling back about a voicemail I have from Dr. Salinas yesterday about my ultrasound results and I just had some questions and things. I wanted to go over with that. So whenever he or nurse is available, I would appreciate a call back at [phone], thank you. Returned call. Pt had questions regarding scheduling with [facility]. Advised pt that [facility] will call her to schedule appt. Pt also wanting to discuss with Dr. Salinas regarding normal parameters of growth. Also wanting to discuss possible causes of small growth for GA. Pt wanting to know if we can compare her previous baby's 20wk ultrasound to this baby as her previous child was also measuring small. Please advise. documented in this encounter [facility] 08-01-2024 History of Presen t illness Narrative Reason for Appointment: Patient ID: Hannah Claire is a 28 y.o. female who [...] nursing note reviewed. Exam conducted with a animal sitter present. Vitals: Estimated body mass index is [...] by Jackie Faustin LPN on behalf of: Deep Salinas DO documented in this encounter [facility] 06-06-2024 History of Presen t illness Narrative Reason for Appointment: Patient ID: Hannah Claire is a 28 y.o. female who [...] nursing note reviewed. Exam conducted with a animal sitter present. Vitals: Estimated body mass index is [...] or undercooked meat, and stay away from [facility]. Patient has been consulted regarding any further do's and don'ts of . Patient voiced understanding and all questions and concerns were answered. Orders Placed This Encounter Procedures POCT urinalysis dipstick manually resulted Follow Up: Patient is to return in 4 weeks for routine OB appointment. Documented by Jackie Faustin LPN on behalf of: Deep Salinas DO documented in this encounter [facility] 05-05-2024 History of Presen t illness Narrative Reason for Appointment: Patient ID: Hannah Claire is a 28 y.o. female who [...] or undercooked meat, and stay away from [facility]. Patient has also been advised to [...] Tammi Rivers MA documented in this encounter [facility] 09-23-2023 Evaluation note Authored September 23, 2023 12:25 pm The above note written by __ _Shaye Cardoso____ acting as human recorder, note dictated by Dr. Almazan .I performed the above HPI, ROS, and Examination. I formulated and dictated the treatment plan and was present for entire encounter. Guy Mullen D.O. [facility] Work Phone: [phone]) 525-702101-25-2024 Evaluation note* Encounter Date Diagnosis Assessment Notes [...] and no personal patient information was compromised. [employer] Other 12-26-2023 Evaluation note* Encounter Date Diagnosis [...] Mar, Other 3:55 PM - 4:00 PM [employer] Other 11-28-2023 Evaluation note* Encounter Date Diagnosis [...] then she can continue with the medicine. [employer] Other 07-18-2022 Evaluation note* Encounter Date Diagnosis [...] prescribed above medication by Dr. Salinas her asset protection specialist for the heartburn she has. [employer] Other 07-23-2013 History general Narrative - Reported* Type Description Date Medical History Meningitis/Menactra 11-15- [facility] Medical History Adacel (Tdap) 11-15-12 [facility] Surgical History wisdom teeth removed 2015 [employer] Other 07-23-2013 History general Narrative - Reported* Type Description Date Medical History Meningitis/Menactra -- [facility] Medical History Adacel (Tdap) 11-15-12 [facility] Surgical History wisdom teeth removed 2015 Hospitalization History Childbirth 12/28/2021 [employer] Other Evaluation noteNo InformationNort [employer] Other Evaluation note* Diagnosis Onset Date Resolution Status Hyperglycemia acute Weight gain acute [facility] Work Phone: Evaluation note* Diagnosis Missed menses 9 weeks gestation of , unspecified gestational age Encounter for supervision of normal first in first trimester [facility] Diagnosis Second trimester state, incidental 14 weeks gestation of documented in this encounter [facility]* Diagnosis Second trimester state, incidental 22 weeks gestation of Diabetes mellitus screening Screening for diabetes mellitus documented in this encounter [facility]* Diagnosis Encounter for follow-up ultrasound of anatomy- Primary [facility] Diagnosis Second trimester state, incidental 24 weeks gestation of Diabetes mellitus screening Screening for diabetes mellitus documented in this encounter [facility]* Diagnosis anomaly necessitating delivery, single or unspecified fetus- Primary Third trimester state, incidental 28 weeks gestation of Gastroesophageal reflux in documented in this encounter [facility]* Diagnosis Third trimester ([facility]) state, incidental 30 weeks gestation of ([facility]) documented in this encounter [facility]* Diagnosis Third trimester ([facility]) state, incidental 32 weeks gestation of ([facility]) documented in this encounter [facility]* Diagnosis Third trimester ([facility]) state, incidental 34 weeks gestation of ([facility]) Elevated BP without diagnosis of hypertension documented in this encounter [facility] HealthcareEvaluation note* Diagnosis Blood pressure check- Primary Screening for hypertension Pre-eclampsia, severe, antepartum, third trimester [facility] Diagnosis hypertension- Primary History of severe pre-eclampsia documented in this encounter [facility] System[facility]* Diagnosis hypertension- Primary History of severe pre-eclampsia [facility] Diagnosis Onset Date Resolution Status Admit Date Pre-eclampsia acute November 9:54am Wellness examination acute Novu 2024 9:54am [facility] Work Phone: Evaluation note* Diagnosis 6 weeks follow-up (HHS-HCC) Spontaneous vaginal delivery (HHS-HCC) Normal delivery control counseling documented in this encounter [facility] HealthcareInstructionsNot on filedocumented in this encounterPro[facility] SystemInstructionsNot on filedocumented in this encounterProBarberton [facility] SystemInstructionsNot on filedocumented in this encounterProBarberton [facility] SystemInstructionsNot on filedocumented in this encounterProBarberton [facility] InstructionsNot on filedocumented in this encounterProBarber[facility] InstructionsNot on filedocumented in this encounterProBarberton Citizens Hospital SystemReason for referral (narrative)No reason for referral information availableBarn[facility] Work Phone: Reason for visit Narrative* Consultation (Routine) - Pending Review Specialty Diagnoses / Procedures Referred By Shannan t Referred To Contact Obstetrics and Gynecology Diagnoses Pre-eclampsia, severe, antepartum, third trimester Lisa Verdugo MD [address] [facility], [facility] [place] [address] [place] [address] Phone: tel: fax: [facility] [address] [place] [address] Phone: tel: fax: Referral ID Status Reason Start Date Expiration Date V isits Requested Visits Authorized [id number] Pending Review 11/14/2024 11/14/2025 1 1 [facility] Summary Purpose Family History No Family History Records Found Relationship Condition Age at Onset Recorded Date/T tommy grandparent Unknown Not Specified Malignant neoplasm 75 Relationship Condition Age at Onset Recorded Date/T tommy grandparent Unknown maternal grandmother Malignant neoplasm 75 Advance Directives No Advanced Directives Records Found Advance Directive Response Recorded Date/ Time Advance Directives No May 20, 2023 1:31pm Date Activated Date Inactivated Comments 11/08/2024 11:06 PM 11/14/2024 6:22 PM Date Activated Date Inactivated Comments 11/08/2024 11:06 PM 11/14/2024 6:22 PM Chief Complaint and Reason for Visit Chief Complaint med refill Adipex Reason for Visit Hyperglycemia Weight gain Chief Complaint med refill Adipex med refill Adipex Reason for Visit Hyperglycemia Weight gain Hyperglycemia Lumbar pain Weight gain Chief Complaint Admit Date wellness visit December 20, 2024 9: 54am Reason for Visit Admit Date Pre-eclampsia December 20, 2024 9: 54am Wellness examination December 20, 2024 9 :54am Additional Source Comments REASON FOR VISIT (unrecogniz ed section and content) Reason Comments Amenorrhea Reason Comments Routine Visit Reason Comments Care Reason Comments Care Pt present today for a 6 week post visit. Pt delivered on 11/09/2024 at [facility] in [place]. INFORMATION SOURCE (unrecogn ized section and content) DATE CREATED AUTHOR 09/10/2022 [facility] DATE CREATED AUTHOR AUTHOR'S ORGANIZ ATION 08/18/2024 [facility] DATE CREATED AUTHOR AUTHOR'S ORGANIZ ATION 09/22/2024 [facility] DATE CREATED AUTHOR AUTHOR'S ORGANIZ ATION 12/03/2024 [facility] DATE CREATED AUTHOR AUTHOR'S ORGANIZ ATION 01/05/2025 [facility] [employer] Care Teams (unrecognized sec tion and content) Team Status: Active Member Role Status Pete Mullen DO Primary Care Provider Active Team Status: Active Member Role Status Pete Mullen DO Primary Care Provider Active S tart: November 08, 2024 Deep Salinas DO Attending Provider Active Start : November 08, 2024 Team Status: Inactive Member Role Status Pete Mullen DO Primary Care Provider Active S tart: December 20, 2024 End: December 20, 2024 Guy Mullen DO Attending Provider Active Star t: December 20, 2024 End: December 20, 2024 Team Status: Inactive Member Role Status Pete Mullen DO Primary Care Provide r, Attending Provider Active Start: September 23, 2023 End: September 23, 2023 Team Status: Inactive Member Role Status Pete Mullen DO Primary Care Provide r, Attending Provider Active Start: December 21, 2023 End: December 21, 2023 Stranding Supervisor Relationship Specialty Start Date End Date Guy Mullen MD [address] [place] [address] PCP - General 09/16/23 Stranding Supervisor Relationship Specialty Start Date End Date Guy Mullen MD [address] [place] [address] PCP - General 09/16/23 Stranding Supervisor Relationship Specialty Start Date End Date Guy Mullen MD [address] [place] [address] PCP - General 09/16/23 Stranding Supervisor Relationship Specialty Start Date End Date Guy Mullen MD [address] [place] [address] PCP - General 09/16/23 Stranding Supervisor Relationship Specialty Start Date End Date Guy Mullen MD [address] [place] [address] PCP - General 09/16/23 Stranding Supervisor Relationship Specialty Start Date End Date Guy Mullen MD [address] [place] [address] PCP - General 09/16/23 Stranding Supervisor Relationship Specialty Start Date End Date Guy Mullen MD [address] [place] [address] [place] [address] PCP - General 09/16/23 Stranding Supervisor Relationship Specialty Start Date End Date Guy Mullen MD [address] [place] [address] [place] [address] PCP - General 09/16/23 Stranding Supervisor Relationship Specialty Start Date End Date Guy Mullen MD [address] [place] [address] [place] [address] PCP - General 09/16/23 Stranding Supervisor Relationship Specialty Start Date End Date Guy Mullen MD [address] [place] [address] PCP - General 09/16/23 Stranding Supervisor Relationship Specialty Start Date End Date Guy Mullen MD [address] [place] [id number] PCP - General 09/16/23 Stranding Supervisor Relationship Specialty Start Date End Date Guy Mullen MD [address] [place] [id number] PCP - General 09/16/23 Stranding Supervisor Relationship Specialty Start Date End Date Guy Mullen MD [address] [place] [id number] PCP - General 09/16/23 Stranding Supervisor Relationship Specialty Start Date End Date Guy Mullen MD [address] [place] [id number] PCP - General 09/16/23 Goals (unrecognized section [...] BE BASED ON THE PRIMARY CLINICAL RECORDS. [facility]. provides no warranty or guarantee of the accuracy or completeness of information in this document.
--- NOTE | 2025-01-18 09:00 | CA_ITS ---
Patient Name: ARISTIDES CLAIRE MR#: [id number] : 1995 Exam Date: 01/18/2025 Ordering Doctor: DR GUY MULLEN ECHOCARDIOGRAM REPORT PROCEDURE: CA ECHO DOPPLER COMPLETE INDICATIONS: Pre-eclampsia COMPARISON: None. DESCRIPTION: COMPLETE ECHOCARDIOGRAM Real-time transthoracic echocardiography with 2D, M-mode, spectral and color flow Doppler performed. QUALITY: Technical quality was good. LEFT VENTRICLE: Normal chamber size. Normal left ventricular wall thickness. Systolic function is normal. LV EF: Normal left ventricular ejection fraction, (>55%). DIASTOLIC: Normal diastolic function. ATRIAL SEPTUM: LEFT ATRIUM: Normal chamber size. RIGHT ATRIUM: Normal chamber size. RIGHT VENTRICLE: Normal chamber size. Normal right ventricular systolic function. TRICUSPID VALVE: Normal mobility and thickness. No stenosis with trivial regurgitation. No evidence of pulmonary hypertension. RVSP 25 mmHg MITRAL VALVE: Normal mobility and thickness. No evidence of mitral valve stenosis. There is no mitral annular calcification. Mild mitral regurgitation. AORTIC VALVE: Normal trileaflet appearance. No visible sclerosis. Normal leaflet mobility. No evidence of aortic valve stenosis. No aortic regurgitation. AORTIC ROOT: Normal diameter and appearance, measuring 3.0 cm. Ascending aorta is normal in size, measuring 2.9 cm. PULMONIC VALVE: Normal thickness and mobility. No stenosis. No regurgitation. PERICARDIUM: No evidence of pericardial effusion. IVC: Collapses with inspiration. PLEURA: CONCLUSION: 1. Normal ventricular size and systolic function. Estimated LVEF is 55-60%. 2. Normal diastolic function. 3. Mild mitral regurgitation. 4. Normal right-sided pressures. Adult Echocardiography Procedure Report Left Ventricle LVEDD (3.7 - 5.6 cm): 5.40 cm LVESD (2.2 - 4.0 cm): 3.92 cm LVIVS thickness (0.6 - 1.2 cm): 0.76 cm LVPW thickness (0.5 - 1.0 cm): 0.67 cm e': 0.18 m/s E - e': 4.46 LVOT Max Gradient: 4.21 mm[Hg] LVOT Area (cm2): 1.03 m/s Peak Velocity (LVOT): 1.03 m/s Mean Velocity (LVOT): 0.72 m/s LVOT Diameter 2.05 cm Left Ventricular Ejection Fraction: 55-60 % Left Atrium LA Volume Index (2D A2C): 34.87 ml/m2 Left Atrium Systolic Dimension: 3.62 cm Mitral Valve MV E to A Ratio: 1.58 Mitral Valve A-Wave Peak Velocity: 0.51 m/s Mitral Valve E-Wave Peak Velocity: 0.81 m/s Right Ventricle Aorta AO Root Diam: 3.05 cm Ascending Ao Diam: 2.87 cm Aortic Valve AoV Area (Peak Chay): 2.58 cm2, 2.58 cm2 AoV Area (VTI): 2.65 cm2, 2.65 cm2 Peak Velocity(Antegrade Flow): 1.31 m/s Peak Gradient(Antegrade Flow): 6.85 mm[Hg] Mean Velocity(Antegrade Flow): 0.92 m/s Mean Gradient(Antegrade Flow): 3.82 mm[Hg] Velocity Time Integral: 30.24 cm Tricuspid Valve Peak Velocity (Regurgitant Flow): 2.34 m/s Pulmonic Valve Peak Gradient: 3.31 mm[Hg], 4.14 mm[Hg] Right Atrium Right Atrium Systolic Pressure: 54.37 ml, 54.37 ml Dictated by: Martin Falcon M.D. on 01/18/2025 at 17:02 Approved by: Martin Falcon M.D. on 01/18/2025 at 17:07
[2025-01-18 10:17] LABS: Cholesterol 183 mg/dL (<=200); HDL Cholesterol 71 mg/dL (40-60); Triglycerides 31 mg/dL (<=150); VLDL CHOLESTEROL 6.2 mg/dL
== END 2025-01-18 08:44 | disposition home or self-care (01) ==
LOC: CARD 08:43
PROVIDERS: PCP Family Medicine; Visit Provider Family Medicine
DX: Z00.00 Encounter for general adult medical examination without abnormal findings (principal); O14.90 Unspecified pre-eclampsia, unspecified trimester
CPT/HCPCS: 36415; 80061; 93306

== ENCOUNTER 2025-02-05 09:56 | Outpatient (OUT) | payer BC, SELFPAY ==
--- OUTSIDE RECORDS SUMMARY | 2025-02-05 10:04 | XMS_ITS | CCD ---
Author Organization [facility] Care Team Providers Care Assistant City Attorney Name Role Phone Guy Mullen BRAD ., [...] Unavailable Guy Mullen DO Primary Care Provider [phone] Deep Salinas DO Attending Provider Guy Mullen DO Attending Provider DEEP SALINAS Attending Unavailable GINI, Attending Unavailable [...] Start: 11-24-2024 take 1 capsule by mo [facility] in the morning, then take 1 [...] infection (3 sources) Viral gastroenteritis due to [place]-like agent; Translations: [Acute gastroenteropathy due to [place] agent] 06-21-2023 Episodic Menstrual disorders (1 source) [...] BY AUTOMATED COUNT 0.0 10*3/uL Normal 0.0-0.2 [facility] Comment on above: Performed By: #### C MP #### [facility] ([facility]) [address] [place] [address] VIR BASOPHILS RELATIVE PERCENT BY AUTOMATED COUNT 0.3 % Normal [facility] Comment on above: Performed By: #### C MP #### [facility] ([facility]) [address] [place] [address] VIR CELLAVISION DIFFERENTIAL TYPE AUTOMATED DIFFERENTIAL Normal [facility] Comment on above: Performed By: #### C MP #### [facility] ([facility]) [address] [place] [address] VIR Eosinophils (Bld) [#/Vol] 0.1 10*3/uL Normal 0.0-0.4 [facility] Comment on above: Performed By: #### C MP #### [facility] ([facility]) [address] [place] [address] VIR EOSINOPHILS RELATIVE PERCENT BY AUTOMATED COUNT 0.6 % Normal [facility] Comment on above: Performed By: #### C MP #### [facility] ([facility]) [address] [place] [address] VIR Erythrocyte distribution width (RBC) [Ratio] 20.4 % High 11.5-15 [facility] Comment on above: Performed By: #### C MP #### [facility] ([facility]) [address] [place] [address] VIR Hematocrit (Bld) [Volume fraction] 23.9 % Low 35-47 [facility] Comment on above: Performed By: #### C MP #### [facility] ([facility]) [address] [facility] [place] [address] VIR Hemoglobin (Bld) [Mass/Vol] 7.9 g/dL Low 11.7-15.5 [facility] Comment on above: Performed By: #### C MP #### [facility] ([facility]) [address] [facility] [place] [address] VIR LYMPHOCYTES ABSOLUTE COUNT (10*3/UL) BY AUTOMATED COUNT 3.1 10*3/uL Normal 1.0-3.5 [facility] Comment on above: Performed By: #### C MP #### [facility] ([facility]) [address] [facility] [address] [place] [address] VIR LYMPHOCYTES RELATIVE PERCENT BY AUTOMATED COUNT 23.8 % Normal [facility] Comment on above: Performed By: #### C MP #### [facility] ([facility]) [address] [place] [address] VIR MCH (RBC) [Entitic mass] 29.6 pg Normal 27-34 [facility] Comment on above: Performed By: #### C MP #### [facility] ([facility]) [address] [place] [address] VIR MCHC (RBC) [Mass/Vol] 33.1 g/dL Normal 32-36 [facility] Comment on above: Performed By: #### C MP #### [facility] ([facility]) [address] [place] [address] VIR MCV (RBC) [Entitic vol] 89 fL Normal 80-100 [facility] Comment on above: Performed By: #### C MP #### [facility] ([facility]) [address] [place] [address] VIR MONOCYTES ABSOLUTE COUNT (10*3/UL) BY AUTOMATED COUNT 1.0 10*3/uL High 0.0-0.9 [facility] Comment on above: Performed By: #### C MP #### [facility] ([facility]) [address] [place] [address] VIR MONOCYTES RELATIVE PERCENT BY AUTOMATED COUNT 7.8 % Normal [facility] Comment on above: Performed By: #### C MP #### [facility] ([facility]) [address] [place] [address] VIR NEUTROPHILS ABSOLUTE COUNT BY AUTOMATED COUNT 8.9 10*3/uL High 1.5-6.6 [facility] Comment on above: Performed By: #### C MP #### [facility] ([facility]) [address] [place] [address] VIR NEUTROPHILS RELATIVE PERCENT BY AUTOMATED COUNT 67.5 % Normal [facility] Comment on above: Performed By: #### C MP #### [facility] ([facility]) [address] [place] [address] VIR Platelet mean volume (Bld) [Entitic vol] 7.1 fL Normal 7-12 [facility] Comment on above: Performed By: #### C MP #### [facility] ([facility]) [address] [place] [address] VIR Platelets (Bld) [#/Vol] 231 10*3/uL Normal 150-450 [facility] Comment on above: Performed By: #### C MP #### [facility] ([facility]) [address] [place] [address] VIR RBC COUNT 2.68 X10E12/L Low 3.8-5.2 [facility] Comment on above: Performed By: #### C MP #### [facility] ([facility]) [address] [place] [address] VIR WBC (Bld) [#/Vol] 13.2 10*3/uL High 4-11 [facility] Comment on above: Performed By: #### C MP #### [facility] ([facility]) [address] [place] [address] VIR COMPREHENSIVE METABOLIC PANE [place] 11-11-2024 Albumin [Mass/Vol] 2.3 g/dL Low 3.2-5.3 [facility] Comment on above: Performed By: #### C MP #### [facility] ([facility]) [address] [place] [address] VIR ALP [Catalytic activity/Vol] 75 U/L Normal 39-130 [facility] Comment on above: Performed By: #### C MP #### [facility] ([facility]) [address] [place] [address] VIR ALT [Catalytic activity/Vol] 9 U/L Normal <=31 [facility] Comment on above: Performed By: #### C MP #### [facility] ([facility]) [address] [place] [address] VIR Anion gap [Moles/Vol] 4 mmol/L Low 5-15 [facility] Comment on above: Performed By: #### C MP #### [facility] ([facility]) [address] [place] [address] VIR AST [Catalytic activity/Vol] 6 U/L Normal <=41 [facility] Comment on above: Performed By: #### C MP #### [facility] ([facility]) [address] [place] [address] VIR Bilirubin [Mass/Vol] 0.2 mg/dL Low 0.3-1.2 [facility] Comment on above: Performed By: #### C MP #### [facility] ([facility]) [address] [place] [address] VIR Calcium [Mass/Vol] 6.5 mg/dL Critically low 8.5-10.5 [facility] Comment on above: Performed By: #### C MP #### [facility] ([facility]) [address] [place] [address] VIR Chloride [Moles/Vol] 106 mmol/L Normal 98-109 [facility] Comment on above: Performed By: #### C MP #### [facility] ([facility]) [address] [place] [address] VIR CO2 [Moles/Vol] 28 mmol/L Normal 22-32 [facility] Comment on above: Performed By: #### C MP #### [facility] ([facility]) [address] [place] [address] VIR Creatinine [Mass/Vol] 0.62 mg/dL Normal 0.40-1.00 [facility] Comment on above: Result Comment: METH OD TRACEABLE TO IDMS STANDARD Performed By: #### C MP #### [facility] ([facility]) [address] [place] [address] VIR EGFR (CKD-EPI) NON-RACE DEPENDENT >^90 Normal >=60 [facility] Comment on above: Result Comment: Repo rted eGFR is based on the CKD-EPI 2020 equation that does not use a race coefficient. Performed By: #### C MP #### [facility] ([facility]) [address] [place] [address] VIR Glucose [Mass/Vol] 75 mg/dL Normal 65-99 [facility] Comment on above: Performed By: #### C MP #### [facility] ([facility]) [address] [place] [address] VIR Potassium [Moles/Vol] 4.9 mmol/L Normal 3.5-5.0 [facility] Comment on above: Performed By: #### C MP #### [facility] ([facility]) [address] [place] [address] VIR Protein [Mass/Vol] 4.3 g/dL Low 6.0-8.0 [facility] Comment on above: Performed By: #### C MP #### [facility] ([facility]) [address] [place] [address] VIR Sodium [Moles/Vol] 138 mmol/L Normal 134-146 [facility] Comment on above: Performed By: #### C MP #### [facility] ([facility]) [address] [place] [address] VIR Urea nitrogen [Mass/Vol] 15 mg/dL Normal 5-23 [facility] Comment on above: Performed By: #### C MP #### [facility] ([facility]) [address] [place] [address] VIR CBC WITH AUTO DIFFERENTIALon 11-10-2024 BASOPHILS ABSOLUTE COUNT (10*3/UL) BY AUTOMATED COUNT 0.0 10*3/uL Normal 0.0-0.2 [facility] Comment on above: Performed By: #### C MP #### [facility] ([facility]) [address] [place] [address] VIR BASOPHILS RELATIVE PERCENT BY AUTOMATED COUNT 0.2 % Normal [facility] Comment on above: Performed By: #### C MP #### [facility] ([facility]) [address] [place] [address] VIR CELLAVISION DIFFERENTIAL TYPE AUTOMATED DIFFERENTIAL Normal [facility] Comment on above: Performed By: #### C MP #### [facility] ([facility]) [address] [place] [address] VIR Eosinophils (Bld) [#/Vol] 0.0 10*3/uL Normal 0.0-0.4 [facility] Comment on above: Performed By: #### C MP #### [facility] ([facility]) [address] [place] [address] VIR EOSINOPHILS RELATIVE PERCENT BY AUTOMATED COUNT 0.0 % Normal [facility] Comment on above: Performed By: #### C MP #### [facility] ([facility]) [address] [facility] [place] [address] VIR Erythrocyte distribution width (RBC) [Ratio] 20.2 % High 11.5-15 [facility] Comment on above: Performed By: #### C MP #### [facility] ([facility]) [address] [facility] [facility] [place] [address] VIR Hematocrit (Bld) [Volume fraction] 26.0 % Low 35-47 [facility] Comment on above: Performed By: #### C MP #### [facility] ([facility]) [address] [facility] [place] [address] VIR Hemoglobin (Bld) [Mass/Vol] 8.9 g/dL Low 11.7-15.5 [facility] Comment on above: Performed By: #### C MP #### [facility] ([facility]) [address] [facility] [place] [address] VIR LYMPHOCYTES ABSOLUTE COUNT (10*3/UL) BY AUTOMATED COUNT 2.1 10*3/uL Normal 1.0-3.5 [facility] Comment on above: Performed By: #### C MP #### [facility] ([facility]) [address] [facility] [facility] [address] [place] [address] VIR LYMPHOCYTES RELATIVE PERCENT BY AUTOMATED COUNT 12.3 % Normal [facility] Comment on above: Performed By: #### C MP #### [facility] ([facility]) [address] [facility] [facility] [address] [place] [address] VIR MCH (RBC) [Entitic mass] 30.2 pg Normal 27-34 [facility] Comment on above: Performed By: #### C MP #### [facility] ([facility]) [address] [place] [address] VIR MCHC (RBC) [Mass/Vol] 34.3 g/dL Normal 32-36 [facility] Comment on above: Performed By: #### C MP #### [facility] ([facility]) [address] [place] [address] VIR MCV (RBC) [Entitic vol] 88 fL Normal 80-100 [facility] Comment on above: Performed By: #### C MP #### [facility] ([facility]) [address] [place] [address] VIR MONOCYTES ABSOLUTE COUNT (10*3/UL) BY AUTOMATED COUNT 0.6 10*3/uL Normal 0.0-0.9 [facility] Comment on above: Performed By: #### C MP #### [facility] ([facility]) [address] [place] [address] VIR MONOCYTES RELATIVE PERCENT BY AUTOMATED COUNT 3.5 % Normal [facility] Comment on above: Performed By: #### C MP #### [facility] ([facility]) [address] [place] [address] VIR NEUTROPHILS ABSOLUTE COUNT BY AUTOMATED COUNT 14.1 10*3/uL High 1.5-6.6 [facility] Comment on above: Performed By: #### C MP #### [facility] ([facility]) [address] [place] [address] VIR NEUTROPHILS RELATIVE PERCENT BY AUTOMATED COUNT 84.0 % Normal [facility] Comment on above: Performed By: #### C MP #### [facility] ([facility]) [address] [place] [address] VIR Platelet mean volume (Bld) [Entitic vol] 7.7 fL Normal 7-12 [facility] Comment on above: Performed By: #### C MP #### [facility] ([facility]) [address] [place] [address] VIR Platelets (Bld) [#/Vol] 307 10*3/uL Normal 150-450 [facility] Comment on above: Performed By: #### C MP #### [facility] ([facility]) [address] [place] [address] VIR RBC COUNT 2.96 X10E12/L Low 3.8-5.2 [facility] Comment on above: Performed By: #### C MP #### [facility] ([facility]) [address] [place] [address] VIR WBC (Bld) [#/Vol] 16.8 10*3/uL High 4-11 [facility] Comment on above: Performed By: #### C MP #### [facility] ([facility]) [address] [place] [address] VIR COMPREHENSIVE METABOLIC PANE [place] 11-10-2024 Albumin [Mass/Vol] 2.5 g/dL Low 3.2-5.3 [facility] Comment on above: Performed By: #### C MP #### [facility] ([facility]) [address] [place] [address] VIR ALP [Catalytic activity/Vol] 83 U/L Normal 39-130 [facility] Comment on above: Performed By: #### C MP #### [facility] ([facility]) [address] [place] [address] VIR ALT [Catalytic activity/Vol] 10 U/L Normal <=31 [facility] Comment on above: Performed By: #### C MP #### [facility] ([facility]) [address] [place] [address] VIR Anion gap [Moles/Vol] 4 mmol/L Low 5-15 [facility] Comment on above: Performed By: #### C MP #### [facility] ([facility]) [address] [place] [address] VIR AST [Catalytic activity/Vol] 7 U/L Normal <=41 [facility] Comment on above: Performed By: #### C MP #### [facility] ([facility]) [address] [place] [address] VIR Bilirubin [Mass/Vol] 0.2 mg/dL Low 0.3-1.2 [facility] Comment on above: Performed By: #### C MP #### [facility] ([facility]) [address] [place] [address] VIR Calcium [Mass/Vol] 6.0 mg/dL Critically low 8.5-10.5 [facility] Comment on above: Performed By: #### C MP #### [facility] ([facility]) [address] [place] [address] VIR Chloride [Moles/Vol] 103 mmol/L Normal 98-109 [facility] Comment on above: Performed By: #### C MP #### [facility] ([facility]) [address] [place] [address] VIR CO2 [Moles/Vol] 25 mmol/L Normal 22-32 [facility] Comment on above: Performed By: #### C MP #### [facility] ([facility]) [address] [place] [address] VIR Creatinine [Mass/Vol] 0.71 mg/dL Normal 0.40-1.00 [facility] Comment on above: Result Comment: METH OD TRACEABLE TO IDMS STANDARD Performed By: #### C MP #### [facility] ([facility]) [address] [place] [address] VIR EGFR (CKD-EPI) NON-RACE DEPENDENT >^90 Normal >=60 [facility] Comment on above: Result Comment: Repo rted eGFR is based on the CKD-EPI 2020 equation that does not use a race coefficient. Performed By: #### C MP #### [facility] ([facility]) [address] [place] [address] VIR Glucose [Mass/Vol] 94 mg/dL Normal 65-99 [facility] Comment on above: Performed By: #### C MP #### [facility] ([facility]) [address] [place] [address] VIR Potassium [Moles/Vol] 5.4 mmol/L High 3.5-5.0 [facility] Comment on above: Performed By: #### C MP #### [facility] ([facility]) [address] [place] [address] VIR Protein [Mass/Vol] 4.7 g/dL Low 6.0-8.0 [facility] Comment on above: Performed By: #### C MP #### [facility] ([facility]) [address] [place] [address] VIR Sodium [Moles/Vol] 132 mmol/L Low 134-146 [facility] Comment on above: Performed By: #### C MP #### [facility] ([facility]) [address] [place] [address] VIR Urea nitrogen [Mass/Vol] 15 mg/dL Normal 5-23 [facility] Comment on above: Performed By: #### C MP #### [facility] ([facility]) [address] [place] [address] VIR BLOOD GAS, ARTERIAL, CORDon 11-09-2024 %O2 SATURATION CORD ARTERIAL 12.0 Normal [facility] Comment on above: Performed By: #### C GLYCERINE PLANT OPERATOR #### [facility] ([facility]) [address] [facility] [address] VIR BASE,DEFICIT -8.0 mmol/L Low 0.0-2.0 [facility] Comment on above: Performed By: #### C GLYCERINE PLANT OPERATOR #### [facility] ([facility]) [address] [place] [address] VIR INSP. O2 CONC. 21 % Normal [facility] Comment on above: Performed By: #### C GLYCERINE PLANT OPERATOR #### [facility] ([facility]) [address] [place] [address] VIR PCO2 CORD ARTERIAL 60.1 mmHG Normal [facility] Comment on above: Performed By: #### C GLYCERINE PLANT OPERATOR #### [facility] ([facility]) [address] [place] [address] VIR PH CORD ARTERIAL 7.171 Normal [facility] Comment on above: Performed By: #### C GLYCERINE PLANT OPERATOR #### [facility] ([facility]) [address] [place] [address] VIR PO2 CORD ARTERIAL 15 mmHG Normal [facility] Comment on above: Performed By: #### C GLYC[employer]INE PLANT OPERATOR #### [facility] ([facility]) [address] [place] [address] VIR POC JANES'S TEST N/A Normal [facility] Comment on above: Performed By: #### C GLYCERINE PLANT OPERATOR #### [facility] ([facility]) [address] [place] [address] VIR SAMPLE SITE Art Cord Normal [facility] Comment on above: Performed By: #### C GLYCERINE PLANT OPERATOR #### [facility] [facility] ([facility]) [address] [place] [address] VIR SAMPLE TYPE UMBILICAL CORD Normal [facility] Comment on above: Performed By: #### C GLYCERINE PLANT OPERATOR #### [facility] ([facility]) [address] [place] [address] VIR SOURCE OF OXYGEN Room Air Normal [facility] Comment on above: Performed By: #### C GLYCERINE PLANT OPERATOR #### [facility] ([facility]) [address] [place] [address] VIR BLOOD GAS, VENOUSon 11-10-19 25 BASE,DEFICIT -6.0 mmol/L Low 0.0-2.0 [facility] Comment on above: Performed By: #### C MP #### [facility] ([facility]) [address] [place] [address] VIR HCO3 (Bld) [Moles/Vol] 20.6 mmol/L Normal 20.0-24.0 [facility] Comment on above: Performed By: #### C MP #### [facility] ([facility]) [address] [place] [address] VIR INSP. O2 CONC. 21 % Normal [facility] Comment on above: Performed By: #### C MP #### [facility] ([facility]) [address] [place] [address] VIR Oxygen saturation in Blood 28.0 % Normal [facility] Comment on above: Performed By: #### C MP #### [facility] ([facility]) [address] [place] [address] VIR PCO2 VENOUS 42.7 mmHg Normal 35.0-50.0 [facility] Comment on above: Performed By: #### C MP #### [facility] ([facility]) [address] [place] [address] VIR PH VENOUS 7.292 Low 7.320-7.420 [facility] Comment on above: Performed By: #### C MP #### [facility] ([facility]) [address] [place] [address] VIR PO2 VENOUS 20 mmHg Low 30-50 [facility] Comment on above: Performed By: #### C MP #### [facility] ([facility]) [address] [place] [address] VIR POC JANES'S TEST N/A Normal [facility] Comment on above: Performed By: #### C MP #### [facility] ([facility]) [address] [place] [address] VIR SAMPLE SITE Tyree Cord Normal [facility] Comment on above: Performed By: #### C MP #### [facility] ([facility]) [address] [place] [address] VIR SAMPLE TYPE VENOUS Normal [facility] Comment on above: Performed By: #### C MP #### [facility] ([facility]) [address] [place] [address] VIR SOURCE OF OXYGEN Room Air Normal [facility] Comment on above: Performed By: #### C MP #### [facility] ([facility]) [address] [place] [address] VIR CBC WITH AUTO DIFFERENTIALon 11-09-2024 BASOPHILS ABSOLUTE COUNT (10*3/UL) BY AUTOMATED COUNT 0.0 10*3/uL Normal 0.0-0.2 [facility] Comment on above: Performed By: #### C MP #### [facility] ([facility]) [address] [place] [address] VIR BASOPHILS RELATIVE PERCENT BY AUTOMATED COUNT 0.1 % [facility] Comment on above: Performed By: #### C MP #### [facility] ([facility]) [address] [place] [address] VIR CELLAVISION DIFFERENTIAL TYPE AUTOMATED DIFFERENTIAL Normal [facility] Comment on above: Performed By: #### C MP #### [facility] ([facility]) [address] [place] [address] VIR Eosinophils (Bld) [#/Vol] 0.0 10*3/uL Normal 0.0-0.4 [facility] Comment on above: Performed By: #### C MP #### [facility] ([facility]) [address] [place] [address] VIR EOSINOPHILS RELATIVE PERCENT BY AUTOMATED COUNT 0.0 % [facility] Comment on above: Performed By: #### C MP #### [facility] ([facility]) [address] [place] [address] VIR Erythrocyte distribution width (RBC) [Ratio] 19.7 % High 11.5-15 [facility] Comment on above: Performed By: #### C MP #### [facility] ([facility]) [address] [place] [address] VIR Hematocrit (Bld) [Volume fraction] 29.7 % Low 35-47 [facility] Comment on above: Performed By: #### C MP #### [facility] ([facility]) [address] [place] [address] VIR Hemoglobin (Bld) [Mass/Vol] 9.9 g/dL Low 11.7-15.5 [facility] Comment on above: Performed By: #### C MP #### [facility] ([facility]) [address] [facility] [address] [place] [address] VIR LYMPHOCYTES ABSOLUTE COUNT (10*3/UL) BY AUTOMATED COUNT 1.6 10*3/uL Normal 1.0-3.5 [facility] Comment on above: Performed By: #### C MP #### [facility] ([facility]) [address] [place] [address] VIR LYMPHOCYTES RELATIVE PERCENT BY AUTOMATED COUNT 8.3 % Normal [facility] Comment on above: Performed By: #### C MP #### [facility] ([facility]) [address] [place] [address] VIR MCH (RBC) [Entitic mass] 29.3 pg Normal 27-34 [facility] Comment on above: Performed By: #### C MP #### [facility] ([facility]) [address] [place] [address] VIR MCHC (RBC) [Mass/Vol] 33.3 g/dL Normal 32-36 [facility] Comment on above: Performed By: #### C MP #### [facility] ([facility]) [address] [place] [address] VIR MCV (RBC) [Entitic vol] 88 fL Normal 80-100 [facility] Comment on above: Performed By: #### C MP #### [facility] ([facility]) [address] [place] [address] VIR MONOCYTES ABSOLUTE COUNT (10*3/UL) BY AUTOMATED COUNT 1.1 10*3/uL High 0.0-0.9 [facility] Comment on above: Performed By: #### C MP #### [facility] ([facility]) [address] [place] [address] VIR MONOCYTES RELATIVE PERCENT BY AUTOMATED COUNT 5.7 % Normal [facility] Comment on above: Performed By: #### C MP #### [facility] ([facility]) [address] [place] [address] VIR NEUTROPHILS ABSOLUTE COUNT BY AUTOMATED COUNT 16.8 10*3/uL High 1.5-6.6 [facility] Comment on above: Performed By: #### C MP #### [facility] ([facility]) [address] [place] [address] VIR NEUTROPHILS RELATIVE PERCENT BY AUTOMATED COUNT 85.9 % Normal [facility] Comment on above: Performed By: #### C MP #### [facility] ([facility]) [address] [place] [address] VIR Platelet mean volume (Bld) [Entitic vol] 8.1 fL Normal 7-12 [facility] Comment on above: Performed By: #### C MP #### [facility] ([facility]) [address] [place] [address] VIR Platelets (Bld) [#/Vol] 325 10*3/uL Normal 150-450 [facility] Comment on above: Performed By: #### C MP #### [facility] ([facility]) [address] [place] [address] VIR RBC COUNT 3.37 X10E12/L Low 3.8-5.2 [facility] Comment on above: Performed By: #### C MP #### [facility] ([facility]) [address] [place] [address] VIR WBC (Bld) [#/Vol] 19.6 10*3/uL High 4-11 [facility] Comment on above: Performed By: #### C MP #### [facility] ([facility]) [address] [place] [address] VIR BASOPHILS ABSOLUTE COUNT (10*3/UL) BY AUTOMATED COUNT 0.0 10*3/uL Normal 0.0-0.2 [facility] Comment on above: Performed By: #### C BCA #### [facility] ([facility]) [address] [place] [address] VIR BASOPHILS RELATIVE PERCENT BY AUTOMATED COUNT 0.1 % Normal [facility] Comment on above: Performed By: #### C BCA #### [facility] ([facility]) [address] [place] [address] VIR CELLAVISION DIFFERENTIAL TYPE AUTOMATED DIFFERENTIAL Normal [facility] Comment on above: Performed By: #### C BCA #### [facility] ([facility]) [address] [place] [address] VIR Eosinophils (Bld) [#/Vol] 0.0 10*3/uL Normal 0.0-0.4 [facility] Comment on above: Performed By: #### C BCA #### [facility] ([facility]) [address] [place] [address] VIR EOSINOPHILS RELATIVE PERCENT BY AUTOMATED COUNT 0.0 % Normal [facility] Comment on above: Performed By: #### C BCA #### [facility] ([facility]) [address] [place] [address] VIR Erythrocyte distribution width (RBC) [Ratio] 19.6 % High 11.5-15 [facility] Comment on above: Performed By: #### C BCA #### [facility] ([facility]) [address] [place] [address] VIR Hematocrit (Bld) [Volume fraction] 32.7 % Low 35-47 [facility] Comment on above: Performed By: #### C BCA #### [facility] ([facility]) [address] [facility] [address] [place] [address] VIR Hemoglobin (Bld) [Mass/Vol] 10.9 g/dL Low 11.7-15.5 [facility] Comment on above: Performed By: #### C BCA #### [facility] ([facility]) [address] [facility] [address] [place] [address] VIR LYMPHOCYTES ABSOLUTE COUNT (10*3/UL) BY AUTOMATED COUNT 1.2 10*3/uL Normal 1.0-3.5 [facility] Comment on above: Performed By: #### C BCA #### [facility] ([facility]) [address] [address] VIR LYMPHOCYTES RELATIVE PERCENT BY AUTOMATED COUNT 10.6 % Normal [facility] Comment on above: Performed By: #### C BCA #### [facility] ([facility]) [address] [facility] [address] [place] [address] VIR MCH (RBC) [Entitic mass] 29.5 pg Normal 27-34 [facility] Comment on above: Performed By: #### C BCA #### [facility] ([facility]) [address] [facility] [address] [place] [address] VIR MCHC (RBC) [Mass/Vol] 33.4 g/dL Normal 32-36 [facility] Comment on above: Performed By: #### C BCA #### [facility] ([facility]) [address] [place] [address] VIR MCV (RBC) [Entitic vol] 88 fL Normal 80-100 [facility] Comment on above: Performed By: #### C BCA #### [facility] ([facility]) [address] [facility] [address] [place] [address] VIR MONOCYTES ABSOLUTE COUNT (10*3/UL) BY AUTOMATED COUNT 0.1 10*3/uL Normal 0.0-0.9 [facility] Comment on above: Performed By: #### C BCA #### [facility] ([facility]) [address] [place] [address] VIR MONOCYTES RELATIVE PERCENT BY AUTOMATED COUNT 0.9 % Normal [facility] Comment on above: Performed By: #### C BCA #### [facility] ([facility]) [address] [place] [address] VIR NEUTROPHILS ABSOLUTE COUNT BY AUTOMATED COUNT 9.7 10*3/uL High 1.5-6.6 [facility] Comment on above: Performed By: #### C BCA #### [facility] ([facility]) [address] [place] [address] VIR NEUTROPHILS RELATIVE PERCENT BY AUTOMATED COUNT 88.4 % Normal [facility] Comment on above: Performed By: #### C BCA #### [facility] ([facility]) [address] [place] [address] VIR Platelet mean volume (Bld) [Entitic vol] 8.4 fL Normal 7-12 [facility] Comment on above: Performed By: #### C BCA #### [facility] ([facility]) [address] [place] [address] VIR Platelets (Bld) [#/Vol] 288 10*3/uL Normal 150-450 [facility] Comment on above: Performed By: #### C BCA #### [facility] ([facility]) [address] [place] [address] VIR RBC COUNT 3.70 X10E12/L Low 3.8-5.2 [facility] Comment on above: Performed By: #### C BCA #### [facility] ([facility]) [address] [place] [address] VIR WBC (Bld) [#/Vol] 11.0 10*3/uL Normal 4-11 [facility] Comment on above: Performed By: #### C BCA #### [facility] ([facility]) [address] [place] [address] VIR COMPREHENSIVE METABOLIC PANE [place] 11-09-2024 Albumin [Mass/Vol] 2.6 g/dL Low 3.2-5.3 [facility] Comment on above: Performed By: #### C MP #### [facility] ([facility]) [address] [place] [address] VIR ALP [Catalytic activity/Vol] 102 U/L Normal 39-130 [facility] Comment on above: Performed By: #### C MP #### [facility] ([facility]) [address] [place] [address] VIR ALT [Catalytic activity/Vol] 13 U/L Normal <=31 [facility] Comment on above: Performed By: #### C MP #### [facility] ([facility]) [address] [place] [address] VIR Anion gap [Moles/Vol] 9 mmol/L Normal 5-15 [facility] Comment on above: Performed By: #### C MP #### [facility] ([facility]) [address] [place] [address] VIR AST [Catalytic activity/Vol] 7 U/L Normal <=41 [facility] Comment on above: Performed By: #### C MP #### [facility] ([facility]) [address] [place] [address] VIR Bilirubin [Mass/Vol] 0.3 mg/dL Normal 0.3-1.2 [facility] Comment on above: Performed By: #### C MP #### [facility] ([facility]) [address] [place] [address] VIR Calcium [Mass/Vol] 6.6 mg/dL Critically low 8.5-10.5 [facility] Comment on above: Performed By: #### C MP #### [facility] ([facility]) [address] [place] [address] VIR Chloride [Moles/Vol] 101 mmol/L Normal 98-109 [facility] Comment on above: Performed By: #### C MP #### [facility] ([facility]) [address] [place] [address] VIR CO2 [Moles/Vol] 22 mmol/L Normal 22-32 [facility] Comment on above: Performed By: #### C MP #### [facility] ([facility]) [address] [place] [address] VIR Creatinine [Mass/Vol] 0.80 mg/dL Normal 0.40-1.00 [facility] Comment on above: Result Comment: METH OD TRACEABLE TO IDMS STANDARD Performed By: #### C MP #### [facility] ([facility]) [address] [place] [address] VIR EGFR (CKD-EPI) NON-RACE DEPENDENT >^90 Normal >=60 [facility] Comment on above: Result Comment: Repo rted eGFR is based on the CKD-EPI 2020 equation that does not use a race coefficient. Performed By: #### C MP #### [facility] ([facility]) [address] [place] [address] VIR Glucose [Mass/Vol] 140 mg/dL High 65-99 [facility] Comment on above: Performed By: #### C MP #### [facility] ([facility]) [address] [place] [address] VIR Potassium [Moles/Vol] 4.7 mmol/L Normal 3.5-5.0 [facility] Comment on above: Performed By: #### C MP #### [facility] ([facility]) [address] [place] [address] VIR Protein [Mass/Vol] 5.0 g/dL Low 6.0-8.0 [facility] Comment on above: Performed By: #### C MP #### [facility] ([facility]) [address] [place] [address] VIR Sodium [Moles/Vol] 132 mmol/L Low 134-146 [facility] Comment on above: Performed By: #### C MP #### [facility] ([facility]) [address] [place] [address] VIR Urea nitrogen [Mass/Vol] 13 mg/dL Normal 5-23 [facility] Comment on above: Performed By: #### C MP #### [facility] ([facility]) [address] [place] [address] VIR Albumin [Mass/Vol] 2.9 g/dL Low 3.2-5.3 [facility] Comment on above: Performed By: #### C MP #### [facility] ([facility]) [address] [place] [address] VIR ALP [Catalytic activity/Vol] 122 U/L Normal 39-130 [facility] Comment on above: Performed By: #### C MP #### [facility] ([facility]) [address] [place] [address] VIR ALT [Catalytic activity/Vol] 17 U/L Normal <=31 [facility] Comment on above: Performed By: #### C MP #### [facility] ([facility]) [address] [place] [address] VIR Anion gap [Moles/Vol] 11 mmol/L Normal 5-15 [facility] Comment on above: Performed By: #### C MP #### [facility] ([facility]) [address] [place] [address] VIR AST [Catalytic activity/Vol] 7 U/L Normal <=41 [facility] Comment on above: Performed By: #### C MP #### [facility] ([facility]) [address] [place] [address] VIR Bilirubin [Mass/Vol] 0.4 mg/dL Normal 0.3-1.2 [facility] Comment on above: Performed By: #### C MP #### [facility] ([facility]) [address] [place] [address] VIR Calcium [Mass/Vol] 7.3 mg/dL Low 8.5-10.5 [facility] Comment on above: Performed By: #### C MP #### [facility] ([facility]) [address] [place] [address] VIR Chloride [Moles/Vol] 102 mmol/L Normal 98-109 [facility] Comment on above: Performed By: #### C MP #### [facility] ([facility]) [address] [place] [address] VIR CO2 [Moles/Vol] 21 mmol/L Low 22-32 [facility] Comment on above: Performed By: #### C MP #### [facility] ([facility]) [address] [place] [address] VIR Creatinine [Mass/Vol] 0.77 mg/dL Normal 0.40-1.00 [facility] Comment on above: Result Comment: METH OD TRACEABLE TO IDMS STANDARD Performed By: #### C MP #### [facility] ([facility]) [address] [place] [address] VIR EGFR (CKD-EPI) NON-RACE DEPENDENT >^90 Normal >=60 [facility] Comment on above: Result Comment: Repo rted eGFR is based on the CKD-EPI 2020 equation that does not use a race coefficient. Performed By: #### C MP #### [facility] ([facility]) [address] [place] [address] VIR Glucose [Mass/Vol] 134 mg/dL High 65-99 [facility] Comment on above: Performed By: #### C MP #### [facility] ([facility]) [address] [place] [address] VIR Potassium [Moles/Vol] 4.3 mmol/L Normal 3.5-5.0 [facility] Comment on above: Performed By: #### C MP #### [facility] ([facility]) [address] [address] [place] [address] VIR Protein [Mass/Vol] 5.6 g/dL Low 6.0-8.0 [facility] Comment on above: Performed By: #### C MP #### [facility] ([facility]) [address] [place] [address] VIR Sodium [Moles/Vol] 134 mmol/L Normal 134-146 [facility] Comment on above: Performed By: #### C MP #### [facility] ([facility]) [address] [place] [address] VIR Urea nitrogen [Mass/Vol] 13 mg/dL Normal 5-23 [facility] Comment on above: Performed By: #### C MP #### [facility] ([facility]) [address] [place] [address] VIR DRUG SCREEN, URINEon 025 AMPHETAMINE/METHAMP Negative Normal Negative [facility] Comment on above: Result Comment: AMPH /METH screening cut off = 1000 ng/mL Performed By: #### D GRAHAM #### [facility] ([facility]) [address] [place] [address] VIR BARBITURATES Negative Normal Negative [facility] Comment on above: Result Comment: Anita iturates screening cut off value = 200 ng/mL Performed By: #### D GRAHAM #### [facility] ([facility]) [address] [place] [address] VIR BENZODIAZEPINES Negative Normal Negative [facility] Comment on above: Result Comment: Fantasma odiazepines screening cut off value = 200 ng/mL Performed By: #### D GRAHAM #### [facility] ([facility]) [address] [place] [address] VIR CANNABINOIDS Negative Normal Negative [facility] Comment on above: Result Comment: Berna abinoids/THC screening cut off value = 50 ng/mL Performed By: #### D GRAHAM #### [facility] ([facility]) [address] [place] [address] VIR COCAINE METABOLITE Negative Normal Negative [facility] Comment on above: Result Comment: Coca ine screening cut off value = 300 ng/mL Performed By: #### D GRAHAM #### [facility] ([facility]) [address] [place] [address] VIR ECSTASY Positive Abnormal Negative [facility] Comment on above: Result Comment: Ecst asy screening cut off value = 500 ng/mL This report is intended for use in clinical monitoring or management of patients. Interference from Buproprion or Labetalol may cause a positive result, confirmation available upon request. Performed By: #### D GRAHAM #### [facility] ([facility]) [address] [place] [address] VIR METHADONE Negative Normal Negative [facility] Comment on above: Result Comment: Meth adone screening cut off value = 300 ng/mL. Performed By: #### D GRAHAM #### [facility] ([facility]) [address] [place] [address] VIR OPIATES Negative Normal Negative [facility] Comment on above: Result Comment: Opia judith screening cut off value = 300 ng/mL This test is used for the detection of codeine, hydrocodone (>1000 ng/mL), morphine and hydromorphone (>900 ng/mL) in urine. Performed By: #### D GRAHAM #### [facility] ([facility]) [address] [place] [address] VIR OXYCODONE Negative Normal Negative [facility] Comment on above: Result Comment: Oxyc odone screening cut off value = 300 ng/mL This test is used for the detection of oxycodone and oxymorphone in urine. Performed By: #### D GRAHAM #### [facility] ([facility]) [address] [place] [address] VIR PHENCYCLIDINE Negative Normal Negative [facility] Comment on above: Result Comment: Phen cyclidine screening cut off value = 25 ng/mL Performed By: #### D GRAHAM #### [facility] ([facility]) [address] [place] [address] VIR FENTANYL, URINE QUALITATIVEo n 11-09-2024 FENTANYL, URINE QUAL. Negative Normal Negative [facility] Comment on above: Order Comment: Fenta nyl screening cutoff = 5ng/ml This report is intended for use in clinical monitoring or management of patients. Performed By: #### U FEN #### [facility] ([facility]) [address] [place] [address] VIR REPEATED ABORHon 11-09-2024 ABO_INTEP A Normal [facility] Comment on above: Performed By: #### A RADHA #### [facility] ([facility]) [address] [place] [address] VIR RH_INTEP Positive Normal [facility] Comment on above: Performed By: #### A RADHA #### [facility] ([facility]) [address] [place] [address] VIR STREP B SCREENon 11-09-2024 STREP B SCREEN CULTURE RESULTS POSITIVE FOR GROUP B STREPTOCOCCUS BY NUCLEIC ACID AMPLIFICATION Normal [facility] Comment on above: Order Comment: Group B streptococci remain universally susceptible to penicillin, ampicillin, and cefazolin. Resistance to clindamycin can occur. Please contact laboratory within 48 hours if clindamycin susceptibility testing is needed. Performed By: #### C MP #### [facility] ([facility]) [address] [place] [address] VIR ALL CBC WITH AUTO DIFFon BASOPHILS ABSOLUTE AUTO 0.1 N [facility] Basophils/100 WBC (Bld) 0.6 % 0.2 - 2.0 % [facility] Eosinophils/100 WBC (Bld) 1.1 % 0.9 - 7.0 % [facility] Erythrocyte distribution width (RBC) [Ratio] 18.1 % High 11.0 - 15.0 % [facility] Hematocrit (Bld) [Volume fraction] 32.3 % Low 36.0 - 48.0 % [facility] Hemoglobin (Bld) [Mass/Vol] 10.8 g/dL Low 12.0 - 16.0 g/dL [facility] IMMATURE GRANULOCYTES ABS AUTO 0.16 High [facility] Immature granulocytes/100 WBC (Bld) 1.2 % High 0.0 - 0.5 % [facility] Interpretation and review of laboratory results Abnormal [facility] LYMPHOCYTES ABSOLUTE AUTO 3.5 [facility] Lymphocytes/100 WBC (Bld) 25.4 % 20.5 - 60.0 % [facility] MCH (RBC) [Entitic mass] 29.8 pg 26. 7 - 34.0 pg [facility] MCHC (RBC) [Mass/Vol] 33.4 g/dL 29.9 - 35.2 g/dL [facility] MCV (RBC) [Entitic vol] 89 fL 81.0 - 99.0 fL [facility] MONOCYTES ABSOLUTE AUTO 0.7 N [facility] Monocytes/100 WBC (Bld) 5 % 1.7 - 12.0 % [facility] NEUTROPHILS ABSOLUTE AUTO 9.1 High [facility] Neutrophils/100 WBC (Bld) 66.7 % 43.0 - 75.0 % [facility] Platelet mean volume (Bld) [Entitic vol] 10.7 fL 9.5 - 13.5 fL [facility] TBH EO # 0.2 [facility] PLT 269 [facility].63 [facility] Activated partial thrombopla stin time (aPTT) in platelet poor plasma by coagulation aOrdered By: Deep Salinas on 11-08-2024 aPTT Coag (PPP) [Time] 25.1 s 22.3-36.2 [facility] Basophils Auto (Bld) [#/Vol] Ordered By: Deep Salinas on 11-08-2024 Basophils (Bld) [#/Vol] 0.1 10 3/uL 0.0-0.1 [facility] Basophils/100 WBC Auto (Bld) Ordered By: Deep Salinas on 11-08-2024 Basophils/100 WBC (Bld) 0.6 % 0.2-2.0 [facility] CBC WITH AUTO DIFFERENTIALon 11-08-2024 BASOPHILS ABSOLUTE COUNT (10*3/UL) BY AUTOMATED COUNT 0.0 10*3/uL Normal 0.0-0.2 [facility] Comment on above: Performed By: #### C BCA #### [facility] ([facility]) [address] [place] [address] VIR BASOPHILS RELATIVE PERCENT BY AUTOMATED COUNT 0.3 % Normal [facility] Comment on above: Performed By: #### C BCA #### [facility] ([facility]) [address] [place] [address] VIR CELLAVISION DIFFERENTIAL TYPE AUTOMATED DIFFERENTIAL Normal [facility] Comment on above: Performed By: #### C BCA #### [facility] ([facility]) [address] [place] [address] VIR Eosinophils (Bld) [#/Vol] 0.0 10*3/uL Normal 0.0-0.4 [facility] Comment on above: Performed By: #### C BCA #### [facility] ([facility]) [address] [place] [address] VIR EOSINOPHILS RELATIVE PERCENT BY AUTOMATED COUNT 0.0 % Normal [facility] Comment on above: Performed By: #### C BCA #### [facility] ([facility]) [address] [place] [address] VIR Erythrocyte distribution width (RBC) [Ratio] 18.9 % High 11.5-15 [facility] Comment on above: Performed By: #### C BCA #### [facility] ([facility]) [address] [place] [address] VIR Hematocrit (Bld) [Volume fraction] 32.2 % Low 35-47 [facility] Comment on above: Performed By: #### C BCA #### [facility] ([facility]) [address] [place] [address] VIR Hemoglobin (Bld) [Mass/Vol] 10.7 g/dL Low 11.7-15.5 [facility] Comment on above: Performed By: #### C BCA #### [facility] ([facility]) [address] [place] [address] VIR LYMPHOCYTES ABSOLUTE COUNT (10*3/UL) BY AUTOMATED COUNT 1.1 10*3/uL Normal 1.0-3.5 [facility] Comment on above: Performed By: #### C BCA #### [facility] ([facility]) [address] [place] [address] VIR LYMPHOCYTES RELATIVE PERCENT BY AUTOMATED COUNT 8.7 % Normal [facility] Comment on above: Performed By: #### C BCA #### [facility] ([facility]) [address] [place] [address] VIR MCH (RBC) [Entitic mass] 29.1 pg Normal 27-34 [facility] Comment on above: Performed By: #### C BCA #### [facility] ([facility]) [address] [place] [address] VIR MCHC (RBC) [Mass/Vol] 33.2 g/dL Normal 32-36 [facility] Comment on above: Performed By: #### C BCA #### [facility] ([facility]) [address] [place] [address] VIR MCV (RBC) [Entitic vol] 88 fL Normal 80-100 [facility] Comment on above: Performed By: #### C BCA #### [facility] ([facility]) [address] [place] [address] VIR MONOCYTES ABSOLUTE COUNT (10*3/UL) BY AUTOMATED COUNT 0.1 10*3/uL Normal 0.0-0.9 [facility] Comment on above: Performed By: #### C BCA #### [facility] ([facility]) [address] [place] [address] VIR MONOCYTES RELATIVE PERCENT BY AUTOMATED COUNT 0.9 % Normal [facility] Comment on above: Performed By: #### C BCA #### [facility] ([facility]) [address] [place] [address] VIR NEUTROPHILS ABSOLUTE COUNT BY AUTOMATED COUNT 11.6 10*3/uL High 1.5-6.6 [facility] Comment on above: Performed By: #### C BCA #### [facility] ([facility]) [address] [place] [address] VIR NEUTROPHILS RELATIVE PERCENT BY AUTOMATED COUNT 90.1 % Normal [facility] Comment on above: Performed By: #### C BCA #### [facility] ([facility]) [address] [place] [address] VIR Platelet mean volume (Bld) [Entitic vol] 8.1 fL Normal 7-12 [facility] Comment on above: Performed By: #### C BCA #### [facility] ([facility]) [address] [place] [address] VIR Platelets (Bld) [#/Vol] 275 10*3/uL Normal 150-450 [facility] Comment on above: Performed By: #### C BCA #### [facility] ([facility]) [address] [place] [address] VIR RBC COUNT 3.68 X10E12/L Low 3.8-5.2 [facility] Comment on above: Performed By: #### C BCA #### [facility] ([facility]) [address] [place] [address] VIR WBC (Bld) [#/Vol] 12.8 10*3/uL High 4-11 [facility] Comment on above: Performed By: #### C BCA #### [facility] ([facility]) [address] [place] [address] VIR COMPREHENSIVE METABOLIC PANE [place] 11-08-2024 Albumin [Mass/Vol] 2.8 g/dL Low 3.2-5.3 [facility] Comment on above: Performed By: #### C MP #### [facility] ([facility]) [address] [place] [address] VIR ALP [Catalytic activity/Vol] 127 U/L Normal 39-130 [facility] Comment on above: Performed By: #### C MP #### [facility] ([facility]) [address] [place] [address] VIR ALT [Catalytic activity/Vol] 18 U/L Normal <=31 [facility] Comment on above: Performed By: #### C MP #### [facility] ([facility]) [address] [place] [address] VIR Anion gap [Moles/Vol] 11 mmol/L Normal 5-15 [facility] Comment on above: Performed By: #### C MP #### [facility] ([facility]) [address] [place] [address] VIR AST [Catalytic activity/Vol] 8 U/L Normal <=41 [facility] Comment on above: Performed By: #### C MP #### [facility] ([facility]) [address] [place] [address] VIR Bilirubin [Mass/Vol] 0.4 mg/dL Normal 0.3-1.2 [facility] Comment on above: Performed By: #### C MP #### [facility] ([facility]) [address] [place] [address] VIR Calcium [Mass/Vol] 7.6 mg/dL Low 8.5-10.5 [facility] Comment on above: Performed By: #### C MP #### [facility] ([facility]) [address] [place] [address] VIR Chloride [Moles/Vol] 104 mmol/L Normal 98-109 [facility] Comment on above: Performed By: #### C MP #### [facility] ([facility]) [address] [place] [address] VIR CO2 [Moles/Vol] 21 mmol/L Low 22-32 [facility] Comment on above: Performed By: #### C MP #### [facility] ([facility]) [address] [place] [address] VIR Creatinine [Mass/Vol] 0.82 mg/dL Normal 0.40-1.00 [facility] Comment on above: Result Comment: METH OD TRACEABLE TO IDMS STANDARD Performed By: #### C MP #### [facility] ([facility]) [address] [place] [address] VIR EGFR (CKD-EPI) NON-RACE DEPENDENT >^90 Normal >=60 [facility] Comment on above: Result Comment: Repo rted eGFR is based on the CKD-EPI 2020 equation that does not use a race coefficient. Performed By: #### C MP #### [facility] ([facility]) [address] [place] [address] VIR Glucose [Mass/Vol] 107 mg/dL High 65-99 [facility] Comment on above: Performed By: #### C MP #### [facility] ([facility]) [address] [place] [address] VIR Potassium [Moles/Vol] 4.3 mmol/L Normal 3.5-5.0 [facility] Comment on above: Performed By: #### C MP #### [facility] ([facility]) [address] [place] [address] VIR Protein [Mass/Vol] 5.3 g/dL Low 6.0-8.0 [facility] Comment on above: Performed By: #### C MP #### [facility] ([facility]) [address] [place] [address] VIR Sodium [Moles/Vol] 136 mmol/L Normal 134-146 [facility] Comment on above: Performed By: #### C MP #### [facility] ([facility]) [address] [place] [address] VIR Urea nitrogen [Mass/Vol] 13 mg/dL Normal 5-23 [facility] Comment on above: Performed By: #### C MP #### [facility] ([facility]) [address] [place] [address] VIR Eosinophils/100 WBC Auto (Bl d)Ordered By: Deep Salinas on 11-08-2024 Eosinophils/100 WBC (Bld) 1.1 % 0.9-7.0 [facility] Erythrocyte distribution wid th Auto (RBC) [Ratio]Ordered By: Deep Salinas on 11-08-2024 Erythrocyte distribution width (RBC) [Ratio] 18.1 % High 11.0-15.0 [facility] Fibrinogen [Mass/volume] in Platelet poor plasma by Coagulation assayOrdered By: Deep Salinas on 11-08-2024 Fibrinogen Coag (PPP) [Mass/Vol] 376 mg/dL 200-400 [facility] Globulin Calc (S) [Mass/Vol] Ordered By: Deep Salinas on 11-08-2024 Globulin (S) [Mass/Vol] 3.9 g/dL F [facility] Glomerular filtration rate ( GFR) estimation in non- AmericanOrdered By: Deep Salinas on 11-08-2024 GFR/1.73 sq M.predicted among non-blacks MDRD (S/P/Bld) [Vol rate/Area] mL/min/{1.73_m2} >=60 mL/min/1.73m 2 [facility] Hematocrit Auto (Bld) [Volum e fraction]Ordered By: Deep Salinas on 11-08-2024 Hematocrit (Bld) [Volume fraction] 32.3 % Low 36.0-48.0 [facility] Hemoglobin [Mass/volume] in BloodOrdered By: Deep Salinas on 11-08-2024 Hemoglobin (Bld) [Mass/Vol] 10.8 g/dL Low 12.0-16.0 [facility] INR in Platelet poor plasma by Coagulation assayOrdered By: Deep Salinas on 11-08-2024 INR Coag (PPP) [Relative time] {INR} [facility] Comment on above: DESIRED INR:2.0-3.0 CONDITIONS NOT LISTED BELOW2.5-3.5 FOR PROSTHETIC HEART VALVE REPLACEMENT2.5-3.5 RECURRENT THROMBOSIS Laboratory - Chemistry and C hemistry - challengeOrdered By: Deep Salinas on 11-08-2024 Albumin [Mass/Vol] 2.2 g/dL Low 3.4-5.0 [facility] ALP [Catalytic activity/Vol] 144 U/L High 46-116 [facility] ALT [Catalytic activity/Vol] 33 U/L 14-59 [facility] AST [Catalytic activity/Vol] 11 U/L Low 15-37 [facility] Bilirubin [Mass/Vol] 0.3 mg/dL 0.2-1.0 [facility] Calcium [Mass/Vol] 8.2 mg/dL Low 8.5-10.1 [facility] Chloride [Moles/Vol] 104 mmol/L 98-107 [facility] CO2 [Moles/Vol] 23.9 mmol/L 21.0-32.0 [facility] Creatinine [Mass/Vol] 0.67 mg/dL 0.55-1.02 [facility] GFR/1.73 sq M.predicted MDRD (S/P/Bld) [Vol rate/Area] mL/min/{1.73_m2} >=60 mL/min/1.73m 2 [facility] Glucose [Mass/Vol] 76 mg/dL 74-106 [facility] LDH [Catalytic activity/Vol] 296 U/L High 81-234 [facility] Potassium [Moles/Vol] 4.1 mmol/L 3.5-5.1 [facility] Protein [Mass/Vol] 6.1 g/dL Low 6.4-8.2 [facility] Sodium [Moles/Vol] 139 mmol/L 136-145 [facility] Urate [Mass/Vol] 7.4 mg/dL High 2.6-6.0 [facility] Urea nitrogen [Mass/Vol] 13.0 mg/dL 7.0-18.0 [facility] Urea nitrogen/Creatinine [Mass ratio] 19.4 mg/mg [facility] Laboratory - Hematology and Cell countsOrdered By: Deep Salinas on 11-08-2024 Immature granulocytes/100 WBC (Bld) 1.2 % High 0.0-0.5 [facility] Laboratory - UrinalysisOrder ed By: Deep Salinas on 11-08-2024 Protein (U) [Mass/Vol] 764.9 mg/dL High <=11.9 F [facility] Leukocytes [#/volume] correc obie for nucleated erythrocytes in Blood by Automated counOrdered By: Deep Salinas on 11-08-2024 WBC corrected for nucl RBC Auto (Bld) [#/Vol] 13.7 10 3/uL High 4.0-11.0 [facility] Lymphocytes Auto (Bld) [#/Vo l]Ordered By: Deep Salinas on 11-08-2024 Lymphocytes (Bld) [#/Vol] 3.5 10 3/uL 1.2-3.8 [facility] Lymphocytes/100 WBC Auto (Bl d)Ordered By: Deep Salinas on 11-08-2024 Lymphocytes/100 WBC (Bld) 25.4 % 20.5-60.0 [facility] MCH Auto (RBC) [Entitic mass ]Ordered By: Deep Salinas on 11-08-2024 MCH (RBC) [Entitic mass] 29.8 pg 26.7-34.0 [facility] MCHC Auto (RBC) [Mass/Vol]Or dered By: Deep Salinas on 11-08-2024 MCHC (RBC) [Mass/Vol] 33.4 g/dL 29.9-35.2 [facility] MCV Auto (RBC) [Entitic vol] Ordered By: Deep Salinas on 11-08-2024 MCV (RBC) [Entitic vol] 89.0 fL 81.0-99.0 F [facility] Monocytes Auto (Bld) [#/Vol] Ordered By: Deep Salinas on 11-08-2024 Monocytes (Bld) [#/Vol] 0.7 10 3/uL 0.3-0.8 [facility] Monocytes/100 WBC Auto (Bld) Ordered By: Deep Salinas on 11-08-2024 Monocytes/100 WBC (Bld) 5.0 % 1.7-12.0 F [facility] Neutrophils Auto (Bld) [#/Vo l]Ordered By: Deep Salinas on 11-08-2024 Neutrophils (Bld) [#/Vol] 9.1 10 3/uL High 1.4-6.5 [facility] Neutrophils/100 WBC Auto (Bl d)Ordered By: Deep Salinas on 11-08-2024 Neutrophils/100 WBC (Bld) 66.7 % 43.0-75.0 [facility] No Panel InformationOrdered By: Radiologist Radiology on 11-08-2024 [facility] Work Phone: No Panel InformationOrdered By: Deep Salinas on 11-08-2024 Eosinophils # (Auto) 0.2 10 3/uL 0.0-0.7 [facility] Immature Granulocyte # (Auto) 0.16 10 3/uL High 0.00-0.03 [facility] Urine Random Creatinine 82.32 mg/dL 20.00-300.0 0 [facility] No Panel Informationon 11-08 Radiology Study observation (narrative) [facility] Platelet mean volume Auto (B ld) [Entitic vol]Ordered By: Deep Salinas on 11-08-2024 Platelet mean volume (Bld) [Entitic vol] 10.7 fL 9.5-13.5 [facility] Platelets Auto (Bld) [#/Vol] Ordered By: Deep Salinas on 11-08-2024 Platelets (Bld) [#/Vol] 269 10 3/uL 150-450 [facility] Prothrombin time (PT)Ordered By: Deep Salinas on 11-08-2024 PT Coag (PPP) [Time] 9.8 s 9.0-11.6 [facility] RBC Auto (Bld) [#/Vol]Ordere d By: Deep Salinas on 11-08-2024 RBC (Bld) [#/Vol] 3.63 10 6/uL Low 4.20-5.40 [facility] SYPHILIS TOTAL(UNKNOWN SYPHI LIS STATUS)on 11-08-2024 SYPHILIS TOTAL <^0.2 Normal <=0.8 [facility] Comment on above: Order Comment: NON R EACTIVE No serologic evidence of infection to Treponema pallidum. Repeat testing may be considered in patients with suspected acute or primary syphilis in 2 to 4 weeks. Performed By: #### S YPHT #### [facility] ([facility]) [address] [place] [address] VIR Serum or plasma albumin/glob ulin mass ratioOrdered By: Deep Salinas on 11-08-2024 Albumin/Globulin [Mass ratio] 0.6 {ratio} [facility] Serum or plasma anion gap de terminationOrdered By: Deep Salinas on 11-08-2024 Anion gap [Moles/Vol] 15.2 mmol/L [facility] TYPE AND SCREENon 11-08-2024 ABO_INTEP A Normal [facility] Comment on above: Performed By: #### T SC #### [facility] ([facility]) [address] [place] [address] VIR RH_INTEP Positive Normal [facility] Comment on above: Performed By: #### T SC #### [facility] ([facility]) [address] [place] [address] VIR US OB BPP W NON-STRESS on 11-08-2024 [facility] [address] [place] [address] Ultrasound Report Signed Patient: HANNAH CLAIRE MR#: [id number] : 1995 Acct:[id number] Age/Sex: 28 / F ADM Date: 11/08/24 Loc: [facility] 251-[address]: Deep Salinas D.O. Ordering Physician: Deep Salinas D.O. Date of Service: 11/08/24 Procedure(s): US OB BPP w non-stress Accession Number(s): [id number] cc: Deep Salinas D.O.; GUY MULLEN [place] [id number] Patient Name: HANNAH CLAIRE MRN: [id number] date: 1995 Sex: F Assigned Patient Location: [facility] Current Patient Location: [facility] Accession/Order Number: [id number] Exam Date: 11/08/2024 17:20 Report Date: 11/08/2024 [...] Harrison M.D. 11/08/2024 5:25 PM Dictation Location: [employer] Electronically authenticated by: [id number] Y Date: 11/08/2024 17:25 Dictated By: Aleksander Harrison M.D. Signed By: 11/08/24 1728 DD/ 1725 TD/TT: Freezer Operator: [facility] Radiology, Radiologist, - 11/08/[address] [address] Ultrasound Report Signed Patient: HANNAH CLAIRE MR#: [id number] : 1995 Acct:[id number] Age/Sex: 28 / F ADM Date: 11/08/24 Loc: [facility] 251-[address]: Deep Salinas D.O. Ordering Physician: Deep Salinas D.O. Date of Service: 11/08/24 Procedure(s): US OB BPP w non-stress Accession Number(s): [id number] cc: Deep Salinas D.O.; GUY MULLEN [address] [address] Patient Name: HANNAH CLAIRE MRN: [facility]:[id number] date: 1995 Sex: F Assigned Patient Location: [facility] Current Patient Location: [facility] Accession/Order Number: [id number] Exam Date: 11/08/2024 17:20 Report Date: 11/08/2024 [...] Harrison M.D. 11/08/2024 5:25 PM Dictation Location: [place] [address] Electronically authenticated by: [id number] Y Date: 11/08/2024 17:25 Dictated By: Aleksander Harrison M.D. Signed By: 11/08/241727 DD/ 24 TD/TT: Freezer Operator: [facility] OB GROWTHon 11-08-2024 [place] [address] Ultrasound Report Signed Patient: HANNAH CALIRE MR#: [id number] : 1995 Acct:[id number] Age/Sex: 28 / F ADM Date: 11/08/24 Loc: [facility] 251-[address]: Deep Salinas D.O. Ordering Physician: Deep Salinas D.O. Date of Service: 11/08/24 Procedure(s): US OB growth Accession Number(s): [id number] cc: Deep Salinas D.O.; GUY MULLEN [place] [id number] Patient Name: HANNAH CLAIRE MRN: [id number] date: 1995 Sex: F Assigned Patient Location: [facility] Current Patient Location: [facility] Accession/Order Number: [id number] Exam Date: 11/08/2024 17:20 Report Date: 11/08/2024 [...] Harrison M.D. 11/08/2024 5:25 PM Dictation Location: [employer] Electronically authenticated by: [id number] Y Date: 11/08/2024 17:25 Dictated By: Aleksander Harrison M.D. Signed By: 11/08/241727 DD/ 24 TD/TT: Freezer Operator: [facility] Radiology, Radiologist, - 11/08/2024 [place] [address] Ultrasound Report Signed Patient: HANNAH CLAIRE MR#: [id number] : 1995 Acct:[id number] Age/Sex: 28 / F ADM Date: 11/08/24 Loc: [facility] 251-[address]: Deep Salinas D.O. Ordering Physician: Deep Salinas D.O. Date of Service: 11/08/24 Procedure(s): US OB growth Accession Number(s): [id number] cc: Deep Salinas D.O.; GUY MULLEN [place] [id number] Patient Name: HANNAH CLAIRE MRN: [facility]:[id number] date: 1995 Sex: F Assigned Patient Location: [facility] Current Patient Location: [facility] Accession/Order Number: [id number] Exam Date: 11/08/2024 17:20 Report Date: 11/08/2024 [...] Harrison M.D. 11/08/2024 5:25 PM Dictation Location: [place] [address] Electronically authenticated by: [id number] Y Date: 11/08/2024 17:25 Dictated By: Aleksander Harrison M.D. Signed By: 11/08/241727 DD/ 24 TD/TT: Freezer Operator: [facility] Urinalysis macro (dipstick) panel (U)on 11-08-2024 Bilirubin, UA Negative Negative - 4(70) +++ mg/dL [facility] Blood, UA Negative Negative - 50 Jay/mcL [facility] Clarity, UA Clear [facility] Color, UA Yellow [facility] Glucose, UA Negative Negative - 1999(110) ++++ mg/dL [facility] Interpretation and review of laboratory results Abnormal [facility] Ketones, UA Negative Negative - 160(16) ++++ mg/dL [facility] Leukocytes, UA Negative Negative - 500+++ Kate/mcL [facility] Nitrite, UA Negative Negative - Positive [facility] pH, UA 6 5 - 9 [facility] Protein, UA 4+ Negative - 1999(20) ++++ mg/dL [facility] Spec Grav, UA 1.03 1 - 1.03 [facility] Urobilinogen, UA 0.2 0.2 - 12 mg/dL [facility] Urine protein/creatinine rat ioOrdered By: Deep Salinas on 11-08-2024 Protein/Creatinine (U) [Ratio] 9.29 [facility] Urinalysis macro (dipstick) panel (U)on 10-11-2024 Bilirubin, UA Negative Negative - 4(70) +++ mg/dL [facility] Blood, UA Negative Negative - 50 Jay/mcL [facility] Clarity, UA Clear [facility] Color, UA Yellow [facility] Glucose, UA Negative Negative - 1999(110) ++++ mg/dL [facility] Interpretation and review of laboratory results Normal [facility] Ketones, UA Negative Negative - 160(16) ++++ mg/dL [facility] Leukocytes, UA Positive Negative - 500+++ Kate/mcL [facility] Comment on above: small Nitrite, UA Negative Negative - Positive [facility] pH, UA 5.5 5 - 9 [facility] Protein, UA Negative Negative - 1999(20) ++++ mg/dL [facility] Spec Grav, UA 1.02 1 - 1.03 [facility] Urobilinogen, UA 0.2 0.2 - 12 mg/dL [facility] Urinalysis macro (dipstick) panel (U)on 09-26-2024 Bilirubin, UA Negative Negative - 4(70) +++ mg/dL [facility] Blood, UA Negative Negative - 50 Jay/mcL [facility] Clarity, UA Clear [facility] Color, UA Yellow [facility] Glucose, UA Negative Negative - 1999(110) ++++ mg/dL [facility] Interpretation and review of laboratory results Normal [facility] Ketones, UA Negative Negative - 160(16) ++++ mg/dL [facility] Leukocytes, UA Trace Negative - 500+++ Kate/mcL [facility] Nitrite, UA Negative Negative - Positive [facility] pH, UA 7 5 - 9 [facility] Protein, UA Negative Negative - 2000(20) ++++ mg/dL [facility] Spec Grav, UA 1.02 1 - 1.03 [facility] Urobilinogen, UA 0.2 0.2 - 12 mg/dL [facility] BOX TESTon 08-15-2024 BOX TEST SENT OUT [email or web address] [facility] BOX1 UNITY [facility] BOX2 08/15/24 [facility] BOX [facility]IS[facility] US OB 14+ WEEKS ANATOMY SCAN on [...] II, MD, PHD at 01-Aug-2024 11:31:07 PM [facility] Normal Not Available Comment on above: Order Comment: US OB ANATOMY SINGLE W US OB CERVICAL LENGTH Estimated Date of Delivery: 12/05/24 Gestational Age as of 07/04/2024: 18w0d Urinalysis macro (dipstick) panel (U)on 08-01-2024 Bilirubin, UA Negative Negative - 4(70) +++ mg/dL [facility] Blood, UA Negative Negative - 50 Jay/mcL [facility] Clarity, UA Clear [facility] Color, UA Yellow [facility] Glucose, UA Negative Negative - 2000(110) ++++ mg/dL [facility] Interpretation and review of laboratory results Abnormal [facility] Ketones, UA Negative Negative - 160(16) ++++ mg/dL [facility] Leukocytes, UA Negative Negative - 500+++ Kate/mcL [facility] Nitrite, UA Negative Negative - Positive [facility] pH, UA 6 5 - 9 [facility] Protein, UA Positive Negative - 2000(20) ++++ mg/dL [facility] Comment on above: 30mg/dL Spec Grav, UA 1.025 1 - 1.03 [facility] Urobilinogen, UA 0.2 0.2 - 12 mg/dL [facility] MLR HEMOGLOBIN A1Con 025 Glucose [Mass/Vol] 105 mg/dL [facility] HbA1c (Bld) [Mass fraction] 5.3 % 4.5 - 6.2 % [facility] Comment on above: ADA RECOMMENDED LIMI T 4.0 - 6.0 ADA THERAPEUTIC TARGET < 7.0 ACTION SUGGESTED > 7.0 [facility] Urinalysis macro (dipstick) panel (U)on 06-06-2024 Bilirubin, UA Negative Negative - 4(70) +++ mg/dL [facility] Blood, UA Negative Negative - 50 Jay/mcL [facility] Clarity, UA Clear [facility] Color, UA Yellow [facility] Glucose, UA Negative Negative - 1999(110) ++++ mg/dL [facility] Interpretation and review of laboratory results Abnormal [facility] Ketones, UA Negative Negative - 160(16) ++++ mg/dL [facility] Leukocytes, UA Negative Negative - 500+++ Kate/mcL [facility] Nitrite, UA Negative Negative - Positive [facility] pH, UA 6.5 5 - 9 [facility] Protein, UA Trace Negative - 1999(20) ++++ mg/dL [facility] Spec Grav, UA 1.03 1 - 1.03 [facility] Urobilinogen, UA 0.2 0.2 - 12 mg/dL [facility] HCG ( test) Ql (U)o n 05-05-2024 Interpretation and review of laboratory results Abnormal [facility] Preg Test, Ur Positive Negative [facility] US OB TRANSVAGINALon 025 US OB TRANSVAGINAL [...] UA Positive Negative - 4(70) +++ mg/dL [facility] Comment on above: small Blood, UA Negative Negative - 50 Jay/mcL [facility] Clarity, UA Clear [facility] Color, UA Yellow [facility] Glucose, UA Negative Negative - 1999(110) ++++ mg/dL [facility] Interpretation and review of laboratory results Abnormal [facility] Ketones, UA Positive Negative - 160(16) ++++ mg/dL [facility] Comment on above: trace Leukocytes, UA Negative Negative - 500+++ Kate/mcL [facility] Nitrite, UA Negative Negative - Positive [facility] pH, UA 5.5 5 - 9 [facility] Protein, UA Positive Negative - 1999(20) ++++ mg/dL [facility] Comment on above: 30 Spec Grav, UA 1.03 1 - 1.03 [facility] Urobilinogen, UA 0.2 0.2 - 12 mg/dL [facility] Human papilloma virus 16+18+ 31+33+35+39+45+51+52+56+58+59+66+68 DNA [Presence] in [place] 09-23-2023 HPV 16+18+31+33+35+39+45+51+ 52+56+58+59+66+68 DNA Probe+sig amp Ql (Cvx) Note . [facility] Comment on above: TESTS RESULT FLAG UN ITS REF RANGE LAB --DIAGNOSIS: 02 NEGATIVE FOR INTRAEPITHELIAL LESION OR MALIGNANCY.Specimen adequacy: 02 Satisfactory for evaluation. Endocervical and/or squamous metaplastic cells (endocervical component) are present.Performed by: Cyrus Calles, Solar Installation Foreman ([facility]). 02Note: Note 02 The Pap smear [...] High <-Panic Low,>-Panic High,A-Abnormal,AA-Critical Abnormal -------Performed at:[address] [address] Jessie Zarate MD, Ngrrlokzg at: =[address] [id number] Director: Jessie Zarate MD, Phone: [phone] at: [address] [id number] Director: Jessie Zarate MD, Phone: [phone] No Panel Informationon 09-22 Reference Lab Test Patient Age Note . [facility] Comment on above: TESTS RESULT FLAG UN ITS REF RANGE LAB -- Clinician Provided Cytology Information Source.............Cervix;Endocervix No. of containers..01 ThinPrep VialAge [place] [facility] Judith... - FLAG LEGEND: L-Low Normal,H-High Normal,LL-Alert Low,HH-Alert High <-Panic Low,>-Panic High,A-Abnormal,AA-Critical Abnormal -------Performed at:01 =[address] [facility] [address] Jessie Zarate MD, CBC AUTO DIFFon 12-29-2021 BASO # 0.0 103/ul Normal 0.0-0.1 [facility] Comment on above: Performed By: #### C BC #### [facility] [address] [place] [address] Dr. Sae Flores Basophils/100 WBC (Bld) 0.2 % Normal 0.2-2.0 [facility] Comment on above: Performed By: #### C BC #### [facility] [address] [place] [address] Dr. Sae Flores EO # 0.0 103/ul Normal 0.0-0.7 [facility] Comment on above: Performed By: #### C BC #### [facility] [address] [place] [address] Dr. Sae Flores Eosinophils/100 WBC (Bld) 0.1 % Critically low 0.9-7.0 [facility] Comment on above: Performed By: #### C BC #### [facility] [address] [place] [address] Dr. Sae Flores Erythrocyte distribution width (RBC) [Ratio] 13.8 % Normal 11.0-15.0 [facility] Comment on above: Performed By: #### C BC #### [facility] [address] [place] [address] Dr. Sae Flores Hematocrit (Bld) [Volume fraction] 30.2 % Critically low 36.0-48.0 [facility] Comment on above: Performed By: #### C BC #### [facility] [address] [place] [address] Dr. Sae Flores Hemoglobin (Bld) [Mass/Vol] 9.9 g/dL Critically low 12.0-16.0 [facility] Comment on above: Performed By: #### C BC #### [facility] [address] [place] [address] Dr. Sae Flores IG # 0.08 10e3/ul Critically high 0.00-0.03 [facility] Comment on above: Performed By: #### C BC #### [facility] [address] [place] [address] Dr. Sae Flores IG % 0.5 % Normal 0.0-0.5 [facility] Comment on above: Performed By: #### C BC #### [facility] [address] [place] [address] Dr. Sae Flores LYMPH # 1.6 103/ul Normal 1.2-3.8 [facility] Comment on above: Performed By: #### C BC #### [facility] [address] [place] [address] Dr. Sae Flores Lymphocytes/100 WBC (Bld) 9.4 % Critically low 20.5-60.0 [facility] Comment on above: Performed By: #### C BC #### [facility] [address] [place] [address] Dr. Sae Flores MANUAL DIFF REQ NO Normal [facility] Comment on above: Performed By: #### C BC #### [facility] [address] [place] [address] Dr. Sae Flores MCH (RBC) [Entitic mass] 29.9 pg Normal 26.7-34.0 [facility] Comment on above: Performed By: #### C BC #### [facility] [address] [place] [address] Dr. Sae Flores MCHC (RBC) [Mass/Vol] 32.8 g/dL Normal 29.9-35.2 [facility] Comment on above: Performed By: #### C BC #### [facility] [address] [place] [address] Dr. Sae Flores MCV (RBC) [Entitic vol] 91.2 fL Normal 81.0-99.0 [facility] Comment on above: Performed By: #### C BC #### [facility] [address] [place] [address] [address] Sae Flores MONO # 1.2 103/ul Critically high 0.3-0.8 [facility] Comment on above: Performed By: #### C BC #### [facility] [address] [place] [address] Dr. Sae Flores Monocytes/100 WBC (Bld) 7.0 % Normal 1.7-12.0 [facility] Comment on above: Performed By: #### C BC #### [facility] [address] [place] [address] Dr. Sae Flores NEUT # 14.3 103/ul Critically high 1.4-6.5 [facility] Comment on above: Performed By: #### C BC #### [facility] [address] [place] [address] Dr. Sae Flores Neutrophils/100 WBC (Bld) 82.8 % Critically high 43.0-75.0 [facility] Comment on above: Performed By: #### C BC #### [facility] [address] [place] [address] Dr. Sae Flores Platelet mean volume (Bld) [Entitic vol] 9.1 fL Critically low 9.5-13.5 [facility] Comment on above: Performed By: #### C BC #### [facility] [address] [place] [address] Dr. Sae Flores PLT 207 103/ul Normal 150-450 [facility] Comment on above: Performed By: #### C BC #### [facility] [address] [place] [address] Dr. Sae Flores RBC 3.31 106/ul Critically low 4.20-5.40 [facility] Comment on above: Performed By: #### C BC #### [facility] [address] [place] [address] Dr. Sae Flores WBC 17.3 103/ul Critically high 4.0-11.0 [facility] Comment on above: Performed By: #### C BC #### [facility] [address] [place] [address] Dr. Sae Flores DRUG SCREEN RAPID (URINE)on 12-28-2021 AMP Negative Normal NEGATIVE [facility] Comment on above: Performed By: #### D RUGRPD #### [facility] [address] [place] [address] Dr. Sae Flores BAR Negative Normal NEGATIVE [facility] Comment on above: Performed By: #### D RUGRPD #### [facility] [address] [place] [address] Dr. Sae Flores BUP Negative Normal NEGATIVE [facility] Comment on above: Performed By: #### D RUGRPD #### [facility] [address] [place] [address] Dr. Sae Flores BZO Negative Normal NEGATIVE [facility] Comment on above: Performed By: #### D RUGRPD #### [facility] [address] [place] [address] Dr. Sae Flores CONSTANCE Negative Normal NEGATIVE [facility] Comment on above: Performed By: #### D RUGRPD #### [facility] [address] [place] [address] Dr. Sae Flores CUT-OFFS SEE BELOW Normal [facility] Comment on above: Result Comment: AMP [...] ng/mL Performed By: #### D RUGRPD #### [facility] [address] [place] [address] Dr. Sae Flores DRUG CUT HEADER DRUG CLASS TEST SYSTEM CUT-OFF CONCENTRATIONS ARE FOLLOWS: Normal [facility] Comment on above: Performed By: #### D RUGRPD #### [facility] [address] [place] [address] Dr. Sae Flores mAMP Negative Normal NEGATIVE [facility] Comment on above: Performed By: #### D RUGRPD #### [facility] [address] [place] [address] Dr. Sae Flores MTD Negative Normal NEGATIVE [facility] Comment on above: Performed By: #### D RUGRPD #### [facility] [address] [place] [address] Dr. Sae Flores OPI Negative Normal NEGATIVE [facility] Comment on above: Performed By: #### D RUGRPD #### [facility] [address] [place] [address] Dr. Sae Flores OXY Negative Normal NEGATIVE [facility] Comment on above: Performed By: #### D RUGRPD #### [facility] [address] [place] [address] Dr. Sae Flores PCP Negative Normal NEGATIVE [facility] Comment on above: Performed By: #### D RUGRPD #### [facility] [address] [place] [address] Dr. Sae Flores PPX Negative Normal NEGATIVE [facility] Comment on above: Performed By: #### D RUGRPD #### [facility] [address] [place] [address] Dr. Sae Flores TCA Negative Normal NEGATIVE [facility] Comment on above: Performed By: #### D RUGRPD #### [facility] [address] [place] [address] Dr. Sae Flores THC Negative Normal NEGATIVE [facility] Comment on above: Performed By: #### D RUGRPD #### [facility] [address] [place] [address] [address] Sae Flores CBC AUTO DIFFon 12-27-2021 BASO # 0.0 103/ul Normal 0.0-0.1 [facility] Comment on above: Performed By: #### C BC #### [facility] [address] [address] [address] Sae Flores Basophils/100 WBC (Bld) 0.2 % Normal 0.2-2.0 [facility] Comment on above: Performed By: #### C BC #### [facility] [address] [place] [address] [address] Sae Flores EO # 0.2 103/ul Normal 0.0-0.7 [facility] Comment on above: Performed By: #### C BC #### [facility] [address] [place] [address] [address] Sae Flores Eosinophils/100 WBC (Bld) 1.3 % Normal 0.9-7.0 [facility] Comment on above: Performed By: #### C BC #### [facility] [address] [address] [address] Sae Flores Erythrocyte distribution width (RBC) [Ratio] 14.0 % Normal 11.0-15.0 [facility] Comment on above: Performed By: #### C BC #### [facility] [address] [address] [address] Sae Flores Hematocrit (Bld) [Volume fraction] 33.6 % Critically low 36.0-48.0 [facility] Comment on above: Performed By: #### C BC #### [facility] [address] [address] [address] Sae Flores Hemoglobin (Bld) [Mass/Vol] 11.2 g/dL Critically low 12.0-16.0 [facility] Comment on above: Performed By: #### C BC #### [facility] [address] [address] [address] Sae Flores IG # 0.08 10e3/ul Critically high 0.00-0.03 [facility] Comment on above: Performed By: #### C BC #### [facility] [address] [place] [address] [address] Sae Flores IG % 0.7 % Critically high 0.0-0.5 [facility] Comment on above: Performed By: #### C BC #### [facility] [address] [place] [address] Dr. Sae Flores LYMPH # 1.9 103/ul Normal 1.2-3.8 [facility] Comment on above: Performed By: #### C BC #### [facility] [address] [place] [address] Dr. Sae Flores Lymphocytes/100 WBC (Bld) 16.9 % Critically low 20.5-60.0 [facility] Comment on above: Performed By: #### C BC #### [facility] [address] [place] [address] Dr. Sae Flores MANUAL DIFF REQ NO Normal [facility] Comment on above: Performed By: #### C BC #### [facility] [address] [place] [address] Dr. Sae Flores MCH (RBC) [Entitic mass] 30.0 pg Normal 26.7-34.0 [facility] Comment on above: Performed By: #### C BC #### [facility] [address] [place] [address] Dr. Sae Flores MCHC (RBC) [Mass/Vol] 33.3 g/dL Normal 29.9-35.2 [facility] Comment on above: Performed By: #### C BC #### [facility] [address] [place] [address] Dr. Sae Flores MCV (RBC) [Entitic vol] 90.1 fL Normal 81.0-99.0 [facility] Comment on above: Performed By: #### C BC #### [facility] [address] [place] [address] Dr. Sae Flores MONO # 0.8 103/ul Normal 0.3-0.8 [facility] Comment on above: Performed By: #### C BC #### [facility] [address] [place] [address] Dr. Sae Flores Monocytes/100 WBC (Bld) 7.0 % Normal 1.7-12.0 [facility] Comment on above: Performed By: #### C BC #### [facility] [address] [place] [address] Dr. Sae Flores NEUT # 8.5 103/ul Critically high 1.4-6.5 [facility] Comment on above: Performed By: #### C BC #### [facility] [address] [place] [address] Dr. Sae Flores Neutrophils/100 WBC (Bld) 73.9 % Normal 43.0-75.0 [facility] Comment on above: Performed By: #### C BC #### [facility] [address] [place] [address] Dr. Sae Flores Platelet mean volume (Bld) [Entitic vol] 10.3 fL Normal 9.5-13.5 [facility] Comment on above: Performed By: #### C BC #### [facility] [address] [place] [address] Dr. Sae Flores PLT 214 103/ul Normal 150-450 [facility] Comment on above: Performed By: #### C BC #### [facility] [address] [place] [address] Dr. Sae Flores RBC 3.73 106/ul Critically low 4.20-5.40 [facility] Comment on above: Performed By: #### C BC #### [facility] [address] [place] [address] Dr. Sae Flores WBC 11.5 103/ul Critically high 4.0-11.0 [facility] Comment on above: Performed By: #### C BC #### [facility] [address] [place] [address] Dr. Sae Flores Covid-19 PCR ([facility])on SARS-CoV-2 (COVID-19) RNA [place]+probe Ql (Unsp spec) Not detected Normal NOT DETECTED [facility] Comment on above: Result Comment: When [...] for this test is supported by the [place] of Health and Human Service's declaration that [...] used). Performed By: #### C VDTBH #### [facility] [address] [place] [address] Dr. Sae Flores DRUG SCREEN RAPID (URINE)on 12-27-2021 AMP Negative Normal NEGATIVE [facility] Comment on above: Performed By: #### D RUGRPD #### [facility] [address] [place] [address] Dr. Sae Flores BAR Negative Normal NEGATIVE [facility] Comment on above: Performed By: #### D RUGRPD #### [facility] [address] [place] [address] Dr. Sae Flores BUP Negative Normal NEGATIVE [facility] Comment on above: Performed By: #### D RUGRPD #### [facility] [address] [place] [address] Dr. Sae Flores BZO Negative Normal NEGATIVE [facility] Comment on above: Performed By: #### D RUGRPD #### [facility] [address] [place] [address] Dr. Sae Flores CONSTANCE Negative Normal NEGATIVE [facility] Comment on above: Performed By: #### D RUGRPD #### [facility] [address] [place] [address] Dr. aSe Flores CUT-OFFS SEE BELOW Normal [facility] Comment on above: Result Comment: AMP [...] ng/mL Performed By: #### D RUGRPD #### [facility] [address] [place] [address] Dr. Sae Flores DRUG CUT HEADER DRUG CLASS TEST SYSTEM CUT-OFF CONCENTRATIONS ARE FOLLOWS: Normal [facility] Comment on above: Performed By: #### D RUGRPD #### [facility] [address] [place] [address] Dr. Sae Flores mAMP Negative Normal NEGATIVE [facility] Comment on above: Performed By: #### D RUGRPD #### [facility] [address] [place] [address] Dr. Sae Flores MTD Negative Normal NEGATIVE [facility] Comment on above: Performed By: #### D RUGRPD #### [facility] [address] [place] [address] Dr. Sae Flores OPI Negative Normal NEGATIVE [facility] Comment on above: Result Comment: Prev iously reported as: POSITIVE On 12/27/2021 20:19 By MH01 Performed By: #### D RUGRPD #### [facility] [address] [place] [address] Dr. Sae Flores OXY Negative Normal NEGATIVE [facility] Comment on above: Performed By: #### D RUGRPD #### [facility] [address] [place] [address] Dr. Sae Flores PCP Negative Normal NEGATIVE [facility] Comment on above: Performed By: #### D RUGRPD #### [facility] [address] [place] [address] Dr. Sae Flores PPX Negative Normal NEGATIVE [facility] Comment on above: Performed By: #### D RUGRPD #### [facility] [address] [place] [address] Dr. Sae Flores TCA Negative Normal NEGATIVE [facility] Comment on above: Performed By: #### D RUGRPD #### [facility] [address] [address] [address] Sae Flores THC Negative Normal NEGATIVE [facility] Comment on above: Performed By: #### D RUGRPD #### [facility] [address] [place] [address] Dr. Sae Flores TYPE AND SCREENon 12-27-2021 TYPE AND SCREEN Negative Normal [facility] Comment on above: Performed By: #### T NS #### [facility] [address] [place] [address] Dr. Sae Flores GROUP B STREP CULTUREon S. agalactiae Ag Ql (Unsp spec) Culture Observations: NEGATIVE FOR GROUP B STREPTOCOCCUS. Normal [facility] Comment on above: Performed By: #### G BSCX #### [facility] [address] [place] [address] Dr. Sae Flores US PREG GROWTHon 11-18-2021 [...] LAURIE PASCUALALEKSANDR Date: 2021-11-18 16:40 Normal [facility] GTT 3 HR PREGon 10-20-2021 Glucose [Mass/Vol] 93 mg/dL Normal 74-106 [facility] Comment on above: Performed By: #### G TT3P #### [facility] [address] [place] [address] Dr. Sae Flores Glucose [Mass/Vol] 164 mg/dL Normal [facility] Comment on above: Performed By: #### G TT3P #### [facility] [address] [place] [address] Dr. aSe Flores Glucose [Mass/Vol] 116 mg/dL Normal [facility] Comment on above: Performed By: #### G TT3P #### [facility] [address] [place] [address] Dr. Sae Flores Glucose [Mass/Vol] 83 mg/dL Normal [facility] Comment on above: Performed By: #### G TT3P #### [facility] [address] [place] [address] Dr. Sae Flores GLUCOSE - 1HRon 10-09-2021 Glucose [Mass/Vol] 176 mg/dL Critically high 74-106 [facility] Comment on above: Performed By: #### G LU1HR #### [facility] [address] [place] [address] Dr. Sae Flores HEMOGRAM AND PLATELon 2021 Hematocrit (Bld) [Volume fraction] 33.6 % Critically low 36.0-48.0 [facility] Comment on above: Performed By: #### H H #### [facility] [address] [place] [address] Dr. Sae Flores Hemoglobin (Bld) [Mass/Vol] 11.0 g/dL Critically low 12.0-16.0 [facility] Comment on above: Performed By: #### H H #### [facility] [address] [address] [address] Sae Flores MCH (RBC) [Entitic mass] 30.6 pg Normal 26.7-34.0 [facility] Comment on above: Performed By: #### H H #### [facility] [address] [address] [address] Sae Flores MCHC (RBC) [Mass/Vol] 32.7 g/dL Normal 29.9-35.2 [facility] Comment on above: Performed By: #### H H #### [facility] [address] [address] [address] Sae Flores MCV (RBC) [Entitic vol] 93.3 fL Normal 81.0-99.0 [facility] Comment on above: Performed By: #### H H #### [facility] [address] [place] [address] Dr. Sae Flores PLT 219 103/ul Normal 150-450 [facility] Comment on above: Performed By: #### H H #### [facility] [address] [address] [address] Sae Flores RBC 3.60 106/ul Critically low 4.20-5.40 [facility] Comment on above: Performed By: #### H H #### [facility] [address] [address] [address] Sae Flores WBC 9.4 103/ul Normal 4.0-11.0 [facility] Comment on above: Performed By: #### H H #### [facility] [address] [place] [address] Dr. Sae Flores Vital Signs Date Time Vital Sign Value Performing Clinician Facility 01-03-2025 10:33-0400 Body mass index (BMI) [Ratio] 28.96 kg/m2 Amy VEGA Work Phone: [facility] 01-03-2025 10:33-0400 Body weight 78.93 kg Amy VEGA Work Phone: [facility] 01-03-2025 10:33-0400 Diastolic blood pressure 76 mm[Hg] Amy VEGA Work Phone: [facility] 01-03-2025 10:33-0400 Systolic blood pressure 124 mm[Hg] Amy VEGA Work Phone: [facility] 12-20-2024 09:49-0400 Body height 171.45 cm Guy Mullen DO Work Phone: [facility] 12-20-2024 09:49-0400 Body mass index (BMI) [Ratio] 26.4 kg/m2 Guy Mullen DO Work Phone: [facility] 12-20-2024 09:49-0400 Body temperature 98.8 [degF] Guy Mullen DO Work Phone: [facility] 12-20-2024 09:49-0400 Body weight 77.56 kg Guy Mullen DO Work Phone: [facility] 12-20-2024 09:49-0400 Diastolic blood pressure 84 mm[Hg] Guy Mullen DO Work Phone: [facility] 12-20-2024 09:49-0400 Heart rate 85 /min Guy Mullen DO Work Phone: [facility] 12-20-2024 09:49-0400 SaO2% (BldA) [Mass fraction] 98 % Guy Mullen DO Work Phone: [facility] 12-20-2024 09:49-0400 Systolic blood pressure 118 mm[Hg] Guy Mullen DO Work Phone: [facility] 11-24-2024 11:05-0400 Body height 165.1 cm Rashida Bush MD Work Phone: [facility] 11-24-2024 11:05-0400 Body mass index (BMI) [Ratio] 28.92 kg/m2 Rashida Bush MD Work Phone: [facility] 11-24-2024 11:05-0400 Body weight 78.83 kg Rashida Bush MD Work Phone: [facility] 11-24-2024 11:05-0400 Diastolic blood pressure 60 mm[Hg] Rashida Bush MD Work Phone: [facility] 11-24-2024 11:05-0400 Heart rate 75 /min Rashida Bush MD Work Phone: [facility] 11-24-2024 11:05-0400 Systolic blood pressure 108 mm[Hg] Rashida Bush MD Work Phone: [facility] 11-08-2024 15:28-0400 Body mass index (BMI) [Ratio] 35.2 kg/m2 Deep Brad DO Work Phone: [facility] 11-08-2024 15:28-0400 Body weight 95.94 kg Deep Brad DO Work Phone: [facility] 11-08-2024 15:28-0400 Diastolic blood pressure 112 mm[Hg] Deep Brad DO Work Phone: [facility] 11-08-2024 15:28-0400 Systolic blood pressure 180 mm[Hg] Deep Brad DO Work Phone: [facility] 10-25-2024 13:33-0400 Body mass index (BMI) [Ratio] 33.16 kg/m2 Amy VEGA Work Phone: [facility] 10-25-2024 13:33-0400 Body weight 90.38 kg Amy VEGA Work Phone: [facility] 10-25-2024 13:33-0400 Diastolic blood pressure 86 mm[Hg] Amy VEGA Work Phone: [facility] 10-25-2024 13:33-0400 Systolic blood pressure 122 mm[Hg] Amy Rubalcava PA Work Phone: [facility] 10-11-2024 15:38-0400 Body mass index (BMI) [Ratio] 31.95 kg/m2 Deep Brad DO Work Phone: [facility] 10-11-2024 15:38-0400 Body weight 87.09 kg Deep Brad DO Work Phone: [facility] 10-11-2024 15:38-0400 Diastolic blood pressure 74 mm[Hg] Deep Brad DO Work Phone: [facility] 10-11-2024 15:38-0400 Systolic blood pressure 118 mm[Hg] Deep Brad DO Work Phone: [facility] 09-26-2024 10:14-0400 Body mass index (BMI) [Ratio] 30.95 kg/m2 Deep Brad DO Work Phone: [facility] 09-26-2024 10:14-0400 Body weight 84.37 kg Deep Brad DO Work Phone: [facility] 09-26-2024 10:14-0400 Diastolic blood pressure 72 mm[Hg] Deep Brad DO Work Phone: [facility] 09-26-2024 10:14-0400 Systolic blood pressure 110 mm[Hg] Deep Brad DO Work Phone: [facility] 08-29-2024 09:28-0400 Body mass index (BMI) [Ratio] 30.52 kg/m2 Deep Brad DO Work Phone: [facility] 08-29-2024 09:28-0400 Body weight 83.19 kg Deep Brad DO Work Phone: [facility] 08-29-2024 09:28-0400 Diastolic blood pressure 70 mm[Hg] Deep Brad DO Work Phone: [facility] 08-29-2024 09:28-0400 Systolic blood pressure 110 mm[Hg] Deep Brad DO Work Phone: [facility] 08-01-2024 10:57-0400 Body mass index (BMI) [Ratio] 29.37 kg/m2 Deep Brad DO Work Phone: [facility] 08-01-2024 10:57-0400 Body weight 80.06 kg Deep Brad DO Work Phone: [facility] 08-01-2024 10:57-0400 Diastolic blood pressure 70 mm[Hg] Deep Brad DO Work Phone: [facility] 08-01-2024 10:57-0400 Systolic blood pressure 108 mm[Hg] Deep Brad DO Work Phone: [facility] 06-06-2024 10:47-0500 Body mass index (BMI) [Ratio] 28.96 kg/m2 Deep Brad DO Work Phone: [facility] 06-06-2024 10:47-0500 Body weight 78.93 kg Deep Brad DO Work Phone: [facility] 06-06-2024 10:47-0500 Diastolic blood pressure 70 mm[Hg] Deep Brad DO Work Phone: [facility] 06-06-2024 10:47-0500 Systolic blood pressure 102 mm[Hg] Deep Brad DO Work Phone: [facility] 05-05-2024 10:05-0500 Body mass index (BMI) [Ratio] 29.29 kg/m2 Noms Nurse [facility] 05-05-2024 10:05-0500 Body weight 79.83 kg Nom Nurse [facility] 05-05-2024 10:05-0500 Diastolic blood pressure 68 mm[Hg] [facility] Nurse [facility] 05-05-2024 10:05-0500 Systolic blood pressure 104 mm[Hg] Noms Nurse [facility] 12-21-2023 08:56-0400 Body height 167 cm [facility] 12-21-2023 08:56-0400 Body mass index (BMI) [Ratio] 28.1 kg/m2 [facility] 12-21-2023 08:56-0400 Body temperature 98 [degF] [facility] 12-21-2023 08:56-0400 Body weight 78.47 kg [facility] 12-21-2023 08:56-0400 Diastolic blood pressure 80 mm[Hg] [facility] 12-21-2023 08:56-0400 Heart rate 68 /min [facility] 12-21-2023 08:56-0400 SaO2% (BldA) [Mass fraction] 98 % [facility] 12-21-2023 08:56-0400 Systolic blood pressure 122 mm[Hg] [facility] 09-23-2023 11:57-0400 Body height 167 cm [facility] 09-23-2023 11:57-0400 Body mass index (BMI) [Ratio] 27.9 kg/m2 [facility] 09-23-2023 11:57-0400 Body weight 78.01 kg [facility] 09-23-2023 11:57-0400 Diastolic blood pressure 76 mm[Hg] [facility] 09-23-2023 11:57-0400 SaO2% (BldA) [Mass fraction] 97 % [facility] 09-23-2023 11:57-0400 Systolic blood pressure 116 mm[Hg] [facility] 04-20-2023 15:40-0500 Body height 167 cm Guy Mullen Other [employer] [facility] [employer] Other 04-20-2023 15:40-0500 Body mass index (BMI) [Ratio] 30.54 kg/m2 Guy Mullen Other [employer] Other 04-20-2023 15:40-0500 Body weight 85.19 kg Guy Mullen Other [employer] Other 04-20-2023 15:40-0500 Diastolic blood pressure 82 mm[Hg] Guy Mullen Other [employer] Other 04-20-2023 15:40-0500 Systolic blood pressure 120 mm[Hg] Guy Mullen Other [employer] Other 03-23-2023 15:40-0500 Body height 167 cm Guy Paz Other [employer] Other 03-23-2023 15:40-0500 Body mass index (BMI) [Ratio] 31.87 kg/m2 Guy Mullen Other [employer] Other 03-23-2023 15:40-0500 Body temperature 98.2 [degF] Guy Mullen Other [employer] Other 03-23-2023 15:40-0500 Body weight 88.91 kg Guy Francinedom Other [employer] Other 03-23-2023 15:40-0500 Diastolic blood pressure 76 mm[Hg] Guy Francinedom Other [employer] Other 03-23-2023 15:40-0500 Respiratory rate 16 /min Guy Mullen Other [employer] Other 03-23-2023 15:40-0500 SaO2% (BldA) [Mass fraction] 97 % Guy Mullen Other [employer] Other 03-23-2023 15:40-0500 Systolic blood pressure 108 mm[Hg] Guy Mullen Other [employer] Other 11-10-2021 10:50-0400 Body height 167 cm Guy Mullen Other [employer] Other 11-10-2021 10:50-0400 Body mass index (BMI) [Ratio] 31.87 kg/m2 Guy Francinedom Other [employer] Other 11-10-2021 10:50-0400 Body temperature 98.6 [degF] Guy Mullen Other [employer] Other 11-10-2021 10:50-0400 Body weight 88.91 kg Guy Mullen Other [employer] Other 11-10-2021 10:50-0400 Diastolic blood pressure 70 mm[Hg] Guy Mullen Other [employer] Other 11-10-2021 10:50-0400 Respiratory rate 16 /min Guy Mullen Other [employer] Other 11-10-2021 10:50-0400 SaO2% (BldA) [Mass fraction] 98 % Guy Mullen Other [employer] Other 11-10-2021 10:50-0400 Systolic blood pressure 112 mm[Hg] Guy Mullen Other [employer] Other Encounters Encounter Date Encounter Type Care Provider Facility Start: 01-03-2025 End: 01-03-2025 care visit Amy VEGA Work Phone: [facility] Comment on above: 6 weeks f ollow-up ([facility]); Spontaneous vaginal delivery ([facility]); control counseling Start: 01-03-2025 End: 01-03-2025 ambulatory AMY RUBALCAVA Not Available Start: 12-20-2024 End: 12-20-2024 ambulatory Guy Mullen DO Work Phone: [facility] Work Phone: Start: 12-20-2024 End: 12-20-2024 Patient encounter procedure Guy Mullen DO -[facility] [place] Work Phone: Start: 12-20-2024 End: 12-20-2024 Patient encounter status Guy Mullen DO [facility] Start: 12-01-2024 End: 12-01-2024 Office outpatient visit 15 minutes Rashida Bush MD Work Phone: [facility] Comment on above: hypertens ion (Primary Dx); History of severe pre-eclampsia Start: 12-01-2024 End: 12-01-2024 ambulatory RASHIDA BUSH [facility] Start: 11-30-2024 End: 11-30-2024 Documentation procedure Rashida Bush MD Work Phone: [facility] Start: 11-24-2024 End: 11-24-2024 Office outpatient visit 15 minutes Rashida Bush MD Work Phone: [facility] Comment on above: hypertens ion (Primary Dx); History of severe pre-eclampsia Start: 11-24-2024 End: 11-24-2024 Encounter RASHIDA Sacha SAB[facility] MOTLEY [address] NICU Start: 11-21-2024 End: 11-21-[address] NICU Start: 11-17-2024 End: 11-17-[address] NICU Start: 11-16-2024 End: 11-16-2024 ambulatory [facility] Start: 11-16-2024 End: 11-16-2024 Office outpatient new 20 minutes iTrso Al AUDIO/VIDEO ENGINEER-CNM Work Phone: [facility] Comment on above: Blood pressure check (Primary Dx); Pre-eclampsia, severe, antepartum, third trimester Start: 11-16-2024 End: 11-16-2024 Patient encounter status Tirso Al AUDIO/VIDEO ENGINEER-CNM Work Phone: [facility] Work Phone: Start: 11-09-2024 End: 11-09-2024 [facility] Start: 11-08-2024 End: 11-14-2024 Evaluation and management of inpatient GUY WATERMAN [facility] Start: 11-08-2024 Non-patient / Non-visit Deep Brad -[facility] Work Phone: Start: 11-08-2024 End: 11-08-2024 flow sheet Deep Brad DO Work Phone: [facility] Comment on above: Third trimester preg higinio (HHS-HCC); 34 weeks gestation of ([facility]); Elevated BP without diagnosis of hypertension Start: 11-08-2024 End: 11-08-2024 ambulatory DEEP BRAD Not Available Start: 11-08-2024 End: 11-08-2024 Bamboo flowsheet Deep Brad DO Work Phone: [facility] Start: 11-08-2024 End: 11-08-2024 Bamboo flowsheet Deep Brad DO Work Phone: [facility] Start: 11-08-2024 End: 11-08-2024 Clinisync Result Encounter Deep Brad DO Work Phone: [facility] External Department Unsolicited Start: 10-25-2024 End: [...] preg higinio (HHS-HCC); 32 weeks gestation of ([facility]) Start: 10-11-2024 End: 10-11-2024 flow sheet Deep Brad DO Work Phone: [facility] Comment on above: Third trimester preg higinio ([facility]); 30 weeks gestation of ([facility]) Start: 10-11-2024 End: 10-11-2024 ambulatory DEEP BRAD [...] 09-19-2024 End: 09-19-2024 ambulatory DEEP R BRAD [facility] Start: 08-29-2024 End: 08-29-2024 Bamboo flowsheet Deep [...] End: 08-17-2024 Orders Only Erica Schilling RN [facility] Comment on above: Encounter for [...] GA: 9w3d Start: 12-21-2023 End: 12-21-2023 ambulatory [facility] Work Phone: Start: 12-21-2023 End: 12-21-2023 Patient encounter procedure [facility] [place] Work Phone: Start: 09-23-2023 End: 09-23-2023 ambulatory [facility] Work Phone: Start: 09-23-2023 End: 09-23-2023 Patient encounter procedure [facility] [place] Work Phone: Start: 05-20-2023 End: 05-20-2023 ambulatory Guy Mullen Other [employer] Other Start: 05-20-2023 Office outpatient vi sit 15 minutes Guy Mullen [facility] [place] Start: 04-20-2023 End: 04-20-2023 ambulatory Guy Mullen Other [employer] Other Start: 04-20-2023 Telephone encounter Guy Mullen [facility] [place] Start: 04-06-2023 End: 04-06-2023 ambulatory Guy Mullen Other [employer] Other Start: 04-06-2023 Telephone encounter Guy Mullen [facility] [place] Start: 03-23-2023 End: 03-23-2023 ambulatory Guy Mullen Other [employer] Other Start: 03-23-2023 Office outpatient vi sit 15 minutes Guy Mullen [facility] [place] Start: 10-20-2022 End: 10-20-2022 ambulatory Guy Mullen Other [employer] Other Start: 10-20-2022 Telephone encounter Guy Francinedom [facility] Start: 09-09-2022 End: 09-09-[address] DEEP SALINAS . Facility:[facility] Start: 02-12-2022 End: 02-12-[address] DEEP SALINAS . Facility:[facility] Start: 01-02-2022 End: 01-02-[address] DEEP SALINAS . Facility:[facility] Start: 01-01-2022 Evaluation and management of inpatient DR NONE LISTED REQUEST Facility:[facility] Start: 12-30-2021 End: 12-30-2021 ambulatory Guy Mullen Other [employer] Other Start: 12-30-2021 Telephone encounter Guy Mullen [facility] Start: 12-27-2021 End: 12-30-2021 Evaluation and management of inpatient DR DEEP SALINAS . Facility:[facility] Start: 12-02-2021 End: 12-02-[address] DEEP SALINAS . Facility:[facility] Start: 11-18-2021 End: 11-19-[address] DEEP SALINAS . Facility:[facility] Start: 11-10-2021 End: 11-10-2021 ambulatory Guy Francinedom Other [employer] Other Start: 11-10-2021 Encounter for genera l adult medical examination without abnormal findings Guy Mullen [facility] Start: 11-10-2021 Periodic preventive med est patient 18-39 yrs Guy Francinedom [facility] Start: 10-20-2021 End: 10-21-[address] DEEP SALINAS . Facility:[facility] Start: 10-09-2021 End: 10-10-[address] DEEP SALINAS . Facility: Procedures Date Procedure Procedure Detail Performing Clinician Start: 11-24-2024 care Care PAULINE BUSH Start: 11-24-2024 Adult depression scr eening assessment Rashida Bush MD Work Phone: Start: 11-08-2024 Antibody screen GUY MARSH Comment on above: Performed By: #### T SC #### [facility] ([facility]) [address] [place] [address] VIR Start: 11-08-2024 US OB BPP W [...] Author Start: 11-27-2025 Tobacco Screening Tobacco Screening [facility] Start: 11-24-2025 Adult BMI Screening Adult BMI Screen ing [facility] Start: 11-24-2025 Depression Screening Depression Scre ening [facility] Start: 11-24-2025 Tobacco Screening Tobacco Screening [facility] Start: 11-14-2025 Adult BMI Screening Adult BMI Screen ing [facility] Start: 11-10-2025 Tobacco Screening Tobacco Screening [facility] Start: 03-05-2025 End: 03-05-2025 Patient encounter procedure 03/05/2025 10:20 AM EST Procedure Visit MICHELLE KRAUS [address] [place] [phone] Deep Salinas DO [address] [place] [address] MICHELLE KRAUS Start: 2024 Influenza vaccination Influenza Vacc ine [facility] Start: 12-01-2024 End: 12-01-2024 ambulatory 12/01/2024 9:00 AM EDT Visit [facility] [address] [place] [phone] Rashida Bush MD [address] [place] [phone] [facility] Start: 12-01-2024 End: 12-01-2024 Telemedicine consultation with patient 12/01/2024 9:00 AM EDT Telemedicine [facility] [address] [place] [phone] Rashida Bush MD [address] [facility] [place] [phone] [facility] Start: 11-08-2024 End: 11-08-2024 Patient encounter procedure 11/08/2024 3:10 PM EDT Routine [facility] [address] [place] [phone] Deep Salinas, DO [address] [place], [place] [phone] Arrived [facility] Comment on above: Arrived Start: 10-11-2024 End: 10-11-2024 Patient encounter procedure 10/11/2024 3:20 PM EDT Routine [facility] [address] [place] [phone] Deep Salinas, DO [address] [place] [address] Arrived [facility] Comment on above: Arrived Start: 10-02-2024 End: 10-02-2024 Patient encounter procedure 10/02/2024 8:30 AM EDT Office Visit [facility] [address] [place] [address] Deep Salinas, DO [address] [place] [address] [facility] Start: 09-26-2024 End: 03-28-2025 US biophysical profile w non stress test US biophysical profile w non stress test Imaging Routine anomaly necessitating delivery, single or unspecified fetus Expected: 09/26/2024 (Approximate), Expires: 03/28/2025 [facility] Work Phone: Comment on above: Expected: 09/26/2024 (Approximate), Expires: 03/28/2025 Start: 09-26-2024 End: 09-26-2024 Patient encounter procedure 09/26/2024 10:10 AM EDT Routine [facility] [address] [place] [phone] Deep Salinas, DO [address] [place] [address] [facility] Start: 09-19-2024 End: 09-19-2024 Patient encounter procedure 09/19/2024 11:15 AM EDT Appointment [facility] - Ultrasound [address] [place] [address] [facility] Start: 08-29-2024 End: 08-29-2025 CBC panel - Blood by Automated count CBC Lab Routine Diabetes mellitus screening Expected: 08/29/2024 (Approximate), Expires: 08/29/2025 [facility] Work Phone: Comment on above: Expected: 08/29/2024 (Approximate), Expires: 08/29/2025 Start: 08-29-2024 End: 08-29-2025 Measurement of glucose 1 hour after glucose challenge for glucose tolerance test Glucose tolerance, 1 hour Lab Routine Diabetes mellitus screening Expected: 08/29/2024 (Approximate), Expires: 08/29/2025 [facility] Comment on above: Expected: 08/29/2024 (Approximate), Expires: 08/29/2025 Start: 08-29-2024 End: 08-29-2024 Patient encounter procedure 08/29/2024 8:50 AM EDT Routine [facility] [address] [place] [phone] Deep Salinas, DO [address] [place] [address] [facility] Start: 08-17-2024 End: 08-17-2025 [...] AM EDT Routine [facility] [address] [place] [phone] Amy Rubalcava PA [address] [place] [address] [facility] Start: 06-06-2024 End: 06-06-2024 Patient encounter procedure [facility] Comment on above: Arrived Start: 05-05-2024 End: 05-05-2025 ABO/Rh ABO/Rh Lab Routine Missed menses , unspecified gestational age Expected: 05/05/2024 (Approximate), Expires: 05/05/2025 [facility] Comment on above: Expected: 05/05/2024 (Approximate), Expires: 05/05/2025 Start: 05-05-2024 End: 05-05-2025 Blood type and Indirect antibody screen panel - Blood Type and screen Lab Routine Missed menses , unspecified gestational age Expected: 05/05/2024 (Approximate), Expires: 05/05/2025 [facility] Work Phone: Comment on above: Expected: 05/05/2024 (Approximate), Expires: 05/05/2025 Start: 05-05-2024 End: 05-05-2025 Drugs of abuse panel - Urine by Screen method Rapid drug screen, urine Lab Routine , unspecified gestational age Encounter for supervision of normal first in first trimester Expected: 05/05/2024 (Approximate), Expires: 05/05/2025 [facility] Comment on above: Expected: 05/05/2024 (Approximate), Expires: 05/05/2025 Start: 12-26-2015 Screening for malign ant neoplasm of cervix Pap Smear [facility] Start: 2013 DTaP,Tdap and Td Vaccines (1 - Tdap) DTaP,Tdap and Td Vaccines (1 - Tdap) [facility] Start: 2012 Adult BMI Follow Up Plan Adult BMI Follow Up Plan [facility] Start: 2012 Adult BMI Screening Adult BMI Screen ing [facility] Start: 2006 Depression Screening Depression Scre ening [facility] Start: 2006 Tobacco Screening Tobacco Screening [facility] Bacteria identified in Urine by Culture Urine culture Microbiology Routine Missed menses Ordered: 05/05/2024 [facility] Comment on above: Ordered: 05/05/2024 CBC W Auto Different ial panel - Blood CBC and differential Lab Routine Missed menses , unspecified gestational age Ordered: 05/05/2024 [facility] Comment on above: Ordered: 05/05/2024 Comprehensive metabo lic 2000 panel - Serum or Plasma [facility] Hemoglobin A1c/Hemoglobin.total in Blood Hemoglobin A1c Lab Routine Missed menses , unspecified gestational age Ordered: 05/05/2024 [facility] Comment on above: Ordered: 05/05/2024 Hepatitis B virus surface Ag [Presence] in Serum or Plasma by Immunoassay Hepatitis B surface antigen Lab Routine Missed menses , unspecified gestational age Ordered: 05/05/2024 [facility] Comment on above: Ordered: 05/05/2024 Hepatitis C virus Ab [Presence] in Serum or Plasma by Immunoassay Hepatitis C antibody Lab Routine Missed menses , unspecified gestational age Ordered: 05/05/2024 [facility] Comment on above: Ordered: 05/05/2024 HIV-1/HIV-2 antigen/antibody combination immunoassay HIV-1 and HIV-2 antibodies Lab Routine Missed menses , unspecified gestational age Ordered: 05/05/2024 [facility] Comment on above: Ordered: 05/05/2024 Patient Education Low back pain in adults [facility] Work Phone: Reagin Ab [Presence] in Serum by RPR RPR Lab Routine Missed menses , unspecified gestational age Ordered: 05/05/2024 [facility] Comment on above: Ordered: 05/05/2024 Rubella antibody, IgG Rubella an tibody, IgG Lab Routine Missed menses , unspecified gestational age Ordered: 05/05/2024 [facility] Comment on above: Ordered: 05/05/2024 [facility] Payers Date Payer Category Payer [facility] [id number] 2021 [facility] Managed Care - PPO [id number] 1994 Unknown [id number] 2.16.840.1.903732.3.579.2.593 1994 Unknown [id number] 2.16.840.1.580183.3.579.2.593 1994 Unknown [id number] 2.16.840.1.753405.3.579.2.593 1994 Unknown [id number] 2.16.840.1.630459.3.579.2.593 1994 Unknown [id number] 2.16.840.1.360342.3.579.2.593 1994 Unknown [id number] 2.16.840.1.881946.3.579.2.593 1994 Unknown [id number] 2.16.840.1.686576.3.579.2.593 1994 Unknown [id number] 2.16.840.1.781016.3.579.2.593 1994 Unknown [id number] 2.16.840.1.832114.3.579.2.593 1994 Unknown [id number] 2.16.840.1.476522.3.579.2.1286 1994 Unknown [id number] 2.16.840.1.923131.3.579.2.128 1994 Unknown [id number] 2.16.840.1.710976.3.579.2.128 1994 Unknown [id number] 2.16840.1.221465.3.579.2.1285 1994 Unknown [id number] 2.16840.1.289617.3.579.2.128 1994 Unknown [id number] 2.16.840.1.962701.3.579.2.128 1994 Unknown [id number] 2.16840.1.849705.3.579.2.1286 1994 Unknown [id number] 2.16840.1.361619.3.579.2.1258 1994 Unknown [id number] 2.16.840.1.151430.3.579.2.9 1994 Unknown [id number] 2.16.840.1.291872.3.579.2.1258 1994 Unknown [id number] 2.16.840.1.181730.3.579.2.9 1994 Unknown [id number] 2.16.840.1.063660.3.579.2.1258 1994 Unknown [id number] 2.16.840.1.308287.3.579.2.9 1994 Unknown [id number] 2.16.840.1.239089.3.579.2.1258 1994 Unknown [id number] 2.16.840.1.807636.3.579.2.1258 1994 Unknown [id number] 2.16.840.1.446082.3.579.2.1258 1994 Unknown [id number] 2.16.840.1.783148.3.579.2.1258 1994 Unknown [id number] 2.16.840.1.091684.3.579.2.1258 1994 Unknown [id number] 2.16.840.1.726376.3.579.2.9 1960 [facility] [id number] 2.16.840.1.703888.19 Unknown [facility] [id number] Social History Date Type Detail Facility Unknown if ever smoked [facility] Start: 11-10-2024 End: 11-24-2024 Sex Assigned At [facility] Start: 06-21-2023 End: 12-20-2024 Tobacco smoking status MEIS Never smoked tobacco (finding) [facility] Start: 1995 Sex Assigned At Female F [facility] Tobacco smoking status [facility] Tobacco smoking consumption unknown [facility] Start: 03-14-2024 [facility] Start: 09-16-2023 Gender identity Identifies as female gender (finding) [facility] Start: 09-16-2023 Sexual orientation Heterosexual (fin ding) [facility] Start: 1994 Sex assigned at Not on file P [facility] Start: 08-04-2024 Sex Female (finding) [facility] Start: 11-08-2024 Tobacco use and exposure Smokeless tobacco non-user [facility] Start: 11-10-2024 End: 11-24-2024 History of Social function [facility] Start: 11-24-2024 End: 11-27-2024 Alcoholic beverage intake Ex-drinker (finding) [facility] How hard is it for you to pay for the very basics like food, housing, medical care, and heating Not very hard [facility] Adolescent depressio n screening assessment 0 [facility] The thought of harming myself has occurred to me Never [facility] NEGATED: Highlighted rowStart: JACOBF History of tobacco use Passive smoker [facility] Goals Date Patient Goal Desired Activity /State Personal health goal Clinical Notes 11-15-2012 to 01-03-2025 SILVIA Castañeda - 01/03/2025 10:30 AM EDTCivan Bush MD - 12/01/2024 9:00 AM Bautista Bush MD - 11/30/2024 7:08 PM EDTLactation Note - uAra Santoyo RN - 11/24/2024 1:33 PM EDT Note Date & Type Note Facility 01-03-2025 History of Presen t illness Narrative Reason for Appointment: Patient ID: Hannah Claire is a 29 y.o. female who presents for Care (Pt present today for a 6 week post visit. Pt delivered on 11/09/2024 at [facility] in [place]. ) Patient presents today for Post Follow [...] & PLAN ICD-10-CM 1. 6 weeks follow-up ([facility]) Z39.2 2. Spontaneous vaginal delivery ([facility]) O80 Post Follow Up: Patient is doing [...] of: SILVIA Castañeda documented in this encounter [facility] 12-01-2024 History of Presen t illness Narrative Video Visit via Real-time Synchronous Audiovisual Provider Location: [facility] [address] [address] Patient Location: Patient's home Video Visit Consent [...] that there are some limitations compared to exbm-on-mwmi evaluations. The patient consented to the presence of additional virtual and/or in-person participants. We elected to proceed. During today's virtual encounter, the exam was conducted using remote examination tools and equipment to assess and diagnose the patient's condition. Any recorded findings have been saved and documented for future reference. CC: Post Op Visit Summary: Transfer from [place] S/p vaginal delivery on 11/09/24 at 34+ [...] dose 121/84 8 0830 pre dose 112/75 feeding: breast milk Infant is now home BCM: desires oral contraceptive [...] of the practitioner. documented in this encounter [facility] 11-30-2024 History of Presen t illness Narrative [...] up this week. documented in this encounter [employer] 11-24-2024 Miscellaneous Notes This note was copied [...] with outpatient services for assistance as needed ([phone]). Storage guidelines given and reviewed. No further [...] one s mouth. documented in this encounter [employer] 11-24-2024 Obstetrics Note This note was copied [...] with outpatient services for assistance as needed ([phone]). Storage guidelines given and reviewed. No further [...] could burn your little one s mouth. [facility] 11-24-2024 History of Presen t illness Narrative CC: Post Op Visit Transfer from [place] S/p vaginal delivery on 11/09/24 at 34+ [...] days 108-125/70s EPDS: Depression: Medium Risk (11/24/2024) [place] Depression Scale Last EPDS Total Score: 6 Last EPDS Self Harm Result: Never Infant feeding: is in the NICU BCM: oral [...] logs here today [facility] Miscellaneous Notes This note was copied [...] needs. Support given. documented [facility] 11-21-2024 Obstetrics Note This note was copied [...] reach out with any needs. Support given. [facility] 11-17-2024 Miscellaneous Notes This note was [...] to latch again documented in this encounter [facility] 11-17-2024 Obstetrics Note This note was copied [...] take baby off, try to latch again [facility] 11-16-2024 History of Presen t illness Narrative Video Visit via Real-time Synchronous Audiovisual Provider Location: [facility] [address] [address] Patient Location: Other - [place] [facility] Patient Location Business Performance Advisor: None Video Visit Consent Statement: I discussed [...] that there are some limitations compared to wfcz-pj-uugp evaluations. We elected to proceed. Subjective: Hannah Claire is a 28 y.o. is seen today via televisit. She is 7 days post- from a [facility]. Her was complicated by preeclampsia with severe features. She was transported from [place] on 11/09 with pre-eclampsia with severe features (BP). Patient was at her routine visit and noted to have systolic blood pressure in 180s. At [facility] she was noted to have multiple severe range blood pressures. She received labetalol 20/40mg IV and was started on magnesium sulfate with 4 g bolus and 2g maintenance. UPCR performed was 9.29. HELLP labs were otherwise within normal limits. On arrival to [facility], patient was continued on magnesium sulfate maintenance [...] is currently breast feeding. Does not have digital recruiter follow up as baby is in NICU. She is not sure who this baby's digital recruiter will be as her other daughter sees [...] 1 week. Pre-eclamptic warnings reviewed. Call provider publication designer for headache unresolved with tylenol, visual change, epigastic pain or significant change in swelling in her hands feet or face. Let the office know if BP readings consistently over 140/90 (either number). Call provider publication designer for BP greater than 160/110 (either number). Continue on Procardia XL 60mg BID and Labetalol 300mg TID as prescribed. Hypotensive warnings reviewed - call if experiencing dizziness, weakness or fainting. GERALD Farmer 11/16/24 0917 documented in this encounter [facility] 11-08-2024 History of Presen t illness Narrative [...] nursing note reviewed. Exam conducted with a retail field merchandiser present. Vitals: Estimated body mass index is 35.2 kg/m as calculated from the following: Height as of 09/09/22: 5' 5 . Weight as of this encounter: 211 lb 8 oz. BP: (!) 180/112 Patient's last menstrual period was 02/29/2024. ASSESSMENT & PLAN ICD-10-CM 1. Third trimester ([facility]) Z34.93 POCT urinalysis dipstick manually resulted 2. 34 weeks gestation of ([facility]) Z3A.34 3. Elevated BP without diagnosis of hypertension R03.0 Return OB: Patient presents today for a routine obstetrics appointment. Patient is currently 34w5d . Patient states she is doing well but has complaints of being tired due to current . Pt has pitting edema, blood pressure elevated in office. Pt being sent to [facility] for evaluation. Patient has verbalizes frequent movement. labor precautions was discussed/given and patient was instructed to perform kick counts three times a day. Orders Placed This Encounter Procedures POCT urinalysis dipstick manually resulted Follow Up: Patient is to return to office in 1 week for routine OB appointment. Documented by Jackie Faustin LPN on behalf of: Deep Salinas DO documented in this encounter [facility] 10-25-2024 History of Presen t illness Narrative [...] ASSESSMENT & PLAN ICD-10-CM 1. Third trimester ([facility]) Z34.93 2. 32 weeks gestation of ([facility]) Z3A.32 Return OB: Patient presents today for [...] of: SILVIA Castañeda documented in this encounter [facility] 10-11-2024 History of Presen t illness Narrative Reason for Appointment: Patient ID: Hannah lCaire is a 28 y.o. female who presents [...] nursing note reviewed. Exam conducted with a retail field merchandiser present. Vitals: Estimated body mass index is 31.95 kg/m as calculated from the following: Height as of 09/09/22: 5' 5 . Weight as of this encounter: 192 lb. BP: 118/74 Patient's last menstrual period was 02/29/2024. ASSESSMENT & PLAN ICD-10-CM 1. Third trimester ([facility]) Z34.93 POCT urinalysis dipstick manually resulted 2. 30 weeks gestation of ([facility]) Z3A.30 Return OB: Patient presents today for [...] Deep Salinas DO documented in this encounter [facility] 09-26-2024 History of Presen t illness Narrative [...] Deep Salinas DO documented in this encounter [facility] 08-29-2024 History of Presen t illness Narrative [...] nursing note reviewed. Exam conducted with a retail field merchandiser present. Vitals: Estimated body mass index is [...] of Delivery: 12/16/24. Pt to return to [facility] for suboptimal visualization. Pt to return in 4 weeks for scheduled OB appt. Pt due date 12/15/24 based on ultrasound dating. Documented by Jackie Faustin LPN on behalf of: Deep Salinas DO documented in this encounter [facility] 08-03-2024 Telephone encounter Note Hi, this is Hannah Claire. I was calling back about a voicemail I have from Dr. Salinas yesterday about my ultrasound results and I just had some questions and things. I wanted to go over with that. So whenever he or nurse is available, I would appreciate a call back at [phone], thank you. Returned call. Pt had questions regarding scheduling with [facility]. Advised pt that [facility] will call her to schedule appt. Pt also wanting to discuss with Dr. Salinas regarding normal parameters of growth. Also wanting to discuss possible causes of small growth for GA. Pt wanting to know if we can compare her previous baby's 20wk ultrasound to this baby as her previous child was also measuring small. Please advise. [facility] 08-03-2024 Miscellaneous Notes Hi, this is Hannah Claire. I was calling back about a voicemail I have from Dr. Salinas yesterday about my ultrasound results and I just had some questions and things. I wanted to go over with that. So whenever he or nurse is available, I would appreciate a call back at [phone], thank you. Returned call. Pt had questions regarding scheduling with [facility]. Advised pt that [facility] will call her to schedule appt. Pt also wanting to discuss with Dr. Salinas regarding normal parameters of growth. Also wanting to discuss possible causes of small growth for GA. Pt wanting to know if we can compare her previous baby's 20wk ultrasound to this baby as her previous child was also measuring small. Please advise. documented in this encounter [facility] 08-01-2024 History of Presen t illness Narrative [...] nursing note reviewed. Exam conducted with a retail field merchandiser present. Vitals: Estimated body mass index is [...] Deep Salinas DO documented in this encounter [facility] 06-06-2024 History of Presen t illness Narrative [...] nursing note reviewed. Exam conducted with a retail field merchandiser present. Vitals: Estimated body mass index is [...] or undercooked meat, and stay away from [facility]. Patient has been consulted regarding any further do's and don'ts of . Patient voiced understanding and all questions and concerns were answered. Orders Placed This Encounter Procedures POCT urinalysis dipstick manually resulted Follow Up: Patient is to return in 4 weeks for routine OB appointment. Documented by Jackie Faustin LPN on behalf of: Deep Salinas DO documented in this encounter [facility] 05-05-2024 History of Presen t illness Narrative [...] or undercooked meat, and stay away from [facility]. Patient has also been advised to not [...] Tammi Rivers MA documented in this encounter [facility] 09-23-2023 Evaluation note Authored September 23, 2023 12:25 pm The above note written by __ _Shaye Cardoso____ acting as human recorder, note dictated by Dr. Almazan .I performed the above HPI, ROS, and Examination. I formulated and dictated the treatment plan and was present for entire encounter. Guy Mullen D.O. [facility] Work Phone: [phone]) 563-870501-25-2024 Evaluation note* Encounter Date Diagnosis Assessment Notes [...] of any breach, fraud, or malicious third libertarian actors and no personal patient information was compromised. [facility] 12-26-2023 Evaluation note* Encounter Date Diagnosis [...] Mar, Other 3:55 PM - 4:00 PM [facility] 11-28-2023 Evaluation note* Encounter Date Diagnosis [...] then she can continue with the medicine. [facility] 07-18-2022 Evaluation note* Encounter Date Diagnosis [...] prescribed above medication by Dr. Salinas her brand marketing manager for the heartburn she has. [facility] 07-23-2013 History general Narrative - Reported* Type Description Date Medical History Meningitis/Menactra 11-15- [facility] Medical History Adacel (Tdap) 11-15-12 [facility] Surgical History wisdom teeth removed 2015 [facility] 07-23-2013 History general Narrative - Reported* Type Description Date Medical History Meningitis/Menactra -- [facility] Medical History Adacel (Tdap) 11-15-12 [facility] Surgical History wisdom teeth removed 2015 Hospitalization History Childbirth 12/28/2021 [facility] Evaluation noteNo InformationNort Visys Other Evaluation note* Diagnosis Onset Date Resolution Status Hyperglycemia acute Weight gain acute [facility] Work Phone: Evaluation note* Diagnosis Missed menses 9 weeks gestation of , unspecified gestational age Encounter for supervision of normal first in first trimester [facility] Diagnosis Second trimester state, incidental 14 weeks gestation of documented in this encounter [facility] HealthcareEvaluation note* Diagnosis Second trimester state, incidental 22 weeks gestation of Diabetes mellitus screening Screening for diabetes mellitus documented in this encounter [facility] HealthcareEvaluation note* Diagnosis Encounter for follow-up ultrasound of anatomy- Primary documented in this encounter [facility]* Diagnosis Second trimester state, incidental 24 weeks gestation of Diabetes mellitus screening Screening for diabetes mellitus documented in this encounter [facility] HealthcareEvaluation note* Diagnosis anomaly necessitating delivery, single or unspecified fetus- Primary Third trimester state, incidental 28 weeks gestation of Gastroesophageal reflux in documented in this encounter [facility] HealthcareEvaluation note* Diagnosis Third trimester (HHS-HCC) state, incidental 30 weeks gestation of (HHS-HCC) documented in this encounter [facility] HealthcareEvaluation note* Diagnosis Third trimester (HHS-HCC) state, incidental 32 weeks gestation of (HHS-HCC) documented in this encounter [facility] HealthcareEvaluation note* Diagnosis Third trimester (HHS-HCC) state, incidental 34 weeks gestation of (HHS-HCC) Elevated BP without diagnosis of hypertension documented in this encounter [facility] HealthcareEvaluation note* Diagnosis Blood pressure check- Primary Screening for hypertension Pre-eclampsia, severe, antepartum, third trimester documented in this encounter [facility]* Diagnosis hypertension- Primary History of severe pre-eclampsia documented in this encounter [facility] SystemEvaluation note* Diagnosis hypertension- Primary History of severe pre-eclampsia documented in this encounter [facility]* Diagnosis Onset Date Resolution Status Admit Date Pre-eclampsia acute November 9:54am Wellness examination acute Novu 2024 9:54am [facility] Work Phone: Evaluation note* Diagnosis 6 weeks follow-up (HHS-HCC) Spontaneous vaginal delivery (HHS-HCC) Normal delivery control counseling documented in this encounter [facility] HealthcareInstructionsNot on filedocumented in this encounterPro[facility] SystemInstructionsNot on filedocumented in this encounterProFlower Hospital SystemInstructionsNot on filedocumented in this encounterProFlower Hospital SystemInstructionsNot on filedocumented in this encounterProFlower Hospital System InstructionsNot on filedocumented in this encounterProFlower Hospital System InstructionsNot on filedocumented in this encounterProFlower Hospital SystemReason for referral (narrative)No reason for referral information availableMer[facility] Work Phone: Reason for visit Narrative* Consultation (Routine) - Pending Review Specialty Diagnoses / Procedures Referred By Shannan t Referred To Contact Obstetrics and Gynecology Diagnoses Pre-eclampsia, severe, antepartum, third trimester Lisa Verdugo MD [address] [facility] [place] [address] [place] [address] Phone: tel: fax: [facility] [address] [place] [address] Phone: tel: fax: Referral ID Status Reason Start Date Expiration Date V isits Requested Visits Authorized [id number] Pending Review 11/14/2024 11/14/2025 1 1 [facility] Summary Purpose Family History No [...] post visit. Pt delivered on 11/09/2024 at [facility] in [place]. INFORMATION SOURCE (unrecogn ized section and content) DATE CREATED AUTHOR 09/10/2022 [facility] DATE CREATED AUTHOR AUTHOR'S ORGANIZ ATION 08/18/2024 [facility] DATE CREATED AUTHOR AUTHOR'S ORGANIZ ATION 09/22/2024 [facility] DATE CREATED AUTHOR AUTHOR'S ORGANIZ ATION 12/03/2024 [facility] DATE CREATED AUTHOR AUTHOR'S ORGANIZ ATION 01/05/2025 [facility] dical Specialists EPIC Care Teams (unrecognized sec [...] December 21, 2023 End: December 21, 2023 Assistant City Attorney Relationship Specialty Start Date End Date Guy Mullen MD [address] [place] [address] PCP - General 09/16/23 Assistant City Attorney Relationship Specialty Start Date End Date Guy Mullen MD [address] [place] [address] PCP - General 09/16/23 Assistant City Attorney Relationship Specialty Start Date End Date Guy Mullen MD [address] [place] [address] PCP - General 09/16/23 Assistant City Attorney Relationship Specialty Start Date End Date Guy Mullen MD [address] [place] [address] PCP - General 09/16/23 Assistant City Attorney Relationship Specialty Start Date End Date Guy Mullen MD [address] [place] [address] PCP - General 09/16/23 Assistant City Attorney Relationship Specialty Start Date End Date Guy Mullen MD [address] [place] [address] PCP - General 09/16/23 Assistant City Attorney Relationship Specialty Start Date End Date Guy Mullen MD [address] [place] [address] [place] [address] PCP - General 09/16/23 Assistant City Attorney Relationship Specialty Start Date End Date Guy Mullen MD [address] [place] [address] [place] [address] PCP - General 09/16/23 Assistant City Attorney Relationship Specialty Start Date End Date Guy Mullen MD [address] [place] [address] [place] [address] PCP - General 09/16/23 Assistant City Attorney Relationship Specialty Start Date End Date Guy Mullen MD [address] [place] [address] PCP - General 09/16/23 Assistant City Attorney Relationship Specialty Start Date End Date Guy Mullen MD [address] [place] [id number] PCP - General 09/16/23 Assistant City Attorney Relationship Specialty Start Date End Date Guy Mullen MD [address] [place] [id number] PCP - General 09/16/23 Assistant City Attorney Relationship Specialty Start Date End Date Guy Mullen MD [address] [place] [id number] PCP - General 09/16/23 Assistant City Attorney Relationship Specialty Start Date End Date Guy Mullen MD [address] [place] [id number] PCP - General 09/16/23 Goals (unrecognized section [...] BE BASED ON THE PRIMARY CLINICAL RECORDS. [facility]. provides no warranty or guarantee of the accuracy or completeness of information in this document.
[2025-02-05 10:26] LABS: Hematocrit 38.6 % (36.0-48.0); Hemoglobin 12.5 g/dL (12.0-16.0); Immature Granulocytes Abs Auto 0.01 10^3/uL (0.00-0.03); Immature Granulocytes Pct Auto 0.1 % (0.0-0.5); Lymphocytes Absolute Auto 2.4 10^3/uL (1.2-3.8); Mean Corpuscular HGB Conc 32.4 g/dL (29.9-35.2); Mean Corpuscular Hemoglobin 28.7 pg (26.7-34.0); Mean Corpuscular Volume 88.5 fL (81.0-99.0); Platelet Count 230 10^3/uL (150-450); Red Blood Count 4.36 10^6/uL (4.20-5.40); White Blood Count 6.9 10^3/uL (4.0-11.0)
[2025-02-05 10:37] LABS: Glucose Urine UA NEGATIVE (NEGATIVE)
[2025-02-05 10:54] LABS: Microalbum Creatinine Ratio Ur 27.9 mg/g (0.0-29.9)
[2025-02-05 10:57] LABS: Alanine Aminotransferase 42 U/L (14-59); Albumin Globulin Ratio 0.9; Albumin Level 3.7 g/dL (3.4-5.0); Alkaline Phosphatase 64 U/L (46-116); Anion Gap 14.0; Aspartate Amino Transferase 11 U/L (15-37); Blood Urea Nitrogen 14.0 mg/dL (7.0-18.0); Calcium 8.8 mg/dL (8.5-10.1); Carbon Dioxide 27.2 mmol/L (21.0-32.0); Chloride 105 mmol/L (98-107); Estimated GFR (African America >60 (>=60 mL/min/1.73m^2); Estimated GFR (Non-African Ame >60 (>=60 mL/min/1.73m^2); Globulin 3.9 g/dL; Glucose 87 mg/dL (74-106); Potassium 4.2 mmol/L (3.5-5.1); Sodium 142 mmol/L (136-145); Total Protein 7.6 g/dL (6.4-8.2); Uric Acid 3.4 mg/dL (2.6-6.0)
== END 2025-02-05 09:57 | disposition home or self-care (01) ==
PROVIDERS: PCP Family Medicine; Visit Provider Family Medicine
DX: Z00.00 Encounter for general adult medical examination without abnormal findings (principal); R80.9 Proteinuria, unspecified; E79.0 Hyperuricemia without signs of inflammatory arthritis and tophaceous disease
CPT/HCPCS: 36415; 80053; 81003; 82043; 82570; 84550; 85025

== ENCOUNTER 2025-03-05 13:34 | Outpatient (REF) | payer BC, SELFPAY ==
--- OUTSIDE RECORDS SUMMARY | 2025-03-05 10:20 | XMS_ITS | Encounter Summary ---
Author Organization [facility] Address [address] [place] [address] Care Team Providers Care Cleaner Furniture Name Role Phone Karsten Caceres MD Primary Care Provider Reason for Visit * ReasonCommentsWell Women Visit Encounter Details DateTypeDepartmentCare Team (Latest Contact Info)Cpxdbnimenl13/10/2025 10:20 AM ESTProcedure Visit [facility] [place] [facility] [address] [place] [address] Deep Salinas DO [address] [place] [address] Well woman exam with routine gynecological exam; control counseling Social History Tobacco UseTypesPacks/DayYears UsedDateSmoking Tobacco: Never Assessed CommentsUnknownSex and Gender InformationValueDate RecordedSex Assigned at Sjoynj6709/16/2023 12:28 PM EDTLegal EqhGrwnrc89/15/2023 7:19 PM EDTGender XwjkbgunFoqcya94/23/2024 12:28 PM EDTSexual PagwnvhjqewMxmpvsji51/23/2024 12:28 PM EDTdocumented as of this encounter Last Filed Vital Signs Vital SignReadingTime TakenCommentsBlood Ghcvxonv585/7403/05/2025 10:24 AM EST Pulse--Temperature--Respiratory Rate--Oxygen Saturation--Inhaled Oxygen Concentration--Hbmlwy78.6 kg (177 lb 12.8 oz)03/05/2025 10:24 AM ESTHeight--Body Mass Index29.59009/09/2022 12:00 PM EDTdocumented in this encounter Plan of Treatment DateTypeDepartmentCare Team (Latest Contact Info)Wezqwdsupaa54/16/2026 9:00 AM ESTProcedure Visit [facility] [place] [facility] [address] [place] [address] Deep Salinas, [address] [place] [address] NameTypePriorityAssociated DiagnosesOrder SchedulePap SmearPathology and CytologyRoutine Well woman exam with routine gynecological exam Ordered: 03/05/2025HPV DNA probe, amplifiedMicrobiologyRoutine Well woman exam with routine gynecological exam Ordered: 03/05/2025documented as of this encounter Goals GoalPatient Goal TypeAssociated ProblemsRecent ProgressPatient-Stated?Author Reminders Care PlanOB RemindersNoOpen Scheduling, Backgrounddocumented as of this encounter Visit Diagnoses Diagnosis Well woman exam with routine gynecological exam Routine gynecological examination control counseling documented in this encounter Additional Health Concerns Active ProblemsNoted DateDiagnosed DateOB Beubnmgdi31/11/2025 documented as of this encounter Care Teams Team MemberRelationshipSpecialtyStart DateEnd Date Karsten Caceres MD [address] [place] [address] PCP - General09/16/23documented as of this encounter
--- OUTSIDE RECORDS SUMMARY | 2025-03-05 13:38 | XMS_ITS | Clinical Summary ---
Author Organization [facility] Address [address] [place] [address] Care Team Providers Care Business Analysis Specialist Name Role Phone Karsten Caceres MD Primary Care Provider Allergies No known active allergies Medications MedicationSigDispense QuantityRefillsLast FilledStart DateEnd DateStatus MV-Min-Fe Fum-FA-DHA ( 1 PO) Take by mouthActive norethindrone (Micronor) 0.35 MG tablet Indications: control counselingTake 1 tablet (0.35 mg) by mouth Daily Take 1 tablet by mouth daily 28 tablet 5Active norethindrone (Micronor) 0.35 MG tablet Indications: control counselingTake 1 tablet (0.35 mg) by mouth Daily for 28 days Take 1 tablet by mouth daily 28 tablet 110Discontinued(Reorder) norethindrone (Micronor) 0.35 MG tablet Indications: control counselingTake 1 tablet (0.35 mg) by mouth Daily Take 1 tablet by mouth daily 28 tablet Discontinued(Reorder) Encounters DateTypeDepartmentCare XrlhLjcfmiiiule46/10/2025 10:20 AM ESTProcedure Visit [facility]HEL[facility] [address] [place] [address] [place] [address] Deep Salinas, DO Well woman exam with routine gynecological exam; control rrliqglrgv87/10/2025amboo flowsheet [facility] [address] [facility] [facility] [place] [address] Deep Salinas DO 02/26/20256370Xnxssk42/14/2025bstract [facility] [place] [facility] [address] [facility] [place] [address] Amy Garibay PA 01/03/2025 10:30 AM EDTPostpartum Visit [place] [address] Amy Garibay PA 6 weeks follow-up ([facility]); Spontaneous vaginal delivery ([facility]); control gapzllmhrw43/09/0042Skjivp76/13/2025bstract [facility] [place] [facility] [address] [place] [address] Deep Salinas DO from Last 3 Months Family History Medical HistoryRelationNameCommentsUterine cancerMaternal GrandmotherRelation NameStatusCommentsMaternal Grandmother Social History Tobacco UseTypesPacks/DayYears UsedDateSmoking Tobacco: Never Assessed CommentsUnknownSex and Gender InformationValueDate RecordedSex Assigned at Datnjq5609/16/2023 12:28 PM EDTLegal RflRqjnkm69/15/2023 7:19 PM EDTGender IumewwduJmqhzw37/23/2024 12:28 PM EDTSexual YyxodfzzshzTzxgtfmt75/23/2024 12:28 PM EDT Last Filed Vital Signs Vital SignReadingTime TakenCommentsBlood Lntqgery682/7403/05/2025 10:24 AM EST Pulse--Temperature--Respiratory Rate--Oxygen Saturation--Inhaled Oxygen Concentration--Tjptge14.6 kg (177 lb 12.8 oz)03/05/2025 10:24 AM POGWejwrb469.1 cm (5' 5 )09/09/2022 12:00 PM EDTBody Mass Index29.59009/09/2022 12:00 PM EDT Plan of Treatment DateTypeDepartmentCare Team (Latest Contact Info)Txnhpicchmb54/16/2026 9:00 AM ESTProcedure Visit [facility] [place] [facility] [address] [facility] [address] [place] [address] Deep Salinas DO [address] [facility] [place] [address] Goals GoalPatient Goal TypeAssociated ProblemsRecent ProgressPatient-Stated?Author Reminders Care PlanOB RemindersNoOpen Scheduling, Background Additional Health Concerns Active ProblemsNoted DateDiagnosed DateOB Ytfirjpch01/11/2025 Insurance Care Teams Team MemberRelationshipSpecialtyStart DateEnd Karsten Caceres MD [address] [place] [address] PCP - General09/16/23
--- OUTSIDE RECORDS SUMMARY | 2025-03-05 13:38 | XMS_ITS | Clinical Summary ---
Author Organization [facility] Address [id number] [address] [place] [address] Care Team Providers Care School Teacher Name Role Phone Unavailable Primary Care Provider Unavailabl e Allergies No known active allergies Medications MedicationSigDispense QuantityRefillsLast FilledStart DateEnd DateStatus 25/iron fum/folic/dha (-1 ORAL) Take by mouth.Active omeprazole (PriLOSEC) 20 mg capsule Take 1 capsule (20 mg total) by mouth in the morning.Active ferrous sulfate 325 (65 FE) MG tablet Take 1 tablet (325 mg total) by mouth daily with breakfast. 30 tablet 5Active docusate sodium (COLACE) 100 mg capsule Take 1 capsule (100 mg total) by mouth in the morning and 1 capsule (100 mg total) before bedtime. 60 capsule 5Active NIFEdipine XL (PROCARDIA XL) 60 mg 24 hr tablet Take 1 tablet (60 mg total) by mouth in the morning.5Active Active Problems ProblemNoted DateDiagnosed DatePre-eclampsia, severe, antepartum, third fvrjtklie49/16/2025 Immunizations No known immunizations Family History Medical HistoryRelationNameCommentsCancerMaternal GrandmotherRelationNameStatus CommentsFatherAliveMaternal GrandmotherDeceasedMotherAlive Social History Tobacco UseTypesPacks/DayYears UsedDateSmoking Tobacco: NeverPassive Smoke Exposure: NeverSmokeless Tobacco: Never Tobacco Cessation:Counseling Given: Not Answered Alcohol UseStandard Drinks/WeekCommentsNot Currently0 (1 standard drink = 0.6 oz pure alcohol)Overall Financial Resource Strain (CARDIA)AnswerDate RecordedHow hard is it for you to pay for the very basics like food, housing, medical care, and heating?Not very hard11/23/2024PHQ-2AnswerDate RecordedTotal Score0 11/23/2024Edinburgh Depression ScaleAnswerDate RecordedEdinburgh Depression Scale Vebqp19311/24/2024The thought of harming myself has occurred to me.Never11/24/2024hildcareAnswerDate RecordedDo problems getting child development professor make it difficult for you to work or study?No11/23/2024Hunger ScreeningAnswerDate RecordedWithin the past 12 months we worried whether our food would run out before we got money to buy more.Never True11/24/2024Within the past 12 months the food we bought just didn't last and we didn't have money to get more.Never True11/24/2024CommentsNoSex and Gender Information ValueDate RecordedSex Assigned at BirthNot on fileLegal FflMzriov63/11/2025 8:29 AM EDTGender IdentityNot on fileSexual OrientationNot on file Last Filed Vital Signs Vital SignReadingTime TakenCommentsBlood Kfsvdrqb250/60011/24/2024 11:05 AM EDT Lkkso334311/24/2024 11:05 AM PMGGwychispppp00.8 ??C (98.2 ??F)11/14/2024 3:10 PM EDTRespiratory Rwij393811/14/2024 3:10 PM EDTOxygen Muxotizejk735%11/10/2024 10:00 AM EDTInhaled Oxygen Concentration--Qjvxst14.8 kg (173 lb 12.8 oz)11/24/2024 11:05 AM HYTCbrgal237.1 cm (5' 5 )11/24/2024 11:05 AM EDTBody Mass Index28.92 11/24/2024 11:05 AM EDT Plan of Treatment Health MaintenanceDue DateLast DoneCommentsAdult BMI Follow Up Plan2012 DTaP,Tdap and Td Vaccines (1 - Tdap)2013Pap Smear12/26/2015Influenza Liltepm4012/25/2024dult BMI Ocxqwpvly88/2025Depression Screening /04/2024, 11/23/2024Tobacco Lriqxiiqi37/07/2024 Medical Devices Not on file Insurance Advance Directives * Full Code (Latest Code Status on File) Date ActivatedDate InactivatedComments11/08/2024 11:06 PM11/14/2024 6:22 PM
--- OUTSIDE RECORDS SUMMARY | 2025-03-05 13:38 | XMS_ITS | Encounter Summary ---
Author Organization [facility] Address [address] [place] [address] Care Team Providers Care Customer Sales Distributor Name Role Phone Karsten Caceres MD Primary Care Provider [phone] Encounter Details DateTypeDepartmentCare Team (Latest Contact Info)Xnlrcnpflmh86/03/2025Travel Social History Tobacco UseTypesPacks/DayYears UsedDateSmoking Tobacco: Never Assessed CommentsNoSex and Gender InformationValueDate RecordedSex Assigned at Lilugr4409/16/2023 12:28 PM EDTLegal OtxIeegqp23/15/2023 7:19 PM EDTGender QkqbytriNfdnrm85/23/2024 12:28 PM EDTSexual HcofbtplmgvChbptppr34/23/2024 12:28 PM EDTdocumented as of this encounter Plan of Treatment DateTypeDepartmentCare Team (Latest Contact Info)Xinrnvcngjf32/16/2026 9:00 AM ESTProcedure Visit [facility] [place] [facility] [address] [place] [address] Deep Salinas DO [address] [facility] [place] [address] documented as of this encounter Goals GoalPatient Goal TypeAssociated ProblemsRecent ProgressPatient-Stated?Author Reminders Care PlanOB RemindersNoOpen Scheduling, Backgrounddocumented as of this encounter Visit Diagnoses Not on filedocumented in this encounter Additional Health Concerns Active ProblemsNoted DateDiagnosed DateOB Yficbpedo40/11/2025 documented as of this encounter Care Teams Team MemberRelationshipSpecialtyStart DateEnd Date Karsten Caceres MD [address] [place] [id number] PCP - 09/16/23documented as of this encounter
--- OUTSIDE RECORDS SUMMARY | 2025-03-05 13:38 | XMS_ITS | Encounter Summary ---
Author Organization [facility] Address [address] [facility] [place] [address] Care Team Providers Care Programmer Analyst Name Role Phone Karsten Caceres MD Primary Care Provider [phone] Encounter Details DateTypeDepartmentCare Team (Latest Contact Info)Tcgoprjrmsb43/10/2025amboo flowsheet [facility]HELLE [facility]RA[facility] [address] [place] [address] [place] [address] Deep Salinas DO [address] [place], [place] [address] Social History Tobacco UseTypesPacks/DayYears UsedDateSmoking Tobacco: Never Assessed CommentsUnknownSex and Gender InformationValueDate RecordedSex Assigned at Oydgxs2109/16/2023 12:28 PM EDTLegal UxwQsnbgb42/15/2023 7:19 PM EDTGender RonjmxdsJxnztc02/23/2024 12:28 PM EDTSexual KwelrucjrruPoghqxuw56/23/2024 12:28 PM EDTdocumented as of this encounter Plan of Treatment DateTypeDepartmentCare Team (Latest Contact Info)Cafznyvphvz84/16/2026 9:00 AM ESTProcedure Visit [facility] [address] [facility] [place] [address] Deep Salinas, DO [address] [place], [facility] documented as of this encounter Goals GoalPatient Goal TypeAssociated ProblemsRecent ProgressPatient-Stated?Author Reminders Care PlanOB RemindersNoOpen Scheduling, Backgrounddocumented as of this encounter Visit Diagnoses Not on filedocumented in this encounter Additional Health Concerns Active ProblemsNoted DateDiagnosed DateOB Evnladcfk91/11/2025 documented as of this encounter Care Teams Team MemberRelationshipSpecialtyStart DateEnd Date Karsten Caceres MD [address] [place] [address] [place] [address] PCP - General09/16/23documented as of this encounter
--- OUTSIDE RECORDS SUMMARY | 2025-03-05 13:50 | XMS_ITS | CCD ---
Author Organization [facility] CliniSyoh Care Team Providers Care Cnc Lathe Programmer Name Role Phone Guy Mullen BRAD ., [...] Provider Guy Mullen MD Primary Care Provider [phone] Unavailable Primary Care Provider UnavailDEEP Nunez R Referring Unavailable DEEP SALINAS Referring Unavailable GUY WATERMAN Admitting Unavailable GUY WATERMAN Attending Unavailable DEEP SALINAS Referring Unavailable MEDICINE, MATERNAL Consulting Unavail able JENNA CURRY Referring Unavailable TIRSO HEBERT Attending Unavailable HIGINIO CASTLE Referring Unavailable RASHIDA RIVERA Attending UnavailTIRSO Chau Referring Unavailable RASHIDA RIVERA Attending UnavailTIRSO Chau Referring Unavailable Gyu Mullen DO Primary Care Provider [phone] Deep Salinas DO Attending Provider Guy Mullen DO Attending Provider DEEP SALINAS Attending Unavailable AMY GARIBAY Attending Unavailable AMY GARIBAY Referring Unavailable DEEP SALINAS Attending Unavailable DEEP SALINAS Attending Unavailable BRAD, DEEP Attending Unavailable BRAD, DEEP Attending Unavailable LANIAMY Attending Unavailable BRAD, DEEP Attending Unavailable LANIAMY MALIK Attending Unavailable Medications Current Medications MedicationDrug Class(es)DatesSig (Normalized)Sig (Original)docusate sodium 100 mg oral capsule (6 sources)Start: 12-20-2024 End: 49-31-6477eunq 1 capsule by mouth once daily as neededDocusate Sodium 100 mg capsule Active 100 MG PO Daily as needed December 20, 2024 10:11am [facility]ies [facility] drug therapyStart: 70-98-5989xnke 1 capsule by mouth in the morning, then take 1 capsule by mouth at bedtimedocusate sodium (COLACE) 100 mg capsule Take 1 capsule (100 mg total) by mouth in the morning and 1capsule (100 mg total) before bedtime. 60 capsule 2 11/24/2024 Activeferrous sulfate 325 mg oral tablet (8 sources)Start: 94-37-9930ybrm 1 tablet by mouth once dailyFerrous Sulfate (Ferosul) 325 mg (65 mg iron) tablet Active 325 MG PO Daily December 20, 2024 12:00am Complies with drug therapyStart: 75-42-6526euqr 1 tablet by mouth once daily at breakfastferrous sulfate 325 (65 FE) MG tablet Take 1 tablet (325 mg total) by mouth daily with breakfast. 30 tablet 1 11/14/2024 ActiveNIFEdipine 60 mg osmotic 24 hr extended release oral tablet (10 sources)Dihydropyridine Calcium Channel BlockerStart: 53-11-5570vvtc 1 tablet by mouth once dailyNifedipine 60 mg tablet extended release 24hr Active 60 MG PO Daily December 20, 2024 10:12am Complies with drug therapyStart: 12-20-2024 End: 98-93-1724nayh 1 tablet by mouth every twenty-four hoursNifedipine 60 mg tablet extended release 24hr Discontinued MG PO December 20, 2024 12:00am December 20, 2024 10:12amStart: 45-52-8630znkc 1 tablet by mouth every twenty-four hours in the morningNIFEdipine XL (PROCARDIA XL) 60 mg 24 hr tablet Take 1 tablet (60 mg total) by mouth in the morning. 11/30/2024 ActiveStart: 11-14-2024 End: 57-31-7722qukw 1 tablet by mouth every hourNIFEdipine XL (PROCARDIA XL) 60 mg 24 hr tablet Take 1 tablet (60 mg total) by mouth every 12 (twelve) hours. 60 tablet 1 11/14/2024 11/30/2024 Discontinuednorethindrone 0.35 mg oral tablet (6 sources)Start: 01-03-2025 End: 47-92-0343engm 1 tablet by mouth once daily, then take 1 tablet by mouth once dailynorethindrone (Micronor) 0.35 MG tablet Indications: control counseling Take 1 tablet (0.35 mg) by mouth Daily for 28 days Take 1 tablet by mouth daily 28 tablet 11 01/03/2025 01/31/2025 ActiveStart: 06-21-2023 End: 17-15-8311reai 1 tablet by mouth once dailyNorethindrone (Contraceptive) (Incassia) 0.35 mg tablet Discontinued 0.35 MG PO Daily June 21, 2023 1:00am December 21, 2023 9:21amomeprazole 20 mg delayed release oral capsule (20 sources)Proton Pump InhibitorStart: 09-26-2024 End: 17-59-3449jvdg 1 capsule by mouth before mealtimeomeprazole (PriLOSEC) [address] capsule Indications: Gastroesophageal Reflux Disease , Heartburn Take 1 capsule (20 mg) by mouth in the morning. Take before meals. Do not crush or chew. 30 capsule 3 09/26/2024 01/03/2025 Discontinued (Therapy completed) 25/iron fum/folic/dha (-1 ORAL) (8 sources) 25/iron fum/folic/dha (-1 ORAL) Take by mouth. ActivePrenatal MV-Min-Fe Fum-FA-DHA ( 1 PO) (20 sources) MV-Min-Fe Fum-FA-DHA ( 1 PO) Take by mouth Active Completed/Discontinued Medications MedicationDrug Class(es)DatesSig (Normalized)Sig (Original)desogestrel 0.15 mg / ethinyl estradiol 0.03 mg oral tablet (1 source)Progestin, EstrogenStart: 11-15-2023 End: 55-22-5325fmdtuvqtkul-ethinyl estradiol (Apri) 0.15-30 MG-MCG tablet Indications: control counseling Take 1 tablet by mouth Daily 28 tablet 12 11/15/2023 05/04/2024 Discontinued (Therapy completed)labetalol hydrochloride 300 mg oral tablet (8 sources)beta-Adrenergic BlockerStart: 11-14-2024 End: 14-04-0018aspm 1 tablet by mouth in the morning, then take 1 tablet by mouth at bedtimelabetaloL (NORMODYNE) 300 mg tablet Take 1 tablet (300 mg total) by mouth in the morning and 1 tablet (300 mg total) before bedtime. 11/24/2024 11/30/2024 Discontinued (Therapy completed)phentermine hydrochloride 37.5 mg oral tablet (20 sources)Sympathomimetic Amine AnorecticStart: 03-23-2023 End: 98-35-2130lkxe 1 tablet by mouth once dailyPhentermine 37.5 mg tablet Discontinued 37.5 MG PO Daily September 23, 2023 12:19pm October 29, 2023 11:07am Problems Active Problems Problem ClassificationProblemDateDocumented DateEpisodic/ChronicContraceptive and procreative management (2 sources)Patient encounter status; Translations: [Encounter for other general counseling and advice on contraception]74-50-0766MaonsnpwWwgbhftd mellitus without complication (13 sources)Other abnormal glucose; Translations: [Hyperglycemia, unspecified] Onset: 28-38-4479IjmjjmbwGhpkqfyfelvb complicating ; childbirth and the puerperium (3 sources)Hypertensive disorder; Translations: [Unspecified maternal hypertension, complicating the puerperium]Onset: hronic Hypertension complicating ; childbirth and the puerperium (11 sources)Severe pre-eclampsia; Translations: [Severe pre-eclampsia, third trimester]Onset: 829860-23-2042ZalpymzkOkyuimnhrw infection (3 sources)Viral gastroenteritis due to Woodland-like agent; Translations: [Acute gastroenteropathy due to Woodland agent]03-19-5769OtjfhtaxSolasliwj disorders (1 source)Missed period; Translations: [Irregular menstruation, unspecified] 53-16-4703CvjuwagLxset circulatory disease (2 sources)Elevated blood-pressure reading without diagnosis of hypertension; Translations: [Elevated blood-pressure reading, without diagnosis of hypertension]42-46-7697ItnebtyqRbwwk complications of ; puerperium affecting management of mother (2 sources) disorder; Translations: [Maternal care for (suspected) abnormality and damage, unspecified, not applicable or unspecified]09-26-2024 EpisodicOther complications of (2 sources)Gastroesophageal reflux disease in ; Translations: [Diseases of the digestive system complicating , unspecified trimester] 34-03-8735HldpnbmzCwqcr nutritional; endocrine; and metabolic disorders (6 sources)Abnormal weight gain; Translations: [Abnormal weight gain]Episodic Other nutritional; endocrine; and metabolic disorders (2 sources)Weight gain; Translations: [Abnormal weight gain]74-88-7129Vhkishda Other nutritional; endocrine; and metabolic disorders (1 source)Weight increased; Translations: [Abnormal weight gain]06-21-2023 EpisodicOther and delivery including normal (20 sources) state, incidental; Translations: [Encounter for care and examination of lactating mother]Onset: 11-10-2021 Resolved: 42-31-7938UsdeehmkXfrvj screening for suspected conditions (not mental disorders or infectious disease) (15 sources)Encounter for screening for Streptococcus B; Translations: [Encounter for screening for diabetes mellitus]Onset: 57-85-3672CxlscxuiEioaxluq codes; unclassified (1 source)Gestation period, 9 weeks; Translations: [9 weeks gestation of ]26-99-1606VuqjpfmnEqqobyxc codes; unclassified (2 sources)Gestation period, 14 weeks; Translations: [14 weeks gestation of ]75-97-3535HnuqphffHuetfgcl codes; unclassified (2 sources)Gestation period, 22 weeks; Translations: [22 weeks gestation of ]12-15-1041GvpnvbomIbtjocbl codes; unclassified (2 sources)Gestation period, 24 weeks; Translations: [24 weeks gestation of ]03-53-6992ZuizlqyhYatlqazl codes; unclassified (2 sources)Gestation period, 28 weeks; Translations: [28 weeks gestation of ]15-18-9074CzhidtquRtcvctjn codes; unclassified (2 sources)Gestation period, 30 weeks; Translations: [30 weeks gestation of ]29-23-3898HhlrzdyeTbruufjm codes; unclassified (2 sources)Gestation period, 32 weeks; Translations: [32 weeks gestation of ]86-27-5174OkksgjnnYaqnwona codes; unclassified (2 sources)Gestation period, 34 weeks; Translations: [34 weeks gestation of ]21-88-3289RvknpfylKpvuzydy codes; unclassified (2 sources)H/O: severe pre-eclampsia; Translations: [Personal history of other complications of , childbirth and the puerperium]28-34-3719Pxmqxfrt Residual codes; unclassified (1 source)Personal history of other complications of , childbirth and the puerperium; Translations: [Personal history of other complications of , childbirth and the puerperium]Onset: 21-49-5218HlpsebaiYuunpxbjrga; intervertebral disc disorders; other back problems (3 sources)Low back pain; Translations: [Lumbar back pain]99-74-1942Voiqlmsz Unclassified (1 source)CONTACT W/AND (SUSP) EXPOS COVID-19; Translations: [CONTACT W/AND (SUSP) EXPOS COVID-19]Onset: 50-58-4355Jiyiianmhmfy (20 sources)OB RemindersOnset: 456410-61-7745Tobcqhewntaq (1 source)Preclampsia with Severe featureOnset: 11-08-2024 Past or Other Problems Problem ClassificationProblemDateDocumented DateEpisodic/ChronicMood disorders (4 sources)Mood disordersOnset: 445026-21-4290ND-rrvfqja trauma to perineum and vulva (1 source)Second degree perineal laceration during delivery; Translations: [SECOND DEG PERINEAL LAC DUR DELIV]Onset: 00-96-3325PvtffuecFdtkn complications of (2 sources)Supervision of with other poor reproductive or obstetric history, third trimester; Translations: [SUP PG OTH POOR REPROD/OB HX 3RD TM] Onset: 67-06-9864KtvwpojwGnyls complications of (4 sources)Uterine size-date discrepancy, unspecified trimester; Translations: [UTERINE SZ-DATE DISCREPANCY UNS TRI]Onset: 34-10-7243CpeznrisAodyh gastrointestinal disorders (1 source)HeartburnOnset: 11-10-2021 Resolved: 69-63-5150HcravzjfDdeteygr codes; unclassified (1 source)39 weeks gestation of ; Translations: [39 WEEKS GESTATION OF ]Onset: 69-89-1676EakkojboNwvsflhqsyuj (1 source)Patient encounter icsddu55-70-0216 Results Test NameValueInterpretationReference RangeFacilityCBC WITH AUTO DIFFERENTIALon 20-31-8975TSOKBVPHR ABSOLUTE COUNT (10*3/UL) BY AUTOMATED COUNT0.0 10*3/uLNormal 0.0-0.2[facility] HospitalComment on above:Performed By: #### CMP #### [facility] [address] [place] [address] VIRBASOPHILS RELATIVE PERCENT BY AUTOMATED COUNT0.3 %Normal [facility] HospitalComment on above:Performed By: #### CMP #### [facility] [address] [place] [address] VIRCELLAVISION DIFFERENTIAL TYPEAUTOMATED DIFFERENTIALNormal [facility] HospitalComment on above:Performed By: #### CMP #### [facility] [address] [place] [address] VIREosinophils (Bld) [#/Vol]0.1 10*3/uLNormal0.0-0.4[facility] HospitalComment on above:Performed By: #### CMP #### [facility] [address] [place] [address] VIREOSINOPHILS RELATIVE PERCENT BY AUTOMATED COUNT0.6 %Normal [facility] HospitalComment on above:Performed By: #### CMP #### [facility] [address] [place] [address] VIRErythrocyte distribution width (RBC) [Ratio]20.4 %High 11.5-15[facility] HospitalComment on above:Performed By: #### CMP #### [facility] [address] [place] [address] VIRHematocrit (Bld) [Volume fraction]23.9 %Pzb60-22ZvnVtfuco [facility] HospitalComment on above:Performed By: #### CMP #### [facility] [address] [place] [address] VIRHemoglobin (Bld) [Mass/Vol]7.9 g/dLLow11.7-15.5[facility] HospitalComment on above:Performed By: #### CMP #### [facility] [address] [place] [address] VIRLYMPHOCYTES ABSOLUTE COUNT (10*3/UL) BY AUTOMATED COUNT3.1 10*3/uLNormal1.0-3.5PMetroHealth [facility] Center HospitalComment on above:Performed By: #### CMP #### [facility] [address] [place] [address] VIRLYMPHOCYTES RELATIVE PERCENT BY AUTOMATED COUNT23.8 %Normal [facility] [place] HospitalComment on above:Performed By: #### CMP #### [facility] [address] [place] [address] VIRMCH (RBC) [Entitic mass]29.6 swJmhjza78-57YgaShffih [place] HospitalComment on above:Performed By: #### CMP #### [facility] [address] [place] [address] VIRMCHC (RBC) [Mass/Vol]33.1 g/cVDiawyo00-23NpjMnnfpy [place] HospitalComment on above:Performed By: #### CMP #### [facility] [address] [place] [address] VIRMCV (RBC) [Entitic vol]89 qUQhibpc98-762KffAjxvox [place] HospitalComment on above:Performed By: #### CMP #### [facility] [address] [place] [address] VIRMONOCYTES ABSOLUTE COUNT (10*3/UL) BY AUTOMATED COUNT1.0 10*3/uLHigh0.0-0.9[facility] [place] HospitalComment on above:Performed By: #### CMP #### [facility] [address] [place] [address] VIRMONOCYTES RELATIVE PERCENT BY AUTOMATED COUNT7.8 %Normal [facility] [place] HospitalComment on above:Performed By: #### CMP #### [facility] [address] [place] [address] VIRNEUTROPHILS ABSOLUTE COUNT BY AUTOMATED COUNT8.9 10*3/uLHigh 1.5-6.6[facility] [place] HospitalComment on above:Performed By: #### CMP #### [facility] [address] [place] [address] VIRNEUTROPHILS RELATIVE PERCENT BY AUTOMATED COUNT67.5 %Normal [facility] HospitalComment on above:Performed By: #### CMP #### [facility] [address] [place] [address] VIRPlatelet mean volume (Bld) [Entitic vol]7.1 fLNormal7-12 [facility] HospitalComment on above:Performed By: #### CMP #### [facility] [address] [place] [address] VIRPlatelets (Bld) [#/Vol]231 10*3/lMNioagx008-100InnXcyxev [place] HospitalComment on above:Performed By: #### CMP #### [facility] [address] [place] [address] VIRRBC COUNT2.68 X10E12/LLow3.8-5.2P[facility] Comment on above:Performed By: #### CMP #### [facility] [address] [place] [address] VIRWBC (Bld) [#/Vol]13.2 10*3/uLHigh4-11ProPrem[facility] HospitalComment on above:Performed By: #### CMP #### [facility] [address] [place] [address] VIRCOMPREHENSIVE METABOLIC PANELon 22-07-7651Xokmvlu [Mass/Vol] 2.3 g/dLLow3.2-5.3PMetroHealth [facility] HospitalComment on above:Performed By: #### CMP #### [facility] [address] [place] [address] VIRALP [Catalytic activity/Vol]75 U/ODtnspl77-319XlzQbgfma [place] HospitalComment on above:Performed By: #### CMP #### [facility] [address] [place] [address] VIRALT [Catalytic activity/Vol]9 U/LNormal<=31PMetroHealth [facility] Campus [facility] Center HospitalComment on above:Performed By: #### CMP #### [facility] [address] [place] [address] VIRAnion gap [Moles/Vol]4 mmol/LLow5-15[facility] HospitalComment on above:Performed By: #### CMP #### [facility] [address] [place] [address] VIRAST [Catalytic activity/Vol]6 U/LNormal<=41[facility] HospitalComment on above:Performed By: #### CMP #### [facility] [address] [place] [address] VIRBilirubin [Mass/Vol]0.2 mg/dLLow0.3-1.2PMetroHealth Main Campus [facility] Center HospitalComment on above:Performed By: #### CMP #### [facility] [address] [place] [address] VIRCalcium [Mass/Vol]6.5 mg/dLCritically low8.5-10.5[facility]Med[facility] HospitalComment on above:Performed By: #### CMP #### [facility] [address] [place] [address] VIRChloride [Moles/Vol]106 mmol/UQxxhhw25-242ZwrDanstv [place] HospitalComment on above:Performed By: #### CMP #### [facility] [address] [place] [address] VIRCO2 [Moles/Vol]28 mmol/ANmniaz25-37UivZtvuaw [place] [facility] Comment on above:Performed By: #### CMP #### [facility] [address] [place] [address] VIRCreatinine [Mass/Vol]0.62 mg/dLNormal0.40-1.00[facility] HospitalComment on above:Result Comment: METHOD TRACEABLE TO IDMS STANDARDPerformed By: #### CMP #### [facility] [address] [place] [address] VIREGFR (CKD-EPI) NON-RACE DEPENDENT>^90Normal>=60[facility] [place] HospitalComment on above:Result Comment: Reported eGFR is based on the CKD-EPI 2020 equation that does not use a race coefficient.Performed By: #### CMP #### [facility] [address] [place] [address] VIRGlucose [Mass/Vol]75 mg/xYNymkrj31-47ZdqTlzoex [facility] HospitalComment on above:Performed By: #### CMP #### [facility] [address] [place] [address] VIRPotassium [Moles/Vol]4.9 mmol/LNormal3.5-5.0[facility] HospitalComment on above:Performed By: #### CMP #### [facility] [address] [place] [address] VIRProtein [Mass/Vol]4.3 g/dLLow6.0-8.0[facility] HospitalComment on above:Performed By: #### CMP #### [facility] [address] [place] [address] VIRSodium [Moles/Vol]138 mmol/ETqfcek379-335AweKwnaud [facility] HospitalComment on above:Performed By: #### CMP #### [facility] [address] [place] [address] VIRUrea nitrogen [Mass/Vol]15 mg/dLNormal5-23[facility] HospitalComment on above:Performed By: #### CMP #### [facility] [address] [place] [address] VIRCBC WITH AUTO DIFFERENTIALon 09-96-7160ZRBHJLZZU ABSOLUTE COUNT (10*3/UL) BY AUTOMATED COUNT0.0 10*3/uLNormal0.0-0.2[facility] HospitalComment on above:Performed By: #### CMP #### [facility] [address] [place] [address] VIRBASOPHILS RELATIVE PERCENT BY AUTOMATED COUNT0.2 %Normal [facility] HospitalComment on above:Performed By: #### CMP #### [facility] [address] [place] [address] VIRCELLAVISION DIFFERENTIAL TYPEAUTOMATED DIFFERENTIALNormal [facility] HospitalComment on above:Performed By: #### CMP #### [facility] [address] [place] [address] VIREosinophils (Bld) [#/Vol]0.0 10*3/uLNormal0.0-0.4[facility] HospitalComment on above:Performed By: #### CMP #### [facility] [address] [place] [address] VIREOSINOPHILS RELATIVE PERCENT BY AUTOMATED COUNT0.0 %Normal [facility] HospitalComment on above:Performed By: #### CMP #### [facility] [address] [place] [address] VIRErythrocyte distribution width (RBC) [Ratio]20.2 %High 11.5-15[facility] HospitalComment on above:Performed By: #### CMP #### [facility] [address] [place] [address] VIRHematocrit (Bld) [Volume fraction]26.0 %Dsr63-46ZvyQumopk [facility] HospitalComment on above:Performed By: #### CMP #### [facility] [address] [place] [address] VIRHemoglobin (Bld) [Mass/Vol]8.9 g/dLLow11.7-15.5PMetroHealth [facility] HospitalComment on above:Performed By: #### CMP #### [facility] [address] [place] [address] VIRLYMPHOCYTES ABSOLUTE COUNT (10*3/UL) BY AUTOMATED COUNT2.1 10*3/uLNormal1.0-3.5PMetroHealth [facility] Center HospitalComment on above:Performed By: #### CMP #### [facility] [address] [place] [address] VIRLYMPHOCYTES RELATIVE PERCENT BY AUTOMATED COUNT12.3 %Normal [facility] HospitalComment on above:Performed By: #### CMP #### [facility] [address] [place] [address] VIRMCH (RBC) [Entitic mass]30.2 dtUwlkwk71-84IgkYkcpay [facility] HospitalComment on above:Performed By: #### CMP #### [facility] [address] [place] [address] VIRMCHC (RBC) [Mass/Vol]34.3 g/fIZyvzyw39-88QuyOcbjoy [facility] HospitalComment on above:Performed By: #### CMP #### [facility] [address] [place] [address] VIRMCV (RBC) [Entitic vol]88 vETfpqbz08-807MvvGjtcar [facility] HospitalComment on above:Performed By: #### CMP #### [facility] [address] [place] [address] VIRMONOCYTES ABSOLUTE COUNT (10*3/UL) BY AUTOMATED COUNT0.6 10*3/uLNormal0.0-0.9ProNorwalk Memorial Hospitalca [facility] HospitalComment on above:Performed By: #### CMP #### [facility] [address] [place] [address] VIRMONOCYTES RELATIVE PERCENT BY AUTOMATED COUNT3.5 %Normal [facility] HospitalComment on above:Performed By: #### CMP #### [facility] [address] [place] [address] VIRNEUTROPHILS ABSOLUTE COUNT BY AUTOMATED COUNT14.1 10*3/uL High1.5-6.6[facility] [place] HospitalComment on above:Performed By: #### CMP #### [facility] [address] [place] [address] VIRNEUTROPHILS RELATIVE PERCENT BY AUTOMATED COUNT84.0 %Normal [facility] HospitalComment on above:Performed By: #### CMP #### [facility] [address] [place] [address] VIRPlatelet mean volume (Bld) [Entitic vol]7.7 fLNormal7-12 [facility] [place] HospitalComment on above:Performed By: #### CMP #### [facility] [address] [place] [address] VIRPlatelets (Bld) [#/Vol]307 10*3/ySRcayat047-951HdjMsxvoa [place] HospitalComment on above:Performed By: #### CMP #### [facility] [address] [place] [address] VIRRBC COUNT2.96 X10E12/LLow3.8-5.2PHardtner Medical Centerica [facility] Comment on above:Performed By: #### CMP #### [facility] [address] [place] [address] VIRWBC (Bld) [#/Vol]16.8 10*3/uLHigh4-11[facility] [place] HospitalComment on above:Performed By: #### CMP #### [facility] [address] [place] [address] VIRCOMPREHENSIVE METABOLIC PANELon 22-17-4284Rodpqsc [Mass/Vol] 2.5 g/dLLow3.2-5.3[facility] HospitalComment on above:Performed By: #### CMP #### [facility] [address] [place] [address] VIRALP [Catalytic activity/Vol]83 U/YFktqte75-970XzaTszljo [facility] HospitalComment on above:Performed By: #### CMP #### [facility] [address] [place] [address] VIRALT [Catalytic activity/Vol]10 U/LNormal<=31[facility] HospitalComment on above:Performed By: #### CMP #### [facility] [address] [place] [address] VIRAnion gap [Moles/Vol]4 mmol/LLow5-15[facility] HospitalComment on above:Performed By: #### CMP #### [facility] [address] [place] [address] VIRAST [Catalytic activity/Vol]7 U/LNormal<=41ProMediKing[facility] HospitalComment on above:Performed By: #### CMP #### [facility] [address] [place] [address] VIRBilirubin [Mass/Vol]0.2 mg/dLLow0.3-1.2[facility]Med[facility] HospitalComment on above:Performed By: #### CMP #### [facility] [address] [place] [address] VIRCalcium [Mass/Vol]6.0 mg/dLCritically low8.5-10.5[facility] HospitalComment on above:Performed By: #### CMP #### [facility] [address] [place] [address] VIRChloride [Moles/Vol]103 mmol/SJdrgvg69-295SgiTgjtzs [place] HospitalComment on above:Performed By: #### CMP #### [facility] [address] [place] [address] VIRCO2 [Moles/Vol]25 mmol/HXxhkai07-09DozJwqoqs [facility] Comment on above:Performed By: #### CMP #### [facility] [address] [place] [address] VIRCreatinine [Mass/Vol]0.71 mg/dLNormal0.40-1.00ProTrihealth [facility] Butler HospitalComment on above:Result Comment: METHOD TRACEABLE TO IDMS STANDARDPerformed By: #### CMP #### [facility] [address] [place] [address] VIREGFR (CKD-EPI) NON-RACE DEPENDENT>^90Normal>=60ProTrihealth Bethes[facility] Butler HospitalComment on above:Result Comment: Reported eGFR is based on the CKD-EPI 2020 equation that does not use a race coefficient.Performed By: #### CMP #### [facility] [address] [place] [address] VIRGlucose [Mass/Vol]94 mg/aXScmwuw48-68HnsAttxps [place] HospitalComment on above:Performed By: #### CMP #### [facility] [address] [place] [address] VIRPotassium [Moles/Vol]5.4 mmol/LHigh3.5-5.0ProPrem[facility] HospitalComment on above:Performed By: #### CMP #### [facility] [address] [place] [address] VIRProtein [Mass/Vol]4.7 g/dLLow6.0-8.0ProPremier [facility] HospitalComment on above:Performed By: #### CMP #### [facility] [address] [place] [address] VIRSodium [Moles/Vol]132 mmol/PNuf111-889VigSwpgrq [facility] HospitalComment on above:Performed By: #### CMP #### [facility] [address] [place] [address] VIRUrea nitrogen [Mass/Vol]15 mg/dLNormal5-23[facility] HospitalComment on above:Performed By: #### CMP #### [facility] [address] [place] [address] VIRBLOOD GAS, ARTERIAL, CORDon 11-09-2024%O2 SATURATION CORD JQRHJRGM91.0NormalProMedica Dalton HospitalComment on above:Performed By: #### CRDA #### [facility] ([facility]) [address] [place] [address] VIRBASE,DEFICIT-8.0 mmol/LLow0.0-2.0ProNorwalk Memorial Hospitalca [facility] Comment on above:Performed By: #### CRDA #### [facility] ([facility]) [address] [place] [address] VIRINSP. O2 CONC.21 %NormalProNorwalk Memorial Hospitalca [facility] HospitalComment on above:Performed By: #### CRDA #### [facility] ([facility]) [address] [place] [address] VIRPCO2 CORD CQSSXKLW75.1 mmHGNormalProMedica [facility] Comment on above:Performed By: #### CRDA #### [facility] ([facility]) [address] [place] [address] VIRPH CORD ARTERIAL7.171NormalProMedica Dalton HospitalComment on above:Performed By: #### CRDA #### [facility] ([facility]) [address] [place] [address] VIRPO2 CORD [id number] mmHGNormalProNorwalk Memorial Hospitalca [facility] Comment on above:Performed By: #### CRDA #### [facility] ([facility]) [address] [facility] [place] [address] VIRPOC JANES'S TESTN/ANormalProMedica [place] HospitalComment on above:Performed By: #### CRDA #### [facility] ([facility]) [address] [place] [address] VIRSAMPLE SITEArt CordNormalProMedica [place] HospitalComment on above:Performed By: #### CRDA #### [facility] ([facility]) [address] [place] [address] VIRSAMPLE TYPEUMBILICAL CORDNormalProMedica [facility] Comment on above:Performed By: #### CRDA #### [facility] ([facility]) [address] [place] [address] VIRSOURCE OF OXYGENRoom AirNormalProNorwalk Memorial Hospitalca [facility] Comment on above:Performed By: #### CRDA #### [facility] ([facility]) [address] [place] [address] VIRBLOOD GAS, VENOUSon [id number],DEFICIT-6.0 mmol/LLow 0.0-2.0[facility] [place] HospitalComment on above:Performed By: #### CMP #### [facility] [address] [place] [address] VIRHCO3 (Bld) [Moles/Vol]20.6 mmol/XZimwxr27.0-24.0[facility] [place] HospitalComment on above:Performed By: #### CMP #### [facility] [address] [place] [address] VIRINSP. O2 CONC.21 %NormalProMedica [place] HospitalComment on above:Performed By: #### CMP #### [facility] [address] [place] [address] VIROxygen saturation in Blood28.0 %NormalProMedica [place] HospitalComment on above:Performed By: #### CMP #### [facility] [address] [place] [address] VIRPCO2 DHMMHM44.7 ryZvIgxrwu72.0-50.0[facility] Comment on above:Performed By: #### CMP #### [facility] [address] [place] [address] VIRPH VENOUS7.751Egg3.320-7.420ProTri[facility] HospitalComment on above:Performed By: #### CMP #### [facility]) [address] [place] [address] VIRPO2 OXTQDD78 taOuVsu20-87QqzFaxndbTrihealth Bethesda Butler HospitalComment on above:Performed By: #### CMP #### [facility]) [address] [place] [address] VIRPOC JANES'S TESTN/ANormalProNorwalk Memorial Hospitalca [facility] HospitalComment on above:Performed By: #### CMP #### [facility] [address] [place] [address] VIRSAMPLE SITEVen CordNormalAdena Regional Medical CenterComment on above:Performed By: #### CMP #### [facility]) [address] [place] [address] VIRSAMPLE TYPEVENOUSNormalProTrihealth Bethesda Butler HospitalComment on above:Performed By: #### CMP #### [facility] [address] [place] [address] VIRSOURCE OF OXYGENRoom AirNormalProTrihealth [facility] Comment on above:Performed By: #### CMP #### [facility] [address] [place] [address] VIRCBC WITH AUTO DIFFERENTIALon 95-00-3333IXHVDKYGT ABSOLUTE COUNT (10*3/UL) BY AUTOMATED COUNT0.0 10*3/uLNormal0.0-0.2[facility] HospitalComment on above:Performed By: #### CMP #### [facility] [address] [place] [address] VIRBASOPHILS RELATIVE PERCENT BY AUTOMATED COUNT0.1 %Normal [facility] HospitalComment on above:Performed By: #### CMP #### [facility] [address] [place] [address] VIRCELLAVISION DIFFERENTIAL TYPEAUTOMATED DIFFERENTIALNormal [facility] HospitalComment on above:Performed By: #### CMP #### [facility]) [address] [place] [address] VIREosinophils (Bld) [#/Vol]0.0 10*3/uLNormal0.0-0.4[facility] HospitalComment on above:Performed By: #### CMP #### [facility] [address] [place] [address] VIREOSINOPHILS RELATIVE PERCENT BY AUTOMATED COUNT0.0 %Normal [facility] HospitalComment on above:Performed By: #### CMP #### [facility]) [address] [place] [address] VIRErythrocyte distribution width (RBC) [Ratio]19.7 %High 11.5-15[facility] HospitalComment on above:Performed By: #### CMP #### [facility]) [address] [place] [address] VIRHematocrit (Bld) [Volume fraction]29.7 %Ngk21-01MmyWwndsx [facility] HospitalComment on above:Performed By: #### CMP #### [facility]) [address] [place] [address] VIRHemoglobin (Bld) [Mass/Vol]9.9 g/dLLow11.7-15.5[facility] [place] HospitalComment on above:Performed By: #### CMP #### [facility] [address] [place] [address] VIRLYMPHOCYTES ABSOLUTE COUNT (10*3/UL) BY AUTOMATED COUNT1.6 10*3/uLNormal1.0-3.5[facility] [place] HospitalComment on above:Performed By: #### CMP #### [facility]) [address] [place] [address] VIRLYMPHOCYTES RELATIVE PERCENT BY AUTOMATED COUNT8.3 %Normal [facility] [place] HospitalComment on above:Performed By: #### CMP #### [facility]) [address] [place] [address] VIRMCH (RBC) [Entitic mass]29.3 vpXehdap26-78JazRwhldb [place] HospitalComment on above:Performed By: #### CMP #### [facility]) [address] [place] [address] VIRMCHC (RBC) [Mass/Vol]33.3 g/dFPqipfb42-86XouUwdxkx [place] HospitalComment on above:Performed By: #### CMP #### [facility]) [address] [place] [address] VIRMCV (RBC) [Entitic vol]88 gRGffrnv89-644JevByccen [place] HospitalComment on above:Performed By: #### CMP #### [facility] [address] [place] [address] VIRMONOCYTES ABSOLUTE COUNT (10*3/UL) BY AUTOMATED COUNT1.1 10*3/uLHigh0.0-0.9[facility] [place] HospitalComment on above:Performed By: #### CMP #### [facility] [address] [place] [address] VIRMONOCYTES RELATIVE PERCENT BY AUTOMATED COUNT5.7 %Normal [facility] [place] HospitalComment on above:Performed By: #### CMP #### [facility]) [address] [place] [address] VIRNEUTROPHILS ABSOLUTE COUNT BY AUTOMATED COUNT16.8 10*3/uL High1.5-6.6[facility] HospitalComment on above:Performed By: #### CMP #### [facility]) [address] [place] [address] VIRNEUTROPHILS RELATIVE PERCENT BY AUTOMATED COUNT85.9 %Normal [facility] HospitalComment on above:Performed By: #### CMP #### [facility]) [address] [place] [address] VIRPlatelet mean volume (Bld) [Entitic vol]8.1 fLNormal7-12 [facility] HospitalComment on above:Performed By: #### CMP #### [facility] [address] [place] [address] VIRPlatelets (Bld) [#/Vol]325 10*3/mOMnmomj857-839IxiOyhhfi [facility] HospitalComment on above:Performed By: #### CMP #### [facility] [address] [place] [address] VIRRBC COUNT3.37 X10E12/LLow3.8-5.2[facility] Comment on above:Performed By: #### CMP #### [facility] [address] [place] [address] VIRWBC (Bld) [#/Vol]19.6 10*3/uLHigh4-11[facility] HospitalComment on above:Performed By: #### CMP #### [facility] [address] [place] [address] VIRBASOPHILS ABSOLUTE COUNT (10*3/UL) BY AUTOMATED COUNT0.0 10*3/uLNormal0.0-0.2[facility] [place] HospitalComment on above:Performed By: #### CBCA #### [facility] [address] [place] [address] VIRBASOPHILS RELATIVE PERCENT BY AUTOMATED COUNT0.1 %Normal [facility]MC[facility] HospitalComment on above:Performed By: #### CBCA #### [facility] [address] [place] [address] VIRCELLAVISION DIFFERENTIAL TYPEAUTOMATED DIFFERENTIALNormal ProMC[facility] HospitalComment on above:Performed By: #### CBCA #### [facility] [address] [place] [address] VIREosinophils (Bld) [#/Vol]0.0 10*3/uLNormal0.0-0.4[facility] [place] HospitalComment on above:Performed By: #### CBCA #### [facility] [address] [place] [address] VIREOSINOPHILS RELATIVE PERCENT BY AUTOMATED COUNT0.0 %Normal [facility] HospitalComment on above:Performed By: #### CBCA #### [facility] [address] [place] [address] VIRErythrocyte distribution width (RBC) [Ratio]19.6 %High 11.5-15[facility] [place] HospitalComment on above:Performed By: #### CBCA #### [facility] [address] [place] [address] VIRHematocrit (Bld) [Volume fraction]32.7 %Oeu81-59CrfHqmulu [place] HospitalComment on above:Performed By: #### CBCA #### [facility] [address] [place] [address] VIRHemoglobin (Bld) [Mass/Vol]10.9 g/dLLow11.7-15.5[facility] [place] HospitalComment on above:Performed By: #### CBCA #### [facility] [address] [place] [address] VIRLYMPHOCYTES ABSOLUTE COUNT (10*3/UL) BY AUTOMATED COUNT1.2 10*3/uLNormal1.0-3.5[facility]Med[facility] HospitalComment on above:Performed By: #### CBCA #### [facility] [address] [place] [address] VIRLYMPHOCYTES RELATIVE PERCENT BY AUTOMATED COUNT10.6 %Normal [facility] HospitalComment on above:Performed By: #### CBCA #### [facility] [address] [place] [address] VIRMCH (RBC) [Entitic mass]29.5 ybZdftpg15-06IhpOsdrvl [facility] HospitalComment on above:Performed By: #### CBCA #### [facility]) [address] [place] [address] VIRMCHC (RBC) [Mass/Vol]33.4 g/wSYuhusq53-70RyrKwabrz [facility] HospitalComment on above:Performed By: #### CBCA #### [facility]) [address] [place] [address] VIRMCV (RBC) [Entitic vol]88 fPFcvzva36-082OzuBmthqr [facility] HospitalComment on above:Performed By: #### CBCA #### [facility]) [address] [place] [address] VIRMONOCYTES ABSOLUTE COUNT (10*3/UL) BY AUTOMATED COUNT0.1 10*3/uLNormal0.0-0.9[facility] HospitalComment on above:Performed By: #### CBCA #### [facility] [address] [place] [address] VIRMONOCYTES RELATIVE PERCENT BY AUTOMATED COUNT0.9 %Normal [facility] HospitalComment on above:Performed By: #### CBCA #### [facility] [address] [place] [address] VIRNEUTROPHILS ABSOLUTE COUNT BY AUTOMATED COUNT9.7 10*3/uLHigh 1.5-6.6ProNorwalk Memorial Hospitalca [facility] HospitalComment on above:Performed By: #### CBCA #### [facility]) [address] [place] [address] VIRNEUTROPHILS RELATIVE PERCENT BY AUTOMATED COUNT88.4 %Normal [facility] HospitalComment on above:Performed By: #### CBCA #### [facility]) [address] [place] [address] VIRPlatelet mean volume (Bld) [Entitic vol]8.4 fLNormal7-12 [facility] HospitalComment on above:Performed By: #### CBCA #### [facility]) [address] [place] [address] VIRPlatelets (Bld) [#/Vol]288 10*3/uWXcesjn786-374GotIfirwf [facility] HospitalComment on above:Performed By: #### CBCA #### [facility] [address] [place] [address] VIRRBC COUNT3.70 X10E12/LLow3.8-5.2PHardtner Medical Centerica [facility] Comment on above:Performed By: #### CBCA #### [facility] [address] [place] [address] VIRWBC (Bld) [#/Vol]11.0 10*3/uLNormal4-11ProNorwalk Memorial Hospitalca [facility] HospitalComment on above:Performed By: #### CBCA #### [facility] [address] [place] [address] VIRCOMPREHENSIVE METABOLIC PANELon 00-83-8334Woempwl [Mass/Vol] 2.6 g/dLLow3.2-5.3ProMedOhio [facility] HospitalComment on above:Performed By: #### CMP #### [facility] [address] [place] [address] VIRALP [Catalytic activity/Vol]102 U/CBivikg12-592HlyXmjykv [facility] HospitalComment on above:Performed By: #### CMP #### [facility] [address] [place] [address] VIRALT [Catalytic activity/Vol]13 U/LNormal<=31PMetroHealth Main Campus Medical Center HospitalComment on above:Performed By: #### CMP #### [facility] [address] [place] [address] VIRAnion gap [Moles/Vol]9 mmol/LNormal5-15ProPrem[facility] HospitalComment on above:Performed By: #### CMP #### [facility] [address] [place] [address] VIRAST [Catalytic activity/Vol]7 U/LNormal<=41[facility] HospitalComment on above:Performed By: #### CMP #### [facility] [address] [place] [address] VIRBilirubin [Mass/Vol]0.3 mg/dLNormal0.3-1.2PMetroHealth Main Campus Medical Center HospitalComment on above:Performed By: #### CMP #### [facility] [address] [place] [address] VIRCalcium [Mass/Vol]6.6 mg/dLCritically low8.5-10.5PMetroHealth Main Campus Medical Center HospitalComment on above:Performed By: #### CMP #### [facility] [address] [place] [address] VIRChloride [Moles/Vol]101 mmol/FQutleu47-916ComSeuwfi [place] HospitalComment on above:Performed By: #### CMP #### [facility] [address] [place] [address] VIRCO2 [Moles/Vol]22 mmol/OKchmzm26-46TprNbrxxk [facility] Comment on above:Performed By: #### CMP #### [facility] [address] [place] [address] VIRCreatinine [Mass/Vol]0.80 mg/dLNormal0.40-1.00ProTrihealth [facility] Butler HospitalComment on above:Result Comment: METHOD TRACEABLE TO IDMS STANDARDPerformed By: #### CMP #### [facility] [address] [place] [id number] VIREGFR (CKD-EPI) NON-RACE DEPENDENT>^90Normal>=60ProTrihealth Bethesda Butler HospitalComment on above:Result Comment: Reported eGFR is based on the CKD-EPI 2020 equation that does not use a race coefficient.Performed By: #### CMP #### [facility] [address] [place] [address] VIRGlucose [Mass/Vol]140 mg/[id number] Bethesda Butler HospitalComment on above:Performed By: #### CMP #### [facility] [address] [place] [address] VIRPotassium [Moles/Vol]4.7 mmol/LNormal3.5-5.0ProTrihealth Bethes[facility] Butler HospitalComment on above:Performed By: #### CMP #### [facility] [address] [place] [address] VIRProtein [Mass/Vol]5.0 g/dLLow6.0-8.0ProTrihealth Bethes[facility] Butler HospitalComment on above:Performed By: #### CMP #### [facility] [address] [place] [address] VIRSodium [Moles/Vol]132 mmol/BAwl294-900TyrChsipe Romeo HospitalComment on above:Performed By: #### CMP #### [facility] [address] [place] [address] VIRUrea nitrogen [Mass/Vol]13 mg/dLNormal5-23Pro[facility] Romeo HospitalComment on above:Performed By: #### CMP #### [facility] [address] [place] [address] VIRAlbumin [Mass/Vol]2.9 g/dLLow3.2-5.3ProMedica Romeo HospitalComment on above:Performed By: #### CMP #### [facility] [address] [place] [address] VIRALP [Catalytic activity/Vol]122 U/TJhprlh84-641JgxIjshqw Romeo HospitalComment on above:Performed By: #### CMP #### [facility] [address] [place] [address] VIRALT [Catalytic activity/Vol]17 U/LNormal<=31Pro[facility]ica Dalton HospitalComment on above:Performed By: #### CMP #### [facility] [address] [place] [address] VIRAnion gap [Moles/Vol]11 mmol/LNormal5-15Pro[facility]ica Romeo HospitalComment on above:Performed By: #### CMP #### [facility] [address] [place] [address] VIRAST [Catalytic activity/Vol]7 U/LNormal<=41Pro[facility]ica Romeo HospitalComment on above:Performed By: #### CMP #### [facility] [address] [place] [address] VIRBilirubin [Mass/Vol]0.4 mg/dLNormal0.3-1.2ProMedica Romeo HospitalComment on above:Performed By: #### CMP #### [facility] [address] [place] [address] VIRCalcium [Mass/Vol]7.3 mg/dLLow8.5-10.5PMetroHealth Main Campus Medical Center HospitalComment on above:Performed By: #### CMP #### [facility] [address] [place] [address] VIRChloride [Moles/Vol]102 mmol/DRtlimk16-100LfqYwumev [place] HospitalComment on above:Performed By: #### CMP #### [facility] [address] [place] [address] VIRCO2 [Moles/Vol]21 mmol/LWrn04-18HmyHhpgiu [facility] Comment on above:Performed By: #### CMP #### [facility] [address] [place] [address] VIRCreatinine [Mass/Vol]0.77 mg/dLNormal0.40-1.00ProPrem[facility] HospitalComment on above:Result Comment: METHOD TRACEABLE TO IDMS STANDARDPerformed By: #### CMP #### [facility] [address] [place] [address] VIREGFR (CKD-EPI) NON-RACE DEPENDENT>^90Normal>=60ProPremier [facility] HospitalComment on above:Result Comment: Reported eGFR is based on the CKD-EPI 1 equation that does not use a race coefficient.Performed By: #### CMP #### [facility] [address] [place] [address] VIRGlucose [Mass/Vol]134 mg/iYZavf86-82PxdRmccxz [place] HospitalComment on above:Performed By: #### CMP #### [facility] [address] [place] [address] VIRPotassium [Moles/Vol]4.3 mmol/LNormal3.5-5.0ProPrem[facility] HospitalComment on above:Performed By: #### CMP #### [facility] [address] [place] [address] VIRProtein [Mass/Vol]5.6 g/dLLow6.0-8.0Pro[facility] Dalton HospitalComment on above:Performed By: #### CMP #### [facility] [address] [place] [address] VIRSodium [Moles/Vol]134 mmol/WTfgbhu652-871XdrQpodyk Dalton HospitalComment on above:Performed By: #### CMP #### [facility] [address] [place] [address] VIRUrea nitrogen [Mass/Vol]13 mg/dLNormal5-23Pro[facility] Dalton HospitalComment on above:Performed By: #### CMP #### [facility] [address] [place] [address] VIRDRUG SCREEN, URINEon 32-65-7301ECPJLOUQHST/METHAMPNegative NormalNegativeProMedica Dalton HospitalComment on above:Result Comment: AMPH/METH screening cut off = 1000 ng/mLPerformed By: #### DSU #### [facility] [address] [place] [address] VIRBARBITURATESNegativeNormalNegativeProMedica Dalton Hospital Comment on above:Result Comment: Barbiturates screening cut off value = 200 ng/mLPerformed By: #### DSU #### [facility] [address] [place] [address] VIRBENZODIAZEPINESNegativeNormalNegativeProMedica Dalton HospitalComment on above:Result Comment: Benzodiazepines screening cut off value = 200 ng/mLPerformed By: #### DSU #### [facility] [address] [place] [address] VIRCANNABINOIDSNegativeNormalNegativeProMedica Romeo Hospital Comment on above:Result Comment: Cannabinoids/THC screening cut off value = 50 ng/mLPerformed By: #### DSU #### [facility] [address] [place] [address] VIRCOCAINE METABOLITENegativeNoDayton VA Medical CenterComment on above:Result Comment: Cocaine screening cut off value = 300 ng/mLPerformed By: #### DSU #### [facility] [address] [place] [address] VIRECSTASYPositiveAbnormalNegWestern Reserve Hospital Comment on above:Result Comment: Ecstasy screening cut off value = 500 ng/mL This report is intended for use in clinical monitoring or management of patients. Interference from Buproprion or Labetalol may cause a positive result, confirmation available upon request.Performed By: #### DSU #### [facility] [address] [place] [address] VIRMETHADONENegativeNormalNegWestern Reserve Hospital Comment on above:Result Comment: Methadone screening cut off value = 300 ng/mL. Performed By: #### DSU #### [facility] [address] [place] [address] VIROPIATESNegativeNonovant health forsyth medical centerNegWestern Reserve Hospital Comment on above:Result Comment: Opiates screening cut off value = 300 ng/mL This test is used for the detection of codeine, hydrocodone (>1000 ng/mL), morphine and hydromorphone (>900 ng/mL) in urine.Performed By: #### DSU #### [facility] [address] [place] [address] VIROXYCODONENegativeNormalNegWestern Reserve Hospital Comment on above:Result Comment: Oxycodone screening cut off value = 300 ng/mL This test is used for the detection of oxycodone and oxymorphone in urine.Performed By: #### DSU #### [facility] [address] [place] [address] VIRPHENCYCLIDINENegativeNonovant health forsyth medical centerNegativeA[facility] Comment on above:Result Comment: Phencyclidine screening cut off value = 25 ng/mLPerformed By: #### DSU #### [facility] [address] [place] [address] VIRFENTANYL, URINE QUALITATIVEon [id number], URINE QUAL.NegativeNormalNegativeAdena Regional Medical CenterComment on above:Order Comment: Fentanyl screening cutoff = 5ng/ml This report is intended for use in clinical monitoring or management of patients.Performed By: #### UFEN #### [facility] [address] [place] [address] VIRREPEATED ABORHon [id number]_SDPYXCJvbjsdAioSctxzi [place] HospitalComment on above:Performed By: #### ABORHR #### [facility] ([facility]) [address] [place] [address] VIRRH_INTEPPositiveNoUniversity Hospitals Beachwood Medical CenterComment on above:Performed By: #### ABORHR #### [facility] ([facility]) [address] [place] [address] VIRSTREP B SCREENon 23-08-3601NNVQW B SCREENCULTURE RESULTS POSITIVE FOR GROUP B STREPTOCOCCUS BY NUCLEIC ACID AMPLIFICATIONSamaritan North Health CenterComment on above:Order Comment: Group B streptococci remain universally susceptible to penicillin, ampicillin, and cefazolin. Resistance to clindamycin can occur. Please contact laboratory within 48 hours if clindamycin susceptibility testing is needed.Performed By: #### CMP #### [facility] [address] [place] [address] VIRALL CBC WITH AUTO DIFFon [id number] ABSOLUTE AUTO 0.1NOMS HealthcareBasophils/100 WBC (Bld)0.6 %0.2 - 2.0 %[facility] Healthcare Eosinophils/100 WBC (Bld)1.1 %0.9 - 7.0 %NOM HealthcareErythrocyte distribution width (RBC) [Ratio]18.1 %High11.0 - 15.0 %NOM HealthcareHematocrit (Bld) [Volume fraction]32.3 %Low36.0 - 48.0 %[facility] HealthcareHemoglobin (Bld) [Mass/Vol]10.8 g/dLLow12.0 - 16.0 g/dLENCOMPASS HEALTH HealthcareIMMATURE GRANULOCYTES ABS AUTO0.16HighNOCA HealthcareImmature granulocytes/100 WBC (Bld)1.2 %High0.0 - 0.5 %[facility] HealthcareInterpretation and review of laboratory resultsAbnormalNOCA HealthcareLYMPHOCYTES ABSOLUTE AUTO3.5NOMS HealthcareLymphocytes/100 WBC (Bld) 25.4 %20.5 - 60.0 %[facility] CenterMCH (RBC) [Entitic mass]29.8 pg26.7 - 34.0 pg [facility] CenterMCHC (RBC) [Mass/Vol]33.4 g/dL29.9 - 35.2 g/dLSSM DePaul Health CenterMCV (RBC) [Entitic vol]89 fL81.0 - 99.0 fLNOCA HealthcareMONOCYTES ABSOLUTE AUTO0.7 [facility] HealthcareMonocytes/100 WBC (Bld)5 %1.7 - 12.0 %[facility] HealthcareNEUTROPHILS ABSOLUTE AUTO9.1HighNOCA HealthcareNeutrophils/100 WBC (Bld)66.7 %43.0 - 75.0 % [facility] HealthcarePlatelet mean volume (Bld) [Entitic vol]10.7 fL9.5 - 13.5 fLNOCA HealthcareTBH EO #0.2NOMS HealthcareTBH [id number] [facility] AvonTB RBC3.63LowNOMS [facility] AvonTB WBC13.7HighENCOMPASS HEALTH HealthcareCLINISYNCNOMS HealthcareActivated partial thromboplastin time (aPTT) in platelet poor plasma by coagulation a Ordered By: Deep Salinas on 00-86-8518rCML Coag (PPP) [Time]25.1 s22.3-36.2 [facility] HospitalBasophils Auto (Bld) [#/Vol]Ordered By: Deep Salinas on 43-73-8827Cixkqnwtj (Bld) [#/Vol]0.1 10 3/uL0.0-0.1FBarnesville HospitalBasophils/100 WBC Auto (Bld)Ordered By: Deep Salinas on 11-08-2024 Basophils/100 WBC (Bld)0.6 %0.2-2.0[facility] HospitalCB WITH AUTO DIFFERENTIALon 73-27-4814OQKYNDGLL ABSOLUTE COUNT (10*3/UL) BY AUTOMATED COUNT0.0 10*3/uLNormal0.0-0.2[facility] HospitalComment on above:Performed By: #### CBCA #### [facility] [address] [place] [address] VIRBASOPHILS RELATIVE PERCENT BY AUTOMATED COUNT0.3 %Normal [facility] CenterComment on above:Performed By: #### CBCA #### [facility] [address] [place] [address] VIRCELLAVISION DIFFERENTIAL TYPEAUTOMATED DIFFERENTIALNormal [facility] CenterComment on above:Performed By: #### CBCA #### [facility] [address] [place] [address] VIREosinophils (Bld) [#/Vol]0.0 10*3/uLNormal0.0-0.4ProPrem[facility] HospitalComment on above:Performed By: #### CBCA #### [facility] [address] [place] [address] VIREOSINOPHILS RELATIVE PERCENT BY AUTOMATED COUNT0.0 %Normal [facility] CenterComment on above:Performed By: #### CBCA #### [facility] [address] [place] [address] VIRErythrocyte distribution width (RBC) [Ratio]18.9 %High 11.5-15ProPrem[facility] HospitalComment on above:Performed By: #### CBCA #### [facility]) [address] [place] [address] VIRHematocrit (Bld) [Volume fraction]32.2 %Iex65-26GalEyfbed Dalton HospitalComment on above:Performed By: #### CBCA #### [facility]) [address] [place] [address] VIRHemoglobin (Bld) [Mass/Vol]10.7 g/dLLow11.7-15.5Pro[facility] HospitalComment on above:Performed By: #### CBCA #### [facility] [address] [place] [address] VIRLYMPHOCYTES ABSOLUTE COUNT (10*3/UL) BY AUTOMATED COUNT1.1 10*3/uLNormal1.0-3.5ProMedOhio [facility]ing Hospital HospitalComment on above:Performed By: #### CBCA #### [facility] [address] [place] [address] VIRLYMPHOCYTES RELATIVE PERCENT BY AUTOMATED COUNT8.7 %Normal [facility] HospitalComment on above:Performed By: #### CBCA #### [facility]) [address] [place] [address] VIRMCH (RBC) [Entitic mass]29.1 hiRmfmvc42-95QpoTssdpy Dalton HospitalComment on above:Performed By: #### CBCA #### [facility]) [address] [place] [address] VIRMCHC (RBC) [Mass/Vol]33.2 g/zNTlefzb51-95RgmAoevyg Dalton HospitalComment on above:Performed By: #### CBCA #### [facility]) [address] [place] [address] VIRMCV (RBC) [Entitic vol]88 dFGujzzp95-616RtgFmbjdg Romeo HospitalComment on above:Performed By: #### CBCA #### [facility] [address] [place] [address] VIRMONOCYTES ABSOLUTE COUNT (10*3/UL) BY AUTOMATED COUNT0.1 10*3/uLNormal0.0-0.9ProPrem[facility] HospitalComment on above:Performed By: #### CBCA #### [facility] [address] [place] [address] VIRMONOCYTES RELATIVE PERCENT BY AUTOMATED COUNT0.9 %Normal [facility] HospitalComment on above:Performed By: #### CBCA #### [facility] [address] [place] [address] VIRNEUTROPHILS ABSOLUTE COUNT BY AUTOMATED COUNT11.6 10*3/uL High1.5-6.6Pro[facility] HospitalComment on above:Performed By: #### CBCA #### [facility] [address] [place] [address] VIRNEUTROPHILS RELATIVE PERCENT BY AUTOMATED COUNT90.1 %Normal [facility] HospitalComment on above:Performed By: #### CBCA #### [facility]) [address] [place] [address] VIRPlatelet mean volume (Bld) [Entitic vol]8.1 fLNormal7-12 [facility] HospitalComment on above:Performed By: #### CBCA #### [facility] [address] [place] [address] VIRPlatelets (Bld) [#/Vol]275 10*3/hGWfpdhy129-261YytBlrdau [place] HospitalComment on above:Performed By: #### CBCA #### [facility] [address] [place] [address] VIRRBC COUNT3.68 X10E12/LLow3.8-5.2PCl[facility] Comment on above:Performed By: #### CBCA #### [facility] [address] [place] [address] VIRWBC (Bld) [#/Vol]12.8 10*3/uLHigh4-11[facility] HospitalComment on above:Performed By: #### CBCA #### [facility] [address] [place] [address] VIRCOMPREHENSIVE METABOLIC PANELon 35-52-7851Athkaet [Mass/Vol] 2.8 g/dLLow3.2-5.3PClinton Memorial HospitalComment on above:Performed By: #### CMP #### [facility] [address] [place] [address] VIRALP [Catalytic activity/Vol]127 U/ZGmhtmq83-490DksTummwa [place] HospitalComment on above:Performed By: #### CMP #### [facility] [address] [place] [address] VIRALT [Catalytic activity/Vol]18 U/LNormal<=31PClinton Memorial HospitalComment on above:Performed By: #### CMP #### [facility] [address] [place] [address] VIRAnion gap [Moles/Vol]11 mmol/LNormal5-15[facility] HospitalComment on above:Performed By: #### CMP #### [facility] [address] [place] [address] VIRAST [Catalytic activity/Vol]8 U/LNormal<=41[facility] HospitalComment on above:Performed By: #### CMP #### [facility] [address] [place] [address] VIRBilirubin [Mass/Vol]0.4 mg/dLNormal0.3-1.2PClinton Memorial HospitalComment on above:Performed By: #### CMP #### [facility] [address] [place] [address] VIRCalcium [Mass/Vol]7.6 mg/dLLow8.5-10.5PClinton Memorial HospitalComment on above:Performed By: #### CMP #### [facility] [address] [place] [address] VIRChloride [Moles/Vol]104 mmol/DZhjzen00-533YxsOahbtz [place] HospitalComment on above:Performed By: #### CMP #### [facility] [address] [place] [address] VIRCO2 [Moles/Vol]21 mmol/NCzu38-81QrrNfgcwp [facility] Comment on above:Performed By: #### CMP #### [facility] [address] [place] [address] VIRCreatinine [Mass/Vol]0.82 mg/dLNormal0.40-1.00ProTrihealth Bethes[facility] Butler HospitalComment on above:Result Comment: METHOD TRACEABLE TO IDMS STANDARDPerformed By: #### CMP #### [facility] [address] [place] [address] VIREGFR (CKD-EPI) NON-RACE DEPENDENT>^90Normal>=60ProTrihealth Bethesda Butler HospitalComment on above:Result Comment: Reported eGFR is based on the CKD-EPI 2021 equation that does not use a race coefficient.Performed By: #### CMP #### [facility] [address] [place] [address] VIRGlucose [Mass/Vol]107 mg/aUNkgs63-78XumPrybrpTrihealth Bethesda Butler HospitalComment on above:Performed By: #### CMP #### [facility] [address] [place] [address] VIRPotassium [Moles/Vol]4.3 mmol/LNormal3.5-5.0Pro[facility] HospitalComment on above:Performed By: #### CMP #### [facility] [address] [place] [address] VIRProtein [Mass/Vol]5.3 g/dLLow6.0-8.0ProPrem[facility] HospitalComment on above:Performed By: #### CMP #### [facility] [address] [place] [address] VIRSodium [Moles/Vol]136 mmol/QJvydrc509-864PueAtjook [place] HospitalComment on above:Performed By: #### CMP #### [facility] [address] [place] [address] VIRUrea nitrogen [Mass/Vol]13 mg/dLNormal5-23ProPrem[facility] HospitalComment on above:Performed By: #### CMP #### [facility] [address] [place] [address] VIREosinophils/100 WBC Auto (Bld)Ordered By: Deep Salinas on 65-99-7012Vqedrpyorxe/100 WBC (Bld)1.1 %0.9-7.0[facility] Erythrocyte distribution width Auto (RBC) [Ratio]Ordered By: Deep Salinas on 51-87-8406Fnovklmrojc distribution width (RBC) [Ratio]18.1 %High11.0-15.0 [facility] HospitalFibrinogen [Mass/volume] in Platelet poor plasma by Coagulation assayOrdered By: Deep Salinas on 69-83-6638Xriudaymgl Coag (PPP) [Mass/Vol]376 mg/hS419-966QxeaejkqsAvita Health System Ontario HospitalGlobulin Calc (S) [Mass/Vol]Ordered By: Deep Salinas on 49-28-8082Hcnqbrsb (S) [Mass/Vol]3.9 g/dLAvita Health System Ontario HospitalGlomerular filtration rate (GFR) estimation in non- AmericanOrdered By: Deep Salinas on 12-15-6308RIS/1.73 sq M.predicted among non-blacks MDRD (S/P/Bld) [Vol rate/Area]mL/min/{1.73_m2}>=60 mL/min/1.73m 2FBarnesville HospitalHematocrit Auto (Bld) [Volume fraction]Ordered By: Deep Salinas on 59-21-1500Bswcekmhtx (Bld) [Volume fraction] 32.3 %Low36.0-48.0[facility] HospitalHemoglobin [Mass/volume] in BloodOrdered By: Deep Salinas on 04-02-7324Ctpvbyyutg (Bld) [Mass/Vol]10.8 g/dL Low12.0-16.0[facility] HospitalINR in Platelet poor plasma by Coagulation assayOrdered By: Deep Salinas on 55-62-7651MAD Coag (PPP) [Relative time]{INR}[facility] HospitalComment on above:DESIRED INR:2.0-3.0 CONDITIONS NOT LISTED BELOW2.5-3.5 FOR PROSTHETIC HEART VALVE REPLACEMENT2.5-3.5 RECURRENT THROMBOSISLaboratory - Chemistry and Chemistry - challengeOrdered By: Deep Salinas on 92-10-9199Idsusoi [Mass/Vol]2.2 g/dLLow3.4-5.0[facility] HospitalALP [Catalytic activity/Vol]144 U/YSuim52-874NpmxxgfpjAvita Health System Ontario HospitalALT [Catalytic activity/Vol]33 U/F77-38YcovlhdzgAvita Health System Ontario HospitalAST [Catalytic activity/Vol]11 U/AKeu55-65AmmsuysgyAvita Health System Ontario HospitalBilirubin [Mass/Vol]0.3 mg/dL0.2-1.0[facility] Calcium [Mass/Vol]8.2 mg/dLLow8.5-10.1FBarnesville HospitalChloride [Moles/Vol]104 mmol/B63-872CsgqrewulAvita Health System Ontario HospitalCO2 [Moles/Vol]23.9 mmol/L21.0-32.0[facility] HospitalCreatinine [Mass/Vol]0.67 mg/dL 0.55-1.02[facility] HospitalGFR/1.73 sq M.predicted MDRD (S/P/Bld) [Vol rate/Area]mL/min/{1.73_m2}>=60 mL/min/1.73m 2FBarnesville HospitalGlucose [Mass/Vol]76 mg/dO17-597EdmirhmgkAvita Health System Ontario HospitalLDH [Catalytic activity/Vol]296 U/OCnxb58-755KeqccsgwuAvita [facility] System [facility] Potassium [Moles/Vol]4.1 mmol/L3.5-5.1FBarnesville HospitalProtein [Mass/Vol]6.1 g/dLLow6.4-8.2FMercy Health St. Rita's Medical Centerodium [Moles/Vol] 139 mmol/Q926-327RhjmzshrrAvita Health System Ontario HospitalUrate [Mass/Vol]7.4 mg/dLHigh 2.6-6.0[facility] HospitalUrea nitrogen [Mass/Vol]13.0 mg/dL 7.0-18.0[facility] HospitalUrea nitrogen/Creatinine [Mass ratio] 19.4 mg/mgAvita Health System Ontario HospitalLaboratory - Hematology and Cell countsOrdered By: Deep Salinas on 15-58-0671Hfarlgol granulocytes/100 WBC (Bld) 1.2 %High0.0-0.5FBarnesville HospitalLaboratory - UrinalysisOrdered By: Deep Salinas on 66-43-3974Yktkhdd (U) [Mass/Vol]764.9 mg/dLHigh<=11.9 [facility] HospitalLeukocytes [#/volume] corrected for nucleated erythrocytes in Blood by Automated counOrdered By: Deep Salinas on 38-64-7289NXL corrected for nucl RBC Auto (Bld) [#/Vol]13.7 10 3/uLHigh4.0-11.0[facility] HospitalLymphocytes Auto (Bld) [#/Vol]Ordered By: Deep [place] on 17-60-3518Tweqcjjpzlo (Bld) [#/Vol]3.5 10 3/uL1.2-3.8[facility] HospitalLymphocytes/100 WBC Auto (Bld)Ordered By: Deep [place] on 11-08-2024 Lymphocytes/100 WBC (Bld)25.4 %20.5-60.0[facility] (RBC) [Entitic mass]Ordered By: Deep [place] on 10-56-7390CLA (RBC) [Entitic mass]29.8 pg26.7-34.0[facility] HospitalMCHC Auto (RBC) [Mass/Vol]Ordered By: Deep [place] on 07-48-5358KFNX (RBC) [Mass/Vol]33.4 g/dL 29.9-35.2FBarnesville HospitalMCV Auto (RBC) [Entitic vol]Ordered By: Deep [place] on 31-04-1517DWZ (RBC) [Entitic vol]89.0 fL81.0-99.0[facility] HospitalMonocytes Auto (Bld) [#/Vol]Ordered By: Deep [place] on 33-94-9102Vfrngjgky (Bld) [#/Vol]0.7 10 3/uL0.3-0.8[facility] HospitalMonocytes/100 WBC Auto (Bld)Ordered By: Deep [place] on 11-08-2024 Monocytes/100 WBC (Bld)5.0 %1.7-12.0[facility] HospitalNeutrophils Auto (Bld) [#/Vol]Ordered By: Deep Salinas on 23-40-5603Zysafrdlxxk (Bld) [#/Vol]9.1 10 3/uLHigh1.4-6.5FBarnesville HospitalNeutrophils/100 WBC Auto (Bld)Ordered By: Deep Salinas on 02-59-4301Dutptkuhizs/100 WBC (Bld)66.7 %43.0-75.0[facility] HospitalNo Panel InformationOrdered By: Radiologist Radiology on 77-58-3775DQCJ [employer] Work Phone: No Panel InformationOrdered By: Deep Salinas on 94-60-0077Qfzsntkcgep # (Auto)0.2 10 3/uL0.0-0.7FBarnesville HospitalImmature Granulocyte # (Auto)0.16 10 3/uLHigh0.00-0.03[facility] HospitalUrine Random Ieqicejtvk62.32 mg/dL20.00-300.00[facility] HospitalNo Panel Informationon 55-77-3687Xrxsbgtra Study observation (narrative)NOMS HealthcarePlatelet mean volume Auto (Bld) [Entitic vol]Ordered By: Deep Salinas on 66-98-8487Yvqnlqyw mean volume (Bld) [Entitic vol]10.7 fL 9.5-13.5FBarnesville HospitalPlatelets Auto (Bld) [#/Vol]Ordered By: Deep Salinas on 94-15-1310Ofbfneqwa (Bld) [#/Vol]269 10 3/wM626-951YwtytdcyyAvita Health System Ontario HospitalProthrombin time (PT)Ordered By: Deep Salinas on 87-45-3877GN Coag (PPP) [Time]9.8 s9.0-11.6FBarnesville HospitalRBC Auto (Bld) [#/Vol]Ordered By: Deep Salinas on 28-08-0234JDN (Bld) [#/Vol]3.63 10 6/uLLow4.20-5.40[facility] Medical CenterYPHILIS TOTAL(UNKNOWN SYPHILIS STATUS)on 30-71-6972GRFWTNBS TOTAL<^0.2Normal<=0.8[facility] Comment on above:Order Comment: NON REACTIVE No serologic evidence of infection to Treponema pallidum. Repeat testing may be considered in patients with suspected acute or primary syphilis in 2 to 4 weeks. Performed By: #### SYPHT #### [facility] [address] [place] [address] VIRSerum or plasma albumin/globulin mass ratioOrdered By: Deep Salinas on 25-19-1080Wdcxlsb/Globulin [Mass ratio]0.6 {ratio}[facility] Medical Centererum or plasma anion gap determinationOrdered By: Deep Salinas on 61-10-1047Zrvyk gap [Moles/Vol]15.2 mmol/LFBarnesville HospitalTYPE AND SCREENon 82-41-5019FJA_CBDBJMLbijfsDabClkygn Toledo HospitalComment on above:Performed By: #### TSC #### [facility] ([facility]) [address] [place] [address] VIRRH_INTEPPositiveNormalProMedica Joint Township District Memorial HospitalComment on above:Performed By: #### TSC #### [facility] ([facility]) [address] [place] [address] VIRUS OB BPP W NON-STRESSon 63-65-1957[place], [place] [address] Ultrasound Report Signed Patient: HANNAH CLAIRE MR#: [id number] : 1995 Acct:[id number] Age/Sex: 28 / F ADM Date: 11/08/24 Loc: [facility] 251-[address]: Deep Salinas D.O. Ordering Physician: Deep Salinas D.O. Date of Service: 11/08/24 Procedure(s): US OB BPP w non-stress Accession Number(s): [id number] cc: Deep Salinas D.O.; GUY MULLEN [place] [address] Patient Name: HANNAH CLAIRE MRN: [id number] date: 1995 Sex: F Assigned Patient Location: [facility] Current Patient Location: [facility] Accession/Order Number: [id number] Exam Date: 11/08/2024 17:20 Report Date: 11/08/2024 [...] Harrison M.D. 11/08/2024 5:25 PM Dictation Location: [facility] SYSTEMSRanovusASTRIA TOPPENISH HOSPITALGetui Electronically authenticated by: [id number] Y Date: 11/08/2024 17:25 Dictated By: Aleksander Harrison M.D. Signed By: 11/08/241727 DD/ 24 TD/TT: Housing Assistant:TBHRadiology, Radiologist, - 11/08/2024 [place] [address] Ultrasound Report Signed Patient: HANNAH CLAIRE MR#: [id number] : 1995 Acct:[id number] Age/Sex: 28 / F ADM Date: 11/08/24 Loc: [facility] 251-[address]: Deep Salinas D.O. Ordering Physician: Deep Salinas D.O. Date of Service: 11/08/24 Procedure(s): US OB BPP w non-stress Accession Number(s): [id number] cc: Deep Salinas D.O.; GUY MULLEN The [address] [address] Patient Name: HANNAH CLAIRE MRN: [id number] date: 1995 Sex: F Assigned Patient Location: [facility] Current Patient Location: [facility] Accession/Order Number: [id number] Exam Date: 11/08/2024 17:20 Report Date: 11/08/2024 [...] Harrison M.D. 11/08/2024 5:25 PM Dictation Location: [place] [address] Electronically authenticated by: [id number] Y Date: 11/08/2024 17:25 Dictated By: Aleksander Harrison M.D. Signed By: 11/08/248 DD/ 24 TD/TT: Housing Assistant: MICHELLE LEWIS GROWTHon 90-80-8553[place]kzK[place]on, [place] [address] Ultrasound Report Signed Patient: HANNAH CLAIRE MR#: [id number] : 1995 Acct:[id number] Age/Sex: 28 / F ADM Date: 11/08/24 Loc: [facility] 251-[address]: Deep Brad D.O. Ordering Physician: Deep Salinas D.O. Date of Service: 11/08/24 Procedure(s): US OB growth Accession Number(s): [id number] cc: Deep Salinas D.O.; GUY MULLEN [place] [address] Patient Name: HANNAH CLAIRE MRN: [facility]:[id number] date: 1995 Sex: F Assigned Patient Location: [facility] Current Patient Location: [facility] Accession/Order Number: [id number] Exam Date: 11/08/2024 17:20 Report Date: 11/08/2024 [...] Harrison M.D. 11/08/2024 5:25 PM Dictation Location: [place] [address] Electronically authenticated by: [id number] Y Date: 11/08/2024 17:25 Dictated By: Aleksander Harrison M.D. Signed By: 11/08/241727 DD/ 24 TD/TT: Housing Assistant:MARTIHRadiology, Radiologist, - 11/08/2024 [place] [address] Ultrasound Report Signed Patient: HANNAH CLAIRE MR#: [id number] : 1995 Acct:[id number] Age/Sex: 28 / F ADM Date: 11/08/24 Loc: [facility] 251-[address]: Deep Salinas D.O. Ordering Physician: Deep Salinas D.O. Date of Service: 11/08/24 Procedure(s): US OB growth Accession Number(s): [id number] cc: Deep Salinas D.O.; GUY MULLEN [place] [address] Patient Name: HANNAH CLAIRE MRN: [id number] date: 1995 Sex: F Assigned Patient Location: [facility] Current Patient Location: [facility] Accession/Order Number: [id number] Exam Date: 11/08/2024 17:20 Report Date: 11/08/2024 [...] Harrison M.D. 11/08/2024 5:25 PM Dictation Location: [place] [address] Electronically authenticated by: [id number] Y Date: 11/08/2024 17:25 Dictated By: Aleksander Harrison M.D. Signed By: 11/08/241727 DD/ 24 TD/TT: Housing Assistant: MICHELLE IbarraUrinalysis macro (dipstick) panel (U)on 06-75-4598Cyrfzzpri, UA NegativeNegative - 4(70) +++ mg/dLNOMS HealthcareBlood, UANegativeNegative - 50 Jay/mcLNOMS HealthcareClarity, UAClearNOMS HealthcareColor, UAYellowNOMS HealthcareGlucose, UANegativeNegative - 2000(110) ++++ mg/dLNOMS Healthcare Interpretation and review of laboratory resultsAbnormalNOMS HealthcareKetones, UANegativeNegative - 160(16) ++++ mg/dLNOMS HealthcareLeukocytes, UANegative Negative - 500+++ Kate/mcLNOMS HealthcareNitrite, UANegativeNegative - Positive NOMS HealthcarepH, UA65 - 9NOMS HealthcareProtein, UA4+Negative - 2000(20) ++++ mg/dLNOMS HealthcareSpec Grav, UA1.031 - 1.03NOMS HealthcareUrobilinogen, UA0.2 0.2 - 12 mg/dLNOMS HealthcareNOMS HealthcareUrine protein/creatinine ratio Ordered By: Deep Salinas on 43-30-0997Slcekud/Creatinine (U) [Ratio]9.29[facility] HospitalUrinalysis macro (dipstick) panel (U)on 10-11-2024 Bilirubin, UANegativeNegative - 4(70) +++ mg/dLNOMS HealthcareBlood, UANegative Negative - 50 Jay/mcLNOMS HealthcareClarity, UAClearNOMS HealthcareColor, UA YellowNOMS HealthcareGlucose, UANegativeNegative - 2000(110) ++++ mg/dLNOMS HealthcareInterpretation and review of laboratory resultsNormalENCOMPASS HEALTH Healthcare Ketones, UANegativeNegative - 160(16) ++++ mg/dLNOMS HealthcareLeukocytes, UA PositiveNegative - 500+++ Kate/mcLNOMS HealthcareComment on above:smallNitrite, UANegativeNegative - PositiveNOMS HealthcarepH, UA5.55 - 9N[facility] Healthcare Protein, UANegativeNegative - 2000(20) ++++ mg/dLNOMS HealthcareSpec Grav, UA 1.021 - 1.03NOMS HealthcareUrobilinogen, UA0.20.2 - 12 mg/dLNOMS HealthcareNOMS HealthcareUrinalysis macro (dipstick) panel (U)on 67-44-1872Vnsjohyrs, UA NegativeNegative - 4(70) +++ mg/dLNOMS HealthcareBlood, UANegativeNegative - 50 Jay/mcLNOMS HealthcareClarity, UAClearNOMS HealthcareColor, UAYellowNOMS HealthcareGlucose, UANegativeNegative - 2000(110) ++++ mg/dLNOMS Healthcare Interpretation and review of laboratory resultsNormalNOCA HealthcareKetones, UA NegativeNegative - 160(16) ++++ mg/dLNOMS HealthcareLeukocytes, UATraceNegative - 500+++ Kate/[facility]'s HealthNOCA HealthcareNitrite, UANegativeNegative - PositiveNOMS HealthcarepH, UA75 - 9NOMS HealthcareProtein, UANegativeNegative - 2000(20) ++++ mg/dLNOMS HealthcareSpec Grav, UA1.021 - 1.03NOMS HealthcareUrobilinogen, UA0.2 0.2 - 12 mg/dLNOMS HealthcareNOMS HealthcareBOX TESTon 17-07-1701VIA TEST SENT OUTUNUNIVERSITY HOSPITALS GEAUGA MEDICAL CENTERNOCA ZljioewpvwUQS9MBYCJTACW QpevogrwnnXUX09/22/25NOMS HealthcareUNITY BOX CLINISYNCNOMS HealthcareUS OB 14+ WEEKS ANATOMY SCANon 90-09-7658XY OB 14+ WEEKS ANATOMY SCANEXAM: US OB 14+ WEEKS ANATOMY SCAN HISTORY: [...] tracts. A short-term follow-up ultrasound is recommended tovisualize limited anatomy, as well as monitor placental location. 4. Low-lying placenta. Interpreted by: Electronically signed by TOMASA SMITH II, MD, PHD at 01-Aug-2024 11:31:07 PM [facility] TeleradiologyNormalNot AvailableComment on above:Order Comment: US OB ANATOMY SINGLE W US OB CERVICAL LENGTH Estimated Date of Delivery: 12/05/24 Gestational Age as of 07/04/2024: 98w3fMzycvjfqfd macro (dipstick) panel (U)on 02-38-8221Cclbhycyr, UANegativeNegative - 4(70) +++ mg/dLNOMS HealthcareBlood, UANegativeNegative - 50 Jay/mcLNOMS HealthcareClarity, UAClearNOMS Healthcare Color, UAYellowNOMS HealthcareGlucose, UANegativeNegative - 2000(110) ++++ mg/dL [facility] HealthcareInterpretation and review of laboratory resultsAbnormalNOMS HealthcareKetones, UANegativeNegative - 160(16) ++++ mg/dLNOMS Healthcare Leukocytes, UANegativeNegative - 500+++ Kate/mcLNOMS HealthcareNitrite, UA NegativeNegative - PositiveNOMS HealthcarepH, UA65 - 9NOMS HealthcareProtein, UA PositiveNegative - 1999(20) ++++ mg/dLNOMS HealthcareComment on above:30mg/dL Spec Grav, UA1.0251 - 1.03NOMS HealthcareUrobilinogen, UA0.20.2 - 12 mg/dLNOMS HealthcareNOMS HealthcareMLR HEMOGLOBIN A1Con 76-69-3229Khgbcgg [Mass/Vol]105 mg/dLNOCA XeiasqbvleOlK1d (Bld) [Mass fraction]5.3 %4.5 - 6.2 %[facility] Healthcare Comment on above:ADA RECOMMENDED LIMIT 4.0 - 6.0 ADA THERAPEUTIC TARGET < 7.0 ACTION SUGGESTED > 7.0 CLINISYNCNOCA HealthcareUrinalysis macro (dipstick) panel (U)on 06-06-2024 Bilirubin, UANegativeNegative - 4(70) +++ mg/dLNOMS HealthcareBlood, UANegative Negative - 50 Jay/mcLNOMS HealthcareClarity, UAClearNOMS HealthcareColor, UA YellowNOMS HealthcareGlucose, UANegativeNegative - 2000(110) ++++ mg/dLNOCA HealthcareInterpretation and review of laboratory resultsAbnormalNOMS Healthcare Ketones, UANegativeNegative - 160(16) ++++ mg/dLNOMS HealthcareLeukocytes, UA NegativeNegative - 500+++ Kate/mcLNOMS HealthcareNitrite, UANegativeNegative - PositiveNOMS HealthcarepH, UA6.55 - 9NOMS HealthcareProtein, UATraceNegative - 2000(20) ++++ mg/dLNOCA HealthcareSpec Grav, UA1.031 - 1.03N[facility] Healthcare Urobilinogen, UA0.20.2 - 12 mg/dLNOCA HealthcareNOCA HealthcareHCG ( test) Ql (U)on 89-38-1535Gglifsyfaxrfah and review of laboratory resultsAbnormal NOMS HealthcarePreg Test, UrPositiveNegativeNOMS HealthcareNOCA HealthcareUS OB TRANSVAGINALon 52-39-4250XS OB TRANSVAGINALTITLE OF EXAM: OB Ultrasound: REASON FOR EXAM: [...] electronically signed and approved by the interpreting radiologist.NormalNot AvailableComment on above:Order Comment: US OB TRANSVAGINAL No LMP recorded.Urinalysis macro (dipstick) panel (U)on 45-94-3186Pgdbapnen, UA PositiveNegative - 4(70) +++ mg/dLNOCA HealthcareComment on above:smallBlood, UA NegativeNegative - 50 Jay/mcLNOMS HealthcareClarity, UAClearNOMS Healthcare Color, UAYellowNOMS HealthcareGlucose, UANegativeNegative - 2000(110) ++++ mg/dL NOMS HealthcareInterpretation and review of laboratory resultsAbnormalNOMS HealthcareKetones, UAPositiveNegative - 160(16) ++++ mg/dLNOCA HealthcareComment on above:traceLeukocytes, UANegativeNegative - 500+++ Kate/mcLNOCenterpoint Medical Center Nitrite, UANegativeNegative - PositiveNOCA HealthcarepH, UA5.55 - 9NOCA HealthcareProtein, UAPositiveNegative - 2000(20) ++++ mg/dLSSM DePaul [facility] Comment on above:30Spec Grav, UA1.031 - 1.03NOCenterpoint Medical CenterUrobilinogen, UA0.2 0.2 - 12 mg/dLBlowing Rock HospitalHuman papilloma virus 16+18+31+33+35+39+45+51+52+56+58+59+66+68 DNA [Presence] in Veronica 09-02-5652QJK 16+18+31+33+35+39+45+51+52+56+58+59+66+68 DNA Probe+sig amp Ql (Cvx)Note. [facility] HospitalComment on above:TESTS RESULT FLAG UNITS REF RANGE LAB DIAGNOSIS: 02 NEGATIVE FOR INTRAEPITHELIAL LESION OR MALIGNANCY.Specimen adequacy: 02 Satisfactory forevaluation. Endocervical and/or squamous metaplastic cells (endocervical component) are present.Performed by: Cyrus Calles, Oil Painter (ASCP). 02Note: Note 02 The Pap smear is a screening test designed to aid in the detection of premalignant and malignant conditions of the uterine cervix.It is not a diagnostic procedure and should not be used as the sole means of detecting cervical cancer. Both false-positive and false-negative reports do occur.Test Methodology: Note 02 This liquid based ThinPrep(R) pap test was screened with the use of an image guided system.. 02 The HPV DNA reflex criteria were not met with this specimen result therefore, no HPV testing was performed. FLAG LEGEND: L-Low Normal,H-High Normal,LL-Alert Low,HH-Alert High <-Panic Low,>- Panic High,A-Abnormal,AA-Critical Abnormal Performed at:02 [facility] [address] [place] [address] Jessie Zarate MD, Pjpnsssyl at: =[facility] [id number] Director: Jessie Zarate MD, Phone: [phone] at:[facility]co[address] [id number] Director: Jessie Zarate MD, Phone: [phone] [facility] Information 22-10-1925Gzyisqpmh Lab Test Patient [facility] HospitalComment on above:TESTS RESULT FLAG UNITS REF RANGE LAB Clinician Provided Cytology Information Source.............Cervix;Endocervix No. of containers..01 ThinPrep VialAge Johann HOPE Josette... FLAG LEGEND: L-Low Normal,H-High Normal,LL-Alert Low,HH-Alert High <-Panic Low,>-Panic High,A- Abnormal,AA-Critical Abnormal Performed a t:01 =G [facility] [address] Jessie Zarate MD, cbc AUTO DIFFon 94-02-5092POMZ #0.0 103/ulNormal 0.0-0.1The [facility] HospitalComment on above:Performed By: #### CBC #### [facility] [address] [place] [address] [address] Sae FloresBasophils/100 WBC (Bld)0.2 %Normal0.2-2.0[facility] Comment on above:Performed By: #### CBC #### [facility] [address] [place] [address] Dr. Sae Peña #0.0 103/ulNormal0.0-0.7The [facility] HospitalComment on above: Performed By: #### CBC #### [facility] [address] [place] [address] [address] Sae Sandhuosinophils/100 WBC (Bld)0.1 %Critically low0.9-7.0The [facility] HospitalComment on above:Performed By: #### CBC #### [facility] [address] [place] [address] [address] Sae Sandhurythrocyte distribution width (RBC) [Ratio]13.8 %Owulsa08.0-15.0 [facility] HospitalComment on above:Performed By: #### CBC #### [facility] [address] [place] [address] Dr. Sae FloresHematocrit (Bld) [Volume fraction]30.2 %Critically low36.0-48.0 [facility] HospitalComment on above:Performed By: #### CBC #### [facility] [address] [place] [address] Dr. Sae FloresHemoglobin (Bld) [Mass/Vol]9.9 g/dLCritically low12.0-16.0The [facility] HospitalComment on above:Performed By: #### CBC #### [facility] [address] [place] [address] [address] Sae Jackman #0.08 10e3/ulCritically high0.00-0.03The [facility] Comment on above:Performed By: #### CBC #### [facility] [address] [place] [address] [address] Sae Jackman %0.5 %Normal0.0-0.5The [facility] HospitalComment on above: Performed By: #### CBC #### [facility] [address] [place] [address] Dr. Sae Medina #1.6 103/ulNormal1.2-3.8The [facility] HospitalComment on above:Performed By: #### CBC #### [facility] [address] [place] [address] Dr. Sae Jimenezhocytes/100 WBC (Bld)9.4 %Critically low20.5-60.0The [facility] HospitalComment on above:Performed By: #### CBC #### [facility] [address] [place] [address] Dr. Sae Mcclellan DIFF REQNONormalThe [facility] HospitalComment on above: Performed By: #### CBC #### [facility] [address] [place] [address] Dr. Sae Rivas (RBC) [Entitic mass]29.9 ywHcaztg38.7-34.0The [facility] HospitalComment on above:Performed By: #### CBC #### [facility] [address] [place] [address] Dr. Sae Rivas (RBC) [Mass/Vol]32.8 g/dNXvvvpa96.9-35.2The [facility] HospitalComment on above:Performed By: #### CBC #### [facility] [address] [place] [address] Dr. Sae Rivas (RBC) [Entitic vol]91.2 oUXfhxpf81.0-99.0The [facility] HospitalComment on above:Performed By: #### CBC #### [facility] [address] [place] [address] Dr. Sae Ojeda #1.2 103/ulCritically high0.3-0.8The [facility] Comment on above:Performed By: #### CBC #### [facility] [address] [place] [address] [address] Sae Garciaocytes/100 WBC (Bld)7.0 %Normal1.7-12.0[facility] Comment on above:Performed By: #### CBC #### [facility] [address] [place] [address] Dr. Sae Aldana #14.3 103/ulCritically high1.4-6.5The [facility] Comment on above:Performed By: #### CBC #### [facility] [address] [place] [address] Dr. Sae Sherwoodutrophils/100 WBC (Bld)82.8 %Critically high43.0-75.0The [facility] HospitalComment on above:Performed By: #### CBC #### [facility] [address] [place] [address] Dr. Sae Canas mean volume (Bld) [Entitic vol]9.1 fLCritically low 9.5-13.5The [facility] HospitalComment on above:Performed By: #### CBC #### [facility] [address] [place] [address] Dr. Sae FloresPLT207 103/gdArmqrx629-677Nvo [facility] HospitalComment on above: Performed By: #### CBC #### [facility] [address] [place] [address] Dr. Sae FloresRBC3.31 106/ulCritically low4.20-5.40The [facility] HospitalComment on above:Performed By: #### CBC #### [facility] [address] [place] [address] Dr. Sae FloresWBC17.3 103/ulCritically high4.0-11.0[facility] on above:Performed By: #### CBC #### [facility] [address] [place] [address] Dr. Sae FloresDRUG SCREEN RAPID (URINE)on 87-63-0227QXPSpolgwfxBqfmhfZAWAXNYI [facility] on above:Performed By: #### DRUGRPD #### [facility] [address] [place] [address] Dr. Sae FloresBARNegativeNormalNEGSheltering Arms HospitalComhenry ford hospital on above: Performed By: #### DRUGRPD #### [facility] [address] [place] [address] Dr. Sae FloresBUPNegativeNormiaNEGMartins Ferry Hospital on above: Performed By: #### DRUGRPD #### [facility] [address] [place] [address] Dr. Sae FloresBZONegativeNormalNEGSheltering Arms HospitalComhenry ford hospital on above: Performed By: #### DRUGRPD #### [facility] [address] [place] [address] Dr. Sae FloresCOCNegativeNormalNEGMartins Ferry Hospital on above: Performed By: #### DRUGRPD #### [facility] [address] [place] [address] Dr. Sae SterlingPremier Health Upper Valley Medical CenterComhenry ford hospital on above: Result Comment: AMP (Amphetamine): 500ng/mL, BAR (Barbituates): 200 ng/mL, BZO (Benzodiazepines): 150 ng/mL, BUP (Buprenorphine): 10 ng/mL, CONSTANCE (Cocaine): 150 ng/mL, mAMP (Methamphetamine): 500 ng/mL, MTD (Methadone): 200 ng/mL, OPI (Opiates): 100 ng/mL, OXY (Oxycodone): 100 ng/mL, PCP (Phencyclidine): 25 ng/mL, PPX (Propoxyphene): 300 ng/mL, THC (Cannabinoids): 50 ng/mL, TCA (Trycyclic Antidepressants): 300 ng/mLPerformed By: #### DRUGRPD #### [facility] [address] [place] [address] [address] Sae FloresDRUG CUT HEADERDRUG CLASS TEST SYSTEM CUT-OFF CONCENTRATIONS ARE FOLLOWS:NormalThe [facility] HospitalComment on above:Performed By: #### DRUGRPD #### [facility] [address] [place] [address] [address] Sae FloresmAMPNegativeNormalNEGATIVEOhiohealth Dublin Methodist HospitalComment on above: Performed By: #### DRUGRPD #### [facility] [address] [place] [address] [address] Sae FloresMTDNegativeNormalNEGATIVEOhiohealth Dublin Methodist HospitalComment on above: Performed By: #### DRUGRPD #### [facility] [address] [place] [address] Dr. Sae ContrerasINegativeNormalNEGATIVEOhiohealth Dublin Methodist HospitalComment on above: Performed By: #### DRUGRPD #### [facility] [address] [place] [address] Dr. Sae FloresOXYNegativeNormalNEGATIVEOhiohealth Dublin Methodist HospitalComment on above: Performed By: #### DRUGRPD #### [facility] [address] [place] [address] Dr. Sae FloresPCPNegativeNormalNEGATIVEOhiohealth Dublin Methodist HospitalComment on above: Performed By: #### DRUGRPD #### [facility] [address] [place] [address] Dr. Sae FloresPPXNegativeNormalNEGATIVEOhiohealth Dublin Methodist HospitalComment on above: Performed By: #### DRUGRPD #### [facility] [address] [place] [address] [address] Sae FloresTCANegativeNormalNEGATIVEOhiohealth Dublin Methodist HospitalComment on above: Performed By: #### DRUGRPD #### [facility] [address] [place] [address] Dr. Sae FloresTHCNegativeNormalNEGATIVEOhiohealth Dublin Methodist HospitalComment on above: Performed By: #### DRUGRPD #### [facility] [address] [place] [address] [address] Sae Graduno AUTO DIFFon 88-35-6138UNXS #0.0 103/ulNormal0.0-0.1[facility] HospitalComment on above:Performed By: #### CBC #### [facility] [address] [place] [address] Dr. Sae FloresBasophils/100 WBC (Bld)0.2 %Normal0.2-2.0[facility] Comment on above:Performed By: #### CBC #### [facility] [address] [place] [address] Dr. Sae Peña #0.2 103/ulNormal0.0-0.7The [facility] HospitalComment on above: Performed By: #### CBC #### [facility] [address] [place] [address] Dr. Sae Sandhuosinophils/100 WBC (Bld)1.3 %Normal0.9-7.0[facility] Comment on above:Performed By: #### CBC #### [facility] [address] [place] [address] Dr. Sae Sandhurythrocyte distribution width (RBC) [Ratio]14.0 %Twvvrt82.0-15.0 [facility] HospitalComment on above:Performed By: #### CBC #### [facility] [address] [place] [address] Dr. Sae FloresHematocrit (Bld) [Volume fraction]33.6 %Critically low36.0-48.0 [facility] HospitalComment on above:Performed By: #### CBC #### [facility] [address] [place] [address] Dr. Sae FloresHemoglobin (Bld) [Mass/Vol]11.2 g/dLCritically low12.0-16.0[facility] HospitalComment on above:Performed By: #### CBC #### [facility] Laboratory [address] [place] [address] Dr. Sae Jackman #0.08 10e3/ulCritically high0.00-0.03[facility] Comment on above:Performed By: #### CBC #### [facility] [address] [place] [address] Dr. Sae Jackman %0.7 %Critically high0.0-0.5The [facility] HospitalComment on above:Performed By: #### CBC #### [facility] [address] [place] [address] Dr. Sae Medina #1.9 103/ulNormal1.2-3.8The [facility] HospitalComment on above:Performed By: #### CBC #### [facility] [address] [place] [address] Dr. Sae Jimenezhocytes/100 WBC (Bld)16.9 %Critically low20.5-60.0[facility] HospitalComment on above:Performed By: #### CBC #### [facility] [address] [place] [address] Dr. Sae Mcclellan DIFF REQNONormalThe [facility] HospitalComment on above: Performed By: #### CBC #### [facility] [address] [place] [address] Dr. Sae Muñoz (RBC) [Entitic mass]30.0 ieEyaqiz01.7-34.0The [facility] HospitalComment on above:Performed By: #### CBC #### [facility] [address] [place] [address] Dr. Sae Rivas (RBC) [Mass/Vol]33.3 g/aRSjnpri94.9-35.2The [facility] HospitalComment on above:Performed By: #### CBC #### [facility] [address] [place] [address] Dr. Sae Frias (RBC) [Entitic vol]90.1 nBGyerit57.0-99.0The [facility] HospitalComment on above:Performed By: #### CBC #### [facility] [address] [place] [address] Dr. Sae Ojeda #0.8 103/ulNormal0.3-0.8The [facility] HospitalComment on above:Performed By: #### CBC #### [facility] [address] [place] [address] Dr. Sae Garciaocytes/100 WBC (Bld)7.0 %Normal1.7-12.0[facility] Comment on above:Performed By: #### CBC #### [facility] [address] [place] [address] Dr. Sae Aldana #8.5 103/ulCritically high1.4-6.5[facility] Comment on above:Performed By: #### CBC #### [facility] [address] [place] [address] Dr. Sae Sherwoodutrophils/100 WBC (Bld)73.9 %Orztak48.0-75.0The [facility] HospitalComment on above:Performed By: #### CBC #### [facility] [address] [place] [address] Dr. Sae Pattersonlet mean volume (Bld) [Entitic vol]10.3 fLNormal9.5-13.5The [facility] HospitalComment on above:Performed By: #### CBC #### [facility] [address] [place] [address] Dr. Sae FloresPLT214 103/dlGhxppf418-378Omr [facility] HospitalComment on above: Performed By: #### CBC #### [facility] [address] [place] [address] Dr. Sae FloresRBC3.73 106/ulCritically low4.20-5.40The [facility] HospitalComment on above:Performed By: #### CBC #### [facility] [address] [place] [address] Dr. Sae FloresWBC11.5 103/ulCritically high4.0-11.0The [facility] HospitalComment on above:Performed By: #### CBC #### [facility] [address] [place] [address] Dr. Sae Moore-19 PCR (CVDTBH)on 92-89-4398FWLQ-CoV-2 (COVID-19) RNA [place]+probe Ql (Unsp spec)Not detectedNormalNOT DETECTEDOhiohealth Dublin Methodist Hospital Comment on above:Result Comment: When diagnostic testing is negative, the [...] for this test is supported by the [place] Supervisor of Health and Human Service's declaration that circumstances exist to justify the emergency use of in vitro diagnostics for the detection and/or diagnosis of the virus that causes COVID-19. This EUA will remain in effect for the duration of the COVID-19 declaration justifying emergency of IVDs, unless it is terminated or revoked by the FDA (after which the test may no longer be used).Performed By: #### CVDTBH #### [facility] [address] [place] [address] Dr. Sae FloresDRUG SCREEN RAPID (URINE)on 39-42-6744ZCGQyyvfgjmIoaeklOQNOBCOS [facility] HospitalComment on above:Performed By: #### DRUGRPD #### [facility] [address] [place] [address] Dr. Sae FloresBARNegativeNormalNEGATIVEOhiohealth Dublin Methodist HospitalComment on above: Performed By: #### DRUGRPD #### [facility] [address] [place] [address] Dr. Sae FloresBUPNegativeNormalNEGATIVEOhiohealth Dublin Methodist HospitalComment on above: Performed By: #### DRUGRPD #### [facility] [address] [place] [address] Dr. Sae FloresBZONegativeNormalNEGATIVEOhiohealth Dublin Methodist HospitalComment on above: Performed By: #### DRUGRPD #### [facility] [address] [place] [address] Dr. Sae DunlaptiveNormalNEGATIVEOhiohealth Dublin Methodist HospitalComment on above: Performed By: #### DRUGRPD #### [facility] [address] [place] [address] Dr. Sae SterlingPremier Health Upper Valley Medical CenterComment on above: Result Comment: AMP (Amphetamine): 500ng/mL, BAR (Barbituates): 200 ng/mL, BZO (Benzodiazepines): 150 ng/mL, BUP (Buprenorphine): 10 ng/mL, CONSTANCE (Cocaine): 150 ng/mL, mAMP (Methamphetamine): 500 ng/mL, MTD (Methadone): 200 ng/mL, OPI (Opiates): 100 ng/mL, OXY (Oxycodone): 100 ng/mL, PCP (Phencyclidine): 25 ng/mL, PPX (Propoxyphene): 300 ng/mL, THC (Cannabinoids): 50 ng/mL, TCA (Trycyclic Antidepressants): 300 ng/mLPerformed By: #### DRUGRPD #### [facility] [address] [place] [address] Dr. Sea FloresDRUG CUT HEADERDRUG CLASS TEST SYSTEM CUT-OFF CONCENTRATIONS ARE FOLLOWS:NormalThe [facility] on above:Performed By: #### DRUGRPD #### [facility] [address] [place] [address] Dr. Sae PuenteNegativeNormalNEGATIVEOhiohealth Dublin Methodist HospitalComhenry ford hospital on above: Performed By: #### DRUGRPD #### [facility] [address] [place] [address] Dr. Sae LopeztiveNormalNEGATIVEUniversity Hospitals Samar[facility] on above: Performed By: #### DRUGRPD #### [facility] [address] [place] [address] Dr. Sae GonzaleziveNormalNEGATIVEUniversity Hospitals Samaritan Medical Center on above: Result Comment: Previously reported as: POSITIVE On 12/27/2021 20:19 By [facility] Performed By: #### DRUGRPD #### [facility] [address] [place] [address] Dr. Yilan ChangOXYNegativeNormalNEGATIVEOhiohealth Dublin Methodist HospitalComment on above: Performed By: #### DRUGRPD #### [facility] [address] [place] [address] Dr. Sae FloresPCPNegativeNormalNEGSheltering Arms HospitalComment on above: Performed By: #### DRUGRPD #### [facility] [address] [place] [address] Dr. Sae FloresPPXNegativeNormalNEGATIVEOhiohealth Dublin Methodist HospitalComment on above: Performed By: #### DRUGRPD #### [facility] [address] [place] [address] Dr. Sae FloresTCANegativeNormalNEGSheltering Arms HospitalComhenry ford hospital on above: Performed By: #### DRUGRPD #### [facility] [address] [place] [address] Dr. Sae FloresTHCNegativeNormalNEGSheltering Arms HospitalComment on above: Performed By: #### DRUGRPD #### [facility] [address] [place] [address] Dr. Sae FloresTYPE AND SCREENon 84-31-2289QUDK AND SCREENNegativeNoalThPremier Health Atrium Medical CenterComhenry ford hospital on above:Performed By: #### TNS #### [facility] [address] [place] [address] Dr. Sae FloresGROUP B STREP CULTUREon 12-02-2021. agalactiae Ag Ql (Unsp spec) Culture Observations: NEGATIVE FOR GROUP B STREPTOCOCCUS.NormalOhiohealth Dublin Methodist HospitalComhenry ford hospital on above: Performed By: #### GBSCX #### [facility] [address] [place] [address] Dr. Sae FloresUS PREG GROWTHon 22-53-8790LG PREG GROWTHEXAMINATION: US PREG GROWTH HISTORY: Uterine size for [...] growth detailed above. Electronically authenticated by: LAURIE CESPEDES Date: 2021-11-18 16:40Good Samaritan HospitalGTT 3 HR PREGon 38-48-3982Pzfvaxw [Mass/Vol]93 mg/dLNormal 74-106Ohio[facility] Dublin Methodist HospitalComment on above:Performed By: #### GTT3P #### [facility] [address] [place] [address] Dr. Sae FloresGlucose [Mass/Vol]164 mg/dLGood Samaritan HospitalComment on above:Performed By: #### GTT3P #### [facility] [address] [place] [address] Dr. Sae FloresGlucose [Mass/Vol]116 mg/dLGood Samaritan HospitalComment on above:Performed By: #### GTT3P #### [facility] [address] [address] [address] Sae FloresGlucose [Mass/Vol]83 mg/dLGood Samaritan HospitalComment on above:Performed By: #### GTT3P #### [facility] [address] [place] [address] Dr. Sae FloresGLUCOSE - 1HRon 20-56-8487Hkxvwmn [Mass/Vol]176 mg/dLCritically cpcm36-816QglOhiohealth Dublin Methodist HospitalComment on above:Performed By: #### GLU1HR #### [facility] [address] [place] [address] Dr. Sae FloresHEMOGRAM AND PLATELon 19-27-3621Houyvbktux (Bld) [Volume fraction]33.6 %Critically low36.0-48.0The [facility] HospitalComment on above: Performed By: #### HH #### [facility] [address] [place] [address] Dr. Sae FloresHemoglobin (Bld) [Mass/Vol]11.0 g/dLCritically low12.0-16.0The [facility] HospitalComment on above:Performed By: #### HH #### [facility] [address] [place] [address] Dr. Sae RivasH (RBC) [Entitic mass]30.6 avUeecnd73.7-34.0The [facility] HospitalComment on above:Performed By: #### HH #### [facility] [address] [place] [address] Dr. Sae RivasHC (RBC) [Mass/Vol]32.7 g/wUBlsvfh62.9-35.2The [facility] HospitalComment on above:Performed By: #### HH #### [facility] [address] [place] [address] Dr. Sae RivasV (RBC) [Entitic vol]93.3 vMOhgjci79.0-99.0The [facility] HospitalComhenry ford hospital on above:Performed By: #### HH #### [facility] [address] [place] [address] Dr. Sae FloresPLT219 103/mfHldpxf139-721Odp [facility] HospitalComhenry ford hospital on above: Performed By: #### HH #### [facility] [address] [place] [address] Dr. Sae FloresRBC3.60 106/ulCritically low4.20-5.40The [facility] HospitalComhenry ford hospital on above:Performed By: #### HH #### [facility] [address] [place] [address] Dr. Sae FloresWBC9.4 103/ulNormal4.0-11.0The [facility] HospitalComment on above: Performed By: #### HH #### [facility] [address] [address] [address] Sae Flores Vital Signs Date TimeVital SignValuePerforming AzbmhomsaIspuronl96-98-2243 10:33-0400Body mass index (BMI) [Ratio]28.96 kg/m2Amy VEGA Work Phone: [facility] CenterVpkkxuwdtw86-32-8944 10:33-0400Body fhgows72.93 kgAmy VEGA Work Phone: [facility] CenterWyzmqiipqq18-50-4013 10:33-0400Diastolic blood xnpdhled91 mm[Hg]Amy VEGA Work Phone: [facility] CenterSnehscfggl74-27-9191 10:33-0400Systolic blood mm[Hg]Amy VEGA Work Phone: [facility] CenterBuetgpgisj63-13-6808 09:49-0400Body .45 cmDasilvio Mullen DO Work Phone: [phone])[address]08-27-2025 09:49-0400 Body mass index (BMI) [Ratio]26.4 kg/f9Qfjkxsilvio Mullen DO Work Phone: [phone])[address]08-27-2025 09:49-0400 Body btjaltpimzl13.8 [degF]Guy Mullen DO Work Phone: [phone])[address]08-27-2025 09:49-0400 Body .56 kgDasilvio Mullen DO Work Phone: [phone])[address]08-27-2025 09:49-0400 Diastolic blood pykznimx42 mm[Hg]Guy Mullen DO Work Phone: [phone]08-27-2025 09:49-0400 Heart rate85 /minDavifernanda Mullen DO Work Phone: [phone] [place], [place] 3107708-27-2025 09:49-0400 SaO2% (BldA) [Mass fraction]98 %Guy Mullen DO Work Phone: [phone]08-27-2025 09:49-0400 Systolic blood pzsthutz010 mm[Hg]Guy Mullen DO Work Phone: [facility]08-01-2025 11:05-0400 Body euuxrh185.1 Dottie Rivera MD Work Phone: [phone] [place], [place] 2860908-01-2025 11:05-0400Body mass index (BMI) [Ratio]28.92 kg/d4FmlohclcsRashida Rivera MD Work Phone: [phone] [place], [place] 2860908-01-2025 11:05-0400Body .83 kgaRshida Rivera MD Work Phone: [phone] [place], [place] 2860908-01-2025 11:05-0400Diastolic blood tljbfyem76 mm[Hg]Rashida Rivera MD Work Phone: [phone]08-01-2025 11:05-0400Heart rate 75 /minRashida Rivera MD Work Phone: [phone] [place], [place] 2860908-01-2025 11:05-0400Systolic blood mm[Hg]Rashida Rivera MD Work Phone: [phone] [place], [place] 2860907-16-2025 15:28-0400Body mass index (BMI) [Ratio]35.2 kg/g8Hapbn Brad DO Work Phone: [facility] CenterJneoalheuk54-39-5292 15:28-0400Body dgkejq50.94 kgCorey Brad DO Work Phone: [facility] CenterFdygbwtfdz70-86-0633 15:28-0400Diastolic blood cjkyroor908 mm[Hg]Deep Brad DO Work Phone: [facility] CenterPkzgubcusp47-39-2414 15:28-0400Systolic blood acfjvzuq296 mm[Hg]Deep Brad DO Work Phone: [facility] CenterBeqrrlpsuy18-60-8209 13:33-0400Body mass index (BMI) [Ratio]33.16 kg/m2Amy VEGA Work Phone: [facility] CenterTtlkuaoebt72-76-9130 13:33-0400Body oplezm36.38 kgAmy Garibay SILVIA Work Phone: [phone]-Count includes the [facility] CenterJidntqopty79-80-3819 13:33-0400Diastolic blood vuppzhxa60 mm[Hg]Amy Rojoalejandra VEGA Work Phone: [facility] CenterLtvgqgoamv29-93-4426 13:33-0400Systolic blood jidrltjx713 mm[Hg]Amy Garibay SILVIA Work Phone: [phone] [place], [place] [address]Bfkecnykub25-72-0318 15:38-0400Body mass index (BMI) [Ratio]31.95 kg/h2Pcxto Brad DO Work Phone: [phone] [place], [place] [address]Bfybajkzyn83-12-4262 15:38-0400Body cfefji49.09 kgCorey Brad DO Work Phone: [phone] [place], [place] [address]Pdvpnbiaao36-24-6699 15:38-0400Diastolic blood vpsxtedd28 mm[Hg]Deep Brad DO Work Phone: [phone] [place], [place] [address]Msdytqngjy58-87-3530 15:38-0400Systolic blood vdpcreib753 mm[Hg]Deep Brad DO Work Phone: [phone] [place], [place] [address]Zkchnpxkaf07-76-6279 10:14-0400Body mass index (BMI) [Ratio]30.95 kg/q0Qnlng Brad DO Work Phone: [phone]-Count includes the [facility] CenterNdbnxvrlbw40-91-2501 10:14-0400Body .37 kgCorey Brad DO Work Phone: [phone] [place], [place] [address]Ghenuptugs05-23-6979 10:14-0400Diastolic blood iygkkqou57 mm[Hg]Deep Brad DO Work Phone: [phone] [place], [place] [address]Nljxaafqeo99-27-8259 10:14-0400Systolic blood sllizfoc047 mm[Hg]Deep Brad DO Work Phone: [phone] [place], [place] [address]Orqslnfpud25-36-7605 09:28-0400Body mass index (BMI) [Ratio]30.52 kg/f0Njedu Brad DO Work Phone: [phone] [place], [place] [address]Snayvpehkm31-49-0270 09:28-0400Body kbbeyq80.19 kgCorey Brad DO Work Phone: [phone] [place], [place] [address]Ytpqwclbjn49-16-4938 09:28-0400Diastolic blood qfplquru12 mm[Hg]Deep Brad DO Work Phone: [phone] [place], [place] [address]Zfidgevnqc97-54-3257 09:28-0400Systolic blood mm[Hg]Deep Brad DO Work Phone: [phone] [place], [place] 8532804-08-2025 10:57-0400Body mass index (BMI) [Ratio]29.37 kg/t0Vaqbq Brad DO Work Phone: [phone] [place], [place] 8532804-08-2025 10:57-0400Body pndayp95.06 kgCorey Brad DO Work Phone: [phone] [place], [place] [address]Dbuimfqnci48-29-3201 10:57-0400Diastolic blood kvydcgrx55 mm[Hg]Deep Brad DO Work Phone: [phone] [place], [place] 8532804-08-2025 10:57-0400Systolic blood btmwsreu474 mm[Hg]Deep Brad DO Work Phone: [phone] [place], [place] 8532802-11-2025 10:47-0500Body mass index (BMI) [Ratio]28.96 kg/v9Ezhgj Brad DO Work Phone: [phone] [place], [place] [address]Vkdqxjfrxh89-51-7207 10:47-0500Body .93 kgCorey Brad DO Work Phone: [phone] [place], [place] 8532802-11-2025 10:47-0500Diastolic blood zgzsjusl57 mm[Hg]Deep Brad DO Work Phone: [phone] [place], [place] [address]Oruauwvxsd27-39-7293 10:47-0500Systolic blood nbdzyqfy772 mm[Hg]Deep Brad DO Work Phone: [phone] [place], [place] [address]Aoxexrrotf40-93-9280 10:05-0500Body mass index (BMI) [Ratio]29.29 kg/m2[facility]01-10-2025 10:05-0500Body cylukd58.83 kgCit[facility]01-10-2025 10:05-0500Diastolic blood dptaqune06 mm[Hg][facility]01-10-2025 10:05-0500Systolic blood yfwdzjcn248 mm[Hg][facility]08-27-2024 08:56-0400Body hmajwe272 cmAv[facility]08-27-2024 08:56-0400Body mass index (BMI) [Ratio]28.1 kg/b6PabfiuvtsAvita Health System [facility] Hospital08-27-2024 08:56-0400Body rulpomskpdn39 [degF][facility]08-27-2024 08:56-0400Body .47 kgAv[facility] Health System [facility]08-27-2024 08:56-0400Diastolic blood tpedkefb89 mm[Hg][facility]08-27-2024 08:56-0400 Heart rate68 /minAvita Health System [facility] Hospital08-27-2024 08:56-5094JeV4% (BldA) [Mass fraction]98 %[facility]08-27-2024 08:56-0400 Systolic blood hrjidkzw418 mm[Hg][facility]05-30-2024 11:57-0400Body hcrzeq949 cmAvita Health System [facility]05-30-2024 11:57-0400Body mass index (BMI) [Ratio]27.9 kg/o4QvcollqilAvita Health System Ontario Hospital05-30-2024 11:57-0400Body .01 kgAv[facility] Health System [facility] 09-23-2023 11:57-0400Diastolic blood qeazdrmi13 mm[Hg][facility]05-30-2024 11:57-6261CgV0% (BldA) [Mass fraction]97 %[facility]05-30-2024 11:57-0400Systolic blood orejwiof832 mm[Hg][facility]12-26-2023 15:40-0500Body nuzmxn993 cmGuy Mullen Other [employer] Other 12-26-2023 15:40-0500Body mass index (BMI) [Ratio] 30.54 kg/x4Livycsilvio Mullen Other [employer] Other 12-26-2023 15:40-0500Body evfunr26.19 kgDavifernanda Mullen Other [employer] Other 12-26-2023 15:40-0500Diastolic blood mm[Hg] Guy Mullen Other [employer] Other 12-26-2023 15:40-0500Systolic blood zmjhberr854 mm[Hg] Guy Mullen Other [employer] Other 11-28-2023 15:40-0500Body cxigel929 cmDasilvio Mullen Other [employer] Other [phone] 15:40-0500Body mass index (BMI) [Ratio] 31.87 kg/m3Jtmjesilvio Mullen Other [employer] Other 11-28-2023 15:40-0500Body iyyjjcevfdm20.2 [degF]Guy Mullen Other [employer] Other 11-28-2023 15:40-0500Body kiwyqz61.91 kgDasilvio Mullen Other [employer] Other 11-28-2023 15:40-0500Diastolic blood zsrerkng39 mm[Hg] Guy Mullen Other [employer] Other 11-28-2023 15:40-0500Respiratory rate16 /minDbrendan Mullen Other [employer] Other 11-28-2023 15:40-0802QrQ5% (BldA) [Mass fraction]97 % Guy Mullen Other [employer] Other 11-28-2023 15:40-0500Systolic blood qjxkpwil554 mm[Hg] Guy Mullen Other [employer] Other 07-18-2022 10:50-0400Body cvunfv573 cmDasilvio Mullen Other [employer] Other 07-18-2022 10:50-0400Body mass index (BMI) [Ratio] 31.87 kg/q6Qlfbysilvio Mullen Other [employer] Other 07-18-2022 10:50-0400Body hdvgitzxdne32.6 [degF]Guy Mullen Other [employer] Other 07-18-2022 10:50-0400Body etxftz10.91 kgDasilvio Mullen Other [employer] Other 07-18-2022 10:50-0400Diastolic blood mm[Hg] Guy Mullen Other [employer] Other 07-18-2022 10:50-0400Respiratory rate16 /minDbrendan Mullen Other [employer] Other 07-18-2022 10:50-8890UnH1% (BldA) [Mass fraction]98 % Guy Mullen Other [employer] Other 07-18-2022 10:50-0400Systolic blood zxyblbst172 mm[Hg] Guy Mullen Other [employer] Other Encounters Encounter DateEncounter TypeCare ProviderFacilityStart: 01-03-2025 End: 43-40-3985Phhtqgxqzx care visitAmy VEGA Work Phone: [facility] [place] OBGYNComment on above:6 weeks follow-up ([facility]); Spontaneous vaginal delivery ([facility]); control counselingStart: 01-03-2025 End: 25-94-1685azgupzbsufLWD RAMEYNot AvailableStart: 12-20-2024 End: 85-54-9501blocizwszcEjdvg Girvin DO Work Phone: [facility] Work Phone: Start: 12-20-2024 End: 69-56-4054Sqxefcz encounter procedureDasilvio Mullen [facility] Work Phone: Start: 12-20-2024 End: 09-47-1796Ebjvytz encounter statusDavifernanda EscamillaCleveland Clinic Foundationtart: 12-01-2024 End: 19-55-2492Ayiynj outpatient visit 15 minutesRashida Rivera MD Work Phone: [facility] Women's ServicesComment on above: hypertension (Primary Dx); History of severe pre-eclampsiaStart: 12-01-2024 End: 58-54-5024yqfhycioxlPATLBASUU L VAN [facility] Hospitaltart: 11-30-2024 End: 82-84-3381Kvzgudcqxtgrx procedureCatsusan Rivera MD Work Phone: [facility] Women's ServicesStart: 11-24-2024 End: 68-51-4609Zbkovj outpatient visit 15 minutesRashida Rivera MD Work Phone: [facility] Women's ServicesComment on above: hypertension (Primary Dx); History of severe pre-eclampsiaStart: 11-24-2024 End: 58-85-3479Hgzgcdrvi EncounterCATSUSAN RIVERAProHolzer Medical Center [facility] 3E NICUStart: 11-21-2024 End: 52-67-5306Qpxnlihec EncounterProHolzer Medical Center [facility] 3E NICUStart: 11-17-2024 End: 20-66-4247Tunmooejh EncounterProHolzer Medical Center [facility] 3E NICUStart: 11-16-2024 End: 17-20-5492wwhvvqeapbYUCSL FLOYDOur Lady of Mercy Hospital - Anderson HospitalStart: 11-16-2024 End: 56-83-0170Dymczn outpatient new 20 minutesMeayden Hebert AUTOMATION MACHINE OPERATOR-CNM Work Phone: c[facility] - Women's ServicesComment on above:Blood pressure check (Primary Dx); Pre-eclampsia, severe, antepartum, third trimesterStart: 11-16-2024 End: 94-49-9495Hclbztg encounter statusTirso Hebert AUTOMATION MACHINE OPERATOR-CNM Work Phone: [facility] Work Phone: start: 11-09-2024 End: 82-59-4801whckkpqnweRJEB D BROOKENSProNorwalk Memorial Hospitalca Dalton HospitalStart: 11-08-2024 End: 12-43-7113Rndqkshyix and management of inpatientDAVID A HARPERProMedica Dalton HospitalStart: 17-08-7821Hmf-patient / Non-visitCorey Brad[facility] Work Phone: Start: 11-08-2024 End: 61-29-6998Pjqojqyl flow sheetCorey Brad DO Work Phone: [facility] BCP OBComment on above:Third trimester (HHS-HCC); 34 weeks gestation of (HHS-HCC); Elevated BP without diagnosis of hypertensionStart: 11-08-2024 End: 31-11-6640kfacowertaQGCDX FAZIONot AvailableStart: 11-08-2024 End: 42-71-3904Fhovgy flowsheetCorey Brad DO Work Phone: [facility] BCP OBStart: 11-08-2024 End: 50-11-7450Zboval flowsheetCorey Brad DO Work Phone: [facility] BCP OBStart: 11-08-2024 End: 25-25-8222Tzmupadjx Result EncounterCorey Brad DO Work Phone: [facility] External Department UnsolicitedStart: 10-25-2024 End: 83-05-7369Cuktli flowsheetAmy VEGA Work Phone: [facility] BCP OBStart: 10-25-2024 End: 36-57-6010Xnmoqu flowsheetAmy Lani VEGA Work Phone: [facility] BCP OBStart: 10-25-2024 End: 97-19-0149dihbtizjomLIH Nathan AvailableStart: 10-25-2024 End: 68-48-4392Sjvidqcm flow sheetAmy Lani VEGA Work Phone: [facility] BCP OBComment on above:Third trimester ([facility]); 32 weeks gestation of ([facility])Start: 10-11-2024 End: 86-84-9010Bwkcrerc flow sheetCorey Brad DO Work Phone: [facility] BCP OBComment on above:Third trimester ([facility]); 30 weeks gestation of ([facility])Start: 10-11-2024 End: 54-18-8962itfwutompaYKSPW FAZIONot AvailableStart: 10-11-2024 End: 27-48-1365Fsnteu flowsheetCorey Brad DO Work Phone: NOMS BCP OBStart: 10-11-2024 End: 58-80-1716Ugmybb flowsheetCorey Brad DO Work Phone: [facility]OMS BCP OBStart: 09-26-2024 End: 38-97-5457Ngnjui flowsheetCorey Brad DO Work Phone: NOMS BCP OBStart: 09-26-2024 End: 01-63-9884Qwxqzr flowsheetCorey Brad DO Work Phone: NOMS BCP OBStart: 09-26-2024 End: 31-27-0587smaganlenfRSIVT FAZIONot AvailableStart: 09-26-2024 End: 54-79-1376Kkixekrg flow sheetCorey Brad DO Work Phone: noms BCP OBComment on above: anomaly necessitating delivery, single or unspecified fetus (Primary Dx); Third trimester ; 28 weeks gestation of ; Gastroesophageal reflux in pregnancyStart: 09-19-2024 End: 40-63-3375hxppbtjdppLGEAB R MARIA DOLORESSt. Vincent's [facility], [facility] HospitalStart: 08-29-2024 End: 03-87-2950Vbzvyk flowsheetCorey Brad DO Work Phone: noms BCP OBStart: 08-29-2024 End: 17-78-0541Advoqg flowsheetCorey Brad DO Work Phone: noms BCP OBStart: 08-29-2024 End: 20-86-5723jnqbkfzoyiHKBYZ FAZIONot AvailableStart: 08-29-2024 End: 75-59-0696Tsuxunej flow sheetCorey Brad DO Work Phone: noms [facility] OBComment on above:Second trimester ; 24 weeks gestation of ; Diabetes mellitus screeningStart: 08-17-2024 End: 94-34-5107JfzzivAdonay Francisco Women's ServicesComment on above:Encounter for follow-up ultrasound of anatomy (Primary Dx)Start: 08-15-2024 End: 81-25-4822Kktufbogm Result EncounterCorey Brad DO Work Phone: noms External Department UnsolicitedStart: 08-15-2024 End: 04-94-1291Grqqhbyxn Result EncounterCorey Brad DO Work Phone: noms External Department UnsolicitedStart: 08-03-2024 End: 77-74-6900Nkouvtjac encounterMontserrat Jose Angel ANNE BCP OBStart: 08-01-2024 End: 67-82-7787nnarusrenkTGHZV FAZIONot AvailableStart: 08-01-2024 End: 06-56-6285Haxcgigk flow sheetCorey Brad DO Work Phone: NOMS BCP OBComment on above:Second trimester ; 22 weeks gestation of ; Diabetes mellitus screeningStart: 08-01-2024 End: 89-54-6774dqxhfkyzmnNHH RAMEYNot AvailableStart: 07-04-2024 End: 31-95-9414vljnxdtcrdVHH RAMEYNot AvailableStart: 06-15-2024 End: 31-89-2803Dvbluailb Result EncounterCorey Brad DO Work Phone: NOMS External Department UnsolicitedStart: 06-15-2024 End: 00-11-6263Zfswmeier Result EncounterCorey Brad DO Work Phone: NOMS External Department UnsolicitedStart: 06-06-2024 End: 22-28-7078Czowda flowsheetCorey Brad DO Work Phone: NOMS BCP OBStart: 06-06-2024 End: 13-46-7056Udembn flowsheetCorey Brad DO Work Phone: NOMS BCP OBStart: 06-06-2024 End: 39-63-9705Kelvraoc flow sheetCorey Brad DO Work Phone: NOMS BCP OBComment on above:Second trimester ; 14 weeks gestation of pregnancyStart: 06-06-2024 End: 39-33-4604ymncgtqypmSKOFO FAZIONot AvailableStart: 05-05-2024 End: 56-81-2517mkxthmrxicSwnj Bcp Ob Brad NurseNOMS BCP OBComment on above:GA: 5n7nBcvoe: 12-21-2023 End: 54-65-6154cdreiluluhKteowddogTriHealth Bethes[facility] Hospital Work Phone: Start: 12-21-2023 End: 08-98-3064Duyrela encounter procedureAtrium Health Southpark Physician GroupTaunton State Hospital Work Phone: Start: 09-23-2023 End: 47-36-2754nebtmacpefWhhfxropdTriHealth Bethesda North Hospital Work Phone: Start: 09-23-2023 End: 34-64-6941Bruaqbz encounter procedureFirelands Physician Group-[facility] [place] Work Phone: Start: 05-20-2023 End: 00-73-6362uzagapwllzQuibg Paz Other noTactile Other Start: 00-84-8652Vweeul outpatient visit 15 minutes Guy MullenRadha [facility] [place]Start: 04-20-2023 End: 64-03-3207yfwdlupzqkDzpuf Paz Other noTactile Other Start: 29-12-8801Mouckzutf encounterDavid FrancinedomPRESCOTT VA MEDICAL [facility] [place]Start: 04-06-2023 End: 04-99-6101nydfagopjhOtvjk Paz Other noTactile Other Start: 03-29-8267Mpkcnqrjt encounterDavid FrancinedomPRESCOTT VA MED[facility] [place]Start: 03-23-2023 End: 32-79-4904cygjqrxunpRubii Girvin Other noTactile Other Start: 12-28-2310Rrexju outpatient visit 15 minutes Guy MullenPRESCOTT [facility] [place]Start: 10-20-2022 End: 43-87-0042rgmgpfxxicGngmu Girvin Other noTactile Other Start: 56-98-3390Vlqzyijcr encounterDavid GirdomPRESCOTT VA MEDICAL [facility] [place]Start: 09-09-2022 End: 11-91-6909hzdjylmbbrPK DEEP SALINAS .Facility:V0Ehlpz: 02-12-2022 End: 98-29-1193glpzvncvnxAG DEEP SALINAS .Facility:J8Njwvb: 01-02-2022 End: 55-65-6875gflzcttgtxVC DEEP BRAD .Facility:L1Onnbt: 71-77-4997Cayyzejtml and management of inpatientDR NONE LISTED REQUESTFacility:L9Jlxzh: 12-30-2021 End: 21-14-9359mojpiqfxfqRmijy Girvin Other [employer]Anu[employer] Other Start: 10-41-6603Jbkbpajzk encounterDavid [facility] [place]vueStart: 12-27-2021 End: 45-30-2107Fqxoblqbvt and management of inpatientDR DEEP BRAD .Facility:H1 Start: 12-02-2021 End: 20-42-1985xcohzrlpyyEP DEEP BRAD .Facility:D2Tmmqd: 11-18-2021 End: 18-92-7998endwdufyofIA DEEP BRAD .Facility:O1Mecnj: 11-10-2021 End: 03-96-8723aqhslsqplvJfgup Paz Other [employer] Other Start: 75-63-8796Rlgtunmsr for general adult medical examination without abnormal findingsDaProvidence St. [facility] Start: 14-58-9823Pjtmsczz preventive med est patient 18-39 yrsDavid Endless Mountains Health SystemsueStart: 10-20-2021 End: 11-32-0326zkpicelmcuMH DEEP BRAD .Facility:M1Aaskd: 10-09-2021 End: 70-95-3624eirrgsnlprFA DEEP BRAD .Facility:H1 Procedures DateProcedureProcedure DetailPerforming ClinicianStart: 17-69-3758Hmsaersmme carePostpartum CareCATSUSAN RIVERAStart: 32-31-0959Iufzq depression screening assessmentCathermariana Rivera MD Work Phone: start: 50-05-5186Fczatrug screenDAVID HARPERComment on above:Performed By: #### TSC #### [facility] ([facility]) [address] [place] [address] VIRStart: 44-93-3726MP OB BPP W NON-STRESSCorey Brad DO Work Phone: Start: 37-85-6731TE OB GROWTHCorey Brad DO Work Phone: Start: 93-12-7879RYH CBC WITH AUTO DIFFCorey Brad DO Work Phone: Start: 41-84-6890Iuhlf dip stick/tablet rgnt non-auto w/o micrscpCorey Brad DO Work Phone: Start: 85-57-7635Awcme dip stick/tablet rgnt non-auto w/o micrscpCorey Brad DO Work Phone: Start: 17-74-4566Mzkqc dip stick/tablet rgnt non-auto w/o micrscpCorey Brad DO Work Phone: Start: 33-62-4749HKZ TESTCorey Brad DO Work Phone: Start: 99-92-1460Xtnbz dip stick/tablet rgnt non-auto w/o micrscpCorey Brad DO Work Phone: Start: 01-83-8895GWO HEMOGLOBIN B5HAukxd Brad DO Work Phone: Start: 93-48-0540Gjhyu dip stick/tablet rgnt non-auto w/o micrscpCorey Brad DO Work Phone: Start: 23-20-4362Seecq dip stick/tablet rgnt non-auto w/o micrscpCorey Brad DO Work Phone: Start: 08-32-9759Xgxfjdlq of Products of Conception, External ApproachDR DEEP SALINAS .Start: 41-85-3743Qxtqcqxg of Female Perineum, External ApproachDR DEEP SALINAS .Start: 38-33-4118Phsnykkv of Amniotic Fluid, Therapeutic from Products of Conception, Via Natural or Artificial OpeningDR DEEP SALINAS .Start: 38-78-3070Zlkknw Perineum Muscle, Open ApproachDR DEEP SALINAS .Start: 45-59-3750Qgstxsccrsrn of Other Hormone into Peripheral Vein, Percutaneous ApproachDR DEEP SALINAS . Plan of Treatment DateCare ActivityDetailAuthorStart: 75-33-0773Oesirwy ScreeningTobacco Screening [facility] Hospitaltart: 39-20-5511Gtyen BMI ScreeningAdult BMI Screening [facility] SystemStart: 33-31-3856Apxywqzahz ScreeningDepression Screening [facility] SystemStart: 89-27-4245Efupuvk ScreeningTobacco Screening [facility] Hospitaltart: 23-37-5703Gosit BMI ScreeningAdult BMI Screening [facility] Hospitaltart: 73-05-5166Hxlqzbw ScreeningTobacco Screening [facility] Hospitaltart: 03-05-2025 End: 74-77-5823Kqqotpg encounter sxznsaplw79/10/2025 10:20 AM EST Procedure Visit NOMCesar LEUNGN [address] [place], [id number] Deep Salinas DO [address] [place] [address] NOMCesar LEUNGNStart: 2024 Influenza vaccinationInfluenza VaccineProMedica Aultman Hospital SystemStart: 12-01-2024 End: 01-55-7440oppneellhn55/08/2025 9:00 AM EDT Visit [facility] [address] [place] [phone] Rashida Rivera MD [address] [place] [phone] [facility] CenterStart: 12-01-2024 End: 94-66-0965Bcnahhkculti consultation with xkmjmlj3812/01/2024 9:00 AM EDT Telemedicine [facility] [address] [place] [facility] [phone] Rashida Rivera MD [address] [facility] [place] [phone] [facility] Women's ServicesStart: 11-08-2024 End: 60-90-8146Rwfmgjb encounter dvmivxhao67/16/2025 3:10 PM EDT Routine [facility] OB [address] [place] [address] Deep Salinas, DO [address] [place] [address] [facility]rivedNOSUT[facility] OBComment on above: ArrivedStart: 10-11-2024 End: 14-88-2588Ozfagtn encounter zpnxowztd06/18/2025 3:20 PM EDT Routine [facility] OB [address] [place] [address] Deep Salinas, DO [address] [place] [address] ArrivedSIERRA [facility]IST[facility] OBComment on above: ArrivedStart: 10-02-2024 End: 06-11-4178Novlufm encounter syxetjrpx83/09/2025 8:30 AM EDT Office Visit [facility] OB [address] [place] [address] Deep Salinas, DO [address] [place] [address] NOMS BCP OBStart: 09-26-2024 End: 43-02-6738FX biophysical profile w non stress testUS biophysical profile w non stress test Imaging Routine anomaly necessitating delivery, single or unspecified fetus Expected: 09/26/2024 (Approximate), Expires: 03/28/2025[facility] Work Phone: comment on above:Expected: 09/26/2024 (Approximate), Expires: 03/28/2025Start: 09-26-2024 End: 81-90-2517Bvyxpmf encounter pcghupnhk01/03/2025 10:10 AM EDT Routine [facility] [address] [facility] [place] [address] Deep Salinas, DO [address] [place], [place] [address] NOMS BCP OBStart: 09-19-2024 End: 13-18-9537Vdxzcax encounter lmvromtfj78/27/2025 11:15 AM EDT Appointment [facility] - Ultrasound [address] [place] [address] [phone] Community Hospital - UltrasoundStart: 08-29-2024 End: 51-26-0822ARW panel - Blood by Automated countCBC Lab Routine Diabetes mellitus screening Expected: 08/29/2024 (Approximate), Expires: 08/29/2025[facility] Work Phone: comment on above:Expected: 08/29/2024 (Approximate), Expires: 08/29/2025Start: 08-29-2024 End: 79-20-3351Xaxifshhawt of glucose 1 hour after glucose challenge for glucose tolerance testGlucose tolerance, 1 hour Lab Routine Diabetes mellitus screening Expected: 08/29/2024 (Approximate), Expires: 08/29/2025NOC[facility] HealthcareComment on above:Expected: 08/29/2024 (Approximate), Expires: 08/29/2025Start: 08-29-2024 End: 12-04-7610Gucmiaf encounter wlgaufbeu62/06/2025 8:50 AM EDT Routine [facility] OB [address] [place] [address] Deep Salinas, DO [address] [place], [place] [address] NOMS BCP OBStart: 08-17-2024 End: 21-79-9861IX MFM with or without consultUS MFM with or without consult Imaging Routine Encounter for follow-up ultrasound of anatomy Expected: 08/17/2024, Expires: 08/17/2025[facility] Work Phone: comment on above:Expected: 08/17/2024, Expires: 08/17/2025Start: 08-01-2024 End: 23-57-5132DKM panel - Blood by Automated countCBC Lab Routine Diabetes mellitus screening Expected: 08/01/2024 (Approximate), Expires: 08/01/2025[facility] Work Phone: comment on above:Expected: 08/01/2024 (Approximate), Expires: 08/01/2025Start: 08-01-2024 End: 72-41-7731Gstztgmqhdq of glucose 1 hour after glucose challenge for glucose tolerance testGlucose tolerance, 1 hour Lab Routine Diabetes mellitus screening Expected: 08/01/2024 (Approximate), Expires: 08/01/2025[facility] HealthcareComment on above:Expected: 08/01/2024 (Approximate), Expires: 08/01/2025Start: 07-04-2024 End: 25-00-1926Oujprha encounter bnmihptjr88/11/2025 10:30 AM EDT Routine [facility] [address] [place] [phone] Amy Garibay PA [address] [place], [place] [phone] NOMS BCP OBStart: 06-06-2024 End: 87-46-3826Prfmrlx encounter procedureNOMS BCP OBComment on above:Arrived Start: 05-05-2024 End: 98-32-1217YGD/RhABO/Rh Lab Routine Missed menses , unspecified gestational age Expected: 05/05/2024 (Approximate), Expires: 05/05/2025[facility] HealthcareComment on above:Expected: 05/05/2024 (Approximate), Expires: 05/05/2025Start: 05-05-2024 End: 26-14-0012Gnbvz type and Indirect antibody screen panel - BloodType and screen Lab Routine Missed menses , unspecified gestational age Expected: 05/05/2024 (Approximate), Expires: 05/05/2025[facility] Work Phone: comment on above:Expected: 05/05/2024 (Approximate), Expires: 05/05/2025Start: 05-05-2024 End: 62-91-5470Fuutl of abuse panel - Urine by Screen methodRapid drug screen, urine Lab Routine , unspecified gestational age Encounter for supervision of normal first in first trimester Expected: 05/05/2024 (Approximate), Expires: 05/05/2025[facility] HealthcareComment on above:Expected: 05/05/2024 (Approximate), Expires: 05/05/2025Start: 83-60-8154Snabofvqm for malignant neoplasm of cervixPap SmearHugh Chatham Memorial Hospitaltart: 2013 DTaP,Tdap and Td Vaccines (1 - Tdap)DTaP,Tdap and Td Vaccines (1 - Tdap) [facility] Hospitaltart: 11-47-3396Ayyyh BMI Follow Up PlanAdult BMI Follow Up PlanHugh Chatham Memorial Hospitaltart: 20-59-8183Kpfff BMI ScreeningAdult BMI ScreeningHugh Chatham Memorial Hospitaltart: 43-76-3396Pwoxdrtexr ScreeningDepression ScreeningHugh Chatham Memorial Hospitaltart: 48-40-6609Pjjlivd ScreeningTobacco ScreeningMercy Health West HospitalBacteria identified in Urine by CultureUrine culture Microbiology Routine Missed menses Ordered: 05/05/2024[facility] Comment on above:Ordered: 05/05/2024BC W Auto Differential panel - BloodCBC and differential Lab Routine Missed menses , unspecified gestational age Ordered: 05/05/2024[facility] CenterComment on above:Ordered: 05/05/2024 Comprehensive metabolic 2000 panel - Serum or PlasmaAvita Health System Ontario HospitalHemoglobin A1c/Hemoglobin.total in BloodHemoglobin A1c Lab Routine Missed menses , unspecified gestational age Ordered: 05/05/2024[facility] Comment on above:Ordered: 05/05/2024Hepatitis B virus surface Ag [Presence] in Serum or Plasma by ImmunoassayHepatitis B surface antigen Lab Routine Missed menses , unspecified gestational age Ordered: 05/05/2024[facility] Comment on above:Ordered: 05/05/2024Hepatitis C virus Ab [Presence] in Serum or Plasma by ImmunoassayHepatitis C antibody Lab Routine Missed menses , unspecified gestational age Ordered: 05/05/2024[facility] HealthcareComment on above: Ordered: 05/05/2024HIV-1/HIV-2 antigen/antibody combination immunoassayHIV-1 and HIV-2 antibodies Lab Routine Missed menses , unspecified gestational age Ordered: 05/05/2024[facility] HealthcareComment on above:Ordered: 05/05/2024 Patient EducationLow back pain in adultsOhiohealth Doctors Hospital Work Phone: Reagin Ab [Presence] in Serum by RPRRPR Lab Routine Missed menses , unspecified gestational age Ordered: 05/05/2024[facility] HealthcareComment on above:Ordered: 05/05/2024Rubella antibody, IgGRubella antibody, IgG Lab Routine Missed menses , unspecified gestational age Ordered: 05/05/2024[facility] CenterComment on above:Ordered: 05/05/2024[facility] Payers DatePayer CategoryPayerPolicy [id number] Health Center [id number] Health Center Managed Care - [id number] [id number] 2.840.1.678857.3.57[id number] 2.16.840.1.515074.3.57[id number] 2.16840.1.642046.3.57[id number] 2.16.840.1.970685.3.57[id number] 2.16.840.1.899998.3.57[id number] 2.16.840.1.093999.3.579.[id number] 2.16840.1.848872.3.57[id number] 2.16840.1.552375.3.57[id number] 2.16840.1.585671.3.579.[id number] 2.16840.1.990223.3.57[id number] 2.840.1.084520.3.579.2.31[id number] 2.840.1.188961.3.579.2.6[id number] 2.840.1.674553.3.579.[id number] 2.840.1.214330.3.57[id number] 2.16840.1.799071.3.579.[id number] 2.16840.1.913604.3.57[id number] 2.16840.1.730881.3.57[id number] 2.16840.1.027663.3.57[id number] 2.16.840.1.176112.3.579.[id number] 2.16.840.1.310217.3.57[id number] 2.16.840.1.615917.3.579.2.80[id number] 2.16.840.1.288525.3.579.2.773283-54-1928Zeffiqd6839256 2.16.840.1.639475.3.579.2.824427-18-9214Tyuoxcg2979345 2.16.840.1.411569.3.579.2.954981-02-6729Qukeoxs0454639 2.16.0.1.427774.3.579.2.[id number] 2.16.840.1.656865.3.579.2.64[id number] 2.16.840.1.381010.3.579.2.062396-14-7708Agyktbg5564958 2.16840.1.397435.3.579.2.429359-02-8450SkzmGallup Indian Medical [id number] 2.0.1.[id number] 6ki25691-49r1-0873-8rnf-h8sd03532qqt Social History DateTypeDetailFacilityUnknown if ever smokedNortTitan Gaming Other Start: 11-10-2024 End: 83-43-9275Zyk Assigned At BirthVermont State HospitalMOOI [facility] Centertart: 06-21-2023 End: 73-48-7113Bndgbwh smoking status NHISNever smoked tobacco (finding) [facility] Centertart: 47-28-3494Olc Assigned At BirthFemale [facility] HospitalTobacco smoking status NHISTobacco smoking consumption unknownNOMS HealthcareStart: 69-63-4605MbrkriqiwPFKP Healthcare Start: 96-63-7474Tkvosh identityIdentifies as female gender (finding)[facility] HealthcareStart: 14-68-3975Lxjvrk orientationHeterosexual (finding)[facility] HealthcareStart: 32-43-2007Tdj assigned at birthNot on fileUniversity Hospitals Portage Medical CenterFlowbox SystemStart: 80-08-7769ZpjOuvibg (finding)[facility] [place] SystemStart: 42-47-5665Iikvkte use and exposureSmokeless tobacco non-userAvita Health System Ontario Hospital [place] SystemStart: 11-10-2024 End: 94-83-3852Kzdytpd of Social functionAvita Health System Ontario Hospital [place] SystemStart: 11-24-2024 End: 76-72-8040Apsupxwed beverage intakeEx-drinker (finding)[facility] [employer] [facility] HospitalHow hard is it for you to pay for the very basics like food, housing, medical care, and heatingNot very hardAvita Health System Ontario Hospital [place] SystemAdolescent depression screening cjucgayngo3ZzvVianukMercy Health West HospitalThe thought of harming myself has occurred to meNBoone Hospital CenterNEGATED: Highlighted row Start: NINFHistory of tobacco usePassive smokerProBerger Hospital System Goals DatePatient GoalDesired Activity/StatePersonal health goal Clinical Notes 11-15-2012 to 01-03-2025 Note Date & ViszVflpTseyejou65-05-9413 History of Present illness Narrative* SILVIA Castañeda - 01/03/2025 10:30 AM EDT Reason for Appointment: Patient ID: Hannah Claire is a 29 y.o. female who presents for Care (Pt present today for a 6 week post visit. Pt delivered on 11/09/2024 at [facility] in [place]. ) Patient presents today for Post Follow [...] & PLAN ICD-10-CM 1. 6 weeks follow-up ([facility]) Z39.2 2. Spontaneous vaginal delivery ([facility] O80 Post Follow Up: Patient is doing well has no complaints. Patient presents today for 6 week visit. Patient is s/p Vaginal delivery. Patient states no depression denies suicidal and homicidal ideations. Alloptions were discussed with the patient regarding control and patient desires oral contraception . Follow Up: Patient is to return for annual unless needed otherwise. Documented by Tammi Rivers MA on behalf of: SILVIA Castañeda documented in this encounterSSM DePaul Health CenterQdpmbmwipq47-49-1087 History of Present illness Narrative* Rashida Rivera MD - 12/01/2024 9:00 AM EDT Video Visit via Real-time Synchronous Audiovisual Provider Location: [facility] [address] [facility] [phone] Patient Location: Patient's home Video Visit Consent Statement: I discussed risks, benefits, and alternatives of a real-time synchronous audiovisual consultation with the patient (and any accompanying persons) including the risks that the patient's personal health details and medical records will be discussed over real-time, synchronous, interactive video/audio/telecommunication technology, the visit will not be recorded withoutthe express consent of both the provider and the patient, and that there are some limitations compared to unmh-tn-npav evaluations. The patient consented to the presence of additional virtual and/or in-person participants. We elected to proceed. During today's virtual encounter, the exam was conducted using remote examination tools and equipment to assess and diagnose the patient's condition. Any recorded findings have been saved and documented for future reference. CC: Post Op Visit Summary: Transfer from [place] S/ vaginal delivery on 11/09/24 at 34+ weeks. [...] Noon. Takes the nifecipine around 8 am. 11/27 noon 119/83 11/28 12:30 116/84 86 nOON 114/79 11/30 0815 Pre dose 121/84 [...] office--she has appt Note to patient: The Century Cures Act makes medical notes like these available to patients inthe interest of transparency. However, be advised this is a medical document. It is intended as peer to peer communication. It is written in medical language and may contain abbreviations or verbiagethat are unfamiliar. It may appear blunt or direct. Medical documents are intended to carry relevant information, facts as evident, and the clinical opinion of the practitioner. documented in this encounterMercy Health West Hospital08-07-2025 History of Present illness Narrative* Rashida Rivera MD - 11/30/2024 7:08 PM EDT Over the weekend, patient and I communicated regarding her home blood pressure recordings and medication. By the end of the weekend, we had discontinued the labetalol and decreased the nifedipine xl to 60 mg daily with plans for her to call with any symptoms of dizziness or orthostatic symptoms. She has follow up this week. documented in this encounterMercy Health West Hospital08-01-2025 Miscellaneous Notes* Note - Aura Santoyo RN - 11/24/2024 1:33 PM EDT This note was copied from a baby's chart. Met with mom at infant's bedside. being prepared for discharge home, mom may [...] with outpatient services for assistance as needed ([phone]).Storage guidelines given and reviewed. No further questions [...] little one s mouth. documented in this encounterMercy Health West Hospital08-01-2025 Obstetrics Note* Note - Aura Santoyo RN - 11/24/2024 1:33 PM EDT This note was copied from a baby's [...] with outpatient services for assistance as needed ([phone]).Storage guidelines given and reviewed. No further questions [...] could burn your little one s mouth. [facility]08-01-2025 History of Present illness Narrative* Rashida Rivera MD - 11/24/2024 11:15 AM EDT CC: Post Op Visit Transfer from [place] S/p vaginal delivery on 11/09/24 at 34+ [...] days 108-125/70s EPDS: Depression: Medium Risk (11/24/2024) Enterprise Depression Scale Last EPDS Total Score: 6 [...] medical notes like these available to patients inthe interest of transparency. However, be advised this is a medical document. It is intended as peer to peer communication. It is written in medical language and may contain abbreviations or verbiagethat are unfamiliar. It may appear blunt or direct. Medical documents are intended to carry relevant information, facts as evident, and the clinical opinion of the practitioner. * Akua Minaya LPN - 11/24/2024 11:15 AM EDT Pt here for 1 week visit States feeling good Iron is causing constipation - colace worked well in hospital Still some bleeding - dark brownish but not heavy Taking both BP meds make pt have side blurry vision and nausea BP logs here today documented in [facility] encounter[facility] Miscellaneous Notes* Note - Lakesha Ball RN - 11/21/2024 8:00 PM EDT This note was copied from a baby's [...] any needs. Support given. documented in this encounterMer[facility]07-29-2025 Obstetrics Note* Note - Lakesha Ball RN - 11/21/2024 8:00 PM EDT This note was copied from a baby's [...] reach out with any needs. Support given. [facility]07-[facility] Miscellaneous Notes* Note - Hayley Sánchez RN - 11/17/2024 11:55 AM EDT This note was copied from a baby's [...] with finger to take baby off, try tolatch again documented in this encounterMer[facility]07-25-2025 Obstetrics Note* Note - Hayley Sánchez RN - 11/17/2024 11:55 AM EDT This note was copied from a baby's [...] with finger to take baby off, try tolatch again [facility] History of Present illness Narrative* Tirso Hebert, AUTOMATION MACHINE OPERATOR-CNM - 11/16/2024 9:00 AM EDT Video Visit via Real-time Synchronous Audiovisual Provider Location: [facility] [address] [facility] [address] Patient Location: Other - [facility] Patient Location Oil Program Compliance Specialist: None Video Visit Consent Statement: I discussed risks, benefits, and alternatives of a real-time synchronous audiovisual consultation with the patient (and any accompanying persons) including the risks that the patient's personal health details and medical records will be discussed over real-time, synchronous, interactive video/audio/telecommunication technology, the visit will not be recorded withoutthe express consent of both the provider and the patient, and that there are some limitations compared to [id number] evaluations. We elected to proceed. Subjective: Hannah Claire is a 28 y.o. is seen today via televisit. She is 7 days post- from a . Her was complicated by preeclampsia with severe features. She was transported from [place] on 11/09 with pre-eclampsia with severe features (BP). Patient was at her routine visit and noted to have systolic blood pressure in 180s. At [facility] she was noted to have multiple severe range blood pressures. She received labetalol 20/40mg IV and was started on magnesium sulfate with 4 g bolus and 2g maintenance. UPCR performed was 9.29. HELLP labs were otherwise within normal limits. On arrival to [facility], patient was continued on magnesium sulfate maintenance infusion. She was started on Procardia XL 30 mg daily. Induction began with cook balloon and pitocin per protocol. PCNwas started for GBS unknown. Amniotomy performed after removal of cook balloon. Patient received her epidural. She progressed to complete and had of viable female weighing 2090g with APGARS of 6,7,and 9. She was continued on magnesium sulfate for 24 hours PP. On PPD#3, she had a severe range pressure requiring 10mg Procardia. Her maintenance Procardia was increased to 30mg q12h. Overnight onPPD#3 she required 20mg IV Labetalol due to another severe range blood pressure. She was started onLabetalol 200mg BID which was increased to Labetalol 300mg TID on PPD#4. Blood pressures were well c ontrolled on this regimen and she was discharged home on day number 5. She denies any questions or concerns today. She had a female who is currently breast feeding. Does not have paper and prints restorer follow up as baby is in NICU. She is not sure who this baby's paper and prints restorer will be as her other daughter sees their family practice doctor but he is not comfortable seeing a highrisk NICU baby. She is currently on Procardia [...] 1 week. Pre-eclamptic warnings reviewed. Call provider stone setter apprentice for headache unresolved with tylenol, visual change, epigastic pain or significant change in swelling in her hands feet or face. Let the office know if BP readings consistently over 140/90 (either number). Call provider stone setter apprentice for BP greater than 160/110 (either number). Continue on Procardia XL 60mg BID and Labetalol 300mg TID as prescribed. Hypotensive warnings reviewed - call if experiencing dizziness, weakness or fainting. GERALD Farmer 11/16/24 0917 documented in this encounterMer[facility]07-16-2025 History of Present illness Narrative* Jackie Faustin LPN - 11/08/2024 3:10 PM EDT Reason for Appointment: Patient ID: Hannah Claire [...] nursing note reviewed. Exam conducted with a print support specialist present. Vitals: Estimated body mass index is 35.2 kg/m as calculated from the following: Height as of 09/09/22: 5' 5 . Weight as of this encounter: 211 lb 8 oz. BP: (!) 180/112 Patient's last menstrual period was 02/29/2024. ASSESSMENT & PLAN ICD-10-CM 1. Third trimester ([facility]) Z34.93 POCT urinalysis dipstick manually resulted 2. 34 weeks gestation of ([facility]) Z3A.34 3. Elevated BP without diagnosis of [...] of: Deep Salinas DO documented in this encounterSSM DePaul Health CenterWjjtobbnds06-80-0943 History of Present illness Narrative* SILVIA Castañeda - 10/25/2024 1:20 PM EDT Reason for Appointment: Patient ID: Hannah Claire [...] ASSESSMENT & PLAN ICD-10-CM 1. Third trimester ([facility]) Z34.93 2. 32 weeks gestation of ([facility]) Z3A.32 Return OB: Patient presents today for [...] behalf of: SILVIA Castañeda documented in this encounterSSM DePaul Health [id number] History of Present illness Narrative* Jackie Faustin, FLORINDA - 10/11/2024 3:20 PM EDT Reason for Appointment: Patient ID: Hannah Claire [...] nursing note reviewed. Exam conducted with a print support specialist present. Vitals: Estimated body mass index is 31.95 kg/m as calculated from the following: Height as of 09/09/22: 5' 5 . Weight as of this encounter: 192 lb. BP: 118/74 Patient's last menstrual period was 02/29/2024. ASSESSMENT & PLAN ICD-10-CM 1. Third trimester ([facility]) Z34.93 POCT urinalysis dipstick manually resulted 2. 30 weeks gestation of ([facility]) Z3A.30 Return OB: Patient presents today for [...] of: Deep Salinas DO documented in this encounterSSM DePaul Health CenterMcuwfrumer12-20-3801 History of Present illness Narrative* SILVIA Castañeda - 09/26/2024 10:10 AM EDT Reason for Appointment: Patient ID: Hannah Claire [...] of: Deep Salinas DO documented in this encounterSSM DePaul Health CenterDlymifdpwp44-86-0086 History of Present illness Narrative* Jackie Faustin LPN - 08/29/2024 8:50 AM EDT Reason for Appointment: Patient ID: Hannah Claire [...] nursing note reviewed. Exam conducted with a print support specialist present. Vitals: Estimated body mass index is [...] of Delivery: 12/16/24. Pt to return to [facility] for suboptimal visualization. Pt to return in 4 weeks for scheduled OB appt. Pt due date 12/15/24 based on ultrasound dating. Documented by Jackie Faustin LPN on behalf of: Deep Slainas DO documented in this encounterNOCenterpoint Medical CenterSlesanajhn23-01-3636 Telephone encounter Note* Telephone Encounter - Rosey Walter MA - 08/03/2024 1:20 PM EDT Hi, this is Hannah Claire. I was calling back about a voicemail I have from Dr. Salinas yesterday aboutmy ultrasound results and I just had some questions and things. I wanted to go over with that. So whenever he or nurse is available, I would appreciate a call back at [phone], thank you. Returned call. Pt had questions regarding scheduling with [facility]. Advised pt that [facility] will call her toschedule appt. Pt also wanting to discuss with Dr. Salinas regarding normal parameters of growth. Alsowanting to discuss possible causes of small growth for GA. Pt wanting to know if we can compare her previous baby's 20wk ultrasound to this baby as her previous child was also measuring small. Please advise. [facility] [id number] Miscellaneous Notes* Telephone Encounter - Rosey Walter MA - 08/03/2024 1:20 PM EDT Hi, this is Hannah Claire. I was calling back about a voicemail I have from Dr. Salinas yesterday aboutmy ultrasound results and I just had some questions and things. I wanted to go over with that. So whenever he or nurse is available, I would appreciate a call back at [phone], thank you. Returned call. Pt had questions regarding scheduling with [facility]. Advised pt that [facility] will call her toschedule appt. Pt also wanting to discuss with Dr. Salinas regarding normal parameters of growth. Alsowanting to discuss possible causes of small growth for GA. Pt wanting to know if we can compare her previous baby's 20wk ultrasound to this baby as her previous child was also measuring small. Please advise. documented in this encounterSSM DePaul Health CenterLaffngkscy07-14-9934 History of Present illness Narrative* Jackie Faustin LPN - 08/01/2024 10:40 AM EDT Reason for Appointment: Patient ID: Hannah Claire [...] nursing note reviewed. Exam conducted with a print support specialist present. Vitals: Estimated body mass index is [...] of: Deep Salinas DO documented in this encounterSSM DePaul Health CenterZjzatgsyvy44-35-0786 History of Present illness Narrative* Jackie Faustin LPN - 06/06/2024 10:20 AM EST Reason for Appointment: Patient ID: Hannah Claire [...] nursing note reviewed. Exam conducted with a print support specialist present. Vitals: Estimated body mass index is [...] or undercooked meat, and stay away from [facility]. Patient has been consulted regarding any further do's and don'tsof . Patient voiced understanding and all questions and concerns were answered. Orders Placed This Encounter Procedures POCT urinalysis dipstick manually resulted Follow Up: Patient is to return in 4 weeks for routine OB appointment. Documented by Jackie Faustin LPN on behalf of: Deep Salinas DO documented in this encounterSSM DePaul Health CenterLmymxjpzuv91-08-5333 History of Present illness Narrative* Tammilauren Rivers MA - 05/05/2024 9:30 AM EST Reason for Appointment: Patient ID: Hannah Claire [...] drink 6-8 glasses of water a day, eatno raw or undercooked meat, and stay away from [facility]. Patient has also been advised to not change litter boxes and eat 6 small meals a day. Patient has been consulted regarding the do's and don'ts ofpregnancy. Patient was given labs and all questions [...] by: Tammi Rivers MA documented in this encounterSSM DePaul Health CenterZzwqfpdxad06-66-3183 Evaluation note* Author Guy Mullen [facility] HospitalAuthoredMay 2023 12:25pmThe above note written by ___Shaye Cardoso____ acting as human recorder, note dictated by Dr. Almazan .I performed the above HPI, ROS, and Examination. I formulated and dictated the treatment plan and was present for entire encounter. Guy Mullen D.O. [facility] Work Phone: [phone] 322-228301-25-2024 Evaluation note* Encounter Date Diagnosis Assessment Notes Treatment Notes Treatment Clinical Notes Apr, Hyperglycemia (ICD-10 - R73.9) Anticipate that dietary changes and weight loss will help improve her blood sugar readings. Apr,Weight gain (ICD-10 - R63.5)Her weight in the office on 05/20/23 was 189 pounds. She needs to have lost another 2 pounds (total of 9 pounds) by the end of the third month in order to continue with the Adipex. She continues to do well on the medication and should continue to watch her intake of carbs and sugars. She states thatthe dry mouth continues to be a little bit of a problem but it is not as bad as it was. She is to stay well hydrated. She will return in one month for re-evaluation. She was provided with a refill today. Side effects/risks/benefits of medication were reviewed. Apr,OtherThis documentation is being amended on 05/26/23 due to an internal data corruption event that occurred on 05/20/23. This data corruption event was NOT the result of any breach, fraud, or malicious third green party actors and no personal patient information was compromised. [employer] Other 12-26-2023 Evaluation note* Encounter Date Diagnosis Assessment Notes Treatment Notes Treatment Clinical Notes Mar, Hyperglycemia (ICD-10 - R73.9) Anticipate that weight loss will help to improve her blood sugar. Mar,Weight gain (ICD-10 - R63.5)She has lost 8.2 pounds since last seen and is doing well on the Adipex. She needs to have lost 9 pounds by 3 months in order to continue with the Adipex so she has almost reached that goal. She voice s that feeling better and having more energy is her goal. She would like to continue with the Adipex. She is to return as scheduled in April (2023). Side effects/risks/benefits of medication were reviewed. She has had dry mouth from the Adipex but admits this is keeping her very hydrated and I did recommend she stay hydrated with plenty of water daily. She can tell that the medication is helping to decrease her appetite. She has decreased her portion size. Mar,Other3:55 PM - 4:00 PM [employer] Other 11-28-2023 Evaluation note* Encounter Date Diagnosis Assessment Notes Treatment Notes Treatment Clinical Notes Feb, Hyperglycemia (ICD-10 - R73.9) Discussed that her HgA1C has gone down from 5.6 to 5.5. She is encouraged to continue to monitor her intake of carbs and sugars. Stay active. Feb,Weight gain (ICD-10 - R63.5)She has gained four pounds since last seen. [...] Adipex to help with weight loss. Side effects/risks/benefits of medication were reviewed. She would have [...] then she can continue with the medicine. [employer] Other 07-18-2022 Evaluation note* Encounter Date Diagnosis Assessment Notes Treatment Notes Treatment Clinical Notes Oct, Wellness examination (ICD-10 - Z 00.00) She is here for a wellness exam today. After evaluation I did sign her wellness form. She voices that she had lab completed through her employer. I did ask her to send us a copy of the results. Oct,regnancy (ICD-10 - Z33.1)She is currently 32 weeks , she follows with Dr. Salinas for evaluation. She did fail her first glucose tolerance test but passed her second. I did explain to her that this puts her at higher ri sk for developing diabetes down the road. 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 Oct,Heartburn (ICD-10 - R12)She voices that she was prescribed above medication by Dr. Salinas her [facility]. [employer] Other 07-23-2013 History general Narrative - Reported* Type Description Date Medical History Meningitis/Menactra 11-15-12 [facility] Medical HistoryAdacel (Tdap) 11-15-12 SCHDSurgical Historywisdom teeth removed 2015 [employer] Other 07-23-2013 History general Narrative - Reported* Type Description Date Medical History Meningitis/Menactra 11-15-12 [facility] Medical HistoryAdacel (Tdap) 11-15-12 SCHDSurgical Historywisdom teeth removed 2015Hospitalization HistoryChildbirth12/28/2021 [place] Other Evaluation noteNo InformationNort [employer] Other Evaluation note* Diagnosis Onset Date Resolution Status Hyperglycemia acuteWeight gainacute [facility] Work Phone: Evalulaktw note* Diagnosis Missed menses 9 weeks gestation [...] of anatomy- Primary documented in this encounter [facility] SystemEvaluation note* Diagnosis Second trimester state, [...] diagnosis of hypertension documented in this encounter [facility]* Diagnosis Blood pressure check- Primary Screening for hypertension Pre-eclampsia, severe, antepartum, third trimester documented in this encounter [facility]Evaluation [facility]* Diagnosis hypertension- Primary History of severe pre-eclampsia documented [facility] encounter [facility]* Diagnosis hypertension- Primary History of severe pre-eclampsia documented in this encounter [facility] HospitalEvaluation [facility]* Diagnosis Onset Date Resolution Status Admit Date Pre-eclampsia acuteAugust 2024 9:54amWellness examinationacuteAugust 2024 9:54am [facility] Work Phone: Evaluation note* Diagnosis 6 weeks follow-up ([facility]) Spontaneous vaginal delivery ([facility]) Normal delivery control counseling documented in this encounter [facility] CenterInstructionsNot on filedocumented in this encounterProBerger Hospital SystemInstructionsNot on filedocumented in this encounterProBerger Hospital SystemInstructionsNot on filedocumented in this encounterProBerger Hospital SystemInstructionsNot on filedocumented in this encounterTriHealth [facility] System InstructionsNot on filedocumented in this encounterTriHealth [facility]hes[facility] System InstructionsNot on filedocumented in this encounterTriHealth Bethes[facility] Hospital SystemReason for referral (narrative)No reason for referral information availableOhiohealth Doctors Hospital Work Phone: Reason for visit Narrative* Consultation (Routine) - Pending ReviewSpecialtyDiagnoses / ProceduresReferred By ContactReferred To ContactObstetrics and Gynecology Diagnoses Pre-eclampsia, severe, antepartum, third trimester Lisa Verdugo MD [address] [facility] [place] [address] [place] [address] Phone: tel: fax: [facility] [address] [place] [address] Phone: tel: fax: Referral IDStatusReasonStart DateExpiration DateVisits RequestedVisits [id number] Review/ [facility] Summary Purpose Family History No Family History Records Found Relationship Condition Age at Onset Recorded Date/T tommy grandparent Unknown Not SpecifiedMalignant [id number] Relationship Condition Age at Onset Recorded Date/T tommy grandparent Unknown maternal grandmotherMalignant Advance Directives No Advanced Directives Records Found Advance Directive Response Recorded Date/ Time Advance Directives No May 20, 2023 1:31pm Date ActivatedDate InactivatedComments11/08/2024 11:06 PM11/14/2024 6:22 PMDate ActivatedDate InactivatedComments11/08/2024 11:06 PM11/14/2024 6:22 PM Chief Complaint and Reason for Visit Chief Complaint med refill Adipex Reason for Visit Hyperglycemia Weight gain Chief Complaint med refill Adipex med refill AdipexReason for VisitHyperglycemia Weight gain Hyperglycemia Lumbar pain Weight gain Chief Complaint Admit Date wellness visit December 20, 2024 9: 54am Reason for Visit Admit Date Pre-eclampsia December 20, 2024 9: 54am Wellness examination December 20, 2024 9 :54am Additional Source Comments REASON FOR VISIT (unrecogniz ed section and content) ReasonCommentsAmenorrheaReasonCommentsRoutine VisitReasonComments CareReasonCommentsPostpartum CarePt present today for a 6 week post visit. Pt delivered on 11/09/2024 at [facility] in [place]. INFORMATION SOURCE (unrecogn ized section and content) DATE CREATED AUTHOR 09/10/2022 [facility] DATE CREATED AUTHOR AUTHOR'S ORGANIZ ATION 08/18/2024 [facility] DATE CREATED AUTHOR AUTHOR'S ORGANIZ ATION 09/22/2024 [facility] DATE CREATED AUTHOR AUTHOR'S ORGANIZ ATION 12/03/2024 [facility] DATE CREATED AUTHOR AUTHOR'S ORGANIZ ATION 01/05/2025 [facility] EPIC Care Teams (unrecognized sec tion and content) Team Status: Active Member Role Status Dates Guy Mullen DO Primary Care Provider Active Team Status: Active Member Role Status Dates Guy Mullen DO Primary Care Provider Active S tart: November 08, 2024 Lashae Hughes ProviderActiveStart: November 08, 2024 Team Status: Inactive Member Role Status Dates Guy Mullen DO Primary Care Provider Active S tart: December 20, 2024 End: December 20, 2024Guy Mullen DOAttending ProviderActiveStart: December 20, 2024 End: December 20, 2024 Team Status: Inactive Member Role Status Dates Guy Mullen DO Primary Care Provide r, Attending Provider Active Start: September 23, 2023 End: September 23, 2023 Team Status: Inactive Member Role Status Dates Guy Mullen DO Primary Care Provide r, Attending Provider Active Start: December 21, 2023 End: December 21, 2023Team MemberRelationshipSpecialtyStart DateEnd Date Guy Mullen MD [address] [place] [address] PCP - General24Team MemberRelationshipSpecialtyStart DateEnd Date Guy Mullen MD [address] [place] [address] PCP - General24Team MemberRelationshipSpecialtyStart DateEnd Date Guy Mullen MD [address] [place] [address] PCP - General09/16/23Team MemberRelationshipSpecialtyStart DateEnd Date Guy Mullen MD [address] [place] [address] PCP - General24Team MemberRelationshipSpecialtyStart DateEnd Date Guy Mullen MD [address] [place] [address] PCP - General524Team MemberRelationshipSpecialtyStart DateEnd Date Guy Mullen MD [address] [place] [address] PCP - General524Team MemberRelationshipSpecialtyStart DateEnd Date Guy Mullen MD [address] [place] [address] [place] [address] PCP - General5/23/24Team MemberRelationshipSpecialtyStart DateEnd Date Guy Mullen MD [address] [place] [address] [place] [address] PCP - General5/23/24Team MemberRelationshipSpecialtyStart DateEnd Date Guy Mullen MD [address] [place] [address] [place] [address] PCP - General5/23/24Team MemberRelationshipSpecialtyStart DateEnd Date Guy Mullen MD [address] [place] [address] [place] [address] PCP - General5/23/24Team MemberRelationshipSpecialtyStart DateEnd Date Guy Mullen MD [address] [place] [address] [place] [address] PCP - General5/23/24Team MemberRelationshipSpecialtyStart DateEnd Date Guy Mullen MD [address] [place] [address] [place] [address] PCP - General5/23/24Team MemberRelationshipSpecialtyStart DateEnd Date Guy Mullen MD [address] [place] [address] [place] [address] PCP - General5/23/24Team MemberRelationshipSpecialtyStart DateEnd Date Guy Mullen MD [address] [place] [address] [place] [address] PCP - General09/16/23 Goals (unrecognized section and content) Goals may [...] BE BASED ON THE PRIMARY CLINICAL RECORDS. [facility] [employer] [facility]. provides no warranty or guarantee of the accuracy or completeness of information in this document.
[2025-03-07 13:10] LABS: Age Gdln ACOG Testing Note (.); IGP, Aptima HPV, rfx 16/18,45 Note (.)
== END 2025-03-05 13:35 | disposition home or self-care (01) ==
LOC: LAB 13:34
PROVIDERS: PCP Family Medicine; Visit Provider Obstetrics & Gynecology
DX: Z01.419 Encounter for gynecological examination (general) (routine) without abnormal findings (principal)
CPT/HCPCS: 87624; 88175